=== PATIENT | male | born 1945 | race Caucasian/White ===

== ENCOUNTER → 2020-04-04 14:31 | Outpatient (BNVA) | payer MEDICARE, SELFPAY | PROVIDERS: PCP Internal Medicine; Referring Provider Internal Medicine; Visit Provider Nurse Practitioner Gerontology | DX: E11.42 Type 2 diabetes mellitus with diabetic polyneuropathy (principal); I10 Essential (primary) hypertension; E78.5 Hyperlipidemia, unspecified; Z79.4 Long term (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 insulin | CPT/HCPCS: 82947; 99214 ==

== ENCOUNTER 2020-05-20 08:59 | Outpatient (REF) | payer MEDICARE, SELFPAY ==
[2020-05-20 09:49] LABS: MANUAL DIFF FLAG NO
[2020-05-20 09:51] LABS: Basophils Absolute Auto 0.1 X10*3/uL (0.0-0.2); Basophils Percent Auto 0.8 % (0-2); Eosinophils Absolute Auto 0.4 X10*3/uL (0.0-0.4); Eosinophils Percent Auto 4.6 % (0-4); Hematocrit 49.3 % (42-52); Hemoglobin 17.1 g/dl (14.0-18.0); Imm Gran Abs Auto 0.01 X10*3/uL (0.00-0.03); Imm Gran Pct Auto 0.1 % (0.0-0.4); Lymphocytes Absolute Auto 3.6 X10*3/uL (1.2-4.9); Lymphocytes Percent Auto 39.8 % (20-40); Mean Corpuscular HGB Conc 34.7 g/dl (31.0-36.0); Mean Corpuscular Hemoglobin 32.6 pg (27.0-33.0); Mean Corpuscular Volume 93.9 fL (80-98); Mean Platelet Volume 9.2 fL (9.4-12.4); Monocytes Absolute Auto 0.8 X10*3/uL (0.1-1.2); Monocytes Percent Auto 9.2 % (2-11); Neutrophils Absolute Auto 4.1 X10*3/uL (2.0-8.3); Neutrophils Percent Auto 45.5 % (45-73); Platelet Count 191 X10*3/uL (160-400); Red Blood Count 5.25 X10*6/uL (4.60-5.80); Red Cell Distribution Width 12.3 % (11.0-16.0)
[2020-05-20 10:00] LABS: Glucose Urine UA 500 MG/DL (NEG); Leukocyte Esterase Urine NEG (NEG); Nitrite Urine NEG (NEG); PH 5.5 (5.0-8.0); Specific Gravity - Urine 1.015 (1.005-1.025); Urine Blood NEG (NEG); Urine Ketones NEG (NEG); Urine Protein NEG (NEG-TRACE)
[2020-05-20 10:03] LABS: Color Urine YELLOW
[2020-05-20 10:04] LABS: Appearance Urine CLEAR
[2020-05-20 10:07] LABS: Estimated Average Glucose 174 mg/dL; Hemoglobin A1c % 7.7 %
[2020-05-20 10:10] LABS: RBC Urine 0 /HPF (0); WBC Urine 0 /HPF (0-4)
[2020-05-20 10:14] LABS: Alanine Aminotransferase 17 U/L (0-40); Albumin Level 4.5 g/dL (3.5-5.0); Alkaline Phosphatase 96 U/L (39-117); Anion Gap 18 (12-20); Aspartate Amino Transferase 20 U/L (5-37); Bilirubin Total 1.2 mg/dL (0.0-1.0); Blood Urea Nitrogen 28 mg/dL (9-16); Calcium 9.5 mg/dL (8.4-10.2); Carbon Dioxide 26 mmol/L (22-29); Chloride 101 mmol/L (96-108); Cholesterol 101 mg/dL; Estimated Glomerular Filt Rate > 60; Glucose Fasting 131 mg/dL (60-99); HDL Cholesterol 35 mg/dL; LDL Cholesterol Calculated 48 mg/dl; Potassium 4.7 mmol/l (3.3-5.1); Sodium 140 mmol/L (135-145); Total Protein 7.1 g/dL (6.5-8.0); Triglycerides 90 mg/dL
[2020-05-20 10:25] LABS: Microalbumin Urine < 5.0 mg/L
[2020-05-20 10:30] LABS: TSH reflex Free T4 2.87 mIU/mL (0.32-4.0)
== END 2020-05-20 09:00 | disposition home or self-care (01) ==
LOC: HO.LAB 08:59
PROVIDERS: PCP Internal Medicine; Visit Provider Internal Medicine
DX: I25.10 Atherosclerotic heart disease of native coronary artery without angina pectoris (principal); E11.9 Type 2 diabetes mellitus without complications; I10 Essential (primary) hypertension; E78.5 Hyperlipidemia, unspecified; I48.0 Paroxysmal atrial fibrillation; E66.9 Obesity, unspecified
CPT/HCPCS: 36415; 80053; 80061; 81001; 82043; 83036; 84443; 85025

== ENCOUNTER → 2020-07-10 12:39 | Outpatient (BNVA) | payer MEDICARE, SELFPAY | PROVIDERS: PCP Internal Medicine; Visit Provider Nurse Practitioner Gerontology | DX: E11.42 Type 2 diabetes mellitus with diabetic polyneuropathy (principal); I10 Essential (primary) hypertension; E78.5 Hyperlipidemia, unspecified; Z79.4 Long term (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 insulin | CPT/HCPCS: Q3014 ==

== ENCOUNTER 2020-07-19 | Outpatient (REF) | payer MEDICARE, SELFPAY | END 2020-07-19 00:01 | disposition home or self-care (01) | LOC: HO.VC | PROVIDERS: Visit Provider Internal Medicine | DX: Z23 Encounter for immunization (principal) | CPT/HCPCS: 0011A ==

== ENCOUNTER 2020-07-27 12:45 | Outpatient (REF) | payer MEDICARE, SELFPAY ==
--- NOTE | ~2020-07-27 | XR_ITS ---
EXAMINATION: XR CHEST CLINICAL INFORMATION: Aortic coronary bypass graft placement. COMPARISON: Chest 11/11/2018 TECHNIQUE: 2 views of the chest were obtained. FINDINGS: The lungs are well-expanded and clear of acute process. The heart size and pulmonary vascularity is normal. There are median sternotomy sutures and mediastinal melanie from previous intervention. No gross bony abnormality seen. XR/XR chest 2V IMPRESSION: Unremarkable chest exam.
== END 2020-07-27 12:46 | disposition home or self-care (01) ==
LOC: HO.XRAY 12:45
PROVIDERS: PCP Internal Medicine; Visit Provider Internal Medicine
DX: I25.10 Atherosclerotic heart disease of native coronary artery without angina pectoris (principal); I10 Essential (primary) hypertension; E78.5 Hyperlipidemia, unspecified; Z79.82 Long term (current) use of aspirin; Z79.899 Other long term (current) drug therapy; Z86.79 Personal history of other diseases of the circulatory system; Z95.1 Presence of aortocoronary bypass graft
CPT/HCPCS: 71046; 93005; 99212

== ENCOUNTER 2020-08-16 | Outpatient (REF) | payer MEDICARE, SELFPAY | END 2020-08-16 00:01 | disposition home or self-care (01) | LOC: HO.VC | PROVIDERS: Visit Provider Internal Medicine | DX: Z23 Encounter for immunization (principal) | CPT/HCPCS: 0012A ==

== ENCOUNTER 2020-08-24 09:58 | Outpatient (REF) | payer MEDICARE, SELFPAY ==
[2020-08-24 10:47] LABS: MANUAL DIFF FLAG NO
[2020-08-24 10:49] LABS: Basophils Absolute Auto 0.1 X10*3/uL (0.0-0.2); Basophils Percent Auto 0.8 % (0-2); Eosinophils Absolute Auto 0.3 X10*3/uL (0.0-0.4); Eosinophils Percent Auto 4.5 % (0-4); Hematocrit 48.8 % (42-52); Hemoglobin 16.5 g/dl (14.0-18.0); Imm Gran Abs Auto 0.02 X10*3/uL (0.00-0.03); Imm Gran Pct Auto 0.3 % (0.0-0.4); Lymphocytes Percent Auto 39.6 % (20-40); Mean Corpuscular HGB Conc 33.8 g/dl (31.0-36.0); Mean Corpuscular Hemoglobin 32.4 pg (27.0-33.0); Mean Corpuscular Volume 95.7 fL (80-98); Mean Platelet Volume 9.3 fL (9.4-12.4); Monocytes Absolute Auto 0.6 X10*3/uL (0.1-1.2); Monocytes Percent Auto 7.3 % (2-11); Neutrophils Absolute Auto 3.6 X10*3/uL (2.0-8.3); Neutrophils Percent Auto 47.5 % (45-73); Platelet Count 175 X10*3/uL (160-400); Red Cell Distribution Width 12.3 % (11.0-16.0); White Blood Count 7.5 X10*3/uL (4.8-10.8)
[2020-08-24 11:06] LABS: Glucose Urine UA >=1000 MG/DL (NEG); Leukocyte Esterase Urine NEG (NEG); Nitrite Urine NEG (NEG); Urine Blood NEG (NEG); Urine Ketones NEG (NEG); Urine Protein NEG (NEG-TRACE)
[2020-08-24 11:11] LABS: Appearance Urine CLEAR; Color Urine YELLOW
[2020-08-24 11:18] LABS: Alanine Aminotransferase 16 U/L (0-40); Albumin Level 4.3 g/dL (3.5-5.0); Alkaline Phosphatase 88 U/L (39-117); Anion Gap 11 (12-20); Aspartate Amino Transferase 19 U/L (5-37); Bilirubin Total 0.7 mg/dL (0.0-1.0); Blood Urea Nitrogen 25 mg/dL (9-16); Calcium 9.2 mg/dL (8.4-10.2); Carbon Dioxide 30 mmol/L (22-29); Chloride 106 mmol/L (96-108); Cholesterol 116 mg/dL; Estimated Glomerular Filt Rate > 60; Glucose Fasting 153 mg/dL (60-99); HDL Cholesterol 33 mg/dL; LDL Cholesterol Calculated 62 mg/dl; Potassium 4.1 mmol/L (3.3-5.1); Sodium 143 mmol/L (135-145); Total Protein 6.5 g/dL (6.5-8.0); Triglycerides 107 mg/dL
[2020-08-24 11:28] LABS: TSH reflex Free T4 1.75 uIU/mL (0.32-4.0)
[2020-08-24 11:29] LABS: Creatinine Urine 32.61 mg/dL; Microalbumin Urine < 5.0 mg/L
[2020-08-24 11:38] LABS: Estimated Average Glucose 166 mg/dL; Hemoglobin A1c % 7.4 %
[2020-08-24 12:43] LABS: RBC Urine 0 /HPF (0); WBC Urine 0 /HPF (0-4)
== END 2020-08-24 09:59 | disposition home or self-care (01) ==
LOC: HO.LAB 09:58
PROVIDERS: PCP Internal Medicine; Visit Provider Internal Medicine
DX: I10 Essential (primary) hypertension (principal); I25.10 Atherosclerotic heart disease of native coronary artery without angina pectoris; I48.0 Paroxysmal atrial fibrillation; E11.42 Type 2 diabetes mellitus with diabetic polyneuropathy; E78.00 Pure hypercholesterolemia, unspecified; E66.9 Obesity, unspecified; Z79.4 Long term (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 insulin
CPT/HCPCS: 36415; 80053; 80061; 81001; 81003; 82043; 83036; 84443; 85025

== ENCOUNTER → 2020-10-09 14:19 | Outpatient (BNVA) | payer MEDICARE, SELFPAY | PROVIDERS: PCP Internal Medicine; Visit Provider Nurse Practitioner Gerontology | DX: E11.42 Type 2 diabetes mellitus with diabetic polyneuropathy (principal); Z79.4 Long term (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 insulin; I10 Essential (primary) hypertension; E78.5 Hyperlipidemia, unspecified | CPT/HCPCS: 82947; 99212 ==

== ENCOUNTER 2020-11-24 06:25 | Outpatient (REF) | payer MEDICARE, SELFPAY ==
[2020-11-24 07:39] LABS: MANUAL DIFF FLAG NO
[2020-11-24 07:44] LABS: Basophils Absolute Auto 0.1 X10*3/uL (0.0-0.2); Basophils Percent Auto 0.8 % (0-2); Eosinophils Absolute Auto 0.6 X10*3/uL (0.0-0.4); Eosinophils Percent Auto 7.4 % (0-4); Hematocrit 47.3 % (42-52); Hemoglobin 15.9 g/dl (14.0-18.0); Imm Gran Abs Auto 0.01 X10*3/uL (0.00-0.03); Imm Gran Pct Auto 0.1 % (0.0-0.4); Lymphocytes Absolute Auto 3.6 X10*3/uL (1.2-4.9); Lymphocytes Percent Auto 44.9 % (20-40); Mean Corpuscular HGB Conc 33.6 g/dl (31.0-36.0); Mean Corpuscular Hemoglobin 31.9 pg (27.0-33.0); Mean Corpuscular Volume 94.8 fL (80-98); Mean Platelet Volume 9.3 fL (9.4-12.4); Monocytes Absolute Auto 0.8 X10*3/uL (0.1-1.2); Monocytes Percent Auto 10.2 % (2-11); Neutrophils Absolute Auto 2.9 X10*3/uL (2.0-8.3); Neutrophils Percent Auto 36.6 % (45-73); Platelet Count 174 X10*3/uL (160-400); Red Blood Count 4.99 X10*6/uL (4.60-5.80); Red Cell Distribution Width 12.6 % (11.0-16.0)
[2020-11-24 08:03] LABS: Alanine Aminotransferase 17 U/L (0-40); Albumin Level 4.3 g/dL (3.5-5.0); Alkaline Phosphatase 82 U/L (39-117); Anion Gap 13 (12-20); Aspartate Amino Transferase 23 U/L (5-37); Bilirubin Total 0.9 mg/dL (0.0-1.0); Blood Urea Nitrogen 29 mg/dL (9-16); Calcium 9.6 mg/dL (8.4-10.2); Carbon Dioxide 31 mmol/L (22-29); Chloride 105 mmol/L (96-108); Cholesterol 110 mg/dL; Estimated Glomerular Filt Rate > 60; Glucose Fasting 103 mg/dL (60-99); HDL Cholesterol 30 mg/dL; LDL Cholesterol Calculated 63 mg/dl; Potassium 4.5 mmol/L (3.3-5.1); Sodium 144 mmol/L (135-145); Total Protein 6.5 g/dL (6.5-8.0); Triglycerides 88 mg/dL
[2020-11-24 08:23] LABS: Estimated Average Glucose 174 mg/dL; Hemoglobin A1c % 7.7 %
[2020-11-24 08:26] LABS: TSH reflex Free T4 1.56 uIU/mL (0.32-4.0)
[2020-11-24 08:50] LABS: Glucose Urine UA >=1000 MG/DL (NEG); Leukocyte Esterase Urine NEG (NEG); Nitrite Urine NEG (NEG); PH 5.5 (5.0-8.0); Urine Blood NEG (NEG); Urine Ketones NEG (NEG); Urine Protein NEG (NEG-TRACE)
[2020-11-24 08:52] LABS: Appearance Urine CLEAR; Color Urine YELLOW
[2020-11-24 09:09] LABS: RBC Urine 0 /HPF (0); Squamous Epithelial Cell Urine TRACE /LPF; WBC Urine 0 /HPF (0-4)
[2020-11-24 09:24] LABS: Creatinine Urine 18.28 mg/dL; Microalbumin Urine < 5.0 mg/L
== END 2020-11-24 06:26 | disposition home or self-care (01) ==
LOC: HO.LAB 06:25
PROVIDERS: PCP Internal Medicine; Visit Provider Internal Medicine
DX: E11.42 Type 2 diabetes mellitus with diabetic polyneuropathy (principal); I10 Essential (primary) hypertension; E78.00 Pure hypercholesterolemia, unspecified; I25.10 Atherosclerotic heart disease of native coronary artery without angina pectoris; E66.9 Obesity, unspecified; I48.0 Paroxysmal atrial fibrillation; Z79.4 Long term (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 insulin
CPT/HCPCS: 36415; 80053; 80061; 81001; 82043; 83036; 84443; 85025

== ENCOUNTER → 2021-01-10 14:56 | Outpatient (BNVA) | payer MEDICARE, SELFPAY | PROVIDERS: PCP Internal Medicine; Visit Provider Nurse Practitioner Gerontology | DX: E11.42 Type 2 diabetes mellitus with diabetic polyneuropathy (principal); I10 Essential (primary) hypertension; E78.5 Hyperlipidemia, unspecified; Z79.4 Long term (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 insulin | CPT/HCPCS: 82947; 99212 ==

== ENCOUNTER 2021-05-23 12:32 | Outpatient (REF) | payer MEDICARE, SELFPAY ==
[2021-05-23 14:08] LABS: Alanine Aminotransferase 26 U/L (0-40); Albumin Level 4.3 g/dL (3.5-5.0); Alkaline Phosphatase 79 U/L (39-117); Anion Gap 14 (12-20); Aspartate Amino Transferase 34 U/L (5-37); Bilirubin Total 0.9 mg/dL (0.0-1.0); Blood Urea Nitrogen 24 mg/dL (9-16); Calcium 9.7 mg/dL (8.4-10.2); Carbon Dioxide 25 mmol/L (22-29); Chloride 104 mmol/L (96-108); Cholesterol 92 mg/dL; Estimated Glomerular Filt Rate > 60; Glucose Fasting 253 mg/dL (60-99); HDL Cholesterol 32 mg/dL; LDL Cholesterol Calculated 42 mg/dl; Potassium 4.3 mmol/L (3.3-5.1); Sodium 139 mmol/L (135-145); Total Protein 6.8 g/dL (6.5-8.0); Triglycerides 93 mg/dL
[2021-05-23 14:27] LABS: Appearance Urine CLEAR; Color Urine STRAW; Glucose Urine UA >=1000 MG/DL (NEG); Leukocyte Esterase Urine NEG (NEG); Nitrite Urine NEG (NEG); PH 5.5 (5.0-8.0); Urine Blood NEG (NEG); Urine Ketones NEG (NEG); Urine Protein NEG (NEG-TRACE)
[2021-05-23 14:32] LABS: TSH reflex Free T4 1.04 uIU/mL (0.32-4.0)
[2021-05-23 14:43] LABS: RBC Urine 0 /HPF (0); WBC Urine 0 /HPF (0-4)
[2021-05-23 14:45] LABS: Creatinine Urine 24.38 mg/dL; Microalbumin Urine < 5.0 mg/L
== END 2021-05-23 12:33 | disposition home or self-care (01) ==
LOC: HO.LAB 12:32
PROVIDERS: Visit Provider Internal Medicine
DX: E11.42 Type 2 diabetes mellitus with diabetic polyneuropathy (principal); I10 Essential (primary) hypertension; E78.00 Pure hypercholesterolemia, unspecified; I25.10 Atherosclerotic heart disease of native coronary artery without angina pectoris; E66.9 Obesity, unspecified; I48.0 Paroxysmal atrial fibrillation; Z79.4 Long term (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 insulin
CPT/HCPCS: 36415; 80053; 80061; 81001; 82043; 84443

== ENCOUNTER → 2021-05-29 13:56 | Outpatient (BNVA) | payer MEDICARE, SELFPAY | PROVIDERS: PCP Internal Medicine; Visit Provider Nurse Practitioner Gerontology | DX: E11.42 Type 2 diabetes mellitus with diabetic polyneuropathy (principal); E78.5 Hyperlipidemia, unspecified; I10 Essential (primary) hypertension; Z79.4 Long term (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 insulin | CPT/HCPCS: 82947; 83036; 99212 ==

== ENCOUNTER → 2021-07-31 13:52 | Outpatient (BNVA) | payer MEDICARE, SELFPAY | PROVIDERS: PCP Internal Medicine; Referring Provider Internal Medicine; Visit Provider Internal Medicine | DX: I25.10 Atherosclerotic heart disease of native coronary artery without angina pectoris (principal); I48.0 Paroxysmal atrial fibrillation; I47.1 Supraventricular tachycardia; I10 Essential (primary) hypertension; E78.5 Hyperlipidemia, unspecified; Z79.82 Long term (current) use of aspirin; Z79.899 Other long term (current) drug therapy; Z95.1 Presence of aortocoronary bypass graft | CPT/HCPCS: 93005; 99212 ==

== ENCOUNTER 2021-11-19 11:40 | Outpatient (REF) | payer MEDICARE, SELFPAY ==
[2021-11-19 12:16] LABS: MANUAL DIFF FLAG NO
[2021-11-19 13:06] LABS: Appearance Urine CLEAR; Color Urine YELLOW; Glucose Urine UA >=1000 MG/DL (NEG); Leukocyte Esterase Urine NEG (NEG); Nitrite Urine NEG (NEG); PH 5.5 (5.0-8.0); Urine Blood NEG (NEG); Urine Ketones NEG (NEG); Urine Protein NEG (NEG-TRACE)
[2021-11-19 13:06] LABS: Basophils Absolute Auto 0.1 X10*3/uL (0.0-0.2); Basophils Percent Auto 0.7 % (0-2); Eosinophils Absolute Auto 0.6 X10*3/uL (0.0-0.4); Eosinophils Percent Auto 7.2 % (0-4); Hemoglobin 16.5 g/dl (14.0-18.0); Imm Gran Abs Auto 0.02 X10*3/uL (0.00-0.03); Imm Gran Pct Auto 0.2 % (0.0-0.4); Lymphocytes Absolute Auto 2.6 X10*3/uL (1.2-4.9); Lymphocytes Percent Auto 30.9 % (20-40); Mean Corpuscular HGB Conc 34.4 g/dl (31.0-36.0); Mean Corpuscular Hemoglobin 32.2 pg (27.0-33.0); Mean Corpuscular Volume 93.8 fL (80.0-98.0); Mean Platelet Volume 9.2 fL (9.4-12.4); Monocytes Absolute Auto 0.7 X10*3/uL (0.1-1.2); Monocytes Percent Auto 7.9 % (2-11); Neutrophils Absolute Auto 4.5 x10*3/uL (2.0-8.3); Neutrophils Percent Auto 53.1 % (45-73); Platelet Count 202 X10*3/uL (160-400); Red Blood Count 5.12 X10*6/uL (4.60-5.80); White Blood Count 8.5 X10*3/uL (4.8-10.8)
[2021-11-19 13:30] LABS: Estimated Average Glucose 163 mg/dL; Hemoglobin A1c % 7.3 %
[2021-11-19 13:33] LABS: Creatinine Urine 15.57 mg/dL; Microalbumin Urine < 5.0 mg/L
[2021-11-19 13:42] LABS: Alanine Aminotransferase 17 U/L (0-40); Albumin Level 4.2 g/dL (3.5-5.0); Alkaline Phosphatase 152 U/L (39-117); Anion Gap 13 (12-20); Aspartate Amino Transferase 19 U/L (5-37); Bilirubin Total 0.8 mg/dL (0.0-1.0); Blood Urea Nitrogen 22 mg/dL (9-16); Calcium 9.5 mg/dL (8.4-10.2); Carbon Dioxide 25 mmol/L (22-29); Chloride 103 mmol/L (96-108); Cholesterol 98 mg/dL; Estimated Glomerular Filt Rate > 60; Glucose Fasting 210 mg/dL (60-99); HDL Cholesterol 35 mg/dL; LDL Cholesterol Calculated 45 mg/dl; Potassium 4.2 mmol/L (3.3-5.1); Sodium 137 mmol/L (135-145); Total Protein 6.7 g/dL (6.5-8.0); Triglycerides 94 mg/dL
[2021-11-19 13:55] LABS: TSH reflex Free T4 0.93 uIU/mL (0.32-4.0); Vitamin D 25-OH Total 34.5 ng/mL (>30)
[2021-11-19 13:56] LABS: RBC Urine 0-2 /HPF (0); WBC Urine 0 /HPF (0-4)
== END 2021-11-19 11:41 | disposition home or self-care (01) ==
LOC: HO.LAB 11:40
PROVIDERS: PCP Internal Medicine; Visit Provider Internal Medicine
DX: I25.10 Atherosclerotic heart disease of native coronary artery without angina pectoris (principal); I48.0 Paroxysmal atrial fibrillation; E78.00 Pure hypercholesterolemia, unspecified; E11.9 Type 2 diabetes mellitus without complications; E55.9 Vitamin D deficiency, unspecified
CPT/HCPCS: 36415; 80053; 80061; 81001; 81003; 82043; 82306; 83036; 84443; 85025

== ENCOUNTER 2022-03-15 09:13 | Outpatient (REF) | payer MEDICARE, SELFPAY ==
[2022-03-15 09:30] LABS: MANUAL DIFF FLAG NO
[2022-03-15 09:52] LABS: Basophils Absolute Auto 0.1 X10*3/uL (0.0-0.2); Basophils Percent Auto 0.9 % (0-2); Eosinophils Absolute Auto 0.8 X10*3/uL (0.0-0.4); Hematocrit 51.7 % (42.0-52.0); Hemoglobin 17.5 g/dl (14.0-18.0); Imm Gran Abs Auto 0.01 X10*3/uL (0.00-0.03); Imm Gran Pct Auto 0.1 % (0.0-0.4); Mean Corpuscular HGB Conc 33.8 g/dl (31.0-36.0); Mean Corpuscular Hemoglobin 31.8 pg (27.0-33.0); Mean Corpuscular Volume 93.8 fL (80.0-98.0); Monocytes Absolute Auto 0.8 X10*3/uL (0.1-1.2); Monocytes Percent Auto 9.7 % (2-11); Neutrophils Absolute Auto 3.4 x10*3/uL (2.0-8.3); Neutrophils Percent Auto 42.3 % (45-73); Platelet Count 185 X10*3/uL (160-400); Red Blood Count 5.51 X10*6/uL (4.60-5.80); Red Cell Distribution Width 12.4 % (11.0-16.0); White Blood Count 8.1 X10*3/uL (4.8-10.8)
[2022-03-15 09:59] LABS: Estimated Average Glucose 160 mg/dL; Hemoglobin A1c % 7.2 %
[2022-03-15 10:11] LABS: Appearance Urine Clear; Color Urine Yellow; Glucose Urine UA >=1000 mg/dL (Negative); Leukocyte Esterase Urine Negative (Negative); Nitrite Urine Negative (Negative); PH 5.5 (5.0-9.0); Specific Gravity - Urine 1.015 (1.005-1.025); UMIC TRIGGER UACC YES; Urine Blood Negative (Negative); Urine Ketones Negative (Negative); Urine Protein Negative (Neg-Trace)
[2022-03-15 10:39] LABS: Creatinine Urine 17.84 mg/dL; Microalbumin Urine < 5.0 mg/L
[2022-03-15 10:50] LABS: Alanine Aminotransferase 27 U/L (0-40); Albumin Level 4.5 g/dL (3.5-5.0); Alkaline Phosphatase 131 U/L (39-117); Anion Gap 17 (12-20); Aspartate Amino Transferase 22 U/L (5-37); Bilirubin Total 0.5 mg/dL (0.0-1.0); Blood Urea Nitrogen 24 mg/dL (9-16); Calcium 9.6 mg/dL (8.4-10.2); Carbon Dioxide 28 mmol/L (22-29); Chloride 103 mmol/L (96-108); Cholesterol 118 mg/dL; Estimated Glomerular Filt Rate > 60; Glucose Fasting 185 mg/dL (60-99); HDL Cholesterol 38 mg/dL; LDL Cholesterol Calculated 66 mg/dl; Potassium 4.8 mmol/L (3.3-5.1); Sodium 143 mmol/L (135-145); Total Protein 7.1 g/dL (6.5-8.0); Triglycerides 71 mg/dL
[2022-03-15 11:11] LABS: TSH reflex Free T4 1.75 uIU/mL (0.32-4.0); Vitamin D 25-OH Total 29.9 ng/mL (>30)
[2022-03-15 11:50] LABS: Bacteria Urine None Seen (None Seen); Hyaline Casts Urine 0-2 /LPF (0-2); RBC Urine 0-2 /HPF (0-2); Squamous Epithelial Cell Urine 0-2 /HPF (0-2); WBC Urine 0-5 /HPF (0-5)
== END 2022-03-15 09:14 | disposition home or self-care (01) ==
LOC: HO.LAB 09:13
PROVIDERS: PCP Internal Medicine; Visit Provider Internal Medicine
DX: E78.00 Pure hypercholesterolemia, unspecified (principal); E11.9 Type 2 diabetes mellitus without complications; E55.9 Vitamin D deficiency, unspecified; I10 Essential (primary) hypertension
CPT/HCPCS: 36415; 80053; 80061; 81001; 81003; 82043; 82306; 83036; 84443; 85025

== ENCOUNTER 2022-07-15 08:33 | Outpatient (REF) | payer MEDICARE, SELFPAY ==
[2022-07-15 08:54] LABS: MANUAL DIFF FLAG NO
[2022-07-15 09:42] LABS: Appearance Urine Clear; Color Urine Yellow; Glucose Urine UA >=1000 mg/dL (Negative); Leukocyte Esterase Urine Negative (Negative); Nitrite Urine Negative (Negative); PH 5.5 (5.0-9.0); Specific Gravity - Urine >= 1.030 (1.005-1.025); UMIC TRIGGER UACC YES; Urine Blood Negative (Negative); Urine Ketones Negative (Negative); Urine Protein Negative (Neg-Trace)
[2022-07-15 09:46] LABS: Bacteria Urine None Seen (None Seen); Hyaline Casts Urine 0-2 /LPF (0-2); RBC Urine 0-2 /HPF (0-2); Squamous Epithelial Cell Urine 0-2 /HPF (0-2); WBC Urine 0-5 /HPF (0-5)
[2022-07-15 09:52] LABS: Basophils Absolute Auto 0.1 X10*3/uL (0.0-0.2); Basophils Percent Auto 0.8 % (0-2); Eosinophils Absolute Auto 0.5 X10*3/uL (0.0-0.4); Eosinophils Percent Auto 6.6 % (0-4); Hematocrit 47.8 % (42.0-52.0); Hemoglobin 16.3 g/dl (14.0-18.0); Imm Gran Abs Auto 0.02 X10*3/uL (0.00-0.03); Imm Gran Pct Auto 0.3 % (0.0-0.4); Lymphocytes Absolute Auto 3.1 X10*3/uL (1.2-4.9); Lymphocytes Percent Auto 38.3 % (20-40); Mean Corpuscular HGB Conc 34.1 g/dl (31.0-36.0); Mean Corpuscular Hemoglobin 31.7 pg (27.0-33.0); Mean Corpuscular Volume 92.8 fL (80.0-98.0); Mean Platelet Volume 9.4 fL (9.4-12.4); Monocytes Absolute Auto 0.7 X10*3/uL (0.1-1.2); Monocytes Percent Auto 8.4 % (2-11); Neutrophils Absolute Auto 3.7 x10*3/uL (2.0-8.3); Neutrophils Percent Auto 45.6 % (45-73); Platelet Count 181 X10*3/uL (160-400); Red Blood Count 5.15 X10*6/uL (4.60-5.80); Red Cell Distribution Width 12.3 % (11.0-16.0)
[2022-07-15 10:12] LABS: Creatinine Urine 73.81 mg/dL; Microalbum/Creatinine Ratio Ur 8.1 ug/mg cr
[2022-07-15 10:28] LABS: Estimated Average Glucose 180 mg/dL; Hemoglobin A1c % 7.9 %
[2022-07-15 10:35] LABS: Alanine Aminotransferase 20 U/L (0-40); Albumin Level 4.1 g/dL (3.5-5.0); Alkaline Phosphatase 105 U/L (39-117); Anion Gap 12 (12-20); Aspartate Amino Transferase 20 U/L (5-37); Bilirubin Total 0.6 mg/dL (0.0-1.0); Blood Urea Nitrogen 21 mg/dL (9-16); Calcium 9.2 mg/dL (8.4-10.2); Carbon Dioxide 27 mmol/L (22-29); Chloride 107 mmol/L (96-108); Cholesterol 117 mg/dL; Estimated Glomerular Filt Rate > 60; Glucose Fasting 191 mg/dL (60-99); HDL Cholesterol 32 mg/dL; LDL Cholesterol Calculated 72 mg/dl; Potassium 4.7 mmol/L (3.3-5.1); Sodium 141 mmol/L (135-145); Total Protein 6.3 g/dL (6.5-8.0); Triglycerides 68 mg/dL
[2022-07-15 10:39] LABS: TSH reflex Free T4 2.49 uIU/mL (0.32-4.0); Vitamin D 25-OH Total 21.9 ng/mL (>30)
== END 2022-07-15 08:34 | disposition home or self-care (01) ==
LOC: HO.LAB 08:33
PROVIDERS: PCP Internal Medicine; Visit Provider Internal Medicine
DX: E11.9 Type 2 diabetes mellitus without complications (principal); I10 Essential (primary) hypertension; E55.9 Vitamin D deficiency, unspecified; E78.00 Pure hypercholesterolemia, unspecified
CPT/HCPCS: 36415; 80053; 80061; 81001; 82043; 82306; 83036; 84443; 85025

== ENCOUNTER → 2022-09-17 14:25 | Outpatient (BNVA) | payer MEDICARE, SELFPAY | PROVIDERS: PCP Internal Medicine; Referring Provider Internal Medicine; Visit Provider Internal Medicine | DX: I25.10 Atherosclerotic heart disease of native coronary artery without angina pectoris (principal); I48.0 Paroxysmal atrial fibrillation; I47.1 Supraventricular tachycardia; I10 Essential (primary) hypertension; E78.5 Hyperlipidemia, unspecified | CPT/HCPCS: 93005; 99212 ==

== ENCOUNTER 2022-10-15 07:50 | Outpatient (REF) | payer MEDICARE, SELFPAY ==
[2022-10-15 08:08] LABS: MANUAL DIFF FLAG NO
[2022-10-15 08:43] LABS: Basophils Absolute Auto 0.1 X10*3/uL (0.0-0.2); Basophils Percent Auto 0.6 % (0-2); Eosinophils Absolute Auto 0.5 X10*3/uL (0.0-0.4); Eosinophils Percent Auto 6.4 % (0-4); Hematocrit 46.4 % (42.0-52.0); Hemoglobin 15.8 g/dl (14.0-18.0); Imm Gran Abs Auto 0.01 X10*3/uL (0.00-0.03); Imm Gran Pct Auto 0.1 % (0.0-0.4); Lymphocytes Percent Auto 37.7 % (20-40); Mean Corpuscular HGB Conc 34.1 g/dl (31.0-36.0); Mean Corpuscular Hemoglobin 32.1 pg (27.0-33.0); Mean Corpuscular Volume 94.3 fL (80.0-98.0); Mean Platelet Volume 9.1 fL (9.4-12.4); Monocytes Absolute Auto 0.7 X10*3/uL (0.1-1.2); Monocytes Percent Auto 9.2 % (2-11); Neutrophils Absolute Auto 3.6 x10*3/uL (2.0-8.3); Platelet Count 188 X10*3/uL (160-400); Red Blood Count 4.92 X10*6/uL (4.60-5.80); Red Cell Distribution Width 12.6 % (11.0-16.0); White Blood Count 7.8 X10*3/uL (4.8-10.8)
[2022-10-15 08:45] LABS: Appearance Urine Clear; Color Urine Yellow; Glucose Urine UA >=1000 mg/dL (Negative); Leukocyte Esterase Urine Negative (Negative); Nitrite Urine Negative (Negative); Specific Gravity - Urine >= 1.030 (1.005-1.025); UMIC TRIGGER UACC YES; Urine Blood Negative (Negative); Urine Ketones Negative (Negative); Urine Protein Negative (Neg-Trace)
[2022-10-15 08:54] LABS: Estimated Average Glucose 183 mg/dL
[2022-10-15 09:07] LABS: Creatinine Urine 78.48 mg/dL; Microalbum/Creatinine Ratio Ur 7.6 ug/mg cr
[2022-10-15 09:12] LABS: Bacteria Urine None Seen (None Seen); Hyaline Casts Urine 0-2 /LPF (0-2); RBC Urine 0-2 /HPF (0-2); Squamous Epithelial Cell Urine 0-2 /HPF (0-2); WBC Urine 0-5 /HPF (0-5)
[2022-10-15 09:16] LABS: Cholesterol 99 mg/dL; HDL Cholesterol 31 mg/dL; LDL Cholesterol Calculated 53 mg/dl; Triglycerides 78 mg/dL
[2022-10-15 09:32] LABS: TSH reflex Free T4 1.98 uIU/mL (0.32-4.0); Vitamin D 25-OH Total 28.9 ng/mL (>30)
== END 2022-10-15 07:51 | disposition home or self-care (01) ==
LOC: HO.LAB 07:50
PROVIDERS: PCP Internal Medicine; Visit Provider Internal Medicine
DX: E78.00 Pure hypercholesterolemia, unspecified (principal); E11.9 Type 2 diabetes mellitus without complications; E55.9 Vitamin D deficiency, unspecified; I10 Essential (primary) hypertension; R30.0 Dysuria
CPT/HCPCS: 36415; 80061; 81001; 82043; 82306; 83036; 84443; 85025

== ENCOUNTER 2022-11-26 07:34 | Outpatient (REF) | payer MEDICARE, SELFPAY | END 2022-11-26 07:35 | disposition home or self-care (01) | LOC: HO.LAB 07:34 | PROVIDERS: PCP Internal Medicine; Visit Provider Internal Medicine | DX: Z13.89 Encounter for screening for other disorder (principal) ==

== ENCOUNTER 2023-01-16 07:51 | Outpatient (REF) | payer MEDICARE, SELFPAY ==
[2023-01-16 08:30] LABS: MANUAL DIFF FLAG NO
[2023-01-16 09:00] LABS: Basophils Absolute Auto 0.1 X10*3/uL (0.0-0.2); Basophils Percent Auto 0.8 % (0-2); Eosinophils Absolute Auto 0.7 X10*3/uL (0.0-0.4); Eosinophils Percent Auto 8.5 % (0-4); Hematocrit 50.3 % (42.0-52.0); Imm Gran Abs Auto 0.02 X10*3/uL (0.00-0.03); Imm Gran Pct Auto 0.2 % (0.0-0.4); Lymphocytes Absolute Auto 3.5 X10*3/uL (1.2-4.9); Lymphocytes Percent Auto 41.4 % (20-40); Mean Corpuscular HGB Conc 33.8 g/dl (31.0-36.0); Mean Corpuscular Hemoglobin 32.3 pg (27.0-33.0); Mean Corpuscular Volume 95.6 fL (80.0-98.0); Mean Platelet Volume 9.4 fL (9.4-12.4); Monocytes Absolute Auto 0.7 X10*3/uL (0.1-1.2); Monocytes Percent Auto 8.5 % (2-11); Neutrophils Absolute Auto 3.4 x10*3/uL (2.0-8.3); Neutrophils Percent Auto 40.6 % (45-73); Platelet Count 197 X10*3/uL (160-400); Red Blood Count 5.26 X10*6/uL (4.60-5.80); Red Cell Distribution Width 12.3 % (11.0-16.0); White Blood Count 8.5 X10*3/uL (4.8-10.8)
[2023-01-16 09:18] LABS: Estimated Average Glucose 140 mg/dL; Hemoglobin A1c % 6.5 %
[2023-01-16 09:38] LABS: Alanine Aminotransferase 24 U/L (0-40); Albumin Level 4.4 g/dL (3.5-5.0); Alkaline Phosphatase 102 U/L (39-117); Anion Gap 18 (12-20); Aspartate Amino Transferase 22 U/L (5-37); Bilirubin Total 0.9 mg/dL (0.0-1.0); Blood Urea Nitrogen 29 mg/dL (9-16); Calcium 10.4 mg/dL (8.4-10.2); Carbon Dioxide 25 mmol/L (22-29); Chloride 106 mmol/L (96-108); Cholesterol 116 mg/dL; Estimated Glomerular Filt Rate > 60; Glucose Fasting 169 mg/dL (60-99); HDL Cholesterol 36 mg/dL; LDL Cholesterol Calculated 62 mg/dl; Potassium 4.4 mmol/L (3.3-5.1); Sodium 145 mmol/L (135-145); Total Protein 7.3 g/dL (6.5-8.0); Triglycerides 91 mg/dL
[2023-01-16 09:47] LABS: Appearance Urine Clear; Color Urine Yellow; Glucose Urine UA >=1000 mg/dL (Negative); Leukocyte Esterase Urine Negative (Negative); Nitrite Urine Negative (Negative); PH 5.5 (5.0-9.0); Specific Gravity - Urine 1.025 (1.005-1.025); UMIC TRIGGER UACC YES; Urine Blood Negative (Negative); Urine Ketones Negative (Negative); Urine Protein Negative (Neg-Trace)
[2023-01-16 09:58] LABS: TSH reflex Free T4 1.79 uIU/mL (0.32-4.0); Vitamin D 25-OH Total 39.4 ng/mL (>30)
[2023-01-16 10:02] LABS: Folate 13.9 ng/mL (> or = 4.0); Vitamin B12 324 pg/mL (200-900)
[2023-01-16 11:09] LABS: Microalbumin Urine < 5.0 mg/L
[2023-01-16 11:17] LABS: Bacteria Urine None Seen (None Seen); Hyaline Casts Urine 0-2 /LPF (0-2); RBC Urine 0-2 /HPF (0-2); Squamous Epithelial Cell Urine 0-2 /HPF (0-2); WBC Urine 0-5 /HPF (0-5)
== END 2023-01-16 07:52 | disposition home or self-care (01) ==
LOC: HO.LAB 07:51
PROVIDERS: PCP Internal Medicine; Visit Provider Internal Medicine
DX: I10 Essential (primary) hypertension (principal); E53.8 Deficiency of other specified B group vitamins; E55.9 Vitamin D deficiency, unspecified; E11.9 Type 2 diabetes mellitus without complications; E78.00 Pure hypercholesterolemia, unspecified
CPT/HCPCS: 36415; 80053; 80061; 81001; 82043; 82306; 82607; 82746; 83036; 84443; 85025

== ENCOUNTER 2023-01-27 14:01 | Outpatient (AMB) | payer MEDICARE, SELFPAY ==
[2023-01-27 14:02] VITALS: BP 120/64; PULSE 58; O2SAT 93; BMI 31.1
--- NOTE | 2023-01-27 14:02 | MHC.PC.OV ---
Vital Signs 01/27/23 14:02 Height 6 ft 1 in Weight 236 lb BMI 31.1 BP 120/64 Blood Pressure Location Lt brachial Position Sitting Pulse 58 Pulse Source Pulse Oximeter Pulse Oximetry (%) 93 Oxygen Delivery Method Room Air Intake Visit Reasons: DM, hyperlipidemia, HTN Computational Physicist Required: No Accompanied by: Self / Same As Patient Allergies No Known Allergies [No Known Allergies*] Allergy (Verified 01/27/23 14:17) Medication List - Last Reconciled 01/27/23 by Andi Duff MD aspirin (Le Low Dose Aspirin) 81 mg PO DAILY atorvastatin 80 mg PO DAILY blood sugar diagnostic (FreeStyle Lite Strips) 1 strip miscellaneous TID 90 days cholecalciferol (vitamin D3) 50 mcg PO DAILY 90 days empagliflozin (Jardiance) 25 mg PO DAILY furosemide 40 mg PO DAILY 90 days insulin glargine (Lantus Solostar U-100 Insulin) 14 units subcut QPM insulin lispro (Humalog KwikPen (U-100) Insulin) 7 u breakfast, 10 u lunch and 12 units with dinner subcut 3 times a day; lancets (FreeStyle Lancets) 1 gauge topical TID losartan 50 mg PO DAILY meclizine 25 mg PO TID PRN metformin 1,000 mg (2 x 500 mg) PO BID metoprolol succinate ER 100 mg PO DAILY 90 days pen needle, diabetic (BD [place] 2nd Gen Pen Needle) 1 ea miscellaneous QID potassium chloride ER 20 mEq (2 x 10 mEq) PO DAILY 90 days Tobacco use date assessed: 01/27/23 Fall risk assessment: No Falls in past year Last assessed Fall Risk: 01/27/23 Dental Screening Dental Screen Date: 01/27/23 Did you have a dental visit in the last 12 months?: Yes Did you have a dental problem in the last 6 months where you did not have access to dental care?: No Was dental information given to patient?: Patient has dentist HPI DM, hyperlipidemia, HTN HPI Details Patient comes in today for his follow up visit States that he feels okay He denies any headaches or dizziness Denies any chest pains, no SOB No nausea/vomiting, no abdominal pain No change in bowel habits noted Had his follow up labs done a couple of weeks ago - to discuss his results [facility] Medical History Atherosclerotic cardiovascular disease Benign essential hypertension Benign prostate hyperplasia Bilateral knee pain CAD (coronary artery disease) Chronic bronchitis Coronary artery disease Essential hypertension Hyperlipidemia LDL goal <70 Insomnia Lumbar disc disease Obesity (BMI 30-39.9) Paroxysmal atrial fibrillation Pure hypercholesterolemia SVT (supraventricular tachycardia) Type 2 diabetes mellitus with diabetic polyneuropathy Vitamin D deficiency Surgical History Hx of CABG Hx of colonoscopy (~02/24/17) Family History Brother Diabetes Father No problems noted. Mother No problems noted. Social History Household Members: Family Housing: House Alcohol intake: former Patient Tobacco Use Status: Former Tobacco user e-Cigarette/Vaping Use: Never Used Second Hand Smoke Exposure: Yes service: Yes ([employer]) Current occupational status: retired Cognitive needs: No Hearing needs: No Vision needs: Yes Questionnaire PHQ-9 Over the last 2 weeks, how often have you been bothered by any of the following problems? 1. Little interest or pleasure in doing things: not at all 2. Feeling down, depressed, or hopeless: not at all 3. Trouble falling or staying asleep, or sleeping too much: not at all 4. Feeling tired or having little energy: not at all 5. Poor appetite or overeating: not at all 6. Feeling bad about yourself - or that you are a failure or have let yourself or your family down: not at all 7. Trouble concentrating on things, such as reading the newspaper or watching television: not at all 8. Moving or speaking so slowly that other people could have noticed. Or the opposite - being so fidgety or restless that you have been moving around a lot more than usual: not at all 9. Thoughts that you would be better off or of hurting yourself in some way: not at all Total score: 0 Depression Screening Interpretation: Negative [id number] - PHQ-9 Billing: Yes Source: Developed by Drs. Maciel Lincoln, Carissa Del Rio, Jerome Barrientos and colleagues, with an educational derrell from [employer]. Thrive Questionnaire Date Thrive assessed: 01/27/23 I am a: Patient What is your living situation today?: I have a steady place to live Within the past 12 months, did the food you bought not last and you didn't have the money to get more?: Never true Within the past 12 months, did you worry whether your food would run out before you got money to buy more?: Never true Do you have trouble paying for medicines?: No Do you have trouble getting transportation to medical appointments?: No Do you have trouble paying your heating and electricity bill?: No Do you have trouble taking care of your child, family member or friend?: No Do you have trouble with day-to-day activities such as bathing, preparing meals, shopping, managing finances, etc.?: No Are you currently unemployed and looking for a job?: No Are you interested in more education?: No Please select the resources that you would like help with: None Currently or been in a relationship where the following occur: no concerns reported AUDIT C Alcohol Use Questionnaire (AUDIT-C) 1. How often do you have a drink containing alcohol?: Never 3. How often do you have six or more drinks on one occasion?: Never Total Score: 0 Score Reviewed/Action Taken: Yes ADRIÁN-7 AMB Questionnaire ADRIÁN-7 Date ADRIÁN - 7 assessed: 01/27/23 Feeling nervous, anxious, or on edge: 0 = Not at all Not being able to stop or control worryin = Not at all Worrying too much about different things: 0 = Not at all Trouble relaxin = Not at all Being so restless that it is hard to sit still: 0 = Not at all Becoming easily annoyed or irritable: 0 = Not at all Feeling afraid as if something awful might happen: 0 = Not at all Total ADRIÁN-7 score (0-4 normal; 5-9 mild; 10-14 moderate; 15-21 severe): 0 Source: Developed by Drs. Maciel Lincoln, Carissa Del Rio, Jerome Barrientos and colleagues, with an educational derrell from [employer]. Review of Systems Const Denies chills, Denies fatigue, Denies fever(s) and Denies headache(s) ENT Denies dysphagia, Denies dizziness, Denies otalgia, Denies headache(s), Denies neck pain, Denies odynophagia and Denies sore throat Card Denies chest pain, Denies rapid heart rate, Denies irregular heart rhythm, Denies palpitations and Denies dyspnea Resp Denies chest congestion, Denies cough, Denies dyspnea and Denies wheezing GI Denies abdominal pain, Denies constipation, Denies dysphagia, Denies heartburn, Denies diarrhea, Denies nausea, Denies odynophagia and Denies vomiting Denies difficulty urinating, Denies dysuria and Denies urinary frequency Musc Denies back pain, Denies arthralgias and Denies neck pain Skin/Breast Denies rash Neuro Denies dizziness, Denies headache(s) and Denies paresthesias Endo Denies fatigue and Denies palpitations Aller/Immun Denies wheezing Physical exam (Primary Care) Vital Signs: Last Vital Signs Pulse 58 01/27/23 14:02 BP 120/64 01/27/23 14:02 Pulse Ox 93 01/27/23 14:02 Oxygen Delivery Method Room Air 01/27/23 14:02 BMI result Body Mass Index 31.1 Tobacco/Smoking Status: Tobacco use Status Tobacco use date assessed 01/27/23 01/27/23 14:10 Patient Tobacco Use Status Former Tobacco user 01/27/23 14:10 e-Cigarette/Vaping Use Never Used 01/27/23 14:10 PHQ-9: PHQ-9 Score PHQ-9: Total score 0 01/27/23 14:10 Depression Screening Interpretation: Negative Thrive Assessment: Date of Thrive Assessment Date Thrive assessed 01/27/23 01/27/23 14:10 Currently or been in a relationship where the following occur: no concerns reported Const General: no acute distress and alert HENMT Ears: TM's normal bilaterally and EAC's normal Throat: Yes posterior oropharynx normal and Yes tonsils normal (no TP congestion) Neck Neck: Yes no lymphadenopathy and Yes supple Thyroid: Thyroid normal Resp Auscultation: clear to auscultation bilaterally, no rales and no wheezes Cardio Rate: regular rate Rhythm: regular rhythm Heart sounds: no murmurs GI Palpation (GI): Soft to palpation and nontender Auscultation: normal bowel sounds General: Yes no CVA tenderness Back/Spine/Pelvis Back: no CVA tenderness Skin Rashes: no rashes Extrem General: Yes no clubbing, cyanosis or edema Results Reviewed Results Reviewed: Laboratory Tests 01/16/23 01/16/23 01/16/23 08:03 08:18 08:18 WBC 8.5 Hgb 17.0 Hct 50.3 Plt Count 197 Sodium Potassium Creatinine Estimated GFR Fasting Glucose Hemoglobin A1c % 6.5 Calcium AST ALT Triglycerides Cholesterol LDL Cholesterol, Calc HDL Cholesterol Vitamin B12 25-OH Vitamin D Total TSH Ur Specific [place] 1.025 Urine Protein Negative Urine Glucose (UA) >=1000 H Urine Blood Negative 01/16/23 01/16/23 08:18 08:25 WBC Hgb Hct Plt Count Sodium 145 Potassium 4.4 Creatinine 1.04 Estimated GFR > 60 Fasting Glucose 169 H Hemoglobin A1c % Calcium 10.4 H D AST 22 ALT 24 Triglycerides 91 Cholesterol 116 LDL Cholesterol, Calc 62 HDL Cholesterol 36 Vitamin B12 324 25-OH Vitamin D Total 39.4 TSH 1.79 Ur Specific [place] Urine Protein Urine Glucose (UA) Urine Blood Assessment and Plan Assessment & Plan (1) Coronary artery disease: Comment: S/P CABG x 4 at [facility] in 03/2018 Code(s): I25.10 - Atherosclerotic heart disease of [place] coronary artery without angina pectoris Qualifiers: Coronary Disease-Associated Artery/Lesion type: [place] artery [place] vs. transplanted heart: [place] heart Associated angina: without angina Qualified Code(s): I25.10 - Atherosclerotic heart disease of [place] coronary artery without angina pectoris Plan: Patient currently remains asymptomatic from a cardiac standpoint Continue Aspirin 81 mg QD Follow up with cardiology as scheduled. (2) Paroxysmal atrial fibrillation: Code(s): I48.0 - Paroxysmal atrial fibrillation Plan: Patient currently remains in sinus rhythm with no recurrence of arrhythmia recently Was on Amiodarone and Coumadin but these were discontinued by cardiology last year; is currently just on low dose Aspirin daily Follow up with cardiology as scheduled (3) Pure hypercholesterolemia: Code(s): E78.00 - Pure hypercholesterolemia, unspecified Plan: Results of his labs done a couple of weeks ago reviewed and discussed with patient Reinforced low cholesterol diet Continue Atorvastatin 80 mg QD Will recheck his labs in 4 months for follow up (4) Type 2 diabetes mellitus with diabetic polyneuropathy: Code(s): E11.42 - Type 2 diabetes mellitus with diabetic polyneuropathy Qualifiers: 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 Qualified Code(s): E11.42 - Type 2 diabetes mellitus with diabetic polyneuropathy; Z79.4 - 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 accountant (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 insulin Plan: HgbA1c was at 6.5% on his labs done a couple of weeks ago (was previously at 8.0% a few months ago) - goal is <7.0% Reinforced diabetic diet Continue Jardiance 25 mg QD and Humalog 7 units before breakfast and 10 units before lunch and 12 units before dinner Continue Lantus 14 units Q HS Follow up with endocrinology as scheduled (5) Benign essential hypertension: Code(s): I10 - Essential (primary) hypertension Plan: Reinforced low sodium diet - goal is systolic BP of at least 130 to 140 mm or less Continue Metoprolol ER 100 mg QD, Furosemide 40 mg QD and Losartan 50 mg QD (6) Vitamin D deficiency: Code(s): E55.9 - Vitamin D deficiency, unspecified Plan: Continue Vitamin D3 2000 units QD (7) Heartburn: Code(s): R12 - Heartburn Plan: Reinforced dietary restrictions to minimize aggravating his symptoms If symptoms persist, can take OTC Pepcid PRN and instructed to call for further instructions then (8) Benign prostate hyperplasia: Comment: 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 due to problems with urinary retention in the past Code(s): N40.0 - Benign prostatic hyperplasia without lower urinary tract symptoms Qualifiers: Lower urinary tract symptom presence: symptoms absent Qualified Code(s): N40.0 - Benign prostatic hyperplasia without lower urinary tract symptoms Plan: Follow up with urology as scheduled Continue Terazosin 2 mg Q HS - states that he only has to get up to go to the bathroom once a night now with the Rx (was going at least 6 to 7 times in the past) (9) Obesity (BMI 30-39.9): Code(s): E66.9 - Obesity, unspecified Plan: Reinforced diet/exercise as tolerated/lose weight Plan Follow up in 4 months Orders: Orders Comprehensive Ethel. Panel Fast 4 Months E78.00 - Pure hypercholesterolemia, unspecified Hemoglobin A1c 4 Months E11.9 - Type 2 diabetes mellitus without complications Lipid Panel 4 Months E78.00 - Pure hypercholesterolemia, unspecified TSH reflex Free T4 4 Months E78.00 - Pure hypercholesterolemia, unspecified Vitamin D 25-OH Total 4 Months E55.9 - Vitamin D deficiency, unspecified Microalbumin, Random (w Creat) 4 Months E11.9 - Type 2 diabetes mellitus without complications Complete Blood Count Auto Diff 4 Months I10 - Essential (primary) hypertension UA CC w/rflx Micro + Cult 4 Months R30.0 - Dysuria Coding Level of Care Code Est Pt Level 4 (44451) Diagnoses Coronary artery disease I25.10 Coronary Disease-Associated Artery/Lesion type: [place] artery [place] vs. 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
== END 2023-01-27 14:52 | disposition home or self-care (01) ==
PROVIDERS: PCP Internal Medicine; Visit Provider Internal Medicine
DX: E11.42 Type 2 diabetes mellitus with diabetic polyneuropathy (principal); Z79.4 Long term (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 insulin; I10 Essential (primary) hypertension; E55.9 Vitamin D deficiency, unspecified; I48.0 Paroxysmal atrial fibrillation; I25.10 Atherosclerotic heart disease of native coronary artery without angina pectoris; E78.00 Pure hypercholesterolemia, unspecified; R12 Heartburn; N40.0 Benign prostatic hyperplasia without lower urinary tract symptoms; E66.9 Obesity, unspecified
CPT/HCPCS: 99214

== ENCOUNTER 2023-05-22 07:42 | Outpatient (REF) | payer MEDICARE, SELFPAY ==
[2023-05-22 08:04] LABS: MANUAL DIFF FLAG NO
[2023-05-22 09:00] LABS: Appearance Urine Clear; Color Urine Yellow; Glucose Urine UA >=1000 mg/dL (Negative); Leukocyte Esterase Urine Negative (Negative); Nitrite Urine Negative (Negative); PH 5.5 (5.0-9.0); Specific Gravity - Urine >= 1.030 (1.005-1.025); UMIC TRIGGER UACC YES; Urine Blood Negative (Negative); Urine Ketones Trace mg/dL (Negative); Urine Protein Negative (Neg-Trace)
[2023-05-22 09:01] LABS: Basophils Absolute Auto 0.1 X10*3/uL (0.0-0.2); Basophils Percent Auto 0.7 % (0-2); Eosinophils Absolute Auto 0.6 X10*3/uL (0.0-0.4); Eosinophils Percent Auto 7.1 % (0-4); Hematocrit 46.6 % (42.0-52.0); Hemoglobin 15.7 g/dl (14.0-18.0); Imm Gran Abs Auto 0.02 X10*3/uL (0.00-0.03); Imm Gran Pct Auto 0.2 % (0.0-0.4); Lymphocytes Absolute Auto 3.2 X10*3/uL (1.2-4.9); Lymphocytes Percent Auto 38.9 % (20-40); Mean Corpuscular HGB Conc 33.7 g/dl (31.0-36.0); Mean Corpuscular Hemoglobin 32.6 pg (27.0-33.0); Mean Corpuscular Volume 96.7 fL (80.0-98.0); Mean Platelet Volume 9.5 fL (9.4-12.4); Monocytes Absolute Auto 0.7 X10*3/uL (0.1-1.2); Monocytes Percent Auto 8.6 % (2-11); Neutrophils Absolute Auto 3.6 x10*3/uL (2.0-8.3); Neutrophils Percent Auto 44.5 % (45-73); Platelet Count 178 X10*3/uL (160-400); Red Blood Count 4.82 X10*6/uL (4.60-5.80); Red Cell Distribution Width 12.5 % (11.0-16.0); White Blood Count 8.2 X10*3/uL (4.8-10.8)
[2023-05-22 09:06] LABS: Estimated Average Glucose 148 mg/dL; Hemoglobin A1c % 6.8 % (<6.0)
[2023-05-22 09:21] LABS: Creatinine Urine 97.96 mg/dL; Microalbum/Creatinine Ratio Ur 6.1 ug/mg cr (<30)
[2023-05-22 09:25] LABS: Alanine Aminotransferase 23 U/L (0-40); Albumin Level 4.1 g/dL (3.5-5.0); Alkaline Phosphatase 104 U/L (39-117); Anion Gap 14 (12-20); Aspartate Amino Transferase 26 U/L (5-37); Bilirubin Total 0.7 mg/dL (0.0-1.0); Blood Urea Nitrogen 25 mg/dL (9-16); Calcium 9.2 mg/dL (8.4-10.2); Carbon Dioxide 24 mmol/L (22-29); Chloride 106 mmol/L (96-108); Cholesterol 90 mg/dL (<200); Estimated Glomerular Filt Rate > 60; Glucose Fasting 157 mg/dL (60-99); HDL Cholesterol 29 mg/dL (>40); LDL Cholesterol Calculated 46 mg/dL (<100); Sodium 140 mmol/L (135-145); Total Protein 6.8 g/dL (6.5-8.0); Triglycerides 79 mg/dL (<150)
[2023-05-22 09:40] LABS: TSH reflex Free T4 1.53 uIU/mL (0.32-4.0); Vitamin D 25-OH Total 35.7 ng/mL (>30)
[2023-05-22 09:45] LABS: Bacteria Urine None Seen (None Seen); Hyaline Casts Urine 0-2 /LPF (0-2); RBC Urine 0-2 /HPF (0-2); Squamous Epithelial Cell Urine 0-2 /HPF (0-2); WBC Urine 0-5 /HPF (0-5)
== END 2023-05-22 07:43 | disposition home or self-care (01) ==
LOC: HO.LAB 07:42
PROVIDERS: PCP Internal Medicine; Visit Provider Internal Medicine
DX: E11.9 Type 2 diabetes mellitus without complications (principal); E78.00 Pure hypercholesterolemia, unspecified; E55.9 Vitamin D deficiency, unspecified; I10 Essential (primary) hypertension
CPT/HCPCS: 36415; 80053; 80061; 81001; 81003; 82043; 82306; 82570; 83036; 84443; 85025

== ENCOUNTER 2023-05-29 11:28 | Outpatient (AMB) | payer MEDICARE, SELFPAY ==
[2023-05-29 11:32] VITALS: BP 140/90; PULSE 55; O2SAT 94; BMI 31.0
--- NOTE | 2023-05-29 11:32 | A.OFFPC_ITS ---
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 Required: No Accompanied by: Self / Same As Patient Allergies No Known Allergies [No Known Allergies*] Allergy (Verified 05/29/23 12:30) Medication List - Last Reconciled 05/29/23 by Andi Duff MD aspirin (Le Low Dose Aspirin) 81 mg PO DAILY atorvastatin 80 mg PO DAILY blood sugar diagnostic (FreeStyle Lite Strips) 1 strip miscellaneous TID 90 days cholecalciferol (vitamin D3) 50 mcg PO DAILY 90 days empagliflozin (Jardiance) 25 mg PO DAILY furosemide 40 mg PO DAILY 90 days insulin glargine (Lantus Solostar U-100 Insulin) 14 units (0.14 mL) subcut QPM insulin lispro (Humalog KwikPen (U-100) Insulin) 7 u breakfast, 10 u lunch and 12 units with dinner subcut 3 times a day; lancets (FreeStyle Lancets) 1 gauge topical TID losartan 50 mg PO DAILY meclizine 25 mg PO TID PRN metformin 1,000 mg (2 x 500 mg) PO BID metoprolol succinate ER 100 mg PO DAILY 90 days pen needle, diabetic (BD [employer] 2nd Gen Pen Needle) 1 ea miscellaneous QID potassium chloride ER 20 mEq (2 x 10 mEq) PO DAILY 90 days Tobacco use date assessed: 05/29/23 Fall risk assessment: No Falls in past year Last assessed Fall Risk: 05/29/23 Dental Screening Dental Screen Date: 05/29/23 Did you have a dental visit in the last 12 months?: Yes Did you have a dental problem in the last 6 months where you did not have access to dental care?: No Was dental information given to patient?: Patient has dentist HPI DM, hyperlipidemia, HTN, CAD HPI Details Patient comes in today for his follow up visit States that he feels okay He denies any headaches or dizziness Denies any chest pains, no SOB No nausea/vomiting, no abdominal pain No change in bowel habits noted Had his follow up labs done last week - to discuss his results PFSH Medical History Vitamin D deficiency Bilateral knee pain SVT (supraventricular tachycardia) Atherosclerotic cardiovascular disease Insomnia Obesity (BMI 30-39.9) Benign prostate hyperplasia Paroxysmal atrial fibrillation Coronary artery disease Pure hypercholesterolemia Benign essential hypertension Chronic bronchitis Lumbar disc disease CAD (coronary artery disease) Type 2 diabetes mellitus with diabetic polyneuropathy Essential hypertension Hyperlipidemia LDL goal <70 Surgical History Hx of colonoscopy (~02/24/17) Hx of CABG Family History Brother Diabetes Father No problems noted. Mother No problems noted. Social History Household Members: Family Housing: House Alcohol intake: former Patient Tobacco Use Status: Former Tobacco user e-Cigarette/Vaping Use: Never Used Second Hand Smoke Exposure: Yes service: Yes ([employer]) Current occupational status: retired Cognitive needs: No Hearing needs: No Vision needs: Yes Questionnaire PHQ-9 Over the last 2 weeks, how often have you been bothered by any of the following problems? 1. Little interest or pleasure in doing things: not at all 2. Feeling down, depressed, or hopeless: not at all 3. Trouble falling or staying asleep, or sleeping too much: not at all 4. Feeling tired or having little energy: not at all 5. Poor appetite or overeating: not at all 6. Feeling bad about yourself - or that you are a failure or have let yourself or your family down: not at all 7. Trouble concentrating on things, such as reading the newspaper or watching television: not at all 8. Moving or speaking so slowly that other people could have noticed. Or the opposite - being so fidgety or restless that you have been moving around a lot more than usual: not at all 9. Thoughts that you would be better off or of hurting yourself in some way : not at all Total score: 0 Depression Screening Interpretation: Negative Depression Screening Done: Yes 60063 - PHQ-9 Billing: Yes Source: Developed by Drs. Maciel L. Carissa Lincoln Kurt Kroenke and colleagues, with an educational derrell from [employer]. Thrive Questionnaire Date Thrive assessed: 05/29/23 I am a: Patient What is your living situation today?: I have a steady place to live Within the past 12 months, did the food you bought not last and you didn't have the money to get more?: Never true Within the past 12 months, did you worry whether your food would run out before you got money to buy more?: Never true Do you have trouble paying for medicines?: No Do you have trouble getting transportation to medical appointments?: No Do you have trouble paying your heating and electricity bill?: No Do you have trouble taking care of your child, family member or friend?: No Do you have trouble with day-to-day activities such as bathing, preparing meals, shopping, managing finances, etc.?: No Are you currently unemployed and looking for a job?: No Are you interested in more education?: No Please select the resources that you would like help with: None Currently or been in a relationship where the following occur: no concerns reported AUDIT C Alcohol Use Questionnaire (AUDIT-C) 1. How often do you have a drink containing alcohol?: Never 3. How often do you have six or more drinks on one occasion?: Never Total Score: 0 Score Reviewed/Action Taken: Yes ADRIÁN-7 AMB Questionnaire ADRIÁN-7 Date ADRIÁN - 7 assessed: 05/29/23 Feeling nervous, anxious, or on edge: 0 = Not at all Not being able to stop or control worryin = Not at all Worrying too much about different things: 0 = Not at all Trouble relaxin = Not at all Being so restless that it is hard to sit still: 0 = Not at all Becoming easily annoyed or irritable: 0 = Not at all Feeling afraid as if something awful might happen: 0 = Not at all Total ADRIÁN-7 score (0-4 normal; 5-9 mild; 10-14 moderate; 15-21 severe): 0 Source: Developed by Drs. Maciel Lincoln, Jerome Vera and colleagues, with an educational derrell from [employer]. Review of Systems Const Denies chills, Denies fatigue, Denies fever(s) and Denies headache(s) ENT Denies dysphagia, Denies dizziness, Denies otalgia, Denies headache(s), Denies neck pain, Denies odynophagia and Denies sore throat Card Denies chest pain, Denies rapid heart rate, Denies irregular heart rhythm, Denies palpitations and Denies dyspnea Resp Denies chest congestion, Denies cough, Denies dyspnea and Denies wheezing GI Denies abdominal pain, Denies constipation, Denies dysphagia, Denies heartburn, Denies diarrhea, Denies nausea, Denies odynophagia and Denies vomiting Denies difficulty urinating, Denies dysuria and Denies urinary frequency Musc Details: (+) pain over the left heel/Achilles tendon Denies back pain, Denies arthralgias and Denies neck pain Skin/Breast Denies rash Neuro Denies dizziness, Denies headache(s) and Denies paresthesias Endo Denies fatigue and Denies palpitations Aller/Immun Denies wheezing Physical exam (Primary Care) Vital Signs: Last Vital Signs Pulse 55 05/29/23 11:32 BP 140/90 H 05/29/23 11:32 Pulse Ox 94 05/29/23 11:32 Oxygen Delivery Method Room Air 05/29/23 11:32 BMI result Body Mass Index 31.0 Tobacco/Smoking Status: Tobacco use Status Tobacco use date assessed 05/29/23 05/29/23 11:33 Patient Tobacco Use Status Former Tobacco user 05/29/23 11:33 e-Cigarette/Vaping Use Never Used 05/29/23 11:33 PHQ-9: PHQ-9 Score PHQ-9: Total score 0 05/29/23 11:45 Depression Screening Interpretation: Negative Thrive Assessment: Date of Thrive Assessment Date Thrive assessed 05/29/23 05/29/23 11:33 Currently or been in a relationship where the following occur: no concerns reported Const General: no acute distress and alert HENMT Ears: TM's normal bilaterally and EAC's normal Throat: Yes posterior oropharynx normal and Yes tonsils normal (no TP congestion) Neck Neck: Yes no lymphadenopathy and Yes supple Thyroid: Thyroid normal Resp Auscultation: clear to auscultation bilaterally, no rales and no wheezes Cardio Rate: regular rate Rhythm: regular rhythm Heart sounds: no murmurs GI Palpation (GI): Soft to palpation and nontender Auscultation: normal bowel sounds General: Yes no CVA tenderness Back/Spine/Pelvis Back: no CVA tenderness Skin Rashes: no rashes Extrem General: Yes no clubbing, cyanosis or edema Results Reviewed Results Reviewed: Laboratory Tests 05/22/23 05/22/23 05/22/23 07:55 07:55 08:02 WBC 8.2 Hgb 15.7 Hct 46.6 Plt Count 178 Sodium 140 Potassium 4.0 Creatinine 0.97 Estimated GFR > 60 Fasting Glucose 157 H Hemoglobin A1c % 6.8 H Calcium 9.2 D AST 26 ALT 23 Triglycerides 79 Cholesterol 90 LDL Cholesterol, Calc HDL Cholesterol 25-OH Vitamin D Total 35.7 TSH 1.53 Ur Specific [place] >= 1.030 H Urine Protein Negative Urine Glucose (UA) >=1000 H Urine Blood Negative Microalb/Creat Ratio 6.1 05/22/23 08:02 WBC Hgb Hct Plt Count Sodium Potassium Creatinine Estimated GFR Fasting Glucose Hemoglobin A1c % Calcium AST ALT Triglycerides Cholesterol LDL Cholesterol, Calc 46 HDL Cholesterol 29 L 25-OH Vitamin D Total TSH Ur Specific [place] Urine Protein Urine Glucose (UA) Urine Blood Microalb/Creat Ratio Assessment and Plan Assessment & Plan (1) Coronary artery disease: Comment: S/P CABG x 4 at [facility] in 03/2018 Code(s): I25.10 - Atherosclerotic heart disease of [place] coronary artery without angina pectoris Qualifiers: Coronary Disease-Associated Artery/Lesion type: [place] artery [place] vs. transplanted heart: [place] heart Associated angina: without angina Qualified Code(s): I25.10 - Atherosclerotic heart disease of [place] coronary artery without angina pectoris Plan: Patient currently remains asymptomatic from a cardiac standpoint Continue Aspirin 81 mg QD Follow up with cardiology as scheduled. (2) Paroxysmal atrial fibrillation: Code(s): I48.0 - Paroxysmal atrial fibrillation Plan: Patient currently remains in sinus rhythm with no recurrence of arrhythmia recently Was on Amiodarone and Coumadin but these were discontinued by cardiology last year; is currently just on low dose Aspirin daily Follow up with cardiology as scheduled (3) Pure hypercholesterolemia: Code(s): E78.00 - Pure hypercholesterolemia, unspecified Plan: Results of his labs done last week reviewed and discussed with patient Reinforced low cholesterol diet Continue Atorvastatin 80 mg QD Will recheck his labs and fasting lipids in 4 months for follow up (4) Type 2 diabetes mellitus with diabetic polyneuropathy: Code(s): E11.42 - Type 2 diabetes mellitus with diabetic polyneuropathy Qualifiers: Diabetes mellitus usp insulin 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: with 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 Qualified Code(s): E11.42 - Type 2 diabetes mellitus with diabetic polyneuropathy; Z79.4 - residential (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 insulin Plan: HgbA1c was at 6.8% on his labs done last week (was previously at 6.5% a few months ago) - goal is <7.0% Reinforced diabetic diet Continue Jardiance 25 mg QD and Humalog 7 units before breakfast and 10 units before lunch and 12 units before dinner Continue Lantus 14 units Q HS Follow up with endocrinology as scheduled (5) Benign essential hypertension: Code(s): I10 - Essential (primary) hypertension Plan: Reinforced low sodium diet - goal is systolic BP of at least 130 to 140 mm or less Continue Metoprolol ER 100 mg QD, Furosemide 40 mg QD and Losartan 50 mg QD (6) Vitamin D deficiency: Code(s): E55.9 - Vitamin D deficiency, unspecified Plan: Continue Vitamin D3 2000 units QD (7) Heartburn: Code(s): R12 - Heartburn Plan: Reinforced dietary restrictions to minimize aggravating his symptoms If symptoms persist, can take OTC Pepcid PRN and instructed to call for further instructions then (8) Benign prostate hyperplasia: Comment: 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 due to problems with urinary retention in the past Code(s): N40.0 - Benign prostatic hyperplasia without lower urinary tract symptoms Qualifiers: Lower urinary tract symptom presence: symptoms absent Qualified Code(s): N40.0 - Benign prostatic hyperplasia without lower urinary tract symptoms Plan: Follow up with urology as scheduled Used to take Terazosin 2 mg Q HS but stopped taking this a while back - states that he no longer has nocturia and symptoms have not changed since he stopped taking the Rx (9) Obesity (BMI 30-39.9): Code(s): E66.9 - Obesity, unspecified Plan: Reinforced diet/exercise as tolerated/lose weight Plan Follow up in 4 months Orders: Orders Complete Blood Count Auto Diff 4 Months I10 - Essential (primary) hypertension Lipid Panel 4 Months E78.00 - Pure hypercholesterolemia, unspecified TSH reflex Free T4 4 Months E78.00 - Pure hypercholesterolemia, unspecified UA CC w/rflx Micro + Cult 4 Months R30.0 - Dysuria Microalbumin, Random (w Creat) 4 Months E11.9 - Type 2 diabetes mellitus without complications Hemoglobin A1c 4 Months E11.9 - Type 2 diabetes mellitus without complications Comprehensive [place]. Panel Fast 4 Months E78.00 - Pure hypercholesterolemia, unspecified Vitamin D 25-OH Total 4 Months E55.9 - Vitamin D deficiency, unspecified Coding Level of Care Code Est Pt Level 4 (99090) Diagnoses Coronary artery disease involving [place] coronary artery of [place] heart without angina pectoris I25.10 Coronary Disease-Associated Artery/Lesion type: [place] artery [place] vs. 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
== END 2023-05-29 12:47 | disposition home or self-care (01) ==
PROVIDERS: PCP Internal Medicine; Visit Provider Internal Medicine
DX: I25.10 Atherosclerotic heart disease of native coronary artery without angina pectoris (principal); I48.0 Paroxysmal atrial fibrillation; E78.00 Pure hypercholesterolemia, unspecified; E11.42 Type 2 diabetes mellitus with diabetic polyneuropathy; Z79.4 Long term (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 insulin; I10 Essential (primary) hypertension; E55.9 Vitamin D deficiency, unspecified; R12 Heartburn; N40.0 Benign prostatic hyperplasia without lower urinary tract symptoms
CPT/HCPCS: 99214

== ENCOUNTER 2023-09-08 08:28 | Outpatient (REF) | payer MEDICARE, SELFPAY ==
[2023-09-08 08:49] LABS: MANUAL DIFF FLAG NO
[2023-09-08 09:20] LABS: Basophils Absolute Auto 0.1 X10*3/uL (0.0-0.2); Basophils Percent Auto 0.9 % (0-2); Eosinophils Absolute Auto 0.6 X10*3/uL (0.0-0.4); Eosinophils Percent Auto 8.3 % (0-4); Hemoglobin 16.1 g/dl (14.0-18.0); Imm Gran Abs Auto 0.01 X10*3/uL (0.00-0.03); Imm Gran Pct Auto 0.1 % (0.0-0.4); Lymphocytes Absolute Auto 2.9 X10*3/uL (1.2-4.9); Lymphocytes Percent Auto 37.5 % (20-40); Mean Corpuscular HGB Conc 33.5 g/dl (31.0-36.0); Mean Corpuscular Hemoglobin 32.3 pg (27.0-33.0); Mean Corpuscular Volume 96.2 fL (80.0-98.0); Mean Platelet Volume 9.3 fL (9.4-12.4); Monocytes Absolute Auto 0.7 X10*3/uL (0.1-1.2); Monocytes Percent Auto 8.9 % (2-11); Neutrophils Absolute Auto 3.4 x10*3/uL (2.0-8.3); Neutrophils Percent Auto 44.3 % (45-73); Platelet Count 180 X10*3/uL (160-400); Red Blood Count 4.99 X10*6/uL (4.60-5.80); Red Cell Distribution Width 12.6 % (11.0-16.0); White Blood Count 7.7 X10*3/uL (4.8-10.8)
[2023-09-08 09:52] LABS: Estimated Average Glucose 137 mg/dL; Hemoglobin A1c % 6.4 % (<6.0)
[2023-09-08 10:12] LABS: Alanine Aminotransferase 18 U/L (0-40); Albumin Level 4.1 g/dL (3.5-5.0); Alkaline Phosphatase 83 U/L (39-117); Anion Gap 11 (12-20); Aspartate Amino Transferase 20 U/L (5-37); Bilirubin Total 0.7 mg/dL (0.0-1.0); Blood Urea Nitrogen 26 mg/dL (9-16); Calcium 9.3 mg/dL (8.4-10.2); Carbon Dioxide 29 mmol/L (22-29); Chloride 109 mmol/L (96-108); Cholesterol 104 mg/dL (<200); Estimated Glomerular Filt Rate > 60; Glucose Fasting 140 mg/dL (60-99); HDL Cholesterol 35 mg/dL (>40); LDL Cholesterol Calculated 55 mg/dL (<100); Sodium 144 mmol/L (135-145); Total Protein 6.7 g/dL (6.5-8.0); Triglycerides 74 mg/dL (<150)
[2023-09-08 10:14] LABS: Appearance Urine Clear; Color Urine Yellow; Glucose Urine UA >=1000 mg/dL (Negative); Leukocyte Esterase Urine Negative (Negative); Nitrite Urine Negative (Negative); PH 6.5 (5.0-9.0); Specific Gravity - Urine >= 1.030 (1.005-1.025); UMIC TRIGGER UACC YES; Urine Blood Negative (Negative); Urine Ketones Negative (Negative); Urine Protein Negative (Neg-Trace)
[2023-09-08 10:17] LABS: TSH reflex Free T4 1.83 uIU/mL (0.32-4.0); Vitamin D 25-OH Total 38.1 ng/mL (>30)
[2023-09-08 10:51] LABS: Creatinine Urine 94.55 mg/dL; Microalbum/Creatinine Ratio Ur 9.5 ug/mg cr (<30)
[2023-09-08 11:57] LABS: Bacteria Urine None Seen (None Seen); Hyaline Casts Urine 0-2 /LPF (0-2); RBC Urine 0-2 /HPF (0-2); Squamous Epithelial Cell Urine 0-2 /HPF (0-2); WBC Urine 0-5 /HPF (0-5)
== END 2023-09-08 08:29 | disposition home or self-care (01) ==
LOC: HO.LAB 08:28
PROVIDERS: PCP Internal Medicine; Visit Provider Internal Medicine
DX: I10 Essential (primary) hypertension (principal); E78.00 Pure hypercholesterolemia, unspecified; E11.9 Type 2 diabetes mellitus without complications; E55.9 Vitamin D deficiency, unspecified
CPT/HCPCS: 36415; 80053; 80061; 81001; 82043; 82306; 82570; 83036; 84443; 85025

== ENCOUNTER 2023-09-17 16:20 | Outpatient (AMB) | payer MEDICARE, SELFPAY ==
--- NOTE | 2023-09-17 16:23 | A.OFFPC_ITS ---
Vital Signs 09/17/23 16:25 Height 6 ft 1 in Weight 236 lb 6 oz BMI 31.2 BP 118/68 Blood Pressure Location Lt brachial Position Sitting Pulse 74 Pulse Source Pulse Oximeter Pulse Oximetry (%) 97 Oxygen Delivery Method Room Air Intake Visit Reasons: 10/14/23 cataracts surgery Intake Note: Patient is here for a Pre-op for Cataracts scheduled with Dr Kelley ([facility] in [facility]) on 10/14/23. Sword Swallower Required: No Donor Relations Coordinator: Not Required per policy Accompanied by: Self / Same As Patient Allergies No Known Allergies [No Known Allergies*] Allergy (Verified 09/17/23 16:42) Medication List - Last Reconciled 09/17/23 by Andi Duff MD aspirin (Le Low Dose Aspirin) 81 mg PO DAILY atorvastatin 80 mg PO DAILY blood sugar diagnostic (FreeStyle Lite Strips) 1 strip miscellaneous TID 90 days cholecalciferol (vitamin D3) 50 mcg PO DAILY 90 days empagliflozin (Jardiance) 25 mg PO DAILY furosemide 40 mg PO DAILY 90 days insulin glargine (Lantus Solostar U-100 Insulin) 14 units (0.14 mL) subcut QPM insulin lispro (Humalog KwikPen (U-100) Insulin) 7 u breakfast, 10 u lunch and 12 units with dinner subcut 3 times a day; lancets (FreeStyle Lancets) 1 gauge topical TID losartan 50 mg PO DAILY meclizine 25 mg PO TID PRN metformin 1,000 mg (2 x 500 mg) PO BID metoprolol succinate ER 100 mg PO DAILY 90 days pen needle, diabetic (BD Maria Del Carmen 2nd Gen Pen Needle) 1 ea miscellaneous QID potassium chloride ER 20 mEq (2 x 10 mEq) PO DAILY 90 days Tobacco use date assessed: 09/17/23 Fall risk assessment: No Falls in past year Last assessed Fall Risk: 09/17/23 Dental Screening Dental Screen Date: 09/17/23 Did you have a dental visit in the last 12 months?: Yes Did you have a dental problem in the last 6 months where you did not have access to dental care?: No Was dental information given to patient?: Patient has dentist HPI 10/14/23 cataracts surgery HPI Details Patient comes in today at the request of Dr. Thelma Kole for a preoperative medical examination for clearance for surgery He is scheduled for cataract extraction/phacoemulsification with IOL under MAC of the left eye on 10/14/2023, followed by the same procedure on the other eye a couple of weeks later on 10/28/2023 States that he is also scheduled to come back in a few days for his regular follow up appointment and is wondering if he can just have his visits combined today Patient states that he currently feels well He denies any headaches or dizziness Denies any chest pains, no SOB No nausea/vomiting, no abdominal pain No change in bowel habits noted He had his follow up labs done last week - to discuss his results [facility] Medical History Vitamin D deficiency Bilateral knee pain SVT (supraventricular tachycardia) Atherosclerotic cardiovascular disease Insomnia Obesity (BMI 30-39.9) Benign prostate hyperplasia Paroxysmal atrial fibrillation Coronary artery disease Pure hypercholesterolemia Benign essential hypertension Chronic bronchitis Lumbar disc disease CAD (coronary artery disease) Type 2 diabetes mellitus with diabetic polyneuropathy Essential hypertension Hyperlipidemia LDL goal <70 Surgical History Hx of colonoscopy (~02/24/17) Hx of CABG Family History Brother Diabetes Father No problems noted. Mother No problems noted. Social History Household Members: Family Housing: House Alcohol intake: former Patient Tobacco Use Status: Former Tobacco user e-Cigarette/Vaping Use: Never Used Second Hand Smoke Exposure: Yes service: Yes ([employer]) Current occupational status: retired Cognitive needs: No Hearing needs: No Vision needs: Yes (Glasses) Questionnaire PHQ-9 Over the last 2 weeks, how often have you been bothered by any of the following problems? 1. Little interest or pleasure in doing things: not at all 2. Feeling down, depressed, or hopeless: not at all 3. Trouble falling or staying asleep, or sleeping too much: not at all 4. Feeling tired or having little energy: not at all 5. Poor appetite or overeating: not at all 6. Feeling bad about yourself - or that you are a failure or have let yourself or your family down: not at all 7. Trouble concentrating on things, such as reading the newspaper or watching television: not at all 8. Moving or speaking so slowly that other people could have noticed. Or the opposite - being so fidgety or restless that you have been moving around a lot more than usual: not at all 9. Thoughts that you would be better off or of hurting yourself in some way: not at all Total score: 0 Depression Screening Interpretation: Negative Depression Screening Done: Yes 77880 - PHQ-9 Billing: Yes Source: Developed by Drs. Maciel Lincoln, Carissa Del Rio, Jerome Barrientos and colleagues, with an educational derrell from [employer]. Thrive Questionnaire Date Thrive assessed: 09/17/23 I am a: Patient What is your living situation today?: I have a steady place to live Within the past 12 months, did the food you bought not last and you didn't have the money to get more?: Never true Within the past 12 months, did you worry whether your food would run out before you got money to buy more?: Never true Do you have trouble paying for medicines?: No Do you have trouble getting transportation to medical appointments?: No Do you have trouble paying your heating and electricity bill?: No Do you have trouble taking care of your child, family member or friend?: No Do you have trouble with day-to-day activities such as bathing, preparing meals, shopping, managing finances, etc.?: No Are you currently unemployed and looking for a job?: No Are you interested in more education?: No Currently or been in a relationship where the following occur: no concerns reported THRIVE Score: 0 AUDIT C Alcohol Use Questionnaire (AUDIT-C) 1. How often do you have a drink containing alcohol?: Never 3. How often do you have six or more drinks on one occasion?: Never Total Score: 0 Score Reviewed/Action Taken: Yes ADRIÁN-7 AMB Questionnaire ADRIÁN-7 Date ADRIÁN - 7 assessed: 09/17/23 Feeling nervous, anxious, or on edge: 0 = Not at all Not being able to stop or control worryin = Not at all Worrying too much about different things: 0 = Not at all Trouble relaxin = Not at all Being so restless that it is hard to sit still: 0 = Not at all Becoming easily annoyed or irritable: 0 = Not at all Feeling afraid as if something awful might happen: 0 = Not at all Total ADRIÁN-7 score (0-4 normal; 5-9 mild; 10-14 moderate; 15-21 severe): 0 Source: Developed by Drs. Maciel Lincoln, Carissa Del Rio, Jerome Barrientos and colleagues, with an educational derrell from [employer]. Review of Systems Const Denies chills, Denies fatigue, Denies fever(s) and Denies headache(s) ENT Denies dysphagia, Denies dizziness, Denies otalgia, Denies headache(s), Denies neck pain, Denies odynophagia and Denies sore throat Card Denies chest pain, Denies rapid heart rate, Denies irregular heart rhythm, Denies palpitations and Denies dyspnea Resp Denies chest congestion, Denies cough, Denies dyspnea and Denies wheezing GI Denies abdominal pain, Denies constipation, Denies dysphagia, Denies heartburn, Denies diarrhea, Denies nausea, Denies odynophagia and Denies vomiting Denies difficulty urinating, Denies dysuria and Denies urinary frequency Musc Denies back pain, Denies arthralgias and Denies neck pain Skin/Breast Denies rash Neuro Denies dizziness, Denies headache(s) and Denies paresthesias Endo Denies fatigue and Denies palpitations Aller/Immun Denies wheezing Physical exam (Primary Care) Vital Signs: Last Vital Signs Pulse 74 09/17/23 16:25 BP 118/68 09/17/23 16:25 Pulse Ox 97 09/17/23 16:25 Oxygen Delivery Method Room Air 09/17/23 16:25 BMI result Body Mass Index 31.2 Tobacco/Smoking Status: Tobacco use Status Tobacco use date assessed 09/17/23 09/17/23 16:31 Patient Tobacco Use Status Former Tobacco user 09/17/23 16:31 e-Cigarette/Vaping Use Never Used 09/17/23 16:31 PHQ-9: PHQ-9 Score PHQ-9: Total score 0 09/18/23 01:39 Depression Screening Interpretation: Negative Thrive Assessment: Date of Thrive Assessment Date Thrive assessed 09/17/23 09/17/23 16:31 Currently or been in a relationship where the following occur: no concerns reported Const General: no acute distress and alert HENMT Ears: TM's normal bilaterally and EAC's normal Throat: Yes posterior oropharynx normal and Yes tonsils normal (no TP congestion) Neck Neck: Yes no lymphadenopathy and Yes supple Thyroid: Thyroid normal Resp Auscultation: clear to auscultation bilaterally, no rales and no wheezes Cardio Rate: regular rate Rhythm: regular rhythm Heart sounds: no murmurs GI Palpation (GI): Soft to palpation and nontender Auscultation: normal bowel sounds General: Yes no CVA tenderness Back/Spine/Pelvis Back: no CVA tenderness Skin Rashes: no rashes Extrem General: Yes no clubbing, cyanosis or edema Results Reviewed Results Reviewed: Laboratory Tests 09/08/23 09/08/23 08:46 08:48 WBC 7.7 Hgb 16.1 Hct 48.0 Plt Count 180 Sodium 144 Potassium 5.0 Creatinine 0.88 Estimated GFR > 60 Fasting Glucose 140 H Hemoglobin A1c % 6.4 H Calcium 9.3 AST 20 ALT 18 Triglycerides 74 Cholesterol 104 LDL Cholesterol, Calc 55 HDL Cholesterol 35 L 25-OH Vitamin D Total 38.1 TSH 1.83 Ur Specific [place] >= 1.030 H Urine Protein Negative Urine Glucose (UA) >=1000 H Urine Blood Negative Urine Nitrite Negative Ur Leukocyte Esterase Negative Microalb/Creat Ratio 9.5 Assessment and Plan Assessment & Plan (1) Preoperative examination: Code(s): Z01.818 - Encounter for other preprocedural examination Plan: Patient presents with acceptable risks for planned low cardiac risk procedure He currently appears to be medically optimized for surgery Results of his labs done last week are reviewed and discussed with patient (2) Cataracts, bilateral: Code(s): H26.9 - Unspecified cataract Qualifiers: Cataract type: unspecified Qualified Code(s): H26.9 - Unspecified cataract Plan: He is scheduled for cataract extraction/phacoemulsification with IOL under MAC of the left eye on 10/14/2023, followed by the same procedure on the other eye a couple of weeks later on 10/28/[address] Thelma Sharif (3) Coronary artery disease: Comment: S/P CABG x 4 at [facility] in 03/2018 Code(s): I25.10 - Atherosclerotic heart disease of sol[place] coronary artery without angina pectoris Qualifiers: Associated angina: without angina Coronary Disease-Associated Artery/Lesion type: [place] artery [place] vs. transplanted heart: solomon heart Qualified Code(s): I25.10 - Atherosclerotic heart disease of [place] coronary artery without angina pectoris Plan: Patient currently remains asymptomatic from cardiac standpoint Continue Aspirin 81 mg QD Follow up with cardiology as scheduled. (4) Paroxysmal atrial fibrillation: Code(s): I48.0 - Paroxysmal atrial fibrillation Plan: Patient currently remains in sinus rhythm with no recurrence of arrhythmia recently Was on Amiodarone and Coumadin but these were discontinued by cardiology last year; is currently just on low dose Aspirin daily Follow up with cardiology as scheduled (5) Pure hypercholesterolemia: Code(s): E78.00 - Pure hypercholesterolemia, unspecified Plan: Results of his labs done last week reviewed and discussed with patient Reinforced low cholesterol diet Continue Atorvastatin 80 mg QD Will recheck his labs and fasting lipids in 4 months for follow up (6) Type 2 diabetes mellitus with diabetic polyneuropathy: Code(s): E11.42 - Type 2 diabetes mellitus with diabetic polyneuropathy Qualifiers: Diabetes mellitus 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 insulin use: with 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 use Qualified Code(s): E11.42 - Type 2 diabetes mellitus with diabetic polyneuropathy; Z79.4 - correction (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 insulin Plan: HgbA1c was at 6.4% on his labs done last week (was previously at 6.8% a few months ago) - goal is <7.0% Reinforced diabetic diet Continue Jardiance 25 mg QD, Lantus 14 units Q HS and Humalog 7 units SQ before breakfast, 10 units before lunch and 12 units before dinner Follow up with endocrinology as scheduled (7) Benign essential hypertension: Code(s): I10 - Essential (primary) hypertension Plan: Reinforced low sodium diet - goal is systolic BP of at least 130 to 140 mm or less Continue Metoprolol ER 100 mg QD, Furosemide 40 mg QD and Losartan 50 mg QD (8) Vitamin D deficiency: Code(s): E55.9 - Vitamin D deficiency, unspecified Plan: Continue Vitamin D3 2000 units QD (9) Benign prostate hyperplasia: Comment: 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 due to problems with urinary retention in the past Code(s): N40.0 - Benign prostatic hyperplasia without lower urinary tract symptoms Qualifiers: Lower urinary tract symptom presence: symptoms absent Qualified Code(s): N40.0 - Benign prostatic hyperplasia without lower urinary tract symptoms Plan: Follow up with urology as scheduled Used to take Terazosin 2 mg Q HS but stopped taking this a while back - states that he no longer has nocturia and symptoms have not changed since he stopped taking his Rx (10) Obesity (BMI 30-39.9): Code(s): E66.9 - Obesity, unspecified Plan: Reinforced diet/exercise as tolerated/lose weight Plan Patient is currently medically optimized and has no contraindications to undergo bilateral cataract surgeries as planned - is medically cleared for his upcoming eye surgeries Follow up in 4 months Orders: Orders Complete Blood Count Auto Diff 4 Months D64.9 - Anemia, unspecified Comprehensive Axis. Panel Fast 4 Months E78.00 - Pure hypercholesterolemia, unspecified Lipid Panel 4 Months E78.00 - Pure hypercholesterolemia, unspecified Hemoglobin A1c 4 Months E11.9 - Type 2 diabetes mellitus without complications Vitamin D 25-OH Total 4 Months E55.9 - Vitamin D deficiency, unspecified UA CC w/rflx Micro + Cult 4 Months R30.0 - Dysuria Microalbumin, Random (w Creat) 4 Months E11.9 - Type 2 diabetes mellitus without complications TSH reflex Free T4 4 Months E78.00 - Pure hypercholesterolemia, unspecified Coding Level of Care Code Est Pt Level 4 (35343) Diagnoses Preoperative examination Z01.818 Cataract of both eyes, unspecified cataract type H26.9 Cataract type: unspecified Coronary artery disease involving solomon coronary artery of solomon heart without angina pectoris I25.10 Associated angina: without angina Coronary Disease-Associated Artery/Lesion type: [place] artery [place] vs. transplanted heart: solomon heart Paroxysmal atrial fibrillation I48.0 Pure hypercholesterolemia E78.00 Type 2 diabetes mellitus with diabetic polyneuropathy, with long-term current use of insulin E11.42; Z79.4 Diabetes mellitus care home insulin use: with 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 use Benign essential hypertension I10 Vitamin D deficiency E55.9 Benign prostatic hyperplasia without lower urinary tract symptoms N40.0 Lower urinary tract symptom presence: symptoms absent Obesity (BMI 30-39.9) E66.9
[2023-09-17 16:25] VITALS: BP 118/68; PULSE 74; O2SAT 97; BMI 31.2
== END 2023-09-17 16:51 | disposition home or self-care (01) ==
PROVIDERS: PCP Internal Medicine; Visit Provider Internal Medicine
DX: I48.0 Paroxysmal atrial fibrillation (principal); E11.42 Type 2 diabetes mellitus with diabetic polyneuropathy; Z79.4 Long term (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 insulin; H26.9 Unspecified cataract; Z01.818 Encounter for other preprocedural examination; I25.10 Atherosclerotic heart disease of native coronary artery without angina pectoris; E78.00 Pure hypercholesterolemia, unspecified; I10 Essential (primary) hypertension; E55.9 Vitamin D deficiency, unspecified; N40.0 Benign prostatic hyperplasia without lower urinary tract symptoms; E66.9 Obesity, unspecified
CPT/HCPCS: 99214

== ENCOUNTER 2023-11-25 14:54 | Outpatient (AMB) | payer MEDICARE, SELFPAY ==
[2023-11-25 15:00] VITALS: BP 112/67; PULSE 59; BMI 31.2
--- NOTE | 2023-11-25 15:00 | A.OFFVIS_ITS ---
Vital Signs 11/25/23 15:00 Height 6 ft 1 in Weight 236 lb 12.423 oz BMI 31.2 BP 112/67 Blood Pressure Location Lt brachial Position Sitting Pulse 59 Intake Visit Reasons: 1 yr f/up Chief Medical Technologist Required: No Accompanied by: Self / Same As Patient Allergies No Known Allergies [No Known Allergies*] Allergy (Verified 09/17/23 16:42) Medication List - Last Reconciled 11/25/23 by Leroy Dumont MD aspirin (Le Low Dose Aspirin) 81 mg PO DAILY atorvastatin 80 mg PO DAILY blood sugar diagnostic (FreeStyle Lite Strips) 1 strip miscellaneous TID 90 days cholecalciferol (vitamin D3) 50 mcg PO DAILY 90 days empagliflozin (Jardiance) 25 mg PO DAILY furosemide 40 mg PO DAILY 90 days insulin glargine (Lantus Solostar U-100 Insulin) 14 units (0.14 mL) subcut QPM insulin lispro (Humalog KwikPen (U-100) Insulin) 7 u breakfast, 10 u lunch and 12 units with dinner subcut 3 times a day; lancets (FreeStyle Lancets) 1 gauge topical TID losartan 50 mg PO DAILY meclizine 25 mg PO TID PRN metformin 1,000 mg (2 x 500 mg) PO BID metoprolol succinate ER 100 mg PO DAILY 90 days pen needle, diabetic (BD Maria Del Carmen 2nd Gen Pen Needle) 1 ea miscellaneous QID potassium chloride ER 20 mEq (2 x 10 mEq) PO DAILY 90 days HPI Comments Details: Donald returns for follow-up regarding coronary disease and history of coronary artery bypass surgery. Overall, he is doing good. No specific cardiac concerns. [facility] Medical History (Updated 09/17/23 @ 16:45 by Andi Duff MD) Vitamin D deficiency Bilateral knee pain SVT (supraventricular tachycardia) Atherosclerotic cardiovascular disease Insomnia Obesity (BMI 30-39.9) Benign prostate hyperplasia Paroxysmal atrial fibrillation Coronary artery disease Pure hypercholesterolemia Benign essential hypertension Chronic bronchitis Lumbar disc disease CAD (coronary artery disease) Type 2 diabetes mellitus with diabetic polyneuropathy Essential hypertension Hyperlipidemia LDL goal <70 Surgical History (Updated 11/25/23 @ 15:04 by Destiney Guzman CMA) History of eye surgery Hx of colonoscopy (~02/24/17) Hx of CABG Family History Brother Diabetes Father No problems noted. Mother No problems noted. Social History Household Members: Family Housing: House Alcohol intake: former Patient Tobacco Use Status: Former Tobacco user e-Cigarette/Vaping Use: Never Used Second Hand Smoke Exposure: Yes service: Yes ([employer]) Current occupational status: retired Cognitive needs: No Hearing needs: No Vision needs: Yes (Glasses) Review of Systems Const Denies chills, Denies fatigue, Denies fever(s), Denies frequent falls, Denies weakness, Denies weight gain and Denies weight loss ENT Denies dizziness Card Denies chest pain, Denies leg edema, Denies lightheadedness, Denies palpitations, Denies dyspnea and Denies dyspnea on exertion Resp Denies cough, Denies dyspnea and Denies dyspnea on exertion GI Denies hematochezia Musc Denies abnormal gait, Denies muscle weakness, Denies numbness, Denies radiating pain into limb and Denies tingling Neuro Denies abnormal gait, Denies dizziness, Denies frequent falls, Denies numbness, Denies tingling and Denies weakness Endo Denies fatigue and Denies palpitations Physical Exam Vital Signs: Last Vital Signs Pulse 59 11/25/23 15:00 BP 112/67 11/25/23 15:00 BMI result Body Mass Index 31.2 Const General: comfortable and no acute distress Orientation/consciousness: patient oriented x3 HEENT Other: Unremarkable Head: Yes normal to inspection Neck Neck: Yes normal visual inspection Chest Chest palpation & inspection: normal inspection of the chest Resp Auscultation: clear to auscultation bilaterally Cardio Palpation: normal PMI Heart sounds: S1 normal heart sound present, S2 normal heart sound present, no gallops, no murmurs and no rubs GI Palpation (GI): Soft to palpation Back/Spine/Pelvis Other: unremarkable Skin General skin exam: no rashes or lesions noted Neuro General: patient oriented x3 Extrem General: Yes normal to inspection Psych Mental Status: mental status grossly normal Office Procedures EKG Details: EKG with sinus rhythm at 59/Min premature supraventricular ventricular complexes. Right bundle-branch block can not exclude old inferior infarct or anteroseptal infarct. Similar to prior. [id number], Complete Assessment & Plan Assessment & Plan (1) Atherosclerotic cardiovascular disease: Code(s): I25.10 - Atherosclerotic heart disease of [place] coronary artery without angina pectoris Category: Medical Plan: Status post CABG. No angina. Continue aspirin, beta-blockers. (2) Paroxysmal atrial fibrillation: Code(s): I48.0 - Paroxysmal atrial fibrillation Category: Medical Plan: Postoperative episode. Off anticoagulation. (3) SVT (supraventricular tachycardia): Code(s): I47.1 - Supraventricular tachycardia Category: Medical Plan: Short RP type AVNRT, noted post up CABG. No recurrences. (4) Benign essential hypertension: Code(s): I10 - Essential (primary) hypertension Category: Medical Plan: Stable. (5) Other and unspecified hyperlipidemia: Code(s): E78.5 - Hyperlipidemia, unspecified Category: Medical Plan: On statins. LDL 55 mg/dL. Orders: Orders US carotid duplex BI Today I65.23 - Occlusion and stenosis of bilateral carotid arteries Coding Level of Care Code Est Pt Level 4 (01153) Diagnoses Atherosclerotic cardiovascular disease I25.10 Paroxysmal atrial fibrillation I48.0 SVT (supraventricular tachycardia) I47.1 Benign essential hypertension I10 Other and unspecified hyperlipidemia E78.5 CPT Codes EKG - CPT: [id number], Complete ([id number])
== END 2023-11-25 15:22 | disposition home or self-care (01) ==
PROVIDERS: Visit Provider Internal Medicine
DX: I25.10 Atherosclerotic heart disease of native coronary artery without angina pectoris (principal); I48.0 Paroxysmal atrial fibrillation; I47.10 Supraventricular tachycardia, unspecified; I10 Essential (primary) hypertension; E78.5 Hyperlipidemia, unspecified
CPT/HCPCS: 93010; 99214

== ENCOUNTER → 2023-11-25 14:54 | Outpatient (BNVA) | payer MEDICARE, SELFPAY | PROVIDERS: Visit Provider Internal Medicine | DX: I25.10 Atherosclerotic heart disease of native coronary artery without angina pectoris (principal); I48.0 Paroxysmal atrial fibrillation; I47.10 Supraventricular tachycardia, unspecified; I10 Essential (primary) hypertension; E78.5 Hyperlipidemia, unspecified | CPT/HCPCS: 93005; 99212 ==

== ENCOUNTER 2023-12-01 14:14 | Outpatient (REF) | payer MEDICARE, SELFPAY ==
--- NOTE | ~2023-12-01 | US_ITS ---
EXAMINATION: US EXTRACRANIAL CAROTID DUPLEX, BILATERAL CLINICAL INFORMATION: Stenosis COMPARISON: None available. TECHNIQUE: Real-time ultrasound and Doppler techniques (integrating B-mode 2-D vascular images, Doppler spectral analysis and color-flow Doppler imaging) were utilized to interrogate the extracranial carotid arteries, the vertebral arteries and proximal subclavian arteries bilaterally. The degree of stenosis is determined by criteria similar to NASCET. FINDINGS: Right Side: 1. There is mild atherosclerotic plaque seen in the bifurcation/proximal ICA region. 2. The common carotid artery PSV proximally is 92 cm/s and distally 92 cm/s. 3. The proximal internal carotid artery velocities are 58 cm/s systolic and 14 cm/s diastolic. 4. The proximal external carotid artery PSV is 89 cm/s. 5. The vertebral artery shows antegrade flow. 6. The subclavian artery waveforms are normal. Left Side: 1. There is mild atherosclerotic plaque seen in the bifurcation/proximal ICA region. 2. The common carotid artery PSV proximally is 156 cm/s and distally 142 cm/s. 3. The proximal internal carotid artery velocities are 53 cm/s systolic and 11 cm/s diastolic. 4. The proximal external carotid artery PSV is 74 cm/s. 5. The vertebral artery shows antegrade flow. 6. The subclavian artery waveforms are normal. US/US carotid duplex BI IMPRESSION: 1. RIGHT: Minimal, non-hemodynamically significant stenosis of the proximal right internal carotid artery corresponding to a 0-49% stenosis by velocity criteria. 2. LEFT: Minimal, non-hemodynamically significant stenosis of the proximal left internal carotid artery corresponding to a 0-49% stenosis by velocity criteria.
== END 2023-12-01 14:15 | disposition home or self-care (01) ==
LOC: HO.US 14:14
PROVIDERS: Visit Provider Internal Medicine
DX: I65.23 Occlusion and stenosis of bilateral carotid arteries (principal)
CPT/HCPCS: 93880

== ENCOUNTER 2024-01-15 07:46 | Outpatient (REF) | payer MEDICARE, SELFPAY ==
[2024-01-15 08:00] LABS: MANUAL DIFF FLAG NO
[2024-01-15 08:22] LABS: Estimated Average Glucose 148 mg/dL; Hemoglobin A1c % 6.8 % (<6.0)
[2024-01-15 08:24] LABS: Basophils Absolute Auto 0.1 X10*3/uL (0.0-0.2); Basophils Percent Auto 0.7 % (0-2); Eosinophils Absolute Auto 0.4 X10*3/uL (0.0-0.4); Eosinophils Percent Auto 5.1 % (0-4); Hematocrit 45.7 % (42.0-52.0); Hemoglobin 15.6 g/dl (14.0-18.0); Imm Gran Abs Auto 0.03 X10*3/uL (0.00-0.03); Imm Gran Pct Auto 0.4 % (0.0-0.4); Lymphocytes Absolute Auto 3.2 X10*3/uL (1.2-4.9); Lymphocytes Percent Auto 38.1 % (20-40); Mean Corpuscular HGB Conc 34.1 g/dl (31.0-36.0); Mean Corpuscular Hemoglobin 32.5 pg (27.0-33.0); Mean Corpuscular Volume 95.2 fL (80.0-98.0); Mean Platelet Volume 9.3 fL (9.4-12.4); Monocytes Absolute Auto 0.6 X10*3/uL (0.1-1.2); Monocytes Percent Auto 7.5 % (2-11); Neutrophils Percent Auto 48.2 % (45-73); Platelet Count 169 X10*3/uL (160-400); Red Cell Distribution Width 12.6 % (11.0-16.0); White Blood Count 8.4 X10*3/uL (4.8-10.8)
[2024-01-15 08:50] LABS: Alanine Aminotransferase 13 U/L (0-40); Alkaline Phosphatase 76 U/L (39-117); Anion Gap 11 (12-20); Aspartate Amino Transferase 16 U/L (5-37); Bilirubin Total 0.7 mg/dL (0.0-1.0); Blood Urea Nitrogen 26 mg/dL (9-16); Calcium 9.4 mg/dL (8.4-10.2); Carbon Dioxide 27 mmol/L (22-29); Chloride 109 mmol/L (96-108); Cholesterol 108 mg/dL (<200); Estimated Glomerular Filt Rate > 60; Glucose Fasting 114 mg/dL (60-99); HDL Cholesterol 32 mg/dL (>40); LDL Cholesterol Calculated 59 mg/dL (<100); Potassium 4.6 mmol/L (3.3-5.1); Sodium 142 mmol/L (135-145); Total Protein 6.6 g/dL (6.5-8.0); Triglycerides 86 mg/dL (<150)
[2024-01-15 08:55] LABS: Appearance Urine Clear; Color Urine Yellow; Glucose Urine UA >=1000 mg/dL (Negative); Leukocyte Esterase Urine Negative (Negative); Nitrite Urine Negative (Negative); Specific Gravity - Urine >= 1.030 (1.005-1.025); UMIC TRIGGER UACC YES; Urine Blood Negative (Negative); Urine Ketones Trace mg/dL (Negative); Urine Protein Negative (Neg-Trace)
[2024-01-15 09:00] LABS: Bacteria Urine None Seen (None Seen); Hyaline Casts Urine 0-2 /LPF (0-2); RBC Urine 0-2 /HPF (0-2); Squamous Epithelial Cell Urine 0-2 /HPF (0-2); WBC Urine 0-5 /HPF (0-5)
[2024-01-15 09:08] LABS: TSH reflex Free T4 2.62 uIU/mL (0.32-4.0); Vitamin D 25-OH Total 39.5 ng/mL (>30)
[2024-01-15 09:31] LABS: Creatinine Urine 125.79 mg/dL; Microalbum/Creatinine Ratio Ur 6.3 ug/mg cr (<30)
== END 2024-01-15 07:47 | disposition home or self-care (01) ==
LOC: HO.LAB 07:46
PROVIDERS: PCP Internal Medicine; Visit Provider Internal Medicine
DX: D64.9 Anemia, unspecified (principal); E78.00 Pure hypercholesterolemia, unspecified; E11.9 Type 2 diabetes mellitus without complications; E55.9 Vitamin D deficiency, unspecified
CPT/HCPCS: 36415; 80053; 80061; 81001; 82043; 82306; 82570; 83036; 84443; 85025

== ENCOUNTER 2024-01-23 13:57 | Outpatient (AMB) | payer MEDICARE, SELFPAY ==
[2024-01-23 14:06] VITALS: BP 120/64; PULSE 64; O2SAT 96; BMI 31.2
--- NOTE | 2024-01-23 14:06 | A.OFFPC_ITS ---
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 Required: No Accompanied by: Self / Same As Patient Allergies No Known Allergies [No Known Allergies*] Allergy (Verified 01/23/24 14:48) Medication List - Last Reconciled 01/23/24 by Andi Duff MD aspirin (Le Low Dose Aspirin) 81 mg PO DAILY atorvastatin 80 mg PO DAILY blood sugar diagnostic (FreeStyle Lite Strips) 1 strip miscellaneous TID 90 days cholecalciferol (vitamin D3) 50 mcg PO DAILY 90 days empagliflozin (Jardiance) 25 mg PO DAILY furosemide 40 mg PO DAILY 90 days insulin glargine (Lantus Solostar U-100 Insulin) 14 units (0.14 mL) subcut QPM insulin lispro (Humalog KwikPen (U-100) Insulin) 7 u breakfast, 10 u lunch and 12 units with dinner subcut 3 times a day; lancets (FreeStyle Lancets) 1 gauge topical TID losartan 50 mg PO DAILY meclizine 25 mg PO TID PRN metformin 1,000 mg (2 x 500 mg) PO BID metoprolol succinate ER 100 mg PO DAILY 90 days pen needle, diabetic (BD Maria Del Carmen 2nd Gen Pen Needle) 1 ea miscellaneous QID potassium chloride ER 20 mEq (2 x 10 mEq) PO DAILY 90 days Tobacco use date assessed: 09/17/23 Fall risk assessment: No Falls in past year Last assessed Fall Risk: 01/23/24 Dental Screening Dental Screen Date: 09/17/23 HPI 4month HPI Details Patient comes in today for his follow up visit States that he feels okay except for some right knee pain which he states has been bothering him for about a month now Notes that his right knee was slightly swollen a couple of weeks ago but the swelling has since subsided since he started wearing a knee brace on his knee to help support it He does not recall any recent injury or trauma to his right knee and is surprised that his knee pain just started out of the blue He denies any headaches or dizziness Denies any chest pains, no SOB No nausea/vomiting, no abdominal pain No change in bowel habits noted He needs several of his Rx refilled today Had his follow up labs done last week - to discuss his results FOR[facility]LY [facility] Medical History Vitamin D deficiency Bilateral knee pain SVT (supraventricular tachycardia) Atherosclerotic cardiovascular disease Insomnia Obesity (BMI 30-39.9) Benign prostate hyperplasia Paroxysmal atrial fibrillation Coronary artery disease Pure hypercholesterolemia Benign essential hypertension Chronic bronchitis Lumbar disc disease CAD (coronary artery disease) Type 2 diabetes mellitus with diabetic polyneuropathy Essential hypertension Hyperlipidemia LDL goal <70 Surgical History History of eye surgery Hx of colonoscopy (~02/24/17) Hx of CABG Family History Brother Diabetes Father No problems noted. Mother No problems noted. Social History Household Members: Family Housing: House Alcohol intake: former Patient Tobacco Use Status: Former Tobacco user e-Cigarette/Vaping Use: Never Used Second Hand Smoke Exposure: Yes service: Yes ([employer]) Current occupational status: retired Cognitive needs: No Hearing needs: No Vision needs: Yes (Glasses) Questionnaire Thrive Questionnaire Date Thrive assessed: 09/17/23 ADRINÁ-7 AMB Questionnaire ADRIÁN-7 Date ADRIÁN - 7 assessed: 09/17/23 Source: Developed by Drs. Maciel Lincoln, Carissa Del Rio, Jerome Barrientos and colleagues, with an educational derrell from [email or web address]. Review of Systems Const Denies chills, Denies fatigue, Denies fever(s) and Denies headache(s) ENT Denies dysphagia, Denies dizziness, Denies otalgia, Denies headache(s), Denies neck pain, Denies odynophagia and Denies sore throat Card Denies chest pain, Denies rapid heart rate, Denies irregular heart rhythm, Denies palpitations and Denies dyspnea Resp Denies chest congestion, Denies cough, Denies dyspnea and Denies wheezing GI Denies abdominal pain, Denies constipation, Denies dysphagia, Denies heartburn, Denies diarrhea, Denies nausea, Denies odynophagia and Denies vomiting Denies difficulty urinating, Denies dysuria and Denies urinary frequency Musc Denies back pain, Reports arthralgias (right knee - ongoing for a month now), Denies joint swelling and Denies neck pain Skin/Breast Denies rash Neuro Denies dizziness, Denies headache(s) and Denies paresthesias Endo Denies fatigue and Denies palpitations Aller/Immun Denies wheezing Physical exam (Primary Care) Vital Signs: Last Vital Signs Pulse 64 01/23/24 14:06 BP 120/64 01/23/24 14:06 Pulse Ox 96 01/23/24 14:06 Oxygen Delivery Method Room Air 01/23/24 14:06 BMI result Body Mass Index 31.2 Tobacco/Smoking Status: Tobacco use Status Tobacco use date assessed 09/17/23 01/23/24 14:12 Patient Tobacco Use Status Former Tobacco user 01/23/24 14:12 e-Cigarette/Vaping Use Never Used 01/23/24 14:12 Thrive Assessment: Date of Thrive Assessment Date Thrive assessed 09/17/23 01/23/24 14:12 Const General: no acute distress and alert HENMT Ears: TM's normal bilaterally and EAC's normal Throat: Yes posterior oropharynx normal and Yes tonsils normal (no TP congestion) Neck Neck: Yes no lymphadenopathy and Yes supple Thyroid: Thyroid normal Resp Auscultation: clear to auscultation bilaterally, no rales and no wheezes Cardio Rate: regular rate Rhythm: regular rhythm Heart sounds: no murmurs GI Palpation (GI): Soft to palpation and nontender Auscultation: normal bowel sounds General: Yes no CVA tenderness Back/Spine/Pelvis Back: no CVA tenderness Skin Rashes: no rashes Extrem General: Yes no clubbing, cyanosis or edema Right lower extremity: knee Details: tenderness Location: of the lateral joint line; no swelling Results Reviewed Results Reviewed: Laboratory Tests 01/15/24 01/15/24 07:50 07:58 WBC 8.4 Hgb 15.6 Hct 45.7 Plt Count 169 Sodium 142 Potassium 4.6 Creatinine 0.84 Estimated GFR > 60 Fasting Glucose 114 H Hemoglobin A1c % 6.8 H Calcium 9.4 AST 16 ALT 13 Triglycerides 86 Cholesterol 108 LDL Cholesterol, Calc 59 HDL Cholesterol 32 L 25-OH Vitamin D Total 39.5 TSH 2.62 Ur Specific Gooding >= 1.030 H Urine Protein Negative Urine Glucose (UA) >=1000 H Urine Blood Negative Urine Nitrite Negative Ur Leukocyte Esterase Negative Microalb/Creat Ratio 6.3 Assessment and Plan Assessment & Plan (1) Coronary artery disease: Comment: S/P CABG x 4 at [facility] in 03/2018 Code(s): I25.10 - Atherosclerotic heart disease of [place] coronary artery without angina pectoris Qualifiers: Coronary Disease-Associated Artery/Lesion type: [place] artery [place] vs. transplanted heart: [place] heart Associated angina: without angina Qualified Code(s): I25.10 - Atherosclerotic heart disease of [place] coronary artery without angina pectoris Plan: Patient currently remains asymptomatic from a cardiac standpoint Continue Aspirin 81 mg QD Follow up with cardiology as scheduled. (2) Paroxysmal atrial fibrillation: Code(s): I48.0 - Paroxysmal atrial fibrillation Plan: Patient currently remains in sinus rhythm with no recurrence of arrhythmia recently He was on Amiodarone and Coumadin but these were discontinued by cardiology last year; is currently just on low dose Aspirin 81 mg QD Follow up with cardiology as scheduled (3) Pure hypercholesterolemia: Code(s): E78.00 - Pure hypercholesterolemia, unspecified Plan: Results of his labs done last week reviewed and discussed with patient Reinforced low cholesterol diet Continue Atorvastatin 80 mg QD Will recheck his labs and fasting lipids in 4 months for follow up (4) Type 2 diabetes mellitus with diabetic polyneuropathy: Code(s): E11.42 - Type 2 diabetes mellitus with diabetic polyneuropathy Qualifiers: Diabetes mellitus long term acute care registered nurse insulin use: with care home use Qualified Code(s): E11.42 - Type 2 diabetes mellitus with diabetic polyneuropathy; Z79.4 - salvage determiner (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 insulin Plan: His HgbA1c was at 6.8% on his labs done last week (was previously at 6.4% a few months ago) - goal is <7.0% Reinforced diabetic diet Continue Jardiance 25 mg QD, Lantus 14 units Q HS and Humalog 7 units SQ before breakfast, 10 units before lunch and 12 units before dinner Follow up with endocrinology as scheduled (5) Benign essential hypertension: Code(s): I10 - Essential (primary) hypertension Plan: Reinforced low sodium diet - goal is systolic BP of at least 130 to 140 mm or less Continue Metoprolol ER 100 mg QD, Furosemide 40 mg QD and Losartan 50 mg QD (6) Vitamin D deficiency: Code(s): E55.9 - Vitamin D deficiency, unspecified Plan: Continue Vitamin D3 2000 units QD (7) Right knee pain: Code(s): M25.561 - Pain in right knee Qualifiers: Chronicity: acute Qualified Code(s): M25.561 - Pain in right knee Plan: Will send patient for right knee x-rays SHAHRAM for further evaluation (8) Benign prostate hyperplasia: Comment: 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 due to problems with urinary retention in the past Code(s): N40.0 - Benign prostatic hyperplasia without lower urinary tract symptoms Qualifiers: Lower urinary tract symptom presence: symptoms absent Qualified Code(s): N40.0 - Benign prostatic hyperplasia without lower urinary tract symptoms Plan: Follow up with urology as scheduled Used to take Terazosin 2 mg Q HS but stopped taking this a while back - states that he no longer has nocturia and symptoms have not changed since he stopped taking his Rx (9) Obesity (BMI 30-39.9): Code(s): E66.9 - Obesity, unspecified Plan: Reinforced diet/exercise as tolerated/lose weight Plan Follow up in 4 months Orders: Orders UA CC w/rflx Micro + Cult 4 Months R30.0 - Dysuria Microalbumin, Random (w Creat) 4 Months E11.9 - Type 2 diabetes mellitus without complications Hemoglobin A1c 4 Months E11.9 - Type 2 diabetes mellitus without complications Vitamin D 25-OH Total 4 Months E55.9 - Vitamin D deficiency, unspecified XR knee RT 4V Today M25.561 - Pain in right knee Complete Blood Count Auto Diff 4 Months D64.9 - Anemia, unspecified Comprehensive Reynolds. Panel Fast 4 Months E78.00 - Pure hypercholesterolemia, unspecified Lipid Panel 4 Months E78.00 - Pure hypercholesterolemia, unspecified Medications: Refilled empagliflozin (Jardiance) 25 mg PO DAILY 90 tabs 2RF E11.42 - Type 2 diabetes mellitus with diabetic polyneuropathy, Z79.4 - skilled nursing (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 insulin furosemide 40 mg PO DAILY 90 days 90 tabs 0RF I10 - Essential (primary) hypertension insulin glargine (Lantus Solostar U-100 Insulin) 14 units (0.14 mL) subcut QPM 15 mL 0RF E11.42 - Type 2 diabetes mellitus with diabetic polyneuropathy, Z79.4 - salvage determiner (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 insulin atorvastatin 80 mg PO DAILY 90 tabs 0RF cholecalciferol (vitamin D3) 50 mcg PO DAILY 90 days 90 caps 3RF E55.9 - Vitamin D deficiency, unspecified insulin lispro (Humalog KwikPen (U-100) Insulin) 7 u breakfast, 10 u lunch and 12 units with dinner subcut 3 times a day; 15 mL 0RF E11.42 - Type 2 diabetes mellitus with diabetic polyneuropathy, Z79.4 - skilled nursing (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 insulin losartan 50 mg PO DAILY 90 tabs 1RF pen needle, diabetic (BD Maria Del Carmen 2nd Gen Pen Needle) 1 ea miscellaneous QID 150 ea 8RF E11.42 - Type 2 diabetes mellitus with diabetic polyneuropathy, Z79.4 - skilled nursing (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 insulin Coding Level of Care Code Est Pt Level 4 (91211) Complex EM visit Add On G2211 Diagnoses Coronary artery disease involving [place] coronary artery of [place] heart without angina pectoris I25.10 Coronary Disease-Associated Artery/Lesion type: [place] artery [place] vs. transplanted heart: [place] heart Associated angina: without angina Paroxysmal atrial fibrillation I48.0 Pure hypercholesterolemia E78.00 Type 2 diabetes mellitus with diabetic polyneuropathy, with long-term current use of insulin E11.42; Z79.4 Diabetes mellitus care home insulin use: with care home use Benign essential hypertension I10 Vitamin D deficiency E55.9 Acute pain of right knee M25.561 Chronicity: acute Benign prostatic hyperplasia without lower urinary tract symptoms N40.0 Lower urinary tract symptom presence: symptoms absent Obesity (BMI 30-39.9) E66.9
== END 2024-01-23 14:54 | disposition home or self-care (01) ==
PROVIDERS: PCP Internal Medicine; Visit Provider Internal Medicine
DX: I25.10 Atherosclerotic heart disease of native coronary artery without angina pectoris (principal); I48.0 Paroxysmal atrial fibrillation; E11.42 Type 2 diabetes mellitus with diabetic polyneuropathy; Z79.4 Long term (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 insulin; I10 Essential (primary) hypertension; E55.9 Vitamin D deficiency, unspecified; M25.561 Pain in right knee; N40.0 Benign prostatic hyperplasia without lower urinary tract symptoms; E66.9 Obesity, unspecified
CPT/HCPCS: 99214; G2211

== ENCOUNTER 2024-01-29 08:47 | Outpatient (REF) | payer MEDICARE, SELFPAY ==
--- NOTE | ~2024-01-29 | XR_ITS ---
EXAMINATION: XR KNEE, RIGHT CLINICAL INFORMATION: Pain. COMPARISON: Radiographs dated 06/12/2005. TECHNIQUE: AP, lateral, tunnel, and sunrise views of the right knee. FINDINGS: Bony alignment and mineralization are normal. The lateral, medial and patellofemoral joint space compartment are well-maintained. There is mild peripheral osteophyte formation of the medial and patellofemoral compartments. No fracture, dislocation or significant joint effusion is seen. There is chondrocalcinosis. There are diffuse atherosclerotic calcifications. XR/XR knee RT 4V IMPRESSION: 1. No fracture, dislocation or right knee joint effusion is seen. 2. 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 3. There is chondrocalcinosis, which can be associated with gout, CPPD or hypercalcemia. Electronically signed by: Aleksandar Pool MD 02/25/2024 01:21 PM EDT
== END 2024-01-29 08:48 | disposition home or self-care (01) ==
LOC: HO.XRAY 08:47
PROVIDERS: PCP Internal Medicine; Visit Provider Internal Medicine
DX: M25.561 Pain in right knee (principal)
CPT/HCPCS: 73564

== ENCOUNTER 2024-02-05 07:14 | Inpatient (IN) | payer MEDICARE, SELFPAY ==
[2024-02-05] VITALS (8 sets, daily range): BP systolic 105–180; BP diastolic 57–100; PULSE 67–109; RESP 13–21; TEMP 36.4–37.2; O2SAT 93–98; BMI 30.8; BMI 31.1
--- NOTE | 2024-02-05 | ECG_ITS ---
Test Reason : CHANGE IN RYTH Blood Pressure : / mmHG Vent. Rate : 103 BPM Atrial Rate : 101 BPM P-R Int : 000 ms QRS Dur : 122 ms QT Int : 374 ms P-R-T Axes : 064 123 086 degrees QTc Int : 489 ms Sinus rhythm with Premature ventricular complexes Right bundle branch block Abnormal ECG When compared with ECG of 05-FEB-2024 12:19, Criteria for Anteroseptal infarct are no longer Present Referred By: Ray Herrera Electronically Signed By:EDUAR FERRARA
--- NOTE | ~2024-02-05 | XR_ITS ---
EXAMINATION: XR CHEST CLINICAL INFORMATION: Smoking exposure. COMPARISON: Chest radiograph 07/27/2020. TECHNIQUE: 2 views of the chest were obtained. FINDINGS: Stable appearance of the cardiomediastinal silhouette. Median sternotomy wires and mediastinal surgical clips are seen. Increased interstitial markings in the central and lower lungs compared to prior. No focal consolidation. No pleural effusion or pneumothorax. Surgical anchor overlying the right humeral head. Thoracic spondylosis. No acute osseous findings. XR/XR chest 2V IMPRESSION: Increased interstitial markings could be seen with small airways disease and atypical/viral infections. No dense consolidation or pleural effusion. Electronically signed by: Carmina Lopez MD 02/05/2024 11:21 AM EDT
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
[2024-02-05 07:46] LABS: Glucose, Whole Blood 187 mg/dL (60-115)
--- NOTE | 2024-02-05 07:53 | ECG_ITS ---
Test Reason : SOB Blood Pressure : / mmHG Vent. Rate : 083 BPM Atrial Rate : 083 BPM P-R Int : 162 ms QRS Dur : 140 ms QT Int : 442 ms P-R-T Axes : 048 126 049 degrees QTc Int : 519 ms Poor data quality, interpretation may be adversely affected Sinus rhythm with frequent Premature ventricular complexes Right bundle branch block Left posterior fascicular block Bifascicular block Possible Inferior infarct (cited on or before 11-SEP-2018) Anteroseptal infarct (cited on or before 11-SEP-2018) Abnormal ECG When compared with ECG of 11-SEP-2018 21:23, Premature ventricular complexes are now Present Left posterior fascicular block is now Present Questionable change in initial forces of Anteroseptal leads T wave inversion no longer evident in Anterior leads Referred By: Ray Herrera Electronically Signed By:EDUAR FERRARA
[2024-02-05 08:51] LABS: MANUAL DIFF FLAG NO
[2024-02-05 08:57] LABS: Basophils Absolute Auto 0.1 X10*3/uL (0.0-0.2); Basophils Percent Auto 0.7 % (0-2); Eosinophils Absolute Auto 0.2 X10*3/uL (0.0-0.4); Eosinophils Percent Auto 2.2 % (0-4); Hematocrit 46.3 % (42.0-52.0); Imm Gran Abs Auto 0.04 X10*3/uL (0.00-0.03); Imm Gran Pct Auto 0.4 % (0.0-0.4); Lymphocytes Absolute Auto 1.9 X10*3/uL (1.2-4.9); Lymphocytes Percent Auto 18.1 % (20-40); Mean Corpuscular HGB Conc 34.6 g/dl (31.0-36.0); Mean Corpuscular Hemoglobin 32.8 pg (27.0-33.0); Mean Corpuscular Volume 94.9 fL (80.0-98.0); Mean Platelet Volume 9.1 fL (9.4-12.4); Monocytes Absolute Auto 0.7 X10*3/uL (0.1-1.2); Monocytes Percent Auto 6.6 % (2-11); Neutrophils Absolute Auto 7.7 x10*3/uL (2.0-8.3); Platelet Count 200 X10*3/uL (160-400); Red Blood Count 4.88 X10*6/uL (4.60-5.80); Red Cell Distribution Width 12.6 % (11.0-16.0); White Blood Count 10.7 X10*3/uL (4.8-10.8)
[2024-02-05 09:00] LABS: VBG Base Excess 1.4 mmol/L; VBG HCO3 27 mmol/L (22-26); VBG pCO2 49 mmHg; VBG pH 7.35 (7.32-7.43); VBG pO2 63 mmHg
[2024-02-05 09:01] LABS: Carbon Monoxide POC 3.3 %
[2024-02-05 09:01] LABS: Venous Blood Gas Refer to POC result
[2024-02-05 09:02] LABS: Carbon Monoxide Refer to POC result
[2024-02-05 09:10] LABS: Alanine Aminotransferase 18 U/L (0-40); Albumin Level 4.1 g/dL (3.5-5.0); Alkaline Phosphatase 81 U/L (39-117); Anion Gap 15 (12-20); Aspartate Amino Transferase 25 U/L (5-37); Bilirubin Direct 0.2 mg/dL (0.0-0.5); Bilirubin Total 0.6 mg/dL (0.0-1.0); Blood Urea Nitrogen 30 mg/dL (9-16); Calcium 9.1 mg/dL (8.4-10.2); Carbon Dioxide 26 mmol/L (22-29); Chloride 106 mmol/L (96-108); Creatinine Clr Calc Pharmacy 76.2; Estimated Glomerular Filt Rate > 60; Ethanol < 10 mg/dL; Glucose Random 213 mg/dL (60-115); Magnesium 2.2 mg/dL (1.6-2.6); Potassium 4.8 mmol/L (3.3-5.1); Sodium 142 mmol/L (135-145); Total Protein 6.7 g/dL (6.5-8.0)
[2024-02-05 09:18] LABS: Troponin-I High Sensitivity 117.7 ng/L (<3.5-35.0)
[2024-02-05 12:07] LABS: Troponin-I High Sensitivity 589.1 ng/L (<3.5-35.0)
--- NOTE | 2024-02-05 12:15 | ECG_ITS ---
Test Reason : REPEAT Blood Pressure : / mmHG Vent. Rate : 100 BPM Atrial Rate : 100 BPM P-R Int : 174 ms QRS Dur : 142 ms QT Int : 414 ms P-R-T Axes : 073 163 076 degrees QTc Int : 534 ms Sinus rhythm with frequent Premature ventricular complexes Right bundle branch block Left posterior fascicular block Bifascicular block Possible Inferior infarct (cited on or before 11-SEP-2018) Anteroseptal infarct (cited on or before 11-SEP-2018) Abnormal ECG When compared with ECG of 05-FEB-2024 08:28, Questionable change in initial forces of Septal leads Referred By: Ray Herrera Electronically Signed By:EDUAR FERRARA
--- NOTE | 2024-02-05 12:37 | PC.NURSE ---
Pt.'s niece at bedside at this time. No complaints. Call pickens within reach if pt. needs anything.
[2024-02-05] MEDS: Aspirin 81 MG TAB.CHEW 162 MG PO (16:07)
--- NOTE | 2024-02-05 16:07 | PC.NURSE ---
VSS, pt. medicted per MAR.
--- NOTE | 2024-02-05 16:57 | PC.NURSE ---
Awaiting PTT-HD results to initiate Heparin gtt.
--- NOTE | 2024-02-05 17:04 | PHA.MEDREC ---
Addendum entered by Delma Sotomayor RPh 02/05/24 17:26: reviewed by [facility]. Original Note: Pharmacy Consult ? Medication Reconciliation Pharmacy has completed the medication reconciliation.Confirmed medications with patient. Patient confirmed his Lantus Solostar Injection 14units at bedtime and his Humalog Injection 7 units with breakfast, 10 units with lunch and 14 units with dinner. Patient also states he takes his Meclizine 25mg tab and Metformin 500mg tab once in the morning with breakfast and at noon with lunch. The patient is currently doing Lumigan eye drops one drop into the left eye every night before bed for an eye procedure he just recently had.
[2024-02-05 17:07] LABS: Prothrombin Time 11.7 SEC (11.1-13.3)
[2024-02-05 17:08] LABS: Hematocrit 47.4 % (42.0-52.0); Hemoglobin 16.1 g/dl (14.0-18.0); Mean Corpuscular Hemoglobin 32.5 pg (27.0-33.0); Mean Corpuscular Volume 95.8 fL (80.0-98.0); Mean Platelet Volume 9.4 fL (9.4-12.4); Platelet Count 198 X10*3/uL (160-400); Red Blood Count 4.95 X10*6/uL (4.60-5.80); Red Cell Distribution Width 12.9 % (11.0-16.0); White Blood Count 12.2 X10*3/uL (4.8-10.8)
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
[2024-02-05] MEDS: Heparin Sodium,Porcine 5,000 UNIT/ML VIAL 4000 UNIT IVPUSH (17:30)
[2024-02-05] MEDS: Heparin Sodium,Porcine/1/2NS 25,000 UNIT/250 ML IV.SOLN 10 UNIT IVCONT (17:34)
--- NOTE | 2024-02-05 17:49 | PC.NURSE ---
Pt. noted to be having frequent bigeminy on monitor. Marsha Herrera MD notified and repeat EKG ordered.
[2024-02-05] MEDS: Atorvastatin Calcium 80 MG TABLET PO (18:37)
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
[2024-02-05 22:15] LABS: Troponin-I High Sensitivity 1640.2 ng/L (<3.5-35.0)
[2024-02-05 22:16] LABS: Glucose, Whole Blood 277 mg/dL (60-115)
[2024-02-05] MEDS: Insulin Lispro 100 UNIT/ML 3 ML VIAL SUBCUT (22:18)
[2024-02-05] MEDS: Losartan Potassium 50 MG TABLET PO (22:18)
[2024-02-05] MEDS: Insulin Glargine,Hum.rec.anlog 100 UNIT/ML 10 ML VIAL 10 UNIT SUBCUT (22:19)
--- NOTE | 2024-02-05 22:23 | PC.NURSE ---
trop 1640, pt denies any chest pain
[2024-02-05 23:58] LABS: PTT Heparin Drip 44.8 SEC (53-77.9)
[2024-02-06] VITALS (10 sets, daily range): BP systolic 104–150; BP diastolic 50–77; PULSE 69–97; RESP 14–20; TEMP 36.1–37.2; O2SAT 92–96
--- NOTE | 2024-02-06 | ECG_ITS ---
Test Reason : tachycardia Blood Pressure : / mmHG Vent. Rate : 179 BPM Atrial Rate : 000 BPM P-R Int : 000 ms QRS Dur : 132 ms QT Int : 302 ms P-R-T Axes : 000 159 -31 degrees QTc Int : 521 ms Wide QRS tachycardia Right bundle branch block Left posterior fascicular block Bifascicular block Septal infarct , age undetermined Inferior infarct , age undetermined Abnormal ECG When compared with ECG of 06-FEB-2024 17:55, Wide QRS tachycardia has replaced Sinus rhythm Vent. rate has increased BY 95 BPM Referred By: Augustin Crystal Electronically Signed By:EDUAR FERRARA
[2024-02-06] MEDS: Heparin Sodium,Porcine 5,000 UNIT/ML VIAL 4300 UNIT IVPUSH (01:17)
--- NOTE | 2024-02-06 01:32 | PC.NURSE ---
heparin rate adjusted base on low ptt result. bolus given. next draw time [id number]
[2024-02-06 05:39] LABS: Hematocrit 44.3 % (42.0-52.0); Hemoglobin 15.2 g/dl (14.0-18.0); Mean Corpuscular HGB Conc 34.3 g/dl (31.0-36.0); Mean Corpuscular Hemoglobin 32.7 pg (27.0-33.0); Mean Corpuscular Volume 95.3 fL (80.0-98.0); Mean Platelet Volume 9.3 fL (9.4-12.4); Platelet Count 155 X10*3/uL (160-400); Red Blood Count 4.65 X10*6/uL (4.60-5.80); Red Cell Distribution Width 12.9 % (11.0-16.0); White Blood Count 11.3 X10*3/uL (4.8-10.8)
[2024-02-06 05:51] LABS: Prothrombin Time 12.3 SEC (11.1-13.3)
[2024-02-06 05:55] LABS: Anion Gap 12 (12-20); Blood Urea Nitrogen 31 mg/dL (9-16); Calcium 8.8 mg/dL (8.4-10.2); Carbon Dioxide 21 mmol/L (22-29); Chloride 112 mmol/L (96-108); Creatinine Clr Calc Pharmacy 82.1; Estimated Glomerular Filt Rate > 60; Glucose Random 219 mg/dL (60-115); Potassium 4.1 mmol/L (3.3-5.1); Sodium 141 mmol/L (135-145)
--- NOTE | 2024-02-06 07:00 | CA_ITS ---
Transthoracic Echocardiogram Patient (Last, First, Middle): Dnoald Matta J Gender: Male Date of : 1945 Age: 78 Procedure Date: 02/06/2024 Procedure Type: Transthoracic Echocardiogram Location: ER Height: 185. cm Weight: 106.6 kg BSA: 2.30 m2 Heart Rate: bpm BP: 126 / 64 mmHg Home Health Specialist: SONA Referring MD: Steph NUÑEZ Symptoms: NSTEMI Study Quality: Technically Difficult w contrast ECG Rhythm: Sinus arrhythmia Conclusions: - Normal left ventricular cavity size. There is mildly increased left ventricular wall thickness. The left ventricular systolic function is moderately decreased. The visually estimated ejection fraction is between 30-35%. - Normal right ventricular cavity size. There is mild to moderately decreased right ventricular systolic function. Findings Procedure Information Contrast agent, definity, is being given per protocol without apparent complications. Left Ventricle Normal left ventricular cavity size. There is mildly increased left ventricular wall thickness. The left ventricular systolic function is moderately decreased. The visually estimated ejection fraction is between 30 35%. There is moderate global hypokinesis. Diastolic function is indeterminate on the basis of available data. Right Ventricle Normal right ventricular cavity size. There is mild to moderately decreased right ventricular systolic function. Atria The left atrium is likely dilated. Aortic Valve Normal aortic valve structure and function. There is no aortic valve stenosis. There is trace (trivial) aortic valve regurgitation. Mitral Valve The mitral valve appears normal. There is no mitral valve regurgitation. There is no mitral valve stenosis. Pulmonic Valve The pulmonic valve is likely normal. Tricuspid Valve Normal tricuspid valve structure. There is no tricuspid valve regurgitation. Moderately elevated right atrial pressure. There is no evidence of pulmonary hypertension. Venous The inferior vena cava is dilated and collapses less than 50% with inspiration. Pericardium/Pleural There is no evidence of pericardial effusion. Prior Study Comparison Changes noted compared to prior study dated: 06/25/2019. Mod LV dysfunction and mild to moderate RV dysfunction. Measurements 2D Linear Measurements IVSd: 1.07 0.6-0.9/0.6-1.0 cm LVIDd: 5.47 3.9-5.3/4.2-5.9 cm LVIDd Index: 2.38 2.4-3.2/2.2-3.1 cm/m2 LVIDs: 4.78 2.0-3.6 cm LVPWd: 1.09 0.7-1.1 cm LA Diam: 4.20 2.7-3.8/3.0-4.0 cm LAIDs Index: 1.83 1.5-2.3 cm/m2 LV Mass: 291.75 67-162/88-224 g LV Mass Index: 126.85 43-95/49-115 g/m2 LVOT Diam: 2.20 3.0+(-)1.3 cm 2D Systolic Function EF 4C: 45.40 >55% EF 2C: 29.50 >55% EF BiP: 37.70 >55% Mitral Valve MV Pk E: 0.72 MV PK A: 0.59 MV Decel Time: 227.00 E/A: 1.20 E'Lateral: 8.14 E'Medial: 3.73 E/E' Med: 19.20 E/E' Lat: 8.80 PHT: 67.00 MVA PHT: 3.28 Decel [place]: 3.53 Aortic Valve AoV Pk Clement: 1.13 AoV Mn Clement: 0.83 AoV VTI: 0.21 AoV Pk Grad: 5.00 Aov Mn Grad: 3.00 RIA Cont.VTI: 3.39 LVOT LVOT Pk Clement: 1.07 LVOT Mn Clement: 0.74 LVOT VTI: 0.19 LVOT Pk Grad: 5.00 LVOT Mn Grad: 3.00 LVOT Diam: 2.20 LVOT Area: 3.80 Diastolic Function MV Pk E: 0.72 MV Pk A: 0.59 E/A: 1.20 E'Medial: 3.73 E/E' Med: 19.20 E' Laterial: 8.14 E/E' Lat: 8.80 Right Ventricle TAPSE (mm): 15.20 TVS' Clement: 8.90 Tricuspid Valve TR Pk Clement: 1.63 TR Pk Grad: 11.00 RA Press: 15.00 RVSP: 26.00 Great Vessels Aorta Sinus of Valsalva: 3.60 2.0-3.5 cm Ao Asc: 3.90 2.1-3.4 cm Pulmonary Valve PV Pk Clement: 1.17 Peak PV Grad: 5.00 Updated in Other Vendor System with Status of Final Juan Diego Soto MD electronically signed on 02/06/2024 9:49:01 PM with status of Final
[2024-02-06 07:33] LABS: Glucose, Whole Blood 218 mg/dL (60-115)
[2024-02-06] MEDS: Insulin Lispro 100 UNIT/ML 3 ML VIAL SUBCUT ×4 (07:38→21:15)
[2024-02-06 07:42] LABS: PTT Heparin Drip 98.5 SEC (53-77.9)
[2024-02-06] MEDS: Furosemide 40 MG TABLET PO (09:14)
[2024-02-06] MEDS: Atorvastatin Calcium 80 MG TABLET PO (09:16)
[2024-02-06] MEDS: Cholecalciferol (Vitamin D3) 25 MCG TABLET 50 MCG PO (09:16)
[2024-02-06] MEDS: Potassium Chloride ER 20 MEQ TAB.ER.PRT PO (09:17)
[2024-02-06] MEDS: Aspirin Enteric Coated 81 MG TABLET.DR PO (09:17)
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
[2024-02-06] MEDS: Clopidogrel Bisulfate 300 MG TABLET PO (09:29)
[2024-02-06] MEDS: Meclizine HCl 25 MG TABLET PO (09:29)
[2024-02-06 12:06] LABS: Glucose, Whole Blood 301 mg/dL (60-115)
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
[2024-02-06] MEDS: Heparin Sodium,Porcine 5,000 UNIT/ML VIAL 8500 UNIT IVPUSH (16:00)
[2024-02-06 18:20] LABS: Glucose, Whole Blood 282 mg/dL (60-115)
[2024-02-06] MEDS: Heparin Sodium,Porcine/1/2NS 25,000 UNIT/250 ML IV.SOLN 13.2 UNIT IVCONT (19:06)
[2024-02-06 20:50] LABS: Glucose, Whole Blood 366 mg/dL (60-115)
[2024-02-06] MEDS: Insulin Glargine,Hum.rec.anlog 100 UNIT/ML 10 ML VIAL 14 UNIT SUBCUT (21:14)
[2024-02-06] MEDS: Losartan Potassium 50 MG TABLET PO (21:15)
[2024-02-06] MEDS: Amiodarone HCL 200 MG TABLET 400 MG PO (21:16)
--- NOTE | 2024-02-06 21:59 | PM.EVENT ---
Event Note Date of Service: 02/06/24 Event Note: RN reported HR in the 180s. Patient without symptoms. BP 117/74. EKG with SVT. Discussed with cardiology. Rate controlled spontaneously with HR in the 90s before intervention. Time Spent With Patient Time: Total time managing care of this patient today ____ minutes.
[2024-02-06] MEDS: Latanoprost 0.005 % Ophth Sol 2.5 ML DROPS 1 DROP EYE-LEFT (23:20)
[2024-02-06 23:23] LABS: PTT Heparin Drip 109.5 SEC (53-77.9)
[2024-02-07] VITALS (7 sets, daily range): BP systolic 109–133; BP diastolic 56–70; PULSE 53–82; RESP 18–20; TEMP 36.1–36.8; O2SAT 95–96
--- NOTE | 2024-02-07 | ECG_ITS ---
Test Reason : check qtc Blood Pressure : / mmHG Vent. Rate : 089 BPM Atrial Rate : 089 BPM P-R Int : 180 ms QRS Dur : 136 ms QT Int : 456 ms P-R-T Axes : 071 137 142 degrees QTc Int : 554 ms Sinus rhythm with frequent Premature ventricular complexes Right bundle branch block Left posterior fascicular block Bifascicular block Septal infarct , age undetermined Abnormal ECG When compared with ECG of 06-FEB-2024 21:42, Wide QRS tachycardia is no longer Present Heart rate has decreased QT has lengthened Referred By: Steph Larson Electronically Signed By:EDUAR FERRARA
[2024-02-07 01:36] LABS: PTT Heparin Drip 38.6 SEC (53-77.9)
[2024-02-07 07:33] LABS: Glucose, Whole Blood 189 mg/dL (60-115)
--- NOTE | 2024-02-07 07:49 | PC.NURSE ---
Patient's HR noted to be in the 180's at rest. This RN went into room to assess patient. Patient was asymptomatic. Hospitalist notified and came to bedside. EKG ordered reading SVT. Vital signs stable, BP 117/74. Patient's HR returned to the 90's without any interventions. Patient has been resting throughout night. 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
[2024-02-07 08:32] LABS: PTT Heparin Drip 37.4 SEC (53-77.9)
[2024-02-07] MEDS: Clopidogrel Bisulfate 75 MG TABLET PO (08:56)
[2024-02-07] MEDS: Amiodarone HCL 200 MG TABLET 400 MG PO ×2 (08:56→20:43)
[2024-02-07] MEDS: Furosemide 40 MG TABLET PO (08:56)
[2024-02-07] MEDS: Potassium Chloride ER 20 MEQ TAB.ER.PRT PO (08:56)
[2024-02-07] MEDS: Insulin Lispro 100 UNIT/ML 3 ML VIAL SUBCUT ×4 (08:57→20:43)
[2024-02-07] MEDS: Cholecalciferol (Vitamin D3) 25 MCG TABLET 50 MCG PO (08:57)
[2024-02-07] MEDS: Metoprolol Succinate ER 50 MG TAB.ER.24H PO (08:57)
[2024-02-07] MEDS: Aspirin Enteric Coated 81 MG TABLET.DR PO (08:57)
[2024-02-07] MEDS: Atorvastatin Calcium 80 MG TABLET PO (08:57)
[2024-02-07] MEDS: Heparin Sodium,Porcine 5,000 UNIT/ML VIAL 4300 UNIT IVPUSH (08:58)
[2024-02-07] MEDS: Meclizine HCl 25 MG TABLET PO (09:08)
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
[2024-02-07 12:51] LABS: Glucose, Whole Blood 310 mg/dL (60-115)
[2024-02-07 15:33] LABS: Hematocrit 43.5 % (42.0-52.0); Hemoglobin 14.9 g/dl (14.0-18.0); Mean Corpuscular HGB Conc 34.3 g/dl (31.0-36.0); Mean Corpuscular Volume 96.5 fL (80.0-98.0); Mean Platelet Volume 9.9 fL (9.4-12.4); Platelet Count 154 X10*3/uL (160-400); Red Blood Count 4.51 X10*6/uL (4.60-5.80); Red Cell Distribution Width 12.8 % (11.0-16.0); White Blood Count 8.5 X10*3/uL (4.8-10.8)
[2024-02-07 15:44] LABS: PTT Heparin Drip 53.8 SEC (53-77.9)
[2024-02-07 15:59] LABS: Anion Gap 14 (12-20); Blood Urea Nitrogen 27 mg/dL (9-16); Calcium 8.9 mg/dL (8.4-10.2); Carbon Dioxide 24 mmol/L (22-29); Chloride 108 mmol/L (96-108); Creatinine Clr Calc Pharmacy 63.9; Estimated Glomerular Filt Rate 57; Glucose Random 285 mg/dL (60-115); Sodium 142 mmol/L (135-145)
[2024-02-07 16:06] LABS: Glucose, Whole Blood 236 mg/dL (60-115)
[2024-02-07] MEDS: 0.9 % Sodium Chloride Flush 3 ML SYRINGE IVFLUSH ×2 (16:53→20:44)
[2024-02-07] MEDS: Latanoprost 0.005 % Ophth Sol 2.5 ML DROPS 1 DROP EYE-LEFT (20:43)
[2024-02-07] MEDS: Losartan Potassium 50 MG TABLET PO (20:43)
[2024-02-07 20:44] LABS: Glucose, Whole Blood 252 mg/dL (60-115)
[2024-02-07] MEDS: Insulin Glargine,Hum.rec.anlog 100 UNIT/ML 10 ML VIAL 14 UNIT SUBCUT (20:44)
[2024-02-08] VITALS: BP 112/49; PULSE 96; RESP 18; TEMP 36.6; O2SAT 95
[2024-02-08 04:00] VITALS: BP 114/69; PULSE 66; RESP 18; TEMP 36.6
[2024-02-08 07:27] LABS: Glucose, Whole Blood 258 mg/dL (60-115)
[2024-02-08 08:00] VITALS: BP 124/64; PULSE 76; RESP 20; TEMP 37.3; O2SAT 95
[2024-02-08] MEDS: Amiodarone HCL 200 MG TABLET 400 MG PO (09:18)
[2024-02-08] MEDS: Furosemide 40 MG TABLET PO (09:18)
[2024-02-08] MEDS: Potassium Chloride ER 20 MEQ TAB.ER.PRT PO (09:18)
[2024-02-08] MEDS: Aspirin Enteric Coated 81 MG TABLET.DR PO (09:18)
[2024-02-08] MEDS: Metoprolol Succinate ER 50 MG TAB.ER.24H PO (09:18)
[2024-02-08] MEDS: Clopidogrel Bisulfate 75 MG TABLET PO (09:19)
[2024-02-08] MEDS: 0.9 % Sodium Chloride Flush 3 ML SYRINGE IVFLUSH (09:19)
[2024-02-08] MEDS: Atorvastatin Calcium 80 MG TABLET PO (09:19)
[2024-02-08] MEDS: Cholecalciferol (Vitamin D3) 25 MCG TABLET 50 MCG PO (09:19)
[2024-02-08] MEDS: Insulin Lispro 100 UNIT/ML 3 ML VIAL SUBCUT ×2 (09:19→11:44)
[2024-02-08 11:01] LABS: Glucose, Whole Blood 338 mg/dL (60-115)
[2024-02-08 11:47] VITALS: BP 117/60; PULSE 71; RESP 20; TEMP 36.4; O2SAT 96
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
== END 2024-02-08 15:49 | disposition home or self-care (01) | DRG 281 ==
LOC: HO.ED 16:24 → HO.EDOVER 17:16 → HO.IMC 02-06 19:10
PROVIDERS: Internal Medicine Cardiovascular Disease; Student in an Organized Health Care Education/Training Program; Admitting Provider Physician Assistant Medical; Emergency Provider Emergency Medicine; PCP Internal Medicine; Visit Provider Physician Assistant Medical
DX: I21.4 Non-ST elevation (NSTEMI) myocardial infarction (principal); I42.9 Cardiomyopathy, unspecified; I47.10 Supraventricular tachycardia, unspecified; I48.0 Paroxysmal atrial fibrillation; I10 Essential (primary) hypertension; I49.3 Ventricular premature depolarization; E11.9 Type 2 diabetes mellitus without complications; I25.10 Atherosclerotic heart disease of native coronary artery without angina pectoris; Z95.1 Presence of aortocoronary bypass graft; Z87.891 Personal history of nicotine dependence; Z79.4 Long term (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 insulin; Z79.82 Long term (current) use of aspirin; Z79.84 Long term (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 oral hypoglycemic drugs; Z79.899 Other long term (current) drug therapy
CPT/HCPCS: 36415; 71046; 80048; 80076; 80307; 82375; 82803; 82947; 83735; 84484; 85025; 85027; 85610; 85730; 92950; 93005; 93306; 99285; J1644; Q9957

== ENCOUNTER 2024-02-05 16:55 | Outpatient (BNV) | payer MEDICARE, SELFPAY | END 2024-02-06 07:00 | PROVIDERS: Admitting Provider Physician Assistant Medical; Emergency Provider Emergency Medicine; PCP Internal Medicine; Visit Provider Internal Medicine Cardiovascular Disease | DX: I51.89 Other ill-defined heart diseases (principal) | CPT/HCPCS: 93306 ==

== ENCOUNTER → 2024-02-05 16:55 | Outpatient (BNV) | payer MEDICARE, SELFPAY | PROVIDERS: Admitting Provider Physician Assistant Medical; Emergency Provider Emergency Medicine; PCP Internal Medicine; Visit Provider Physician Assistant Medical | DX: I47.10 Supraventricular tachycardia, unspecified (principal); I21.4 Non-ST elevation (NSTEMI) myocardial infarction; I42.9 Cardiomyopathy, unspecified; I49.3 Ventricular premature depolarization | CPT/HCPCS: 99223; 99232; 99233; 99239 ==

== ENCOUNTER → 2024-02-05 16:55 | Outpatient (BNV) | payer MEDICARE, SELFPAY | PROVIDERS: Admitting Provider Physician Assistant Medical; Emergency Provider Emergency Medicine; PCP Internal Medicine; Visit Provider Internal Medicine Cardiovascular Disease | DX: I21.4 Non-ST elevation (NSTEMI) myocardial infarction (principal); I49.3 Ventricular premature depolarization; I42.9 Cardiomyopathy, unspecified | CPT/HCPCS: 99223; 99233 ==

== ENCOUNTER 2024-02-27 08:58 | Outpatient (AMB) | payer MEDICARE, SELFPAY ==
[2024-02-27 09:00] VITALS: BP 110/64; PULSE 64; BMI 31.5
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
== END 2024-02-27 09:34 | disposition home or self-care (01) ==
PROVIDERS: PCP Internal Medicine; Visit Provider Nurse Practitioner Family
DX: I25.10 Atherosclerotic heart disease of native coronary artery without angina pectoris (principal); Z95.1 Presence of aortocoronary bypass graft; I42.9 Cardiomyopathy, unspecified; I49.3 Ventricular premature depolarization; I21.4 Non-ST elevation (NSTEMI) myocardial infarction; I50.20 Unspecified systolic (congestive) heart failure
CPT/HCPCS: 93010; 99214

== ENCOUNTER → 2024-02-27 08:58 | Outpatient (BNVA) | payer MEDICARE, SELFPAY | PROVIDERS: PCP Internal Medicine; Visit Provider Nurse Practitioner Family | DX: I25.10 Atherosclerotic heart disease of native coronary artery without angina pectoris (principal); I48.0 Paroxysmal atrial fibrillation; I42.9 Cardiomyopathy, unspecified; I49.3 Ventricular premature depolarization; I21.4 Non-ST elevation (NSTEMI) myocardial infarction; I11.0 Hypertensive heart disease with heart failure; I50.20 Unspecified systolic (congestive) heart failure; Z95.1 Presence of aortocoronary bypass graft | CPT/HCPCS: 93005; 99212 ==

== ENCOUNTER → 2024-03-19 13:42 | Outpatient (REF) | payer MEDICARE, SELFPAY ==
--- NOTE | 2024-03-19 13:46 | CA_ITS ---
Transthoracic Echocardiogram Patient (Last, First, Middle): Donald Matta J Gender: Male Date of : 1945 Age: 79 Procedure Date: 03/19/2024 Procedure Type: Transthoracic Echocardiogram Location: OP Height: 185. cm Weight: 104.33 kg BSA: 2.28 m2 Heart Rate: 49 bpm BP: 160 / 80 mmHg Change Over: SONA Referring MD: Piper Maguire CLIENT ACCOUNT REPRESENTATIVEAlexandraC Symptoms: I42.9 - Cardiomyopathy, unspecified Study Quality: Adequate w/Contrast ECG Rhythm: Bradycardia Conclusions: - Normal left ventricular cavity size. There is normal left ventricular wall thickness. The left ventricular systolic function is borderline reduced. The visually estimated ejection fraction is between 45-50%. - The anterolateral wall and apical lateral segment are hypokinetic. - Normal right ventricular cavity size. There is mildly decreased right ventricular systolic function. Findings Procedure Information Contrast agent, definity, is being given per protocol without apparent complications. Left Ventricle Normal left ventricular cavity size. There is normal left ventricular wall thickness. The left ventricular systolic function is borderline reduced. The visually estimated ejection fraction is between 45-50%. Diastolic function is indeterminate on the basis of available data. Wall Motion Rest Echo Findings The anterolateral wall and apical lateral segment are hypokinetic. Right Ventricle Normal right ventricular cavity size. There is mildly decreased right ventricular systolic function. Venous The inferior vena cava is normal in size. Pericardium/Pleural Prominent epicardial adipose tissue noted. There is no evidence of pericardial effusion. Prior Study Comparison Changes noted compared to prior study dated: 02/06/2024. EF 45 to 50%. Anterolateral wall motion abnormality. Measurements 2D Linear Measurements IVSd: 1.14 0.6-0.9/0.6-1.0 cm LVIDd: 4.66 3.9-5.3/4.2-5.9 cm LVIDd Index: 2.04 2.4-3.2/2.2-3.1 cm/m2 LVIDs: 3.09 2.0-3.6 cm LVPWd: 0.99 0.7-1.1 cm LA Diam: 4.40 2.7-3.8/3.0-4.0 cm LAIDs Index: 1.93 1.5-2.3 cm/m2 LV Mass: 220.33 67-162/88-224 g LV Mass Index: 96.63 43-95/49-115 g/m2 LVOT Diam: 2.20 3.0+(-)1.3 cm 2D Systolic Function EF 4C: 50.10 >55% EF 2C: 58.20 >55% EF BiP: 54.80 >55% LVOT LVOT Pk Clement: 0.92 LVOT Mn Clement: 0.63 LVOT VTI: 0.20 LVOT Pk Grad: 3.00 LVOT Mn Grad: 2.00 LVOT Diam: 2.20 LVOT Area: 3.80 Updated in Other Vendor System with Status of Final Juan Diego Soto MD electronically signed on 03/22/2024 8:39:03 AM with status of Final
== END ==
LOC: HO.CARD 13:42
PROVIDERS: PCP Internal Medicine; Visit Provider Nurse Practitioner Family
DX: I42.9 Cardiomyopathy, unspecified (principal)
CPT/HCPCS: 93308; Q9957

== ENCOUNTER → 2024-03-19 13:46 | Outpatient (BNV) | payer MEDICARE, SELFPAY | PROVIDERS: PCP Internal Medicine; Visit Provider Internal Medicine Cardiovascular Disease | DX: I42.8 Other cardiomyopathies (principal) | CPT/HCPCS: 93308 ==

== ENCOUNTER 2024-04-06 16:14 | Emergency (ER) | payer MEDICARE, SELFPAY ==
--- NOTE | ~2024-04-06 | XR_ITS ---
EXAMINATION: XR CHEST CLINICAL INFORMATION: Left-sided chest pain. COMPARISON: Chest radiograph from 02/05/2024. TECHNIQUE: 2 views of the chest were obtained (PA and lateral). FINDINGS: Median sternotomy wires remain midline and intact. Surgical clips overlie the cardiac silhouette. The lungs are well expanded. No evidence of focal consolidation, pleural effusion, pulmonary edema, or pneumothorax. The cardiomediastinal silhouette is within normal limits. Aortic calcifications. No acute osseous abnormalities. XR/XR chest 2V IMPRESSION: No radiographically evident acute pulmonary abnormalities. Electronically signed by: Yaw Flanagan DO 04/06/2024 05:58 PM EDT
--- NOTE | 2024-04-06 16:15 | ECG_ITS ---
Test Reason : CHEST PAIN Blood Pressure : / mmHG Vent. Rate : 062 BPM Atrial Rate : 062 BPM P-R Int : 178 ms QRS Dur : 150 ms QT Int : 488 ms P-R-T Axes : 064 016 045 degrees QTc Int : 495 ms Normal sinus rhythm with sinus arrhythmia Indeterminate axis Right bundle branch block Inferior infarct , age undetermined Anterolateral infarct (cited on or before 05-FEB-2024) Abnormal ECG When compared with ECG of 07-FEB-2024 10:24, Significant changes have occurred Referred By: Generic ED Physician Electronically Signed By:Juan Diego Soto
[2024-04-06 16:46] VITALS: BP 149/67; PULSE 69; RESP 18; TEMP 36.1; O2SAT 95; BMI 31.3
[2024-04-06 17:48] LABS: MANUAL DIFF FLAG NO
[2024-04-06 17:56] LABS: Basophils Absolute Auto 0.1 X10*3/uL (0.0-0.2); Basophils Percent Auto 0.9 % (0-2); Eosinophils Absolute Auto 0.3 X10*3/uL (0.0-0.4); Hematocrit 44.6 % (42.0-52.0); Hemoglobin 15.5 g/dl (14.0-18.0); Imm Gran Abs Auto 0.02 X10*3/uL (0.00-0.03); Imm Gran Pct Auto 0.3 % (0.0-0.4); Lymphocytes Absolute Auto 2.4 X10*3/uL (1.2-4.9); Lymphocytes Percent Auto 34.2 % (20-40); Mean Corpuscular HGB Conc 34.8 g/dl (31.0-36.0); Mean Corpuscular Volume 95.1 fL (80.0-98.0); Mean Platelet Volume 8.6 fL (9.4-12.4); Monocytes Absolute Auto 0.7 X10*3/uL (0.1-1.2); Neutrophils Absolute Auto 3.6 x10*3/uL (2.0-8.3); Neutrophils Percent Auto 50.6 % (45-73); Platelet Count 180 X10*3/uL (160-400); Red Blood Count 4.69 X10*6/uL (4.60-5.80); Red Cell Distribution Width 13.1 % (11.0-16.0)
[2024-04-06 18:06] LABS: INTERNATIONAL NORM RATIO 0.9 (0.9-1.1); Prothrombin Time 10.8 SEC (10.9-12.4)
[2024-04-06 18:11] LABS: Alanine Aminotransferase 28 U/L (0-40); Albumin Level 4.1 g/dL (3.5-5.0); Alkaline Phosphatase 92 U/L (39-117); Anion Gap 14 (12-20); Aspartate Amino Transferase 30 U/L (5-37); Bilirubin Total 0.4 mg/dL (0.0-1.0); Blood Urea Nitrogen 21 mg/dL (9-16); Carbon Dioxide 29 mmol/L (22-29); Chloride 103 mmol/L (96-108); Creatinine Clr Calc Pharmacy 66.4; Estimated Glomerular Filt Rate > 60; Glucose Random 284 mg/dL (60-115); Lipase 74 U/L (8-78); Magnesium 2.2 mg/dL (1.6-2.6); Potassium 4.3 mmol/L (3.3-5.1); Sodium 142 mmol/L (135-145); Total Protein 6.9 g/dL (6.5-8.0)
[2024-04-06 18:15] LABS: Troponin-I High Sensitivity 6.3 ng/L (<3.5-35.0)
[2024-04-06 18:16] LABS: B Type Natriuretic Peptide 77 pg/mL (<100)
--- NOTE | 2024-04-06 18:37 | PC.NURSE ---
Repositioned pt. because he was attempting to get out of bed. Warm blanket given and urinal used. remains at bedside.
--- NOTE | 2024-04-06 18:58 | PC.NURSE ---
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
[2024-04-06 18:59] VITALS: PULSE 55
[2024-04-06 19:01] VITALS: BP 132/65; PULSE 55; RESP 16; TEMP 36.8; O2SAT 95
--- NOTE | 2024-04-06 19:07 | PC.NURSE ---
20G peripheral IV inserted to pt.'s RAC. Tolerated well. Good blood return.
--- NOTE | 2024-04-06 19:17 | PC.NURSE ---
this rn assumed care of pt. pt a&ox4, vss, respirations even and unlabored. pt placed on tele, sinus carlitos 50-52 at this time.
[2024-04-06 20:41] LABS: Troponin-I High Sensitivity 6.4 ng/L (<3.5-35.0)
--- NOTE | 2024-04-06 21:12 | ED.CHESTPAIN ---
HPI - Chest Pain General Chief Complaint: Chest Pain Stated Complaint: Chest pain Time Seen by Provider: 04/06/24 21:09 Source: patient Mode of arrival: ambulatory Limitations: no limitations History of Present Illness ED Provider: michael BREWER narrative: Patient with history of coronary artery disease status post quadruple CABG in 2017,frequent PVCs /SVT on amiodarone, CHF comes here for left-sided chest pain for last 3 4 days which is sharp in character lasting only for 1-2 minutes happened during daytime never happened while sleeping no diaphoresis no shortness a breath patient does complain of slight cough started earlier today patient does cardio bicycling every day today he did for half an hour as usual did not have any chest pain after that patient was watching TV when noticed sharp chest no diaphoresis no shortness a breath no radiation of pain to the jaw or arm Related Data Home Medications ?Medication ?Instructions ?Recorded ?Confirmed bimatoprost 0.01 % eye drops 1 drp ophthalmic-Left BEDTIME 02/05/24 02/27/24 (Lumigan) insulin glargine 100 unit/mL (3 14 unit subcut BEDTIME 02/05/24 02/27/24 mL) subcutaneous pen (Lantus Solostar U-100 Insulin) losartan 50 mg tablet 50 mg PO BEDTIME 02/05/24 02/27/24 meclizine 25 mg tablet 25 mg PO BID@0630,1200 PRN for 02/05/24 02/27/24 dizziness Previous Rx's ?Medication ?Instructions ?Recorded aspirin 81 mg tablet,delayed 81 mg PO DAILY #90 tabs 02/22/21 release (Le Low Dose Aspirin) cholecalciferol (vitamin D3) 50 50 mcg PO DAILY 90 days #90 caps 01/23/24 mcg (2,000 unit) capsule empagliflozin 25 mg tablet 25 mg PO DAILY #90 tabs 01/23/24 (Jardiance) amiodarone 200 mg tablet 200 mg PO DAILY 90 days #100 tabs 02/08/24 clopidogrel 75 mg tablet 75 mg PO DAILY 90 days #90 tabs 02/08/24 metoprolol succinate 50 mg 50 mg PO DAILY 90 days #90 tabs 02/08/24 tablet,extended release 24 hr potassium chloride 10 mEq 20 meq (2 x 10 mEq) PO DAILY 90 02/09/24 capsule,extended release days #180 caps furosemide 40 mg tablet 40 mg PO DAILY 90 days #90 tabs 02/10/24 Freestyle lancets #100 ea 02/11/24 atorvastatin 80 mg tablet 80 mg PO DAILY #90 tabs 03/08/24 blood sugar diagnostic (FreeStyle 1 strip miscellaneous TID for 03/16/24 Lite Strips) diabetes mellitus 90 days #500 ea metformin 500 mg tablet 1,000 mg (2 x 500 mg) PO 03/25/24 BID@0630,1200 #180 tabs insulin lispro 100 unit/mL See Rx Instructions subcut TID #15 03/26/24 subcutaneous pen (Humalog KwikPen mL (U-100) Insulin) albuterol sulfate 90 mcg/actuation 2 puff inhalation Q6H PRN 04/06/24 aerosol inhaler shortness of breath or wheezing #8.5 grams Allergies Allergy/AdvReac Type Severity Reaction Status Date / Time No Known Allergies Allergy Verified 04/06/24 16:46 [No Known Allergies*] Review of Systems Review of Systems: Yes all other systems are reviewed and are negative [facility] Past Medical History Medical History Vitamin D deficiency Bilateral knee pain SVT (supraventricular tachycardia) Atherosclerotic cardiovascular disease Insomnia Obesity (BMI 30-39.9) Benign prostate hyperplasia Paroxysmal atrial fibrillation Coronary artery disease Pure hypercholesterolemia Benign essential hypertension Chronic bronchitis Lumbar disc disease CAD (coronary artery disease) Type 2 diabetes mellitus with diabetic polyneuropathy Essential hypertension Hyperlipidemia LDL goal <70 Surgical History History of eye surgery Hx of colonoscopy (~02/24/17) Hx of CABG Family History Family History Brother Diabetes Father No problems noted. Mother No problems noted. Social History Social History Household Members: None Housing: Homeless Do you presently have visiting nurse or other home services: No Alcohol intake: former Patient Tobacco Use Status: Former Tobacco user Smoked in Last 30 Days: No e-Cigarette/Vaping Use: Never Used Second Hand Smoke Exposure: No Use of substances other than those prescribed or required for medical reasons: No Advance Directives: No Advance Directives Information Provided: Yes Do you have a plan to hurt others: No Plan service: No Current occupational status: retired Cognitive needs: No Hearing needs: No Vision needs: Yes (Glasses) Physical Exam Vital Signs: Vital Signs: Last Vital Signs Temp 98.2 F 04/06/24 19:01 Pulse 62 04/06/24 22:02 Resp 20 04/06/24 22:02 BP 126/58 L 04/06/24 22:02 Pulse Ox 100 04/06/24 22:02 O2 Del Method Room Air 04/06/24 22:02 BMI result Body Mass Index 31.3 Appearance: Alert. Oriented X3. No acute distress. Eyes: No pallor or icterus ENT: Pharynx normal. Oral Mucosa moist Neck: Normal inspection. Neck supple. CVS: Normal heart rate and rhythm. Pulses normal. Respiratory: No respiratory distress. Equal air entry bilateral, bilateral wheezing no rales Abdomen: Soft and nontender. Bowel sounds are present, no mass palpable, no CVA tenderness Skin: Skin warm and dry. Normal skin color. Normal skin turgor. Extremities: No lower extremity edema. No calf tenderness Neuro: Oriented X 3. Medications Administered Discontinued Medications Generic Name Dose Route Start Last Admin Trade Name Freq PRN Reason Stop Dose Admin Albuterol Sulfate 2.5 mg/ 0 mg 04/06/24 21:29 04/06/24 21:39 Albuterol/Ipratropium 3 ml INHALE 04/06/24 21:30 1 dose ONCE ONE Administration Medical Decision Making Medical Decision Making [facility] Narrative: Patient has atypical chest pain for last 4 days 2 sets of cardiac enzymes negative for delta change EKG without any ischemic changes patient does have bronchitis with wheezing does have history of cigarette smoking and asthma in the past felt much better after DuoNeb treatment will discharge patient home on albuterol inhaler advised to follow with PCP Differential Diagnosis Differential Diagnoses: The differential diagnosis associated with the presentation includes CHF/ACS/bronchitis/COVID Admission/Observation Consideration of admission/observation: Escalation of care including admission/observation considered Lab Data [facility] Lab Attestation statement: I reviewed the patient's lab results. 04/06/24 17:41 04/06/24 17:41 Labs: Lab Results 04/06/24 04/06/24 04/06/24 Range/Units 17:41 20:17 22:07 WBC 7.0 (4.8-10.8) X10*3/uL RBC 4.69 (4.60-5.80) X10*6/uL Hgb 15.5 (14.0-18.0) g/dl Hct 44.6 (42.0-52.0) % MCV 95.1 (80.0-98.0) fL MCH 33.0 (27.0-33.0) pg MCHC 34.8 (31.0-36.0) g/dl RDW 13.1 (11.0-16.0) % Plt Count 180 (160-400) X10*3/uL MPV 8.6 L (9.4-12.4) fL Immature Gran % (Auto) 0.3 (0.0-0.4) % Neut % (Auto) 50.6 (45-73) % Lymph % (Auto) 34.2 (20-40) % Barton % (Auto) 10.0 (2-11) % Eos % (Auto) 4.0 (0-4) % Baso % (Auto) 0.9 (0-2) % Lymph # (Auto) 2.4 (1.2-4.9) X10*3/uL Barton # (Auto) 0.7 (0.1-1.2) X10*3/uL Eos # (Auto) 0.3 (0.0-0.4) X10*3/uL Baso # (Auto) 0.1 (0.0-0.2) X10*3/uL Abs Immat Gran (auto) 0.02 (0.00-0.03) X10*3/uL Absolute Neuts (auto) 3.6 (2.0-8.3) x10*3/uL Absolute Nucleated RBC 0.000 (0.0-0.012) X10*3/uL Nucleated RBC % (auto) 0.0 (0.0-0.2) /100WBC PT 10.8 L (10.9-12.4) SEC INR 0.9 (0.9-1.1) Sodium 142 (135-145) mmol/L Potassium 4.3 (3.3-5.1) mmol/L Chloride 103 (96-108) mmol/L Carbon Dioxide 29 (22-29) mmol/L Anion Gap 14 (12-20) BUN 21 H (9-16) mg/dL Creatinine 1.16 (0.5-1.4) mg/dL Estim Creat Clear Calc 66.4 Estimated GFR > 60 Random Glucose 284 H (60-115) mg/dL Calcium 10.0 D (8.4-10.2) mg/dL Magnesium 2.2 (1.6-2.6) mg/dL Total Bilirubin 0.4 (0.0-1.0) mg/dL AST 30 (5-37) U/L ALT 28 (0-40) U/L Alkaline Phosphatase 92 (39-117) U/L Troponin I High Sens 6.3 D 6.4 (<3.5-35.0) ng/L B-Natriuretic Peptide 77 (<100) pg/mL Total Protein 6.9 (6.5-8.0) g/dL Albumin 4.1 (3.5-5.0) g/dL Lipase 74 (8-78) U/L Influenza Type A (PCR) NEGATIVE (Negative) Influenza Type B (PCR) NEGATIVE (Negative) RSV RNA Qual (PCR) NEGATIVE (Negative) SARS-CoV-2 RNA (RT-PCR) NEGATIVE (Negative) Discharge Plan Discharge Clinical Impression: Atypical chest pain, Bronchitis Patient Disposition: Home, Self-Care Instructions: Chest Pain (DC), Acute Bronchitis (ED) Additional Instructions: Your chest pain is unlikely from the heart no blood test is negative for any cardiac damage You do have bronchitis use inhaler as prescribed COVID flu RSV negative Prescriptions: New albuterol sulfate 90 mcg/actuation HFA aerosol inhaler 2 puff inhalation Q6H PRN (Reason: shortness of breath or wheezing) Qty: 8.5 0RF No Action aspirin [Le Low Dose Aspirin] 81 mg tablet,delayed release (DR/EC) 81 mg PO DAILY Qty: 90 0RF potassium chloride 10 mEq capsule, extended release 20 meq PO DAILY 90 Days Qty: 180 0RF furosemide 40 mg tablet 40 mg PO DAILY 90 Days Qty: 90 0RF (DME) Freestyle lancets See Rx Instructions .Route .MEDSUPPLY Qty: 100 0RF Rx Instructions: As directed atorvastatin 80 mg tablet 80 mg PO DAILY Qty: 90 0RF FreeStyle Lite Strips Strip 1 strip miscellaneous TID 90 Days Qty: 500 0RF metformin 500 mg tablet 1,000 mg PO BID@0630,1200 Qty: 180 0RF insulin lispro [Humalog KwikPen Insulin] 100 unit/mL insulin pen See Rx Instructions subcut TID Qty: 15 0RF Rx Instructions: 7 u breakfast, 10 u lunch and 14 units with dinner subcut 3 times a day; losartan 50 mg tablet 50 mg PO BEDTIME meclizine 25 mg tablet 25 mg PO BID@0630,1200 PRN (Reason: for dizziness) insulin glargine [Lantus Solostar U-100 Insulin] 100 unit/mL (3 mL) insulin pen 14 unit subcut BEDTIME Lumigan 0.01 % drops 1 drp ophthalmic-Left BEDTIME clopidogrel 75 mg Tablet 75 mg PO DAILY 90 Days Qty: 90 0RF metoprolol succinate 50 mg Tablet Extended Release 24 Hr 50 mg PO DAILY 90 Days Qty: 90 0RF Protocol: Hold for SBP/HR < HOLD for SBP < : 90 HOLD for HR < : 60 amiodarone 200 mg tablet 200 mg PO DAILY 90 Days Qty: 100 0RF Rx Instructions: take 400 mg (two tabs) twice daily until 02/15 and then take 200 mg once daily cholecalciferol (vitamin D3) 50 mcg (2,000 unit) capsule 50 mcg PO DAILY 90 Days Qty: 90 3RF Jardiance 25 mg tablet 25 mg PO DAILY Qty: 90 2RF Print Language: [place]an
--- NOTE | 2024-04-06 21:37 | PC.NURSE ---
report received from Martha SAHNI, assume care of pt at this time
[2024-04-06] MEDS: Albuterol Sulfate 2.5 MG, Albuterol/Iprat 2.5/0.5MG 3 ML 3 ML INHALE (21:39)
[2024-04-06 21:40] VITALS: PULSE 58; RESP 18; O2SAT 94
[2024-04-06 22:02] VITALS: BP 126/58; PULSE 62; RESP 20; O2SAT 100
[2024-04-06 22:46] LABS: Influenza A PCR NEGATIVE (Negative); Influenza B PCR NEGATIVE (Negative); Resp Syncy Virus RNA Qual PCR NEGATIVE (Negative); SARS COV2 PCR INHOUSE NEGATIVE (Negative)
--- NOTE | 2024-04-06 23:05 | PC.NURSE ---
pt states he is feeling better, will cont plan of care
[2024-04-06 23:29] VITALS: BP 122/53; PULSE 76; RESP 18; TEMP 36.7; O2SAT 95
== END 2024-04-06 23:31 | disposition home or self-care (01) ==
PROVIDERS: Physician Assistant Medical; Emergency Provider Internal Medicine; PCP Internal Medicine
DX: R07.89 Other chest pain (principal); I25.10 Atherosclerotic heart disease of native coronary artery without angina pectoris; I49.8 Other specified cardiac arrhythmias; R05.9 Cough, unspecified; I45.10 Unspecified right bundle-branch block; R06.02 Shortness of breath; Z79.899 Other long term (current) drug therapy; Z03.818 Encounter for observation for suspected exposure to other biological agents ruled out
CPT/HCPCS: 0241U; 36415; 71046; 80053; 83690; 83735; 83880; 84484; 85025; 85610; 93005; 94640; 99284; 99285

== ENCOUNTER → 2024-04-06 16:15 | Outpatient (BNV) | payer MEDICARE, SELFPAY | PROVIDERS: Emergency Provider Internal Medicine; PCP Internal Medicine; Visit Provider Internal Medicine Cardiovascular Disease | DX: R07.9 Chest pain, unspecified (principal) | CPT/HCPCS: 93010 ==

== ENCOUNTER 2024-05-24 13:03 | Outpatient (AMB) | payer MEDICARE, SELFPAY ==
[2024-05-24 13:14] VITALS: BP 124/82; PULSE 51; O2SAT 95; BMI 31.6
--- NOTE | 2024-05-24 13:14 | A.OFFPC_ITS ---
Vital Signs 05/24/24 13:14 Height 6 ft 1 in Weight 239 lb 8 oz BMI 31.6 BP 124/82 Blood Pressure Location Lt brachial Position Sitting Pulse 51 Pulse Source Pulse Oximeter Pulse Oximetry (%) 95 Oxygen Delivery Method Room Air Intake Visit Reasons: DM, HLD, HTN Weigh And Charge Worker Required: No Accompanied by: Self / Same As Patient Allergies No Known Allergies [No Known Allergies*] Allergy (Verified 05/24/24 13:36) Medication List - Last Reconciled 05/24/24 by Andi Duff MD albuterol sulfate 90 mcg/actuation 2 puffs inhalation Q6H PRN amiodarone 200 mg PO DAILY aspirin (Le Low Dose Aspirin) 81 mg PO DAILY atorvastatin 80 mg PO DAILY bimatoprost 0.01% (Lumigan) 1 drp ophthalmic-Left BEDTIME blood sugar diagnostic (FreeStyle Lite Strips) 1 strip miscellaneous TID 90 days cholecalciferol (vitamin D3) 50 mcg PO DAILY 90 days clobetasol 0.05% 1 appl topical BID 2 weeks clopidogrel 75 mg PO DAILY 90 days empagliflozin (Jardiance) 25 mg PO DAILY [Freestyle lancets As directed] furosemide 40 mg PO DAILY 90 days insulin glargine-yfgn 14 units (0.14 mL) subcut QPM insulin lispro (Humalog KwikPen (U-100) Insulin) 7 u breakfast, 10 u lunch and 14 units with dinner subcut 3 times a day; losartan 50 mg PO BEDTIME meclizine 25 mg PO BID@0630,1200 PRN metformin 1,000 mg (2 x 500 mg) PO BID@0630,1200 metoprolol succinate ER 50 mg See Protocol PO DAILY 90 days potassium chloride ER 20 mEq (2 x 10 mEq) PO DAILY 90 days Tobacco use date assessed: 05/24/24 Fall risk assessment: No Falls in past year Last assessed Fall Risk: 05/24/24 Dental Screening Dental Screen Date: 05/24/24 Did you have a dental visit in the last 12 months?: No Did you have a dental problem in the last 6 months where you did not have access to dental care?: No Was dental information given to patient?: Patient has dentist HPI DM, HLD, HTN HPI Details Patient comes in today for his follow up visit States that he feels okay He denies any headaches or dizziness Denies any chest pains, no SOB No nausea/vomiting, no abdominal pain No change in bowel habits noted Relates that he went to the ER about 5 to 6 weeks ago for chest pains - work ups done at the ER were all negative He is scheduled to have a nuclear stress test done at the end of the month for further evaluation Adds that he hurt his lower back about 2 weeks ago when he was cleaning out his yard and he bent over to picker / packer a box - states that he immediately felt a sharp pain in his lower back States that he currently still has increased pain over his lower back and he has been wearing a brace for added support but feels that his low back pain is starting to subside gradually now He was not able to get his follow up labs done prior to his appointment today [facility] Medical History Vitamin D deficiency Bilateral knee pain SVT (supraventricular tachycardia) Atherosclerotic cardiovascular disease Insomnia Obesity (BMI 30-39.9) Benign prostate hyperplasia Paroxysmal atrial fibrillation Coronary artery disease Pure hypercholesterolemia Benign essential hypertension Chronic bronchitis Lumbar disc disease CAD (coronary artery disease) Type 2 diabetes mellitus with diabetic polyneuropathy Essential hypertension Hyperlipidemia LDL goal <70 Surgical History History of eye surgery Hx of colonoscopy (~02/24/17) Hx of CABG Family History Brother Diabetes Father No problems noted. Mother No problems noted. Social History Household Members: None Housing: Homeless Do you presently have visiting nurse or other home services: No Alcohol intake: former Patient Tobacco Use Status: Former Tobacco user e-Cigarette/Vaping Use: Never Used Second Hand Smoke Exposure: No service: No Current occupational status: retired Cognitive needs: No Hearing needs: No Vision needs: Yes (Glasses) Questionnaire PHQ-9 Over the last 2 weeks, how often have you been bothered by any of the following problems? 1. Little interest or pleasure in doing things: not at all 2. Feeling down, depressed, or hopeless: not at all 3. Trouble falling or staying asleep, or sleeping too much: not at all 4. Feeling tired or having little energy: not at all 5. Poor appetite or overeating: not at all 6. Feeling bad about yourself - or that you are a failure or have let yourself or your family down: not at all 7. Trouble concentrating on things, such as reading the newspaper or watching television: not at all 8. Moving or speaking so slowly that other people could have noticed. Or the opposite - being so fidgety or restless that you have been moving around a lot more than usual: not at all 9. Thoughts that you would be better off or of hurting yourself in some way: not at all Total score: 0 Depression Screening Interpretation: Negative Depression Screening Done: Yes 98893 - PHQ-9 Billing: Yes Source: Developed by Drs. Maciel Lincoln, Carissa Del Rio, Jerome Barrientos and colleagues, with an educational derrell from [employer]. Thrive Questionnaire Date Thrive assessed: 05/24/24 I am a: Patient What is your living situation today?: I have a steady place to live Within the past 12 months, did the food you bought not last and you didn't have the money to get more?: Never true Within the past 12 months, did you worry whether your food would run out before you got money to buy more?: Never true Do you have trouble paying for medicines?: No Do you have trouble getting transportation to medical appointments?: No Do you have trouble paying your heating and electricity bill?: No Do you have trouble taking care of your child, family member or friend?: No Do you have trouble with day-to-day activities such as bathing, preparing meals, shopping, managing finances, etc.?: No Are you currently unemployed and looking for a job?: No Are you interested in more education?: No Please select the resources that you would like help with: None Currently or been in a relationship where the following occur: No concerns reported THRIVE Score: 0 AUDIT C Alcohol Use Questionnaire (AUDIT-C) 1. How often do you have a drink containing alcohol?: Never 3. How often do you have six or more drinks on one occasion?: Never Total Score: 0 Score Reviewed/Action Taken: Yes ADRIÁN-7 AMB Questionnaire ADRIÁN-7 Date ADRIÁN - 7 assessed: 05/24/24 Feeling nervous, anxious, or on edge: 0 = Not at all Not being able to stop or control worryin = Not at all Worrying too much about different things: 0 = Not at all Trouble relaxin = Not at all Being so restless that it is hard to sit still: 0 = Not at all Becoming easily annoyed or irritable: 0 = Not at all Feeling afraid as if something awful might happen: 0 = Not at all Total ADRIÁN-7 score (0-4 normal; 5-9 mild; 10-14 moderate; 15-21 severe): 0 Source: Developed by Drs. Maciel Lincoln, Carissa Del Rio, Jerome Barrientos and colleagues, with an educational derrell from [employer]. Review of Systems Const Denies chills, Denies fatigue, Denies fever(s) and Denies headache(s) ENT Denies dysphagia, Denies dizziness, Denies otalgia, Denies headache(s), Denies neck pain, Denies odynophagia and Denies sore throat Card Denies chest pain, Denies rapid heart rate, Denies irregular heart rhythm, Denies palpitations and Denies dyspnea Resp Denies chest congestion, Denies cough and Denies dyspnea GI Denies abdominal pain, Denies constipation, Denies dysphagia, Denies heartburn, Denies diarrhea, Denies nausea, Denies odynophagia and Denies vomiting Denies difficulty urinating, Denies dysuria and Denies urinary frequency Musc Reports back pain (over the lower back for the past couple of weeks), Reports arthralgias (right knee - on and off), Denies joint swelling and Denies neck pain Skin/Breast Denies rash Neuro Denies dizziness, Denies headache(s) and Denies paresthesias Endo Denies fatigue and Denies palpitations Physical exam (Primary Care) Vital Signs: Last Vital Signs Pulse 51 05/24/24 13:14 BP 124/82 05/24/24 13:14 Pulse Ox 95 05/24/24 13:14 Oxygen Delivery Method Room Air 05/24/24 13:14 BMI result Body Mass Index 31.6 Tobacco/Smoking Status: Tobacco use Status Tobacco use date assessed 05/24/24 05/24/24 13:20 Patient Tobacco Use Status Former Tobacco user 05/24/24 13:20 e-Cigarette/Vaping Use Never Used 05/24/24 13:20 PHQ-9: PHQ-9 Score PHQ-9: Total score 0 05/24/24 13:20 Depression Screening Interpretation: Negative Thrive Assessment: Date of Thrive Assessment Date Thrive assessed 05/24/24 05/24/24 13:20 Currently or been in a relationship where the following occur: No concerns reported Const General: no acute distress and alert HENMT Ears: TM's normal bilaterally and EAC's normal Throat: Yes posterior oropharynx normal and Yes tonsils normal (no TP congestion) Neck Neck: Yes supple and No lymphadenopathy Thyroid: Thyroid normal Resp Auscultation: clear to auscultation bilaterally, no rales and no wheezes Cardio Rate: regular rate Rhythm: regular rhythm Heart sounds: no murmurs GI Palpation (GI): Soft to palpation and nontender Auscultation: normal bowel sounds General: Yes no CVA tenderness Back/Spine/Pelvis Back: no CVA tenderness Thoracic/Lumbar Spine: lumbar spinal tenderness Skin Rashes: no rashes Extrem General: Yes no clubbing, cyanosis or edema Right lower extremity: knee Details: tenderness Location: of the lateral joint line; no swelling Results AMB Hemoglobin A1c AMB Hemoglobin A1c 8.1 % Last Edit by JLUIS Collazo on 05/24/24 13 :37 Coding Diagnoses Coronary artery disease involving ven[place]ie coronary artery of [place] heart without angina pectoris I25.10 Coronary Disease-Associated Artery/Lesion type: [place] artery [place] vs. 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: with fpc use Benign essential hypertension I10 Vitamin D deficiency E55.9 Osteoarthritis of right knee M17.11 Benign prostatic hyperplasia without lower urinary tract symptoms N40.0 Lower urinary tract symptom presence: symptoms absent Obesity (BMI 30-39.9) E66.9 Additional Codes PHQ-9 - 69459 - PHQ-9 Billing: Yes ([id number]) Assessment & Plan Assessment & Plan (1) Coronary artery disease: Comment: S/P CABG x 4 at [facility] in 03/2018 Code(s): I25.10 - Atherosclerotic heart disease of [place] coronary artery without angina pectoris Category: Medical Qualifiers: Coronary Disease-Associated Artery/Lesion type: [place] artery [place] vs. 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 use: with fpc use Qualified Code(s): E11.42 - Type 2 diabetes mellitus with diabetic polyneuropathy; Z79.4 - 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 insulin Plan: His in-office HgbA1c done today is at 8.1% (HgbA1c was at 6.8% a few months ago in early January 2024) - goal is at least <7.0% Reinforced diabetic diet (5) Benign essential hypertension: Code(s): I10 - Essential (primary) hypertension Category: Medical (6) Vitamin D deficiency: Code(s): E55.9 - Vitamin D deficiency, unspecified Category: Medical (7) Osteoarthritis of right knee: Code(s): M17.11 - Unilateral primary osteoarthritis, right knee Category: Medical (8) Benign prostate hyperplasia: Comment: 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
== END 2024-05-24 13:53 | disposition home or self-care (01) ==
PROVIDERS: PCP Internal Medicine; Visit Provider Internal Medicine
DX: Z13.9 Encounter for screening, unspecified (principal)

== ENCOUNTER → 2024-05-24 13:03 | Outpatient (BNVA) | payer MEDICARE, SELFPAY | PROVIDERS: PCP Internal Medicine; Visit Provider Internal Medicine | DX: I25.10 Atherosclerotic heart disease of native coronary artery without angina pectoris (principal); I48.0 Paroxysmal atrial fibrillation; E78.00 Pure hypercholesterolemia, unspecified; E11.42 Type 2 diabetes mellitus with diabetic polyneuropathy; Z79.4 Long term (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 insulin; I10 Essential (primary) hypertension; E55.9 Vitamin D deficiency, unspecified; M17.11 Unilateral primary osteoarthritis, right knee; N40.0 Benign prostatic hyperplasia without lower urinary tract symptoms; E66.9 Obesity, unspecified; Z68.31 Body mass index [BMI] 31.0-31.9, adult; Z71.3 Dietary counseling and surveillance | CPT/HCPCS: 83036; 96127; 99212 ==

== ENCOUNTER → 2024-06-15 09:13 | Outpatient (REF) | payer MEDICARE, SELFPAY ==
--- NOTE | ~2024-06-15 | NM_ITS ---
Lexiscan Myocardial perfusion study Indication: Cardiomyopathy evaluate for myocardial ischemia Technique: The patient was brought in for a Lexiscan perfusion study on June 15, 2024 and was injected 0.4 mg of Lexiscan intravenously. Within a minute of this injection 30 mCi of sestamibi was given intravenously. Images were obtained using the SPECT gamma camera interlaced with the gating device. Images were obtained in supine position. Resting perfusion study was performed on June 18, 2024. Patient was administered 30 mCi of sestamibi intravenously at rest. Images were then obtained in supine position. Images obtained without without CT attenuation. Total DLP 96 mGy-cm. Images were processed with the software and compared side to side in short axis, horizontal long axis and vertical long axis views. Findings: The stress perfusion study showed nonattenuated images show large area of absent uptake, distal anterior, and basal inferolateral and basal lateral wall as well as severely reduced uptake in the basal and mid inferior wall of the LV myocardium.. Attenuated corrected images show absent uptake in the apex, distal anterior, moderately reduced uptake in the basal and mid lateral wall of the LV myocardium. The gated study shows normal LV systolic function with calculated LVEF of 47%. LV cavity is mildly dilated in size. The gated study shows reduced apical wall thickening and contraction of segments. Resting study shows no change in perfusion pattern compared to stress perfusion study. Gating at rest reveals apical wall motion abnormality with ejection fraction at 47%. The findings are consistent with no reversible ischemia. 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 NM/NM cardiolite stress test Impression: 1. Myocardial perfusion imaging study shows no evidence of ischemia. Apical and distal anterior transmural infarct as well as nontransmural infarct of the basal lateral and inferolateral wall 2. Gated LVEF is 47% 3. Transient ischemic dilatation not present but LV cavity is dilated Nondiagnostic changes on EKG. Electronically signed by: Jordin Kellogg MD 06/18/2024 04:02 PM [facility]
--- NOTE | 2024-06-15 09:17 | CA_ITS ---
Acquisition Time: 2024-06-15 09:35:13 Total Exercise Time: 00:05:36 Test Indications: SVT, AFIB, PVCS Medications: SEE H Protocol: TOMAS Max HR: 108 BPM 76% of Pred: 141 BPM Max BP: 140/088 mmHG Max Work Load: 4.7 METS Exercise Stress Test with exercise 2 mins 50 secs of Tomas Protocol, acheiving 59% MPHR, unable to go on due to knee pain, no reports of anginal symptoms, with isolated PVCs, with normotensive response to exercise. Inconclusive test. Test switched to Pharmacologic Nuclear Stress Test. Pharmacologic Stress Test with Lexiscan while pt continued to walk on treadmill at 1mph, with reports of moderate SOB, without chest discomfort, with isolated PVC, with normotensive response to injection. Nondiagnostic EKG for ischemia. In recovery, pt treated with IVP Aminophylline 75mg to reverse Lexiscan, aftre which pt's breathing returned to baseline. Nuclear images pending. Test reviewed with Dr. Kellogg. Referred By: Piper Maguire Overread By: Iglesia Plascencia
== END ==
LOC: HO.CARD 09:13
PROVIDERS: PCP Internal Medicine; Visit Provider Nurse Practitioner Family
DX: I42.9 Cardiomyopathy, unspecified (principal); I21.4 Non-ST elevation (NSTEMI) myocardial infarction
CPT/HCPCS: 78452; 93017; A9500; J0280; J2785

== ENCOUNTER → 2024-06-15 09:17 | Outpatient (BNV) | payer MEDICARE, SELFPAY | PROVIDERS: PCP Internal Medicine | DX: I49.3 Ventricular premature depolarization (principal) | CPT/HCPCS: 78452; 93016; 93018 ==

== ENCOUNTER 2024-07-01 09:14 | Outpatient (REF) | payer MEDICARE, SELFPAY ==
--- NOTE | ~2024-07-01 | US_ITS ---
EXAMINATION: US ABDOMEN COMPLETE CLINICAL INFORMATION: Unspecified abdominal pain.. COMPARISON: None. Correlation made with CT abdomen and pelvis 06/21/2006. TECHNIQUE: Real-time imaging of the abdominal viscera. FINDINGS: PANCREAS: Largely obscured by gas. ABDOMINAL AORTA: The proximal, mid, and distal segments are normal in caliber. INFERIOR VENA CAVA: Visualized portions are normal. LIVER: The liver is normal in size. The liver contour is normal. There are numerous circumscribed predominantly round and oval hypoechoic liver masses throughout the liver parenchyma, largest seen in the right hepatic lobe measuring 2.0 x 2.3 x 2.9 cm, and 1.5 x 1.6 x 1.7 cm. Findings are suspicious. No liver lesions were present in [address] exam. There is no intrahepatic biliary duct dilatation seen. GALLBLADDER: The gallbladder is physiologically distended without evidence of stones, sludge, polyps, wall thickening or pericholecystic fluid. COMMON BILE DUCT: Normal in caliber measuring 0.6 cm in diameter. RIGHT KIDNEY: No hydronephrosis. No renal calculi or focal parenchymal lesions. The kidney measures 9.2 cm in maximum dimension. LEFT KIDNEY: No hydronephrosis. No renal calculi or focal parenchymal lesions. The kidney measures 8.9 cm in maximum dimension. SPLEEN: The spleen measures 10.3 cm in maximum dimension. FREE FLUID: None. US/US abdomen complete IMPRESSION: 1. Numerous subtle round and oval hypoechoic liver masses present as described, largest measuring 2.0 x 2.3 x 2.9 cm in the right hepatic lobe. Findings are suspicious for metastatic disease. CT examination of 2006 showed no liver abnormalities. Recommend contrast enhanced cross-sectional imaging (CT versus MR) for further characterization. 2. Normal gallbladder and bile ducts. 3. Normal kidneys and spleen. Request made for stat fax of this examination report 10:37 AM, 07/01/2024 Electronically signed by: Jerome Nelson MD 07/01/2024 10:41 AM [facility]
== END 2024-07-01 09:15 | disposition home or self-care (01) ==
LOC: HO.US 09:14
PROVIDERS: PCP Internal Medicine; Visit Provider Internal Medicine
DX: R10.9 Unspecified abdominal pain (principal)
CPT/HCPCS: 76700

== ENCOUNTER → 2024-07-01 09:16 | Outpatient (BNV) | payer MEDICARE, SELFPAY | PROVIDERS: PCP Internal Medicine; Visit Provider Radiology Diagnostic Radiology | DX: R10.9 Unspecified abdominal pain (principal) | CPT/HCPCS: 76700 ==

== ENCOUNTER → 2024-07-06 12:34 | Outpatient (REF) | payer MEDICARE, SELFPAY ==
--- OUTSIDE RECORDS SUMMARY | 2024-07-06 14:09 | XMS_ITS ---
Author Organization [facility] Address [address] [place] [address] Care Team Providers Care Log Data Technician Name Role Phone Andi Duff MD Primary Care Provider Unava ilRodolfo Whitmore Unavailable [phone] Encounters Encounter Location Date Provider Diagnosis [address] [address] 04/06/2024 Rodolfo Han Plan Of Treatment Next Appt Details Provider Name:Rodolfo Han , 08/10/2024 03:00:00 PM, [address] [place] [address], [id number], Progress Notes * Donald MATTADOB:[birth year] (79 yo M)Acc No.[id number]:04/06/2024 Progress Note Patient:?DESMONDDonald DU Provider:?Rodolfo Han DPM :1945???Age:79 Y???Sex:Male Rudy e:04/06/2024 Address:[address] [place] [address] [id number] Pcp:Andi Duff MD Subjective: * Chief Complaints: * ??? * Medical History:? Objective: * Vitals:? Assessment: Plan: * Treatment: * Images: * The named appointment provid er may or may not be the originator of this progress note, and it is not deemed complete until electronically signed by the appointment provider. Sign off status: Pending * Provider:?Rodolfo Han DPM Date:?2023 Generated for Shona cody/Sergey/Rg on:?07/06/2024 02:09 PM EST
--- OUTSIDE RECORDS SUMMARY | 2024-07-06 14:09 | XMS_ITS ---
Author Organization [facility] Address [address] [place] [address] Care Team Providers Care Drapery Hanger Name Role Phone Omega LAZAR Parsons Primary Care Provider Unava ilRodolfo Whitmore Unavailable [phone] REASON FOR VISIT No Show Encounters Encounter Location Date Provider Diagnosis [address] [address] 04/06/2024 Rodolfo Han Plan Of Treatment Next Appt Details Provider Name:Rodolfo Han , 08/10/2024 03:00:00 PM, [address] [place], [address], Progress Notes * Donald MATTADOB:[birth year] (79 yo M)Acc No.[id number]:04/06/2024 Patient:?Donald MATTA :1945???Age:79 Y???Sex:Male Address:[address] [place] [address] [place], [address] * true * Date:? Generated for Printi ng/Falennoxg/eTransmitting on:?07/06/2024 02:09 PM EST
--- OUTSIDE RECORDS SUMMARY | 2024-07-06 14:09 | XMS_ITS ---
Author Organization [facility] Address [address] [place] [address] Care Team Providers Care Recruiting Manager Name Role Phone Omega LAZAR, [place] Primary Care Provider Rodolfo Clay Unavailable [phone] Allergies No Known Allergies REASON FOR VISIT At Risk Footcare, Toe Irritation Medications Medication SIG (Take, Route, Frequency, Duration) Notes Start Date End Date Status Metoprolol Succinate 100 MG 1 capsule Orally Once a day for 30 day(s) Active Terazosin HCl 2 MG 1 capsule at bedtime Orally Once a day for 30 day(s) Not-Taking Clopidogrel Bisulfate 75 MG Oral for 90 Days Active Voltaren 1 % as directed Externally 07/19/2022 Active ZzzQuil Active metFORMIN HCl 500 MG 1 tablet with a polina l Orally Once a day for 30 day(s) Active Meclizine HCl 25 MG 1 tablet as needed Orally Once a day for 30 day(s) Active HumaLOG 100 UNIT/ML as directed Subcutaneous Active Potassium Chloride 20 MEQ 1 packet with food Orally Once a day for 30 day(s) Active Lantus SoloStar 100 UNIT/ML as directed Subcutaneous Act robert Voltaren 1 % as directed Externally Active Jardiance 25 MG 1 tablet Orally Once a day for 30 day(s) Active Furosemide 40 MG 1 tablet Orally Once a day for 30 day(s) Active Aspirin 81 MG 1 tablet Orally Once a day for 30 day(s) Active Atorvastatin Calcium 80 MG 1 tablet Orally Once a day for 30 day(s) Active Clopidogrel & Aspirin Active Social History Tobacco Use: Social History Observation Description Date Details (start date - stop date) Never Smoker NA - NA Tobacco use other than smoking: Question Answer Notes Are you an other tobacco user? No Tobacco Control (Standard) Question Answer Notes Tobacco use: Nonsmoker Problems Problem Type SNOMED Code ICD Code Onset Dates Problem Status W/U Status Risk Notes Problem Polyneuropathy due to type 2 diabetes mellitus (845404433) Type 2 diabetes mellitus with diabetic polyneuropathy (E11.42) Active confirmed Problem Acquired hammer toe of right foot (3438534526064050 ) Other hammer toe(s) (acquired), right foot (M20.41) Active confirmed Response to treatment, Improvemen t Problem Acquired hammer toe of left foot (7077808579449055 ) Other hammer toe(s) (acquired), left foot (M20.42) Active confirmed Response to treatment, Improvemen t Vital Signs Height 6 ft 1 in in 05/11/2024 Weight 225 lbs 05/11/2024 BMI 29.68 kg/m2 05/11/2024 Procedures Procedure Date Ordered Date Performed Result Body Sit e 39691-CQFNMXR NAIL, 1-5 05/11/2024 N/A 91229-KLNT SKIN LESIONS, 2 TO 4 05/11/2024 N/A [id number] DYSTROPHIC NAILS ANY # 05/11/2024 N/A Encounters Encounter Location Date Provider Diagnosis [facility] [address] [address] 05/11/2024 Rodolfo Han Type 2 diabetes mellitus with diabetic polyneuropathy E11.42 ; Tinea unguium B35.1 ; Other hammer toe(s) (acquired), right foot M20.41 and Other hammer toe(s) (acquired), left foot M20.42 Assessments Encounter Date Diagnosis (ICD Code) Assessment Notes Treatment Notes Treatment Clinical Notes Section Notes 05/11/2024 Type 2 diabetes mellitus with diabetic polyneuropathy (ICD-10 - E11.42) 05/11/2024 Tinea unguium (ICD-10 - B35.1) 05/11/2024 Other hammer toe(s) (acquired), right foot (ICD-10 - M20.41) Response to treatment,Impro vement 05/11/2024 Other hammer toe(s) (acquired), left foot (ICD-10 - M20.42) Response to treatment,Impro vement Plan Of Treatment Pending Test Test Name Order Date [id number] NAIL, 1-5 05/11/2024 19969-DTEX SKIN LESIONS, 2 TO 4 05/11/20 24 [id number] DYSTROPHIC NAILS ANY # Next Appt Details Follow Up: prn, Reason: Provider Name:Rodolfo Han , 08/10/2024 03:00:00 PM, [address] [place] [address], [phone], Procedure Notes * Category Sub-Category Detail Notes Keratoma Treatment Parring or Cutting o f Benign Hyperkeratotic Lesion(s) (-56) 2-4 Lesions - Due to the at risk nature of the patients medical condition as documented in the exam findings, performance of this keratoderma treatment is medically necessary as its management by an unskilled/untrained nonprofessional would put this patients foot and overall health at risk. Therefore, the benign hyperkeratotic lesions, ( 2) in total, locations as stated and described in the exam ( SUB MTH (s), 1, B/L), were pared, and/or cut utilizing a sterile 15 blade, tissue nippers, and/or power dremel instrumentation by the physician of record - 69554 Debride Nails 1-5 Procedure: Due to the cli nical pathology outlined in the exam findings, performance of this nail treatment is medically necessary as its management by an unskilled/untrained nonprofessional would put this patients foot and overall health at risk. Therefore, debridement to affected nail(s), as described in exam ( TA, T5), was performed exclusively by the physician of record to reduce/remove overall nail length, girth, thickness, subungual debris, and necrotic tissue, by manual and/or electrical means through the use of a nail nipper and/or dremel stylegrinder, to a more viable healthy nail plate or bed tissue 5 nails or fewer in number. Silver nitrate was used for any petechial bleeding as necessary. Definitive antifungal treatment options, both pharmaceutical and surgical, have been reviewed and discussed with the patient. The patient solely prefers the use of intermittent/as needed professional debridement services for their nail condition and understands that additional periodic treatments may be required as necessary to maintain effective symptomatic relief - 67287 Nail Reduction Nail Reduction (-27) Trimming o f all dystrophic nails - Due to the at risk nature of the patients medical condition as documented in the exam findings, performance of this nail treatment is medically necessary as its management by an unskilled/untrained nonprofessional would put this patients foot and overall health at risk. Therefore, the dystrophic nails, in locations as stated and described in the exam ( T1, T2, T3, T4, T6, T7, T8, T9), were debrided by the phisician of record to reduce/remove overall nail length and girth, by manual and electrical means with use of a nail nipper and/or dremel, to more viable healthy nail plate or bed tissue - G0127 Progress Notes * Donald MATTADOB:[birth year] (79 yo M)Acc No.[id number]:05/11/2024 Progress Note Patient:?DESMONDANA LAURATomDonald Carmencita Provider:?Rodolfo Han DPM :1945???Age:79 Y???Sex:Male Rudy e:05/11/2024 Address:[address] [place] [address] [place], [id number] Pcp:Andi Duff MD Subjective: * Chief Complaints: * ???At Risk FootcareToe Irrit ation * HPI: ???At Risk footcare:?Pt States Last PCP Visit:?Date?03/18/2024 ???Toe pain:?Treatments:?Rx shoes .? * ROS:?General/Constitutional:?Nausea?denies.?Vomiting?denies.?Hunger Thirst?denies.?Loss appetite?denies.?Chills?denies.?Fatigue?denies.?Fever?denies.?Night Sweats?denies.?Unexplained weight loss?denies.?Unexplained weight gain?denies.?HEENTM:?Dentures?denies.?Dizziness?denies.?Glasses/contacts?admits.?Retinopathy?den ies.?Blurred/double vision?denies.?TMJ?denies.?Discharge/drainage?denies.?Implants?denies.?Sore throat?denies.?Dental implants?denies.?Hard of hearing ?denies.?Difficulty chewing/swallowing/speaking?denies.?Nose bleeds?denies.?Sore mouth?denies.?Respiratory:?On O xygen?denies.?Pneumonia/pleurisy?denies.?Bronchitis?denies.?Emphysema?denies.?Co ughing?denies.?Cough blood?denies.?Shortness of breath?denies.?Wheezing?denies.?Cardiovascular:?Pacemaker?denies.?MVP?denies.?WPW?denies.?CHF?denies.?Heart attack?admits.?Septal defect?denies.?Rapid beat?denies.?Chest pain ?denies.?Atrial Fib.?denies.?Murmur/Palpitations?denies.?Gastrointestinal:?Hemorrhoids?admits.?Stomach/Abdominal pain?denies.?Dark blood stool?denies.?Irritable bowel ?denies.?Constipation?denies.?Diarrhea?denies.?Hematology:?Swelling?denies.?Clots?denies.?Varicose Veins?denies.?Bruising?denies.?Bleeding problem?denies.?Genitourinary:?Blood urine?denies.?Frequent/Painfu/urination/bladder control?denies.?Kidney stones?denies.?Infection (UTI)?denies.?Nephropathy?admits.?sex trans dis (STD)?denies.?Prostate?denies.?Musculoskeletal:?Hammertoes?admits.?Bunions?denies.?Back Pain?denies.?Muscle Cramps/ Resting?denies.?Muscle cramps / walking?denies.?Generalized aches and pains?denies.?Weakness?denies.?Integ.:?Amador?denies.?Scars?admits.?Corns/calluses?admits.?Ingrown nails?admits.?Painful nails?denies.?Open Sores?denies.?Rashes?admits.?Neurologic:?Difficulty sleeping?denies.?Brain disorder?denies.?Numbness?admits.?Balance t rouble?denies.?Confusion?denies.?Fainting/blackouts?denies.?Tingling?denies.?Frederick mors?denies.? * Medical History:? 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 * Social History:?Tobacco Use:?Tobacco use other than smoking?Are you an other tobacco user??No ?Tobacco Control (Standard)?Tobacco use:?Nonsmoker ???Miscellaneous:?Caffeine: no, none. ?Children: no, none. ?Exercise: yes, treadmill, 1 hour total gym. ?Marital status: . 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 * Medications:?TakingClopidogr el & Aspirin Voltaren 1 % Gel as directed Externally Atorvastatin Calcium 80 MG Tablet 1 tablet Orally Once a day Aspirin 81 MG Tablet Delayed Release 1 tablet Orally Once a day Furosemide 40 MG Tablet 1 tablet Orally Once a day Jardiance 25 MG Tablet 1 tablet Orally Once a day Lantus SoloStar 100 UNIT/ML Solution Pen-injector as directed Subcutaneous Potassium Chloride 20 MEQ Packet 1 packet with food Orally Once a day HumaLOG 100 UNIT/ML Solution Cartridge as directed Subcutaneous Meclizine HCl 25 MG Tablet Chewable 1 tablet as needed Orally Once a day metFORMIN HCl 500 MG Tablet 1 tablet with a meal Orally Once a day Metoprolol Succinate 100 MG Capsule ER 24 Hour Sprinkle 1 capsule Orally Once a day ZzzQuil Voltaren 1 % Gel as directed Externally Clopidogrel Bisulfate 75 MG Tablet Oral Taking Clopidogrel & Aspirin Taking Voltaren 1 % Gel as directed Externally Taking Atorvastatin Calcium 80 MG Tablet 1 tablet Orally Once a day Taking Aspirin 81 MG Tablet Delayed Release 1 tablet Orally Once a day Taking Furosemide 40 MG Tablet 1 tablet Orally Once a day Taking Jardiance 25 MG Tablet 1 tablet Orally Once a day Taking Lantus SoloStar 100 UNIT/ML Solution Pen-injector as directed Subcutaneous Taking Potassium Chloride 20 MEQ Packet 1 packet with food Orally Once a day Taking HumaLOG 100 UNIT/ML Solution Cartridge as directed Subcutaneous Taking Meclizine HCl 25 MG Tablet Chewable 1 tablet as needed Orally Once a day Taking metFORMIN HCl 500 MG Tablet 1 tablet with a meal Orally Once a day Taking Metoprolol Succinate 100 MG Capsule ER 24 Hour Sprinkle 1 capsule Orally Once a day Taking ZzzQuil Taking Voltaren 1 % Gel as directed Externally Taking Clopidogrel Bisulfate 75 MG Tablet Oral Not-Taking/PRNTerazosin HCl 2 MG Capsule 1 capsule at bedtime Orally Once a day Medication List reviewed and reconciled with the patientNot-Taking/PRN Terazosin HCl 2 MG Capsule 1 capsule at bedtime Orally Once a day Medication List reviewed and reconciled with the patient * Allergies:?N.K.D.A.yes[Aller gies Verified] Objective: * Vitals:?Ht: 6 ft 1 in, Wt:22 5, BMI: 29.68, Shoe size:12W, BS:122, Wt-k.06 kg. * ???Past Orders: ???Lab:HEMOGLOBIN A1C (GLYCO HEMOGLOBIN) (Order Date - 09/22/2023) (Collection Date & Time - 09/15/2023) ? Value Reference Range ?HEMOGLOBIN A1C (HH) 6.4 * Examination: ???Ophthalmology Referral: ?DIABETES EYE EXAM?Neurological: ?SENSORY:?Neurological exam demonstrates, reduced light touch sensation, reduced sharp/dull discrimination , reduced vibration sensation, in a stocking fashion, B/L, 5.07 monofilament test performed at plantar aspects of 5 varied sites per foot shows sensation, reduced, B/L.?Nails: ?NAILS are:?Elongated, overgrown, dystrophic, lytic, greater than 3mm thick, discolored and friable with crumbly malodorous subungual debris TA, T5, all other nails not described with characteristics as possessing mycosis are elongated, overgrown, and dystrophic ( T1, T2, T3, T4, T6, T7, T8, T9?).?Dermatologic: ?SKIN FINDINGS:?Skin exam reveals Keratotic lesion(s) located at, SUB MTH (s), 1, B/L.?Orthopedic: ?MUSCLE STRENGTH:?5/5 all groups in a symmetrical fashion, B/L.?DIGITAL DEFORMITIES:?Digital contracture, PIPJ, 2-5 B/L, incompl-reducible with WB, or to push-up test, no over, nor underlapping.?FOOTWEAR:?good condition, exhibit proper fit and accommodation for pedal deformities. OT were inspected and noted to be worn, but in good condition giving proper support at the present time.?Vascular: ?DP PULSES (B):?1/4, B/L.?PT PULSES (B):?1/4, B/L.?CAPILLARY FILL TIME:?3 secs. per digit, B/L.?TROPHIC CONDITION-TEXTURE/ELASTICITY/TURGOR/HAIR GROWTH (B):?normal, B/L.?TEMPERTURE GRADIENT (C):?warm to cool, proximal to distal, B/L.?PIGMENTATION:?normal, B/L.?EDEMA (C):?absent, B/L.?TELANGECTASIA:?absent.?VARICOSITIES:?absent.?General Examination: ?GENERAL APPEARANCE:?Reveals a pleasant, alert, well nourished, well- developed, well hydrated individual, who demonstrates proper attention to hygiene/body habitus, and is in no acute distress, Pt serves as own historian for office visit today.?ORIENTED:?person, place, and time.?FOOT EXAM:?Footwear Evaluation? Assessment: * Assessment: 1.?Tinea unguium - B35.1???2 .?Type 2 diabetes mellitus with diabetic polyneuropathy - E11.42 (Primary)???3.?Other hammer toe(s) (acquired), right foot - M20.41???Specify :Chronic problem, Stable (1=3,2=4)???Notes :Response to treatment,Improvement???4.?Other hammer toe(s) (acquired), left foot - M20.42???Specify :Chronic problem, Stable (1=3,2=4)???Notes :Response to treatment,Improvement??? Plan: * Treatment: * Procedures:?Debride Nails 1-5:?Procedure:?Due to the clinical pathology outlined in the exam findings, performance of this nail treatment is medically necessary as its management by an unskilled/untrained nonprofessional would put this patients foot and overall health at risk. Therefore, debridement to affected nail(s), as described in exam (?TA,?T5), was performed exclusively by the physician of record to reduce/remove overall nail length, girth, thickness, subungual debris, and necrotic tissue, by manual and/or electrical means through the use of a nail nipper and/or dremel stylegrinder, to a more viable healthy nail plate or bed tissue 5 nails or fewer in number. Silver nitrate was used for any petechial bleeding as necessary. Definitive antifungal treatment options, both pharmaceutical and surgical, have been reviewed and discussed with the patient. The patient solely prefers the use of intermittent/as needed professional debridement services for their nail condition and understands that additional periodic treatments may be required as necessary to maintain effective symptomatic relief - 18576.?Keratoma Treatment:?Parring or Cutting of Benign Hyperkeratotic Lesion(s)?(-56) 2-4 Lesions - Due to the at risk nature of the patients medical condition as documented in the exam findings, performance of this keratoderma treatment is medically necessary as its management by an unskilled/untrained nonprofessional would put this patients foot and overall health at risk. Therefore, the benign hyperkeratotic lesions, ( 2) in total, locations as stated and described in the exam (??SUB MTH (s),?1,?B/L), were pared, and/or cut utilizing a sterile 15 blade, tissue nippers, and/or power dremel instrumentation by the physician of record - 62108.?Nail Reduction:?Nail Reduction?(-27) Trimming of all dystrophic nails - Due to the at risk nature of the patients medical condition as documented in the exam findings, performance of this nail treatment is medically necessary as its management by an unskilled/untrained nonprofessional would put this patients foot and overall health at risk. Therefore, the dystrophic nails, in locations as stated and described in the exam (?T1, T2, T3, T4, T6, T7, T8, T9), were debrided by the phisician of record to reduce/remove overall nail length and girth, by manual and electrical means with use of a nail nipper and/or dremel, to more viable healthy nail plate or bed tissue - G0127.? * Procedure Codes:?G0127 TAIWO ING DYSTROPHIC NAILS ANY #, Modifiers: XS 66289 DEBRIDE NAIL, 1-5, Modifiers: XS 33667 TRIM SKIN LESIONS, 2 TO 4, Modifiers: XS * Preventive Medicine:? ??Counseling:?Discussion:?-13: Office or other outpatient visit for the evaluation and management of an established patient, which required a medically appropriate history and/or examination and LOW level of DECISION MAKING for: 1 STABLE ACUTE UNCOMPLICATED PROBLEM, 2 OR MORE MINOR PROBLEMS, OR 1 STABLE CHRONIC PROBLEM, THAT POSE(S) A LOW RISK FOR MORBIDITY/MORTALITY. The visit on the day of the encounter encompassed interpreting the data and educating the patient as to the nature of their condition, treatment options available according to their individual PMH, meds, allergies, and overall health/living conditions, as well as any potential risks or complications that may occur from a failure to adhere to, and participate in, the recommended course of therapy. The discussion included a complete verbal, and/or written explanation of the examination results, any x-rays taken, the proposed diagnosis, and outline of the treatment plan. A schedule for future care needs was also explained. The patient verbalized an understanding of the instructions at this time and agreed to be an active participant in their treatment. If the patient should think of any questions or concerns after the visit, I have encouraged the patient to call the office.?Shoe Gear Counseling:?A thorough inspection of the patients Rxed shoegear and inserts was performed and findings communicated. We reviewed the many important medical advantages for adhering to regularly wearing these shoe and insert accomidative devices daily as well as reviewed the fact that a failure in accepting these recommedations may be deleterious, unable to prevent, and disadvantagely result in, many pedal complications such as skin irritation, skin ulceration, infection, and even loss of toe/foot/leg/or even their life. Time was also spent reviewing the proper footcare techniques including daily skin moisturization, daily foot inspection for any interruption in skin integrity, open lesions, or sign of infection such as redness/malodor/drainage/swelling as well as daily shoe inspection for the presence of internal foreign bodies and shoe as well as insert wear. Patient questions re: shoes, inserts, and self foot inspections were answered to their satisfaction as the patient verbally confirmed a full understanding of the above information.? ??Screening/Special Tests:?Fall Risk?Assessment:?Performed ?Screening:?No falls in the past year Despite neuropathy ?FALLS: Screening for Future Fall Risk?Have you had any falls with injury in the past year??No Despite neuropathy * Follow Up:?prn * Images: * Sign off status: Completed true * Provider:?Rodolfo Han DPM Date:?2023 Generated for Shona cody/Sergey/Rg on:?07/06/2024 02:09 PM EST History and Physical Notes * HPI (History of Present Illness) Category Sub-Category Detail Notes Category Not es Toe pain Treatments: Rx shoes At Risk footcare Pt States Last PCP Visit: Date: Examination Category Sub-Category Detail Notes Category Not es Neurological SENSORY: Neurological exa m demonstrates, reduced light touch sensation, reduced sharp/dull discrimination , reduced vibration sensation, in a stocking fashion, B/L, 5.07 monofilament test performed at plantar aspects of 5 varied sites per foot shows sensation, reduced, B/L Dermatologic SKIN FINDINGS: Skin exam reveal s Keratotic lesion(s) located at, SUB MTH (s), 1, B/L Orthopedic FOOTWEAR: good condition, exhibit proper fit and accommodation for pedal deformities. OT were inspected and noted to be worn, but in good condition giving proper support at the present time DIGITAL DEFORMITIES: Digital contracture , PIPJ, 2-5 B/L, incompl-reducible with WB, or to push-up test, no over, nor underlapping MUSCLE STRENGTH: 5/5 all groups in a symmetrical fashion, B/L General Examination GENERAL APPEARANCE: Reveals a pleasant, alert, well nourished, well-developed, well hydrated individual, who demonstrates proper attention to hygiene/body habitus, and is in no acute distress, Pt serves as own historian for office visit today FOOT EXAM: Lower Extremity Neurological Exa m performed:: Yes Visual exam of foot performed:: Yes Date: 05/11/2024 ORIENTED: person, place, and t samaria Footwear Evaluation Footwear Evaluation performe d:: Yes Ophthalmology Referral DIABETES EYE EXAM Procedure Perform ed:: Yes ?Date of Exam Performed: 03/31/2024 Diabetic Retinopathy Screening:: Yes Retinal Screening Performed:: Yes Findings of Diabetic Eye Exam:: no retin opathy Vascular DP PULSES (B): 1/4, B/L PT PULSES (B): 1/4, B/L CAPILLARY FILL TIME: 3 secs. per digit, B/L TEMPERTURE GRADIENT (C): warm to cool, p roximal to distal, B/L TROPHIC CONDITION-TEXTURE/ELASTICITY/TURGOR/HAIR GROWTH (B): normal, B/L EDEMA (C): absent, B/L TELANGECTASIA: absent VARICOSITIES: absent PIGMENTATION: normal, B/L Nails NAILS are: Elongated, overg rown, dystrophic, lytic, greater than 3mm thick, discolored and friable with crumbly malodorous subungual debris TA, T5, all other nails not described with characteristics as possessing mycosis are elongated, overgrown, and dystrophic ( T1, T2, T3, T4, T6, T7, T8, T9 )
--- OUTSIDE RECORDS SUMMARY | 2024-07-06 14:10 | XMS_ITS | Patient Health Record ---
Author Organization [facility] Address [address] [place] [address] Care Team Providers Care Book Publisher Name Role Phone Omega LAZAR, Andi Primary Care Provider Rodolfo Clay Unavailable [phone] Ramon Orozco Unavailable [phone] Allergies No Known Allergies Results Component Value Reference Range Notes HEMOGLOBIN A1C (GLYCOHEMOGLO BIN) Reviewed date:09/22/2023 08:27:05 AM Interpretation: Performing Lab: Notes/Report: HEMOGLOBIN A1C (HH) 6.4 Reason For Referral No Information Medications Medication SIG (Take, Route, Frequency, Duration) Notes Start Date End Date Status Potassium Chloride 20 MEQ 1 packet with food Orally Once a day for 30 day(s) Active Lantus SoloStar 100 UNIT/ML as directed Subcutaneous Act robert Jardiance 25 MG 1 tablet Orally Once a day for 30 day(s) Active Furosemide 40 MG 1 tablet Orally Once a day for 30 day(s) Active Terazosin HCl 2 MG 1 capsule at bedtime Orally Once a day for 30 day(s) Not-Taking Aspirin 81 MG 1 tablet Orally Once a day for 30 day(s) Active Clopidogrel Bisulfate 75 MG Oral for 90 Days Active Atorvastatin Calcium 80 MG 1 tablet Orally Once a day for 30 day(s) Active Voltaren 1 % as directed Externally 07/19/2022 Active ZzzQuil Active Voltaren 1 % as directed Externally Active Clopidogrel & Aspirin Active Metoprolol Succinate 100 MG 1 capsule Orally Once a day for 30 day(s) Active metFORMIN HCl 500 MG 1 tablet with a polina l Orally Once a day for 30 day(s) Active Meclizine HCl 25 MG 1 tablet as needed Orally Once a day for 30 day(s) Active HumaLOG 100 UNIT/ML as directed Subcutaneous Active Immunizations Vaccine Route Administration Date Status Comme nts COVID-19 Moderna Vaccine Unknown 06/18/2021 Administered 1st 07/19/20 2nd 08/15/20 3rd 02/15/21 Social History Tobacco Use: Social History Observation Description Date Details (start date - stop date) Never Smoker NA - NA Tobacco use other than smoking: Question Answer Notes Are you an other tobacco user? No Tobacco Control (Standard) Question Answer Notes Tobacco use: Nonsmoker Problems Problem Type SNOMED Code ICD Code Onset Dates Problem Status W/U Status Risk Notes Problem Acquired hammer toe of right foot (1558880205186729 ) Other hammer toe(s) (acquired), right foot (M20.41) Active confirmed Response to treatment, Improvemen t Problem Acquired hammer toe of left foot (0184557070711528 ) Other hammer toe(s) (acquired), left foot (M20.42) Active confirmed [facility] Problem Polyneuropathy due to type 2 diabetes mellitus (072232134) Type 2 diabetes mellitus with diabetic polyneuropathy (E11.42) Active confirmed Vital Signs Height 6 ft 1 in in 05/11/2024 Weight 225 lbs 05/11/2024 BMI 29.68 kg/m2 05/11/2024 Procedures Procedure Date Ordered Date Performed Result Body Sit e 42175- Debride <25 sq cm 08/01/2023 N/A 07872-RSFGJYV NAIL, 1-5 05/11/2024 N/A 19538-VLCX SKIN LESIONS, 2 TO 4 05/11/2024 N/A C2531-TJBANACN DYSTROPHIC NAILS ANY # 05/11/2024 N/A Encounters Encounter Location Date Provider Diagnosis [facility] [address] [address] 08/01/2023 Rodolfo Emely Neuropathic ulcer of right foot, 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 [facility] [address] [address] 09/11/2023 Ramon Orozco Type 1 diabetes mellitus with diabetic polyneuropathy E10.42 ; Ganglion, left ankle and foot M67.472 ; Tinea unguium B35.1 ; Ingrowing nail L60.0 ; Xerosis cutis L85.3 and Neuralgia and neuritis, unspecified M79.[address] [address] 09/22/2023 Ramon Orozco Type 1 diabetes mellitus with diabetic polyneuropathy E10.42 ; Ganglion, left ankle and foot M67.472 ; Tinea unguium B35.1 ; Ingrowing nail L60.0 ; Xerosis cutis L85.3 and Neuralgia and neuritis, unspecified M79.[address] [address] 12/31/2023 [facility] Type 1 diabetes mellitus with diabetic polyneuropathy E10.42 ; Ganglion, left ankle and foot M67.472 ; Tinea unguium B35.1 ; Ingrowing nail L60.0 ; Xerosis cutis L85.3 and Neuralgia and neuritis, unspecified M79.[address] [address] 05/11/2024 Rodolfo Han Type 2 diabetes mellitus with diabetic polyneuropathy E11.42 ; Tinea unguium B35.1 ; Other hammer toe(s) (acquired), right foot M20.41 and Other hammer toe(s) (acquired), left foot M20.[address] [address] 08/01/[address] [address] 09/15/[address] [address] 04/06/2024 Rodolfo Emely Assessments Encounter Date Diagnosis (ICD Code) Assessment Notes Treatment Notes Treatment Clinical Notes Section Notes 08/01/2023 Neuropathic ulcer of right foot, limited to breakdown of skin (ICD-10 - L97.511) Response to treatment,Nonap plicable Patient Educated with: WOUND CARE INSTRUCTIONS. pdf (WOUND CARE INSTRUCTIONS. pdf) 09/11/2023 Ganglion, left ankle and foot (ICD-10 - M67.472) 09/11/2023 Type 1 diabetes mellitus with diabetic polyneuropathy (ICD-10 - E10.42) 09/22/2023 Type 1 diabetes mellitus with diabetic polyneuropathy (ICD-10 - E10.42) 09/22/2023 Ganglion, left ankle and foot (ICD-10 - M67.472) 12/31/2023 Ganglion, left ankle and foot (ICD-10 - M67.472) 12/31/2023 Type 1 diabetes mellitus with diabetic polyneuropathy (ICD-10 - E10.42) 05/11/2024 Tinea unguium (ICD-10 - B35.1) 05/11/2024 Type 2 diabetes mellitus with diabetic polyneuropathy (ICD-10 - E11.42) 05/11/2024 Other hammer toe(s) (acquired), right foot (ICD-10 - M20.41) Response to treatment,Impro vement 12/31/2023 Tinea unguium (ICD-10 - B35.1) 09/22/2023 Tinea unguium (ICD-10 - B35.1) 09/11/2023 Tinea unguium (ICD-10 - B35.1) 09/11/2023 Ingrowing nail (ICD-10 - L60.0) 09/22/2023 Ingrowing nail (ICD-10 - L60.0) 12/31/2023 Ingrowing nail (ICD-10 - L60.0) 05/11/2024 Other hammer toe(s) (acquired), left foot (ICD-10 - M20.42) Response to treatment,Impro vement 12/31/2023 Xerosis cutis (ICD-10 - L85.3) 09/22/2023 Xerosis cutis (ICD-10 - L85.3) 09/11/2023 Xerosis cutis (ICD-10 - L85.3) 09/11/2023 Neuralgia and neuritis, unspecified (ICD-10 - M79.2) 12/31/2023 Neuralgia and neuritis, unspecified (ICD-10 - M79.2) 09/22/2023 Neuralgia and neuritis, unspecified (ICD-10 - M79.2) Plan Of Treatment Pending Test Test Name Order Date 69002-MOESTCR NAIL, 1-5 05/11/2024 09481- Debride <25 sq cm 08/01/2023 62808-MGYB SKIN LESIONS, 2 TO 4 10/04/19 23 65280-PUWW SKIN LESIONS, 2 TO 4 04/10/20 22 31685-LIGO SKIN LESIONS, 2 TO 4 05/11/20 24 H3554-FPMSTDYR DYSTROPHIC NAILS ANY # X ray : Ankle, right 3V 07/19/2022 Next Appt Details Provider Name:Rodolfo Han , 08/10/2024 03:00:00 PM, [address] [place], [address], Insurance Providers Payer Name Payer Address Payer Phone Subscriber Number Group Number Insured Name Patient Relationship to Insured Coverage Start Date Coverage End Date [employer] [address] [facility] DEMETRIUS acosta [address] [phone] [id number] Donald Elizabeth i Self - patient is the insured Medical (General) History Medical History History ICD Code Angina Back,Hip,and Knee pain Diabetic type ll Heart disease High blood pressure Numbness Vertigo Surgical History Surgery Date(Month/Year) prostate Open Heart 2020 angina hemorrhoidectomy cataract surgery Hospitalization History Reason Date(Month/Year)
== END ==
LOC: HO.CARD 12:34
PROVIDERS: PCP Internal Medicine; Visit Provider Internal Medicine
DX: I49.3 Ventricular premature depolarization (principal)
CPT/HCPCS: 93242

== ENCOUNTER 2024-07-23 14:30 | Outpatient (AMB) | payer MEDICARE, SELFPAY ==
[2024-07-23 14:43] VITALS: BP 132/80; PULSE 78; O2SAT 95; BMI 29.1
--- NOTE | 2024-07-23 14:43 | MHC.PC.OV ---
Vital Signs 07/23/24 14:43 Height 6 ft 1 in Weight 220 lb 7.396 oz BMI 29.1 BP 132/80 Blood Pressure Location Lt brachial Position Sitting Pulse 78 Pulse Source Pulse Oximeter Pulse Oximetry (%) 95 Oxygen Delivery Method Room Air Intake Visit Reasons: weakness and body aches Building Surveyor Required: No Accompanied by: Self / Same As Patient Allergies No Known Allergies [No Known Allergies*] Allergy (Verified 07/23/24 14:54) Medication List - Last Reconciled 07/23/24 by REYES Hannah albuterol sulfate 90 mcg/actuation 2 puffs inhalation Q6H PRN amiodarone 200 mg PO DAILY aspirin (Le Low Dose Aspirin) 81 mg PO DAILY atorvastatin 80 mg PO DAILY bimatoprost 0.01% (Lumigan) 1 drp ophthalmic-Left BEDTIME blood sugar diagnostic (FreeStyle Lite Strips) 1 strip miscellaneous TID 90 days cholecalciferol (vitamin D3) 50 mcg PO DAILY 90 days clobetasol 0.05% 1 appl topical BID 2 weeks clopidogrel 75 mg PO DAILY 90 days empagliflozin (Jardiance) 25 mg PO DAILY famotidine 20 mg PO BID [Freestyle lancets As directed] furosemide 40 mg PO DAILY 90 days insulin glargine-yfgn 14 units (0.14 mL) subcut QPM insulin lispro (Humalog KwikPen (U-100) Insulin) 7 u breakfast, 10 u lunch and 14 units with dinner subcut 3 times a day; losartan 50 mg PO BEDTIME meclizine 25 mg PO BID@0630,1200 PRN metformin 1,000 mg (2 x 500 mg) PO BID@0630,1200 metoprolol succinate ER 50 mg See Protocol PO DAILY 90 days potassium chloride ER 20 mEq (2 x 10 mEq) PO DAILY 90 days trazodone 50 mg PO BEDTIME PRN 30 days Tobacco use date assessed: 07/23/24 Fall risk assessment: No Falls in past year Last assessed Fall Risk: 07/23/24 Dental Screening Dental Screen Date: 07/23/24 Did you have a dental visit in the last 12 months?: No Did you have a dental problem in the last 6 months where you did not have access to dental care?: No Was dental information given to patient?: Patient has dentist HPI weakness and body aches HPI Details The patient is a 79-year-old male who was presenting today with complaints of generalized weakness and body aches The patient reports having the flu 3-4 weeks ago, reports that it went away, but he still feels weak. He is reporting generalized weakness and body aches all over without any cold symptoms Reports that his weakness increased to the point that he has to start using a cane Patient reports that he would not say that he has shortness of breath because he does have a history of intermittent shortness of breath that resolves with this inhaler He reports that he does have a hx of bronchitis and knows the difference The patient denies chest pain, denies dizziness, denies heart palpitation Reports that he check his blood sugar everyday and today the last time he checked it it was 150 Reports that he does not eat a lot at time but when he does not, he supplements the meal with protein shakes Reports that he took an Fleet enema today but only had water return, probably due to not much in his stomach . He reports chronic back pain and wears a brace to decrease the pain will get blood work for general fatigue, ESR CRP Lyme studies CBC CMP vitamin-D thyroid function test Left lower lobe abnormal breath sounds was sent for urgent chest x-ray to rule out pneumonia [facility] Medical History Vitamin D deficiency Bilateral knee pain SVT (supraventricular tachycardia) Atherosclerotic cardiovascular disease Insomnia Obesity (BMI 30-39.9) Benign prostate hyperplasia Paroxysmal atrial fibrillation Coronary artery disease Pure hypercholesterolemia Benign essential hypertension Chronic bronchitis Lumbar disc disease CAD (coronary artery disease) Type 2 diabetes mellitus with diabetic polyneuropathy Essential hypertension Hyperlipidemia LDL goal <70 Surgical History History of eye surgery Hx of colonoscopy (~02/24/17) Hx of CABG Family History Brother Diabetes Father No problems noted. Mother No problems noted. Social History Household Members: None Housing: Homeless Do you presently have visiting nurse or other home services: No Alcohol intake: former Patient Tobacco Use Status: Former Tobacco user e-Cigarette/Vaping Use: Never Used Second Hand Smoke Exposure: No service: No Current occupational status: retired Cognitive needs: No Hearing needs: No Vision needs: Yes (Glasses) Questionnaire PHQ-9 Over the last 2 weeks, how often have you been bothered by any of the following problems? 1. Little interest or pleasure in doing things: not at all 2. Feeling down, depressed, or hopeless: not at all 3. Trouble falling or staying asleep, or sleeping too much: not at all 4. Feeling tired or having little energy: not at all 5. Poor appetite or overeating: not at all 6. Feeling bad about yourself - or that you are a failure or have let yourself or your family down: not at all 7. Trouble concentrating on things, such as reading the newspaper or watching television: not at all 8. Moving or speaking so slowly that other people could have noticed. Or the opposite - being so fidgety or restless that you have been moving around a lot more than usual: not at all 9. Thoughts that you would be better off or of hurting yourself in some way: not at all Total score: 0 Depression Screening Interpretation: Negative Depression Screening Done: Yes 38488 - PHQ-9 Billing: Yes Source: Developed by Drs. Maciel Lincoln, Carissa Del Rio, Jerome Barrientos and colleagues, with an educational derrell from [employer]. Thrive Questionnaire Date Thrive assessed: 07/23/24 I am a: Patient What is your living situation today?: I have a steady place to live Within the past 12 months, did the food you bought not last and you didn't have the money to get more?: Never true Within the past 12 months, did you worry whether your food would run out before you got money to buy more?: Never true Do you have trouble paying for medicines?: No Do you have trouble getting transportation to medical appointments?: No Do you have trouble paying your heating and electricity bill?: No Do you have trouble taking care of your child, family member or friend?: No Do you have trouble with day-to-day activities such as bathing, preparing meals, shopping, managing finances, etc.?: No Are you currently unemployed and looking for a job?: No Are you interested in more education?: No Please select the resources that you would like help with: None Currently or been in a relationship where the following occur: No concerns reported THRIVE Score: 0 AUDIT C Alcohol Use Questionnaire (AUDIT-C) 1. How often do you have a drink containing alcohol?: Never 3. How often do you have six or more drinks on one occasion?: Never Total Score: 0 Score Reviewed/Action Taken: Yes ADRIÁN-7 AMB Questionnaire ADRIÁN-7 Date ADRIÁN - 7 assessed: 07/23/24 Feeling nervous, anxious, or on edge: 0 = Not at all Not being able to stop or control worryin = Not at all Worrying too much about different things: 0 = Not at all Trouble relaxin = Not at all Being so restless that it is hard to sit still: 0 = Not at all Becoming easily annoyed or irritable: 0 = Not at all Feeling afraid as if something awful might happen: 0 = Not at all Total ADRIÁN-7 score (0-4 normal; 5-9 mild; 10-14 moderate; 15-21 severe): 0 Source: Developed by Drs. Maciel Lincoln, Carissa Del Rio, Jerome Barrientos and colleagues, with an educational derrell from [employer]. ADRIÁN-7 Assessment Billing ADRIÁN-7 Assessment Tool: ADRIÁN-7 Assessment 07661 Review of Systems Const Details: Denies chills, reports generalized weakness, Denies fever(s), Denies headache(s) and Denies weakness HEENT Denies change in vision, Denies dizziness, Denies headache(s), Denies hearing loss, Denies nasal congestion, Denies sinus pain, Denies sinus pressure and Denies sore throat Card Denies chest pain, Denies lightheadedness, Denies dyspnea and Denies other (palpitations) Resp Denies cough, Denies dyspnea and Denies wheezing GI Denies abdominal pain, Denies melena, Denies hematochezia, Denies change in bowel habits, Denies dyspepsia and Denies nausea Denies hematuria and Denies dysuria Musc Denies abnormal gait, reports generalized myalgias, reports arthralgias (chronic back pain, brace in place), Denies numbness and Denies tingling Skin/Breast Denies rash, Denies unusual bruising and Denies wounds Neuro Denies abnormal gait, Denies dizziness, Denies headache(s), Denies memory loss, Denies numbness, Denies Sensory deficit (Neuro), Denies tingling and Denies weakness Psych Denies anxiety, Denies depression and Denies memory loss Endo Denies cold intolerance, Denies fatigue, Denies heat intolerance, Denies polydipsia and Denies polyuria Baldo/Lymph Denies easy bleeding and Denies easy bruising Aller/Immun Denies wheezing Physical exam (Primary Care) Vital Signs: Last Vital Signs Pulse 78 07/23/24 14:43 BP 132/80 07/23/24 14:43 Pulse Ox 95 07/23/24 14:43 Oxygen Delivery Method Room Air 07/23/24 14:43 BMI result Body Mass Index 29.1 Tobacco/Smoking Status: Tobacco use Status Tobacco use date assessed 07/23/24 07/23/24 14:55 Patient Tobacco Use Status Former Tobacco user 07/23/24 14:55 e-Cigarette/Vaping Use Never Used 07/23/24 14:55 PHQ-9: PHQ-9 Score PHQ-9: Total score 0 07/25/24 16:53 Depression Screening Interpretation: Negative Thrive Assessment: Date of Thrive Assessment Date Thrive assessed 07/23/24 07/23/24 14:55 Currently or been in a relationship where the following occur: No concerns reported Const Other: General: no acute distress, well developed, alert and awake Nutritional Appearance: well nourished Orientation/consciousness: patient oriented x3 HENMT Head: Yes normocephalic and Yes atraumatic Ears: hearing grossly normal bilaterally and TM's normal bilaterally General nose exam: Normal external nose present and Normal nares present Mouth: Normal oral and palatal mucosa present and moist mucous membranes Eyes Pupils: Equal, round and reactive pupils present and Pupil accommodation reflex normal EOM: EOMs intact bilaterally Neck Neck: Yes normal visual inspection, Yes no lymphadenopathy and Yes trachea midline Thyroid: Thyroid normal Lymphatic: no lymphadenopathy noted Resp Effort & Inspection: normal respiratory effort Auscultation: Left lower lobe rhonchi, clear in all other lobes Cardio Rate: regular rate Rhythm: regular rhythm Heart sounds: S1 normal heart sound present, S2 normal heart sound present, no gallops, no murmurs and no rubs GI Palpation (GI): Abdomen is soft and nontender to palpation Auscultation: normal bowel sounds General: Yes no CVA tenderness Back/Spine/Pelvis Back: no CVA tenderness Cervical Spine: cervical ROM normal and No Cervical spine tenderness Thoracic/Lumbar Spine: lumbar spinal tenderness Skin General: warm and dry. Normal skin color. Normal skin turgor Lesions: no lesions Rashes: no rashes Trauma: no lacerations or abrasions Wounds: no wounds Nails: normal Neuro General: patient oriented x3, gait normal Cranial nerves: Yes Equal, round and reactive pupils present Cognition (Neuro): normal cognition Gait exam (Neuro): Normal gait present Extrem General: Yes normal to inspection, No edema and No calf tenderness Psych Appearance: grossly normal Affect: normal affect Attitude: cooperative Thought process: Normal thought process present Coding Level of Care Code Est Pt Level 4 (11173) Diagnoses Generalized body aches R52 Generalized muscle weakness M62.81 Chronic low back pain without sciatica, unspecified back pain laterality M54.50; G89.29 Back pain laterality: unspecified Chronicity: chronic Sciatica presence: without sciatica Abnormal breath sounds R06.89 Additional Codes ADRIÁN-7 Assessment Billing - ADRIÁN-7 Assessment Tool: ADRIÁN-7 Assessment 23868 ([id number]) PHQ-9 - 31579 - PHQ-9 Billing: Yes ([id number]) Time Spent (min) 34 Assessment & Plan Assessment & Plan (1) Generalized body aches: Code(s): R52 - Pain, unspecified Category: Medical Plan: Lyme tests, ESR, CRP and vitamin-D ordered (2) Generalized muscle weakness: Code(s): M62.81 - Muscle weakness (generalized) Category: Medical Plan: Lyme test, ESR, CRP, CBC, CMP, TSH and A1c ordered (3) Lower back pain: Code(s): M54.50 - Low back pain, unspecified Category: Medical Qualifiers: Back pain laterality: unspecified Chronicity: chronic Sciatica presence: without sciatica Qualified Code(s): M54.50 - Low back pain, unspecified; G89.29 - Other chronic pain Plan: Chronic back pain. Lumbar brace in place (4) Abnormal breath sounds: Code(s): R06.89 - Other abnormalities of breathing Category: Medical Plan: Left lower lobe rhonchi heard on exam Chest x-ray was ordered to rule out the bony Plan To return as scheduled in September 2024 for his annual physical examination with his PCP Orders: Orders Complete Blood Count Auto Diff 07/23/24 - Muscle weakness (generalized), R52 - Pain, unspecified Vitamin D 25-OH Total 07/23/24 - Muscle weakness (generalized), R52 - Pain, unspecified UA CC w/rflx Micro + Cult 07/23/24 - Muscle weakness (generalized), R52 - Pain, unspecified Hemoglobin A1c 07/23/24 - Muscle weakness (generalized), R52 - Pain, unspecified TSH reflex Free T4 07/23/24 - Muscle weakness (generalized), R52 - Pain, unspecified Erythrocyte Sedimentation Rate 07/23/24 - Muscle weakness (generalized), R52 - Pain, unspecified Comprehensive Met. Panel 07/23/24 - Muscle weakness (generalized), R52 - Pain, unspecified CRP High Sensitivity 07/23/24 - Muscle weakness (generalized), R52 - Pain, unspecified Lyme IgG/IgM w/reflex to WB 07/23/24 - Muscle weakness (generalized), R52 - Pain, unspecified XR chest 2V 07/23/24 J18.9 - Pneumonia, unspecified organism, R06.89 - Other abnormalities of breathing
--- OUTSIDE RECORDS SUMMARY | 2024-07-23 14:46 | XMS_ITS | Patient Health Record ---
Author Organization [facility] Address [address] [place] [address] Care Team Providers Care Case Management Coordinator Name Role Phone Jorge Duff MDh Primary Care Provider Maciel Beckman Unavailable [phone] REASON FOR REFERRAL No Information MEDICATIONS Medication SIG (Take, Route, Frequency, Duration) Notes Start Date End Date Status Meclizine HCl 25 MG 1 tablet as needed Orally twice a day Active Toprol XL 100 MG 1 tablet Orally Once a day Active hydroCHLOROthiazide 12.5 MG 1 tablet in the morning Orally Once a day Active Aspir-Low 81 MG 1 tablet Orally Once a day Active Atorvastatin Calcium 20 MG 1 tablet Oral ly Once a day Active glipiZIDE 10 MG 1 tablet Orally twic e a day Active Quinapril HCl 20 MG 1 tablet Orally Once a day Active diazePAM 5 MG 1 tablet as needed Orally Once a day Active Clobetasol & Clobetasol Emul .05% Active Tamsulosin HCl 0.4 MG 1/2 capsule Orally BID Active Pioglitazone HCl 30 MG 1/2 tablet Orally twice a day Active Amlodipine & Diet Manage Pro d 5mg Active PriLOSEC OTC 20 MG 1 tablet Orally Once a day Active metFORMIN HCl 500mg 2 tablet with meals Orally Twice a day Active SOCIAL HISTORY Sex Assigned At : Social History Observation Description Sex Assigned At Unknown PROBLEMS Problem Type ICD Code Onset Dates Problem Status W/U Status Risk SNOMED Code Notes Problem Encounter for screening for malignant neoplasm of colon (Z12.11) Active confirmed 413714951 Problem History of adenomatous polyp of colon (Z86.010) Active confirmed 056978034 Problem Encounter for screening for malignant neoplasm of rectum (Z12.12) Active confirmed Screening for malignant neoplasm of rectum (196883883) Problem Gastroesophageal reflux disease without esophagitis (K21.9) Active confirmed 283945743 PLAN OF TREATMENT Future Test Test Name Order Date UPPER GI ENDOSCOPY 03/19/2011 COLONOSCOPY 03/19/2011 COLONOSCOPY 10/10/2016 Next Appt Details Provider Name:Maciel Aldana , 10/22/2024 02:20:00 PM, [address], [address], [place], [address], Insurance Providers Payer Name Payer Address Payer Phone Subscriber Number Group Number Insured Name Patient Relationship to Insured Coverage Start Date Coverage End Date [facility] [address] [place] [phone] [id number] MARIXA HERNANDEZ Self - patient is the insured MEDICAL (GENERAL) HISTORY Medical History History ICD Code Coronary artery disease with previous angioplasty in the . He denies any history of AL NIDDM Hypertension Hyperlipidemia Enlarged prostate Colonoscopy in 2001 with rem oval of tubular adenomas; neg colonoscopy in 2005; 04/2011 small tiubular adenoma, diverticulosis and internal hemorrhoids GERD-EGD in 04/2011--small H H, no esophagitis, no Degroot's, gastritis with biopsies negative for H.pylori Denies AL,CVA,Lung disease,renal disease Surgical History Surgery Date(Month/Year) Rotator cuff surgery Back surgery Hemorrhoid surgery Adenoidectomy Laser prostate surgery for BPH [address] Beebe
--- OUTSIDE RECORDS SUMMARY | 2024-07-23 14:46 | XMS_ITS ---
Author Organization [facility] Address [address] [place] [address] Care Team Providers Care Hplc Chemist Name Role Phone Andi Duff MD Primary Care Provider Unava ilRodolfo Whitmore Unavailable [phone] Encounters Encounter Location Date Provider Diagnosis [address] [address] 04/06/2024 Rodolfo Han Plan Of Treatment Next Appt Details Provider Name:Rodolfo Han , 08/10/2024 03:00:00 PM, [address] [place] [address], [phone], Progress Notes * Donald MATTADOB:[birth year] (79 yo M)Acc No.[id number]:04/06/2024 Progress Note Patient:?DESMONDDonald DU Provider:?Rodolfo aHn DPM :1945???Age:79 Y???Sex:Male Rudy e:04/06/2024 Address:[address] [place] [address] [id number] Pcp:Andi Duff MD Subjective: * Chief Complaints: [...] Han DPM Date:?2023 Generated for Shona cody/Sergey/Rg on:?07/23/2024 02:45 PM EST
--- OUTSIDE RECORDS SUMMARY | 2024-07-23 14:46 | XMS_ITS ---
Author Organization [facility] Address [address] [place] [address] Care Team Providers Care Spa Consultant Name Role Phone Omega LAZAR, [place] Primary Care Provider Rodolfo Clay Unavailable [phone] Allergies No Known Allergies REASON FOR VISIT [...] Polyneuropathy due to type 2 diabetes mellitus (941310343) Type 2 diabetes mellitus with diabetic polyneuropathy (E11.42) Active confirmed Problem Acquired hammer toe of right foot (1085190398317090 ) Other hammer toe(s) (acquired), right foot (M20.41) Active confirmed Response to treatment, Improvemen t Problem Acquired hammer toe of left foot (8712641565022412 ) Other hammer toe(s) (acquired), left foot (M20.42) Active confirmed Response to treatment, Improvemen t Vital Signs Height 6 ft 1 in in 05/11/2024 Weight 225 lbs 05/11/2024 BMI 29.68 kg/m2 05/11/2024 Procedures Procedure Date Ordered Date Performed Result Body Sit e 30906-UKKCBKI NAIL, 1-5 05/11/2024 N/A 73590-LWSO SKIN LESIONS, 2 TO 4 05/11/2024 N/A E8047-GXTLSPQZ DYSTROPHIC NAILS ANY # 05/11/2024 N/A Encounters Encounter Location Date Provider Diagnosis [facility] [address] [address] 05/11/2024 Rodolfo aHn Type 2 diabetes mellitus with diabetic polyneuropathy [...] Treatment Pending Test Test Name Order Date 58505-GWYBOLA NAIL, 1-5 05/11/2024 86546-UBRO SKIN LESIONS, 2 TO 4 05/11/20 24 M8154-BHQSIJOZ DYSTROPHIC NAILS ANY # Next Appt Details Follow Up: prn, Reason: Provider Name:Rodolfo Han , 08/10/2024 03:00:00 PM, [address] [place] [address], [phone], Procedure Notes * Category Sub-Category Detail Notes [...] instrumentation by the physician of record - 95457 Debride Nails 1-5 Procedure: Due to the [...] necessary to maintain effective symptomatic relief - 21523 Nail Reduction Nail Reduction (-27) Trimming o [...] Notes * Donald MATTADOB:[birth year] (79 yo M)Acc No.[id number]:05/11/2024 Progress Note Patient:?DESMONDANA LAURATomDonald Carmencita Provider:?Rodolfo Han DPM :1945???Age:79 Y???Sex:Male Rudy e:05/11/2024 Address:[address] [place] [address] [place], [facility] Pcp:Andi Duff MD Subjective: * Chief Complaints: [...] total gym. ?Marital status: . 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 * Medications:?TakingClopidogr el & Aspirin Voltaren 1 [...] necessary to maintain effective symptomatic relief - 22726.?Keratoma Treatment:?Parring or Cutting of Benign Hyperkeratotic Lesion(s)?(-56) [...] instrumentation by the physician of record - 10978.?Nail Reduction:?Nail Reduction?(-27) Trimming of all dystrophic nails [...] ING DYSTROPHIC NAILS ANY #, Modifiers: XS 86601 DEBRIDE NAIL, 1-5, Modifiers: XS 47748 TRIM SKIN LESIONS, 2 TO 4, Modifiers: [...] for Shona cody/Sergey/Rg on:?07/23/2024 02:45 PM EST History and Physical Notes * [...]
--- OUTSIDE RECORDS SUMMARY | 2024-07-23 14:46 | XMS_ITS ---
Author Organization [facility] Address [address] [place] [address] Care Team Providers Care Edger Liner Name Role Phone Omega LAZAR [place] Primary Care Provider Unava ilRodolfo Whitmore Unavailable [phone] REASON FOR VISIT No Show Encounters Encounter Location Date Provider Diagnosis [facility] [address] [place] [address] 04/06/2024 Rodolfo Han Plan Of Treatment Next Appt Details Provider Name:Rodolfo Han , 08/10/2024 03:00:00 PM, [address] [place], [address], Progress Notes * Donald MATTADOB:[birth year] (79 yo M)Acc No.[id number]:04/06/2024 Patient:?Donald MATTA :1945???Age:79 Y???Sex:Male Address:[address] [place] [address] [place], [address] * true * Date:? Generated for Printi ng/Falennoxg/eTransmitting on:?07/23/2024 02:46 PM EST
--- OUTSIDE RECORDS SUMMARY | 2024-07-23 14:46 | XMS_ITS | Patient Health Record ---
Author Organization [facility] Address [address] [facility] [place] [address] Care Team Providers Care Glaze Supervisor Name Role Phone Omega LAZAR, Andi Primary Care Provider Rodolfo Clay Unavailable [phone] Ramon Orozco Unavailable [phone] Allergies No Known Allergies Results Component Value [...] Problem Acquired hammer toe of right foot (6113251517743378 ) Other hammer toe(s) (acquired), right foot (M20.41) Active confirmed Response to treatment, Improvemen t Problem Acquired hammer toe of left foot (3788528199683833 ) Other hammer toe(s) (acquired), left foot (M20.42) Active confirmed Response to treatment, [facility] Problem Polyneuropathy due to type 2 diabetes mellitus (664703273) Type 2 diabetes mellitus with diabetic polyneuropathy (E11.42) Active confirmed Vital Signs Height 6 ft 1 in in 05/11/2024 Weight 225 lbs 05/11/2024 BMI 29.68 kg/m2 05/11/2024 Procedures Procedure Date Ordered Date Performed Result Body Sit e 10876- Debride <25 sq cm 08/01/2023 N/A 52578-AAPYTEU NAIL, 1-5 05/11/2024 N/A 16574-YYHZ SKIN LESIONS, 2 TO 4 05/11/2024 N/A H7937-FJMESYKI DYSTROPHIC NAILS ANY # 05/11/2024 N/A Encounters Encounter Location Date Provider Diagnosis [facility] [address] [address] 08/01/2023 Rodolfo Emely Neuropathic ulcer of right foot, 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 [facility] [address] [address] 09/11/2023 Ramon Orozco Type 1 diabetes mellitus with diabetic polyneuropathy E10.42 ; Ganglion, left ankle and foot M67.472 ; Tinea unguium B35.1 ; Ingrowing nail L60.0 ; Xerosis cutis L85.3 and Neuralgia and neuritis, unspecified M79.[address] [address] 09/22/2023 Ramon Orozco Type 1 diabetes mellitus with diabetic polyneuropathy E10.42 ; Ganglion, left ankle and foot M67.472 ; Tinea unguium B35.1 ; Ingrowing nail L60.0 ; Xerosis cutis L85.3 and Neuralgia and neuritis, unspecified M79.[address] [address] 12/31/2023 [facility] Type 1 diabetes mellitus with diabetic polyneuropathy E10.42 ; Ganglion, left ankle and foot M67.472 ; Tinea unguium B35.1 ; Ingrowing nail L60.0 ; Xerosis cutis L85.3 and Neuralgia and neuritis, unspecified M79.[address] [address] 05/11/2024 Rodolfo Han Type 2 diabetes mellitus with diabetic polyneuropathy E11.42 ; Tinea unguium B35.1 ; Other hammer toe(s) (acquired), right foot M20.41 and Other hammer toe(s) (acquired), left foot M20.[address] [address] 08/01/[address] [address] 09/15/[address] [address] 04/06/2024 Rodolfo Emely Assessments Encounter Date Diagnosis [...] Treatment Pending Test Test Name Order Date 37853-NSNPFWB NAIL, 1-5 05/11/2024 19372- Debride <25 sq cm 08/01/2023 31303-FEDV SKIN LESIONS, 2 TO 4 10/04/19 23 32552-AMJA SKIN LESIONS, 2 TO 4 04/10/20 22 51223-XDXP SKIN LESIONS, 2 TO 4 05/11/20 24 C9638-IDCKFRXO DYSTROPHIC NAILS ANY # X ray : Ankle, right 3V 07/19/2022 Next Appt Details Provider Name:Rodolfo Han , 08/10/2024 03:00:00 PM, [address] [place], [address], Insurance Providers Payer Name Payer Address Payer Phone Subscriber Number Group Number Insured Name Patient Relationship to Insured Coverage Start Date Coverage End Date [employer] [place] [employer] Advantage [address] [facility] DEMETRIUS acosta [address] [id number] Donald Elizabeth i Self - patient is the insured Medical (General) History Medical History History ICD Code Angina Back,Hip,and Knee pain Diabetic type ll Heart disease High blood pressure Numbness Vertigo Surgical History Surgery Date(Month/Year) prostate Open Heart 2020 angina hemorrhoidectomy cataract surgery Hospitalization History Reason Date(Month/Year)
== END 2024-07-23 15:18 | disposition home or self-care (01) ==
PROVIDERS: PCP Internal Medicine
DX: M62.81 Muscle weakness (generalized) (principal); M54.50 Low back pain, unspecified; G89.29 Other chronic pain; R06.89 Other abnormalities of breathing

== ENCOUNTER 2024-07-23 14:30 | Outpatient (REF) | payer MEDICARE, SELFPAY ==
--- NOTE | ~2024-07-23 | XR_ITS ---
EXAMINATION: XR CHEST CLINICAL INFORMATION: J18.9 - Pneumonia, unspecified organism COMPARISON: 04/06/2024. TECHNIQUE: 2 views of the chest were obtained. FINDINGS: The cardiac, hilar, and mediastinal contours are normal. Mild aortic calcification. Low lung volumes with mild bronchovascular crowding. The lungs are clear bilaterally. There is no pneumothorax or pleural effusion. There is no focal osseous or soft tissue abnormality. Prior median sternotomy. Sternal wires non-migrated and intact. XR/XR chest 2V IMPRESSION: 1. No active pulmonary disease. 2. Prior median sternotomy. Electronically signed by: Jerome Nelson MD 07/23/2024 04:21 PM [facility] [place]
[2024-07-23 16:29] LABS: Appearance Urine Clear; Color Urine Yellow; Glucose Urine UA >=1000 mg/dL (Negative); Leukocyte Esterase Urine Negative (Negative); Nitrite Urine Negative (Negative); Specific Gravity - Urine 1.025 (1.005-1.025); UMIC TRIGGER UACC YES; Urine Blood Negative (Negative); Urine Ketones Trace mg/dL (Negative); Urine Protein Negative (Neg-Trace)
[2024-07-23 16:34] LABS: Bacteria Urine None Seen (None Seen); Hyaline Casts Urine 0-2 /LPF (0-2); RBC Urine 0-2 /HPF (0-2); Squamous Epithelial Cell Urine 0-2 /HPF (0-2); WBC Urine 0-5 /HPF (0-5)
[2024-07-23 16:53] LABS: Basophils Absolute Auto 0.1 X10*3/uL (0.0-0.2); Basophils Percent Auto 0.5 % (0-2); Eosinophils Absolute Auto 0.1 X10*3/uL (0.0-0.4); Eosinophils Percent Auto 0.3 % (0-4); Hematocrit 40.9 % (42.0-52.0); Hemoglobin 13.4 g/dl (14.0-18.0); Imm Gran Abs Auto 0.13 X10*3/uL (0.00-0.03); Imm Gran Pct Auto 0.8 % (0.0-0.4); Lymphocytes Absolute Auto 2.9 X10*3/uL (1.2-4.9); MANUAL DIFF FLAG SCAN; Mean Corpuscular HGB Conc 32.8 g/dl (31.0-36.0); Mean Corpuscular Hemoglobin 32.5 pg (27.0-33.0); Mean Corpuscular Volume 99.3 fL (80.0-98.0); Mean Platelet Volume 9.7 fL (9.4-12.4); Monocytes Absolute Auto 1.6 X10*3/uL (0.1-1.2); Monocytes Percent Auto 10.6 % (2-11); Neutrophils Absolute Auto 10.6 x10*3/uL (2.0-8.3); Neutrophils Percent Auto 68.8 % (45-73); Platelet Count 224 X10*3/uL (160-400); Red Blood Count 4.12 X10*6/uL (4.60-5.80); Red Cell Distribution Width 13.9 % (11.0-16.0); SCAN SMEAR FLAG 1; White Blood Count 15.4 X10*3/uL (4.8-10.8)
[2024-07-23 17:00] LABS: Estimated Average Glucose 160 mg/dL; Hemoglobin A1C 191.7793 umol/L; Hemoglobin A1c % 7.2 % (<6.0); Total Hemoglobin (HGBA1C) 3454.8435 umol/L
[2024-07-23 17:11] LABS: Alanine Aminotransferase 89 U/L (0-40); Albumin Level 3.6 g/dL (3.5-5.0); Alkaline Phosphatase 455 U/L (39-117); Anion Gap 21 (12-20); Aspartate Amino Transferase 138 U/L (5-37); Blood Urea Nitrogen 36 mg/dL (9-16); Carbon Dioxide 22 mmol/L (22-29); Chloride 95 mmol/L (96-108); Estimated Glomerular Filt Rate 55; Glucose Random 272 mg/dL (60-115); Potassium 4.3 mmol/L (3.3-5.1); Sodium 134 mmol/L (135-145); TSH reflex Free T4 2.97 uIU/mL (0.32-4.0); Vitamin D 25-OH Total 42.8 ng/mL (>30)
[2024-07-23 17:24] LABS: SLIDE REVIEW VERIFIED
[2024-07-23 18:07] LABS: Erythrocyte Sedimentation Rate 13 MM/HR (0-15)
[2024-07-26 06:48] LABS: CRP High Sensitivity >20.0 mg/L
[2024-07-26 13:53] LABS: Lyme Abs Screen <0.90 index
== END 2024-07-23 14:31 | disposition home or self-care (01) ==
LOC: HO.XRAY 14:30
PROVIDERS: PCP Internal Medicine
DX: M62.81 Muscle weakness (generalized) (principal); M54.50 Low back pain, unspecified; G89.29 Other chronic pain; R09.89 Other specified symptoms and signs involving the circulatory and respiratory systems; I10 Essential (primary) hypertension; E11.9 Type 2 diabetes mellitus without complications; E78.5 Hyperlipidemia, unspecified; E55.9 Vitamin D deficiency, unspecified
CPT/HCPCS: 36415; 71046; 80053; 81001; 82306; 83036; 84443; 85025; 85652; 86141; 86617; 86618; 96127; 99212

== ENCOUNTER → 2024-07-23 16:05 | Outpatient (BNV) | payer MEDICARE, SELFPAY | PROVIDERS: PCP Internal Medicine; Visit Provider Radiology Diagnostic Radiology | DX: J18.9 Pneumonia, unspecified organism (principal) | CPT/HCPCS: 71046 ==

== ENCOUNTER 2024-08-01 16:22 | Emergency (ER) | payer MEDICARE, SELFPAY ==
--- NOTE | ~2024-08-01 | XR_ITS ---
CLINICAL HISTORY: sob 1 view chest x-ray Comparison: CR/OR/SR - XR CHEST 2V - 07/23/24 16:16 EST Findings: Chronic blunting of the left costophrenic angle is likely scarring. No effusion or pneumothorax. Lungs are clear. Heart size is normal. Sternotomy wires are intact. No acute fracture. IMPRESSION: 1. No acute findings. This document has been electronically signed by: Terrance Kumar MD on 08/01/2024 18:23:54
--- NOTE | ~2024-08-01 | US_ITS ---
CLINICAL HISTORY: LE edema Venous duplex ultrasound bilateral lower extremity Comparison: None Findings: There is extensive occlusive deep vein thrombosis in the right leg extending from the proximal right femoral vein through the popliteal vein and involving the calf veins. Right common femoral vein is patent. There is extensive occlusive thrombus within the left lower extremity extending from the proximal femoral vein through the popliteal vein and within the calf veins. Left common femoral vein is patent. IMPRESSION: 1. Bilateral lower extremity large occlusive deep venous thrombosis. This document has been electronically signed by: Terrance Kumar MD on 08/01/2024 18:56:58
--- NOTE | 2024-08-01 16:33 | ED_ITS ---
HPI - General Adult General Chief complaint: Extremity Injury, Lower Stated complaint: Edema, diabetes Time Seen by Provider: 08/01/24 21:05 Source: patient and family (Nephew, much) Mode of arrival: ambulatory Limitations: no limitations History of Present Illness ED Provider: Dr. Jed Calvert HPI narrative: 79-year-old male with a history of SVT, coronary artery disease, paroxysmal atrial fibrillation,hypertension, diabetes, hyperlipidemia, cardiomegaly who presents emergency department for evaluation of 2-3 days of swelling to both lower extremities, right greater than left, with fluid weeping from his right lower extremity. Patient states that he has been compliant with his medications and he does take furosemide 40 mg once a day. He denied fever, chills, chest pain, shortness of breath, dyspnea on exertion, nausea, vomiting or diarrhea. Patient states that he lives alone but he was able to care for himself. Related Data Home Medications ?Medication ?Instructions ?Recorded ?Confirmed bimatoprost 0.01 % eye drops 1 drp ophthalmic-Left BEDTIME 02/05/24 07/23/24 (Lumigan) losartan 50 mg tablet 50 mg PO BEDTIME 02/05/24 07/23/24 meclizine 25 mg tablet 25 mg PO BID@0630,1200 PRN for 02/05/24 07/23/24 dizziness Previous Rx's ?Medication ?Instructions ?Recorded aspirin 81 mg tablet,delayed 81 mg PO DAILY #90 tabs 02/22/21 release (Le Low Dose Aspirin) cholecalciferol (vitamin D3) 50 50 mcg PO DAILY 90 days #90 caps 01/23/24 mcg (2,000 unit) capsule empagliflozin 25 mg tablet 25 mg PO DAILY #90 tabs 01/23/24 (Jardiance) metoprolol succinate 50 mg 50 mg PO DAILY 90 days #90 tabs 02/08/24 tablet,extended release 24 hr Freestyle lancets #100 ea 02/11/24 atorvastatin 80 mg tablet 80 mg PO DAILY #90 tabs 03/08/24 blood sugar diagnostic (FreeStyle 1 strip miscellaneous TID for 03/16/24 Lite Strips) diabetes mellitus 90 days #500 ea albuterol sulfate 90 mcg/actuation 2 puff inhalation Q6H PRN 04/06/24 aerosol inhaler shortness of breath or wheezing #8.5 grams amiodarone 200 mg tablet 200 mg PO DAILY #90 tabs 04/16/24 insulin glargine-yfgn 100 unit/mL 14 unit (0.14 mL) subcut QPM #15 mL 05/03/24 (3 mL) subcutaneous pen clopidogrel 75 mg tablet 75 mg PO DAILY 90 days #90 tabs 05/07/24 furosemide 40 mg tablet 40 mg PO DAILY 90 days #90 tabs 06/28/24 insulin lispro 100 unit/mL See Rx Instructions subcut TID #15 07/01/24 subcutaneous pen (Humalog KwikPen mL (U-100) Insulin) clobetasol 0.05 % topical cream 1 appl topical BID 2 weeks #60 07/09/24 grams metformin 500 mg tablet 1,000 mg (2 x 500 mg) PO 07/09/24 BID@0630,1200 #180 tabs trazodone 50 mg tablet 50 mg PO BEDTIME PRN insomnia 30 07/09/24 days #30 tabs potassium chloride 10 mEq 20 meq (2 x 10 mEq) PO DAILY 90 07/23/24 capsule,extended release days #180 caps famotidine 20 mg tablet 20 mg PO BID #60 tabs 07/31/24 apixaban 5 mg (74 tabs) tablets in 5 mg PO BID #74 ea 08/01/24 a dose pack (Eliquis DVT-PE Treat 30D Start) Allergies Allergy/AdvReac Type Severity Reaction Status Date / Time No Known Allergies Allergy Verified 08/01/24 16:41 [No Known Allergies*] Review of Systems 2 Review of Systems: Yes all other systems are reviewed and are negative [facility] Past Medical History [facility] Narrative: Social history: Patient lives alone. He denies tobacco and alcohol use. Medical History Vitamin D deficiency Bilateral knee pain SVT (supraventricular tachycardia) Atherosclerotic cardiovascular disease Insomnia Obesity (BMI 30-39.9) Benign prostate hyperplasia Paroxysmal atrial fibrillation Coronary artery disease Pure hypercholesterolemia Benign essential hypertension Chronic bronchitis Lumbar disc disease CAD (coronary artery disease) Type 2 diabetes mellitus with diabetic polyneuropathy Essential hypertension Hyperlipidemia LDL goal <70 Surgical History History of eye surgery Hx of colonoscopy (~02/24/17) Hx of CABG Family History Family History Brother Diabetes Father No problems noted. Mother No problems noted. Social History Social History Household Members: None Housing: Homeless Do you presently have visiting nurse or other home services: No Alcohol intake: former Patient Tobacco Use Status: Former Tobacco user Smoked in Last 30 Days: No e-Cigarette/Vaping Use: Never Used Second Hand Smoke Exposure: No Use of substances other than those prescribed or required for medical reasons: No Advance Directives: No Advance Directives Information Provided: Yes service: No Current occupational status: retired Cognitive needs: No Hearing needs: No Vision needs: Yes (Glasses) Physical Exam ED Vital Signs: Vital Signs - 24 hr 08/01/24 16:38 08/01/24 19:47 Temperature 97.5 F 97.9 F Pulse Rate 60 56 Respiratory Rate 18 16 Blood Pressure 117/41 L 121/39 L Pulse Oximetry 98 98 Oxygen Delivery Method Room Air Room Air BMI result Body Mass Index 27.7 Vital signs were normal Exam: General: Awake, alert in no distress Extremities: The patient's right lower extremity is 2-1/2 times the size of the left lower extremity, he was weeping clear fluid from his right leg, he has 2+ pitting edema in the right leg with trace to 1+ pitting edema in the left leg Neuro: Awake, alert, oriented, normal speech, moves all extremities symmetrically Psych: Pleasant, cooperative Course Course Course Narrative: This is a Rapid Medical Exam performed in triage by Viviana Witt PA-C. Full HPI, ROS and PE to be performed by primary ED provider. 79yo M with a past medical history of diabetes, CAD, HLD, HTN, proximal AFib on ASA and Plavix s/p CABG, SVT, cardiomyopathy, presenting to the ED c/o increasing lethargy x few months, & LE swelling/edema, w/SOB. Denies CP PE: +b/l LE pitting edema & clear drainage. talking in complete sentences Plan: Labs, US, CXR Medical Decision Making Medical Decision Making MDM Narrative: 79-year-old male with a history of SVT, coronary artery disease, paroxysmal atrial fibrillation,hypertension, diabetes, hyperlipidemia, cardiomegaly who presents emergency department for evaluation of 2-3 days of swelling to both lower extremities, right greater than left, with fluid weeping from his right lower extremity. Patient states that he has been compliant with his medications and he does take furosemide 40 mg once a day. He denied fever, chills, chest pain, shortness of breath, dyspnea on exertion, nausea, vomiting or diarrhea. Physical examination did reveal asymmetric swelling of the lower extremities with 2+ pitting edema in the right with trace to 1+ pitting edema in the left. Differential diagnosis: ?Includes but is not limited to venous insufficiency, peripheral edema, bilateral DVTs, electrolyte abnormalities, anemia, Course: 21:52 My independent interpretation patient's laboratory evaluation is as follows: Elevated WBC 72632, anemia with an H&H of 13.4 and 39.7. Low platelet count a 935423. Sodium low 132. BUN elevated 56. Glucose elevated 278. AST and ALT elevated 339361. Alk-phos elevated 638. Bilirubin elevated 1.3. First troponin was detectable but not elevated at 21.2. Repeat troponin was 19.6 suggesting the patient was not had myocardial injury. BNP was normal at 92. Chest x-ray revealed no acute disease. Bilateral duplex ultrasounds of lower extremities revealed bilateral DVTs right greater than left. I did discuss these findings with the patient and the patient's nephew, ta. Patient was started on Eliquis 10 mg b.i.d. x7 days then 5 mg b.i.d. until he was advised to stop by his PCP. Patient was given a 30 day supply. I did tell the patient to continue taking his furosemide and to try to reduce the amount of fluid that he drinks to try to get into negative fluid balance. While she was advised to keep his right leg elevated to help with the peripheral edema and swelling from the DVT. Patient was advised to stop taking Plavix while he was on Eliquis. He was given printed and verbal instructions and discharged home. Admission/Observation Consideration of admission/observation: Escalation of care including admission/observation considered (Yes) Lab Data MDM Lab Attestation statement: I reviewed the patient's lab results. 08/01/24 17:03 08/01/24 17:03 Labs: Lab Results 02/16/25 02/16/25 Range/Units 17:03 19:40 WBC 13.9 H (4.8-10.8) X10*3/uL RBC 4.02 L (4.60-5.80) X10*6/uL Hgb 13.4 L (14.0-18.0) g/dl Hct 39.7 L (42.0-52.0) % MCV 98.8 H (80.0-98.0) fL MCH 33.3 H (27.0-33.0) pg MCHC 33.8 (31.0-36.0) g/dl RDW 14.6 (11.0-16.0) % Plt Count 151 L D (160-400) X10*3/uL MPV 10.0 (9.4-12.4) fL Immature Gran % (Auto) 0.9 H (0.0-0.4) % Neut % (Auto) 72.4 (45-73) % Lymph % (Auto) 14.9 L (20-40) % [place] % (Auto) 11.3 H (2-11) % Eos % (Auto) 0.1 (0-4) % Baso % (Auto) 0.4 (0-2) % Lymph # (Auto) 2.1 (1.2-4.9) X10*3/uL [place] # (Auto) 1.6 H (0.1-1.2) X10*3/uL Eos # (Auto) 0.0 (0.0-0.4) X10*3/uL Baso # (Auto) 0.1 (0.0-0.2) X10*3/uL Abs Immat Gran (auto) 0.12 H (0.00-0.03) X10*3/uL Absolute Neuts (auto) 10.0 H (2.0-8.3) x10*3/uL Absolute Nucleated RBC 0.000 (0.0-0.012) X10*3/uL Nucleated RBC % (auto) 0.0 (0.0-0.2) /100WBC Smear Tech's Comments VERIFIED PT 13.8 H D (10.9-12.4) SEC INR 1.2 H (0.9-1.1) Sodium 132 L (135-145) mmol/L Potassium 4.4 (3.3-5.1) mmol/L Chloride 98 (96-108) mmol/L Carbon Dioxide 17 L (22-29) mmol/L Anion Gap 21 H (12-20) BUN 56 H (9-16) mg/dL Creatinine 1.18 (0.5-1.4) mg/dL Estim Creat Clear Calc 57.3 Estimated GFR 60 Random Glucose 278 H (60-115) mg/dL Calcium 8.7 (8.4-10.2) mg/dL Magnesium 2.2 (1.6-2.6) mg/dL Total Bilirubin 1.3 H (0.0-1.0) mg/dL Direct Bilirubin 0.8 H (0.0-0.5) mg/dL AST 207 H (5-37) U/L ALT 146 H (0-40) U/L Alkaline Phosphatase 638 H (39-117) U/L Troponin I High Sens 21.2 D 19.6 (<3.5-35.0) ng/L B-Natriuretic Peptide 92 (<100) pg/mL Total Protein 6.5 (6.5-8.0) g/dL Albumin 3.3 L (3.5-5.0) g/dL Independent Interpretation I performed an independent interpretation of an: EKG Interpretation: My interpretation patient's 12 EKG done 08/01/2024 at 16:52 hours is as follows: Atrial fibrillation with a ventricular rate of 59, prolonged QRS and QTC intervals, frequent PVCs, no ST segment elevation, no ST segment depression. Radiology Impression Discussion of test interpretation with radiology: I have reviewed the radiologist's reading. Radiologist Impression: Venous duplex ultrasound bilateral lower extremity Comparison: None Findings: There is extensive occlusive deep vein thrombosis in the right leg extending from the proximal right femoral vein through the popliteal vein and involving the calf veins. Right common femoral vein is patent. There is extensive occlusive thrombus within the left lower extremity extending from the proximal femoral vein through the popliteal vein and within the calf veins. Left common femoral vein is patent. IMPRESSION: 1. Bilateral lower extremity large occlusive deep venous thrombosis. This document has been electronically signed by: Terrance Kumar MD on 08/01/2024 18:56:58 Independent Historian Clinical information obtained from an independent historian. History obtained from or confirmed by: Other (Nephew, Jorge Luis) External Record Review External record reviewed: Inpatient record Prescription Management I considered prescription management with: Other (Blood thinner: Eliquis) Chronic Conditions Patient?s care impacted by: Hypertension Discharge Plan Discharge Clinical Impression: DVT, bilateral lower limbs, Bilateral edema of lower extremity Patient Disposition: Home, Self-Care Instructions: Deep Vein Thrombosis (ED) Additional Instructions: The ultrasound of your lower extremities did reveal blood clots in both of your legs and this explains the swelling and pain. Take Eliquis (apixaban) 5 mg pills, 2 pills (10 mg) every 12 hours for 7 days then 1 pill (5 mg) every 12 hours for 3-6 months. The fluid weeping out of your right leg is s related to the blood clot in that leg but also may be related to being fluid overloaded. Continue taking your furosemide 40 mg once a day. Cut the amount of fluid that your drinking in half to try to get into a negative fluid balance and this will hopefully reduce the weeping from your leg. Also try to keep your right leg elevated to help reduce the swelling as well. Follow-up with your doctor in 2 days. Your doctor will need to determine how long you stay on Eliquis. Please return to the emergency department if your symptoms get worse or if you develop any symptoms that are concerning to you. While you on Eliquis, I want you to stop taking your Plavix (clopidogrel). Your ultrasound radiologist interpretation is below in you can show this to your doctor. Venous duplex ultrasound bilateral lower extremity Comparison: None Findings: There is extensive occlusive deep vein thrombosis in the right leg extending from the proximal right femoral vein through the popliteal vein and involving the calf veins. Right common femoral vein is patent. There is extensive occlusive thrombus within the left lower extremity extending from the proximal femoral vein through the popliteal vein and within the calf veins. Left common femoral vein is patent. IMPRESSION: 1. Bilateral lower extremity large occlusive deep venous thrombosis. This document has been electronically signed by: Terrance Kumar MD on 08/01/2024 18:56:58 Prescriptions: New Eliquis DVT-PE Treat 30D Start 5 mg (74 tabs) tablets,dose pack 5 mg PO BID Qty: 74 0RF No Action aspirin [Le Low Dose Aspirin] 81 mg tablet,delayed release (DR/EC) 81 mg PO DAILY Qty: 90 0RF (DME) Freestyle lancets See Rx Instructions .Route .MEDSUPPLY Qty: 100 0RF Rx Instructions: As directed atorvastatin 80 mg tablet 80 mg PO DAILY Qty: 90 0RF FreeStyle Lite Strips Strip 1 strip miscellaneous TID 90 Days Qty: 500 0RF amiodarone 200 mg tablet 200 mg PO DAILY Qty: 90 3RF insulin glargine-yfgn 100 unit/mL (3 mL) insulin pen 14 unit subcut QPM Qty: 15 0RF clopidogrel 75 mg tablet 75 mg PO DAILY 90 Days Qty: 90 1RF furosemide 40 mg tablet 40 mg PO DAILY 90 Days Qty: 90 0RF insulin lispro [Humalog KwikPen Insulin] 100 unit/mL insulin pen See Rx Instructions subcut TID Qty: 15 0RF Rx Instructions: 7 u breakfast, 10 u lunch and 14 units with dinner subcut 3 times a day; metformin 500 mg tablet 1,000 mg PO BID@0630,1200 Qty: 180 0RF clobetasol 0.05 % cream 1 appl topical BID 14 Days Qty: 60 0RF trazodone 50 mg tablet 50 mg PO BEDTIME PRN (Reason: insomnia) 30 Days Qty: 30 2RF potassium chloride 10 mEq capsule, extended release 20 meq PO DAILY 90 Days Qty: 180 0RF famotidine 20 mg tablet 20 mg PO BID Qty: 60 0RF albuterol sulfate 90 mcg/actuation HFA aerosol inhaler 2 puff inhalation Q6H PRN (Reason: shortness of breath or wheezing) Qty: 8.5 0RF losartan 50 mg tablet 50 mg PO BEDTIME meclizine 25 mg tablet 25 mg PO BID@0630,1200 PRN (Reason: for dizziness) Lumigan 0.01 % drops 1 drp ophthalmic-Left BEDTIME metoprolol succinate 50 mg Tablet Extended Release 24 Hr 50 mg PO DAILY 90 Days Qty: 90 0RF Protocol: Hold for SBP/HR < HOLD for SBP < : 90 HOLD for HR < : 60 cholecalciferol (vitamin D3) 50 mcg (2,000 unit) capsule 50 mcg PO DAILY 90 Days Qty: 90 3RF Jardiance 25 mg tablet 25 mg PO DAILY Qty: 90 2RF Print Language: Lao
[2024-08-01 16:38] VITALS: BP 117/41; PULSE 60; RESP 18; TEMP 36.4; O2SAT 98; BMI 27.7
--- NOTE | 2024-08-01 16:40 | ECG_ITS ---
Test Reason : sob Blood Pressure : */* mmHG Vent. Rate : 59 BPM Atrial Rate : * BPM P-R Int : * ms QRS Dur : 126 ms QT Int : 672 ms P-R-T Axes : * 88 101 degrees QTcB Int : 665 ms Normal sinus rhythm Premature atrial complexes Right bundle branch block Abnormal ECG When compared with ECG of 06-Apr-2024 16:27, PACs noted Referred By: Viviana Witt Electronically Signed By: SHEREE COTTRELL
--- OUTSIDE RECORDS SUMMARY | 2024-08-01 17:04 | XMS_ITS ---
Author Organization [facility] Address [address] [place] [address] Care Team Providers Care Boring Machine Operator Production Name Role Phone Andi Duff MD Primary Care Provider Unava ilRodolfo Whitmore Unavailable [phone] Encounters Encounter Location Date Provider Diagnosis [address] [address] 04/06/2024 Rodolfo Han Plan Of Treatment Next Appt Details Provider Name:Rodolfo Han , 08/10/2024 03:00:00 PM, [address] [place] [address], [address], Progress Notes * Donald MATTADOB:[birth year] (79 yo M)Acc No.[id number]:04/06/2024 Progress Note Patient:?DESMONDDonald DU Provider:?Rodolfo Han DPM :1945???Age:79 Y???Sex:Male Rudy e:04/06/2024 Address:[address] [place] [address] [id number] Pcp:Andi Duff MD Subjective: * Chief Complaints: [...] Han DPM Date:?2023 Generated for Shona cody/Sergey/Rg on:?08/01/2024 05:03 PM EST
--- OUTSIDE RECORDS SUMMARY | 2024-08-01 17:04 | XMS_ITS | Patient Health Record ---
Author Organization [facility] Address [address] [place] [address] Care Team Providers Care Crystallizer Operator Name Role Phone Omega LAZAR, Andi Primary Care Provider Rodolfo Clay Unavailable [phone] Ramon Orozco Unavailable [phone] Allergies No Known Allergies Results Component Value [...] Problem Acquired hammer toe of right foot (4080247955621465 ) Other hammer toe(s) (acquired), right foot (M20.41) Active confirmed Response to treatment, Improvemen t Problem Acquired hammer toe of left foot (1255473023999812 ) Other hammer toe(s) (acquired), left foot (M20.42) Active confirmed [facility], [facility] Polyneuropathy due to type 2 diabetes mellitus (515134244) Type 2 diabetes mellitus with diabetic polyneuropathy (E11.42) Active confirmed Vital Signs Height 6 ft 1 in in 05/11/2024 Weight 225 lbs 05/11/2024 BMI 29.68 kg/m2 05/11/2024 Procedures Procedure Date Ordered Date Performed Result Body Sit e 79927- Debride <25 sq cm 08/01/2023 N/A B7323-EGSVKLVW DYSTROPHIC NAILS ANY # 05/11/2024 N/A 89090-PRLQ SKIN LESIONS, 2 TO 4 05/11/2024 N/A 28428-HUYAONK NAIL, 1-5 05/11/2024 N/A Encounters Encounter Location Date Provider Diagnosis [facility] [address] [address] 08/01/2023 Rodolfo Emely Neuropathic ulcer of right foot, 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 [facility] [address] [address] 09/11/2023 Ramon Orozco Type 1 diabetes mellitus with diabetic polyneuropathy E10.42 ; Ganglion, left ankle and foot M67.472 ; Tinea unguium B35.1 ; Ingrowing nail L60.0 ; Xerosis cutis L85.3 and Neuralgia and neuritis, unspecified M79.[address] [address] 09/22/2023 Ramon Orozco Type 1 diabetes mellitus with diabetic polyneuropathy E10.42 ; Ganglion, left ankle and foot M67.472 ; Tinea unguium B35.1 ; Ingrowing nail L60.0 ; Xerosis cutis L85.3 and Neuralgia and neuritis, unspecified M79.[address] [address] 12/31/2023 [facility] Type 1 diabetes mellitus with diabetic polyneuropathy E10.42 ; Ganglion, left ankle and foot M67.472 ; Tinea unguium B35.1 ; Ingrowing nail L60.0 ; Xerosis cutis L85.3 and Neuralgia and neuritis, unspecified M79.[address] [address] 05/11/2024 Rodolfo Han Type 2 diabetes mellitus with diabetic polyneuropathy E11.42 ; Tinea unguium B35.1 ; Other hammer toe(s) (acquired), right foot M20.41 and Other hammer toe(s) (acquired), left foot M20.[address] [address] 08/01/[address] [address] 09/15/[address] [address] 04/06/2024 Rodolfo Emely Assessments Encounter Date Diagnosis [...] Treatment Pending Test Test Name Order Date 74213-OUIDOCU NAIL, 1-5 05/11/2024 87609- Debride <25 sq cm 08/01/2023 80174-NBWH SKIN LESIONS, 2 TO 4 10/04/19 23 26040-LEPJ SKIN LESIONS, 2 TO 4 04/10/20 22 17987-PHHI SKIN LESIONS, 2 TO 4 05/11/20 24 A0765-NAQRKDLX DYSTROPHIC NAILS ANY # X ray : Ankle, right 3V 07/19/2022 Next Appt Details Provider Name:Rodolfo Han , 08/10/2024 03:00:00 PM, [address] [place], [address], Insurance Providers Payer Name Payer Address Payer Phone Subscriber Number Group Number Insured Name Patient Relationship to Insured Coverage Start Date Coverage End Date [employer] [place] [employer]vantage [address] [facility] DEMETRIUS acosta [address] [id number] Donald Elizabeth i Self - patient is the insured Medical (General) History Medical History History ICD Code Angina Back,Hip,and Knee pain Diabetic type ll Heart disease High blood pressure Numbness Vertigo Surgical History Surgery Date(Month/Year) prostate Open Heart 2020 angina hemorrhoidectomy cataract surgery Hospitalization History Reason Date(Month/Year)
--- OUTSIDE RECORDS SUMMARY | 2024-08-01 17:04 | XMS_ITS | Patient Health Record ---
Author Organization [facility] Address [address] [place] [address] Care Team Providers Care New Business Clerk Name Role Phone Jorge Duff MDh Primary Care Provider Maciel Beckman Unavailable [phone] REASON FOR REFERRAL No Information MEDICATIONS Medication [...] malignant neoplasm of colon (Z12.11) Active confirmed 280879315 Problem History of adenomatous polyp of colon (Z86.010) Active confirmed 256471166 Problem Encounter for screening for malignant neoplasm of rectum (Z12.12) Active confirmed Screening for malignant neoplasm of rectum (893931916) Problem Gastroesophageal reflux disease without esophagitis (K21.9) Active confirmed 464210765 PLAN OF TREATMENT Future Test Test Name Order Date UPPER GI ENDOSCOPY 03/19/2011 COLONOSCOPY 03/19/2011 COLONOSCOPY 10/10/2016 Next Appt Details Provider Name:Maciel Aldana , 10/22/2024 02:20:00 PM, [address], [address], [place], [address], Insurance Providers Payer Name Payer Address Payer Phone Subscriber Number Group Number Insured Name Patient Relationship to Insured Coverage Start Date Coverage End Date [facility] [address] [place] [phone] [id number] MARIXA HERNANDEZ Self - patient is the insured MEDICAL (GENERAL) HISTORY Medical History History ICD Code Coronary artery disease with previous angioplasty in the . He denies any history of [place] NIDDM Hypertension Hyperlipidemia Enlarged prostate Colonoscopy in 2001 with rem oval of tubular adenomas; neg colonoscopy in 2005; 04/2011 small tiubular adenoma, diverticulosis and internal hemorrhoids GERD-EGD in 04/2011--small H H, no esophagitis, no Degroot's, gastritis with biopsies negative for H.pylori Denies [place],CVA,Lung disease,renal disease Surgical History Surgery Date(Month/Year) Rotator cuff surgery Back surgery Hemorrhoid surgery Adenoidectomy Laser prostate surgery for BPH [address] Beebe
--- OUTSIDE RECORDS SUMMARY | 2024-08-01 17:04 | XMS_ITS ---
Author Organization [facility] Address [address] [place] [address] Care Team Providers Care Pig Casting Machine Operator Name Role Phone Omega LAZAR Payette Primary Care Provider Unava ilRodolfo Whitmore Unavailable [phone] REASON FOR VISIT No Show Encounters Encounter Location Date Provider Diagnosis [facility] [address] [place] [address] 04/06/2024 Rodolfo Han Plan Of Treatment Next Appt Details Provider Name:Rodolfo Han , 08/10/2024 03:00:00 PM, [address] [place], [address], Progress Notes * Donald MATTADOB:[birth year] (79 yo M)Acc No.[id number]:04/06/2024 Patient:?Donald MATTA :1945???Age:79 Y???Sex:Male Address:[address] [place] [address] [place], [address] * true * Date:? Generated for Printi ng/Falennoxg/eTransmitting on:?08/01/2024 05:04 PM EST
[2024-08-01 17:12] LABS: Basophils Absolute Auto 0.1 X10*3/uL (0.0-0.2); Basophils Percent Auto 0.4 % (0-2); Eosinophils Percent Auto 0.1 % (0-4); Hematocrit 39.7 % (42.0-52.0); Hemoglobin 13.4 g/dl (14.0-18.0); Imm Gran Abs Auto 0.12 X10*3/uL (0.00-0.03); Imm Gran Pct Auto 0.9 % (0.0-0.4); Lymphocytes Absolute Auto 2.1 X10*3/uL (1.2-4.9); Lymphocytes Percent Auto 14.9 % (20-40); MANUAL DIFF FLAG SCAN; Mean Corpuscular HGB Conc 33.8 g/dl (31.0-36.0); Mean Corpuscular Hemoglobin 33.3 pg (27.0-33.0); Mean Corpuscular Volume 98.8 fL (80.0-98.0); Monocytes Absolute Auto 1.6 X10*3/uL (0.1-1.2); Monocytes Percent Auto 11.3 % (2-11); Neutrophils Percent Auto 72.4 % (45-73); Platelet Count 151 X10*3/uL (160-400); Red Blood Count 4.02 X10*6/uL (4.60-5.80); Red Cell Distribution Width 14.6 % (11.0-16.0); SCAN SMEAR FLAG 1; White Blood Count 13.9 X10*3/uL (4.8-10.8)
[2024-08-01 17:16] LABS: INTERNATIONAL NORM RATIO 1.2 (0.9-1.1); Prothrombin Time 13.8 SEC (10.9-12.4)
[2024-08-01 17:23] LABS: Alanine Aminotransferase 146 U/L (0-40); Albumin Level 3.3 g/dL (3.5-5.0); Alkaline Phosphatase 638 U/L (39-117); Anion Gap 21 (12-20); Aspartate Amino Transferase 207 U/L (5-37); Bilirubin Direct 0.8 mg/dL (0.0-0.5); Bilirubin Total 1.3 mg/dL (0.0-1.0); Blood Urea Nitrogen 56 mg/dL (9-16); Calcium 8.7 mg/dL (8.4-10.2); Carbon Dioxide 17 mmol/L (22-29); Chloride 98 mmol/L (96-108); Creatinine Clr Calc Pharmacy 57.3; Estimated Glomerular Filt Rate 60; Glucose Random 278 mg/dL (60-115); Magnesium 2.2 mg/dL (1.6-2.6); Potassium 4.4 mmol/L (3.3-5.1); Sodium 132 mmol/L (135-145); Total Protein 6.5 g/dL (6.5-8.0)
[2024-08-01 17:27] LABS: B Type Natriuretic Peptide 92 pg/mL (<100)
[2024-08-01 17:29] LABS: Troponin-I High Sensitivity 21.2 ng/L (<3.5-35.0)
[2024-08-01 17:31] LABS: SLIDE REVIEW VERIFIED
[2024-08-01 19:47] VITALS: BP 121/39; PULSE 56; RESP 16; TEMP 36.6; O2SAT 98
[2024-08-01 19:49] VITALS: PULSE 56
[2024-08-01 20:04] LABS: Troponin-I High Sensitivity 19.6 ng/L (<3.5-35.0)
[2024-08-01] MEDS: Apixaban 5 MG TABLET 10 MG PO (21:54)
[2024-08-01 22:00] VITALS: BP 107/48; PULSE 66; RESP 16; TEMP 36.6; O2SAT 98
== END 2024-08-01 22:00 | disposition home or self-care (01) ==
PROVIDERS: Physician Assistant; Emergency Provider Emergency Medicine Emergency Medical Services; PCP Internal Medicine
DX: I82.403 Acute embolism and thrombosis of unspecified deep veins of lower extremity, bilateral (principal); R60.0 Localized edema; I25.10 Atherosclerotic heart disease of native coronary artery without angina pectoris; R06.02 Shortness of breath; E11.9 Type 2 diabetes mellitus without complications; I45.10 Unspecified right bundle-branch block; R94.31 Abnormal electrocardiogram [ECG] [EKG]; Z79.4 Long term (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 insulin; Z79.899 Other long term (current) drug therapy
CPT/HCPCS: 36415; 71045; 80048; 80076; 83735; 83880; 84484; 85025; 85610; 93005; 93970; 99285

== ENCOUNTER → 2024-08-01 16:40 | Outpatient (BNV) | payer MEDICARE, SELFPAY | PROVIDERS: PCP Internal Medicine; Visit Provider Radiology Diagnostic Radiology | DX: R06.02 Shortness of breath (principal); R60.0 Localized edema | CPT/HCPCS: 71045; 93970 ==

== ENCOUNTER → 2024-08-01 16:40 | Outpatient (BNV) | payer MEDICARE, SELFPAY | PROVIDERS: Emergency Provider Emergency Medicine Emergency Medical Services; PCP Internal Medicine; Visit Provider Internal Medicine | DX: I45.10 Unspecified right bundle-branch block (principal); I49.1 Atrial premature depolarization | CPT/HCPCS: 93010 ==

== ENCOUNTER 2024-08-05 14:47 | Outpatient (AMB) | payer MEDICARE, SELFPAY ==
[2024-08-05 14:54] VITALS: BP 102/60; PULSE 58; RESP 18; O2SAT 95
--- NOTE | 2024-08-05 14:54 | MHC.PC.OV ---
Vital Signs 08/05/24 14:54 Height 6 ft 1 in BMI Reason not done Patient refused/unable BP 102/60 Blood Pressure Location Lt brachial Position Sitting Respiration 18 Pulse 58 Pulse Oximetry (%) 95 Oxygen Delivery Method Room Air Intake Visit Reasons: [facility] 08/01 Edema, diabetes Showroom Consultant Required: No Accompanied by: Self / Same As Patient Allergies No Known Allergies [No Known Allergies*] Allergy (Verified 08/05/24 17:13) Medication List - Last Reconciled 08/05/24 by REYES Hannah albuterol sulfate 90 mcg/actuation 2 puffs inhalation Q6H PRN amiodarone 200 mg PO DAILY apixaban (Eliquis DVT-PE Treat 30D Start) 5 mg PO BID aspirin (Le Low Dose Aspirin) 81 mg PO DAILY atorvastatin 80 mg PO DAILY bimatoprost 0.01% (Lumigan) 1 drp ophthalmic-Left BEDTIME blood sugar diagnostic (FreeStyle Lite Strips) 1 strip miscellaneous TID 90 days cholecalciferol (vitamin D3) 50 mcg PO DAILY 90 days clobetasol 0.05% 1 appl topical BID 2 weeks clopidogrel 75 mg PO DAILY 90 days empagliflozin (Jardiance) 25 mg PO DAILY famotidine 20 mg PO BID [Freestyle lancets As directed] furosemide 40 mg PO DAILY 90 days insulin glargine-yfgn 14 units (0.14 mL) subcut QPM insulin lispro (Humalog KwikPen (U-100) Insulin) 7 u breakfast, 10 u lunch and 14 units with dinner subcut 3 times a day; losartan 50 mg PO BEDTIME meclizine 25 mg PO BID@0630,1200 PRN metformin 1,000 mg (2 x 500 mg) PO BID@0630,1200 metoprolol succinate ER 50 mg See Protocol PO DAILY 90 days potassium chloride ER 20 mEq (2 x 10 mEq) PO DAILY 90 days trazodone 50 mg PO BEDTIME PRN 30 days Tobacco use date assessed: 08/05/24 Fall risk assessment: No Falls in past year Last assessed Fall Risk: 08/05/24 Dental Screening Dental Screen Date: 08/05/24 Did you have a dental visit in the last 12 months?: No Did you have a dental problem in the last 6 months where you did not have access to dental care?: No Was dental information given to patient?: Patient has dentist HPI [facility] 08/01 Edema, diabetes HPI Details The patient is a 79-year-old male with significant past medical history of SVT, coronary artery disease, proximal atrial fibrillation, hypertension, diabetes, hyperlipidemia, cardiomegaly. Patient of Dr. Duff. I last saw the patient in office on 07/23/2024. The patient is presenting today for a post hospital follow up. The patient was discharged from [facility] on 08/01/2024. Today in office the patient is accompanied by his nephew. The patient was transferred in a wheelchair. He appears lethargic and hunched over. His nephew verbalized that this is how the patient has been since he came home from the hospital. Reports that the patient has not been eating and is only drinking premier shakes The patient's nephew is concerned about the patient being at home alone He reports that different family members has been checking on the patient Reports that the patient has been found with stool all over the bathroom Reports that it does not seem that the patient is able to care for himself Reports that the patient has been extremely tired and is not himself mentally Reports that the patient was noted to had heated up something in the microwave and forgot to put the water in the container The patient's nephew reported that he prepared the patient's medications and put them in a pill box Reports that when he went to go check on the patient today the only pills that were left over are the ones for Friday and Friday evening He reports that he is not sure of the patient took all those medications or if he threw them away The patient's nephew reports that he called [facility] services to try to get the patient into a prison Reports that no one has called him back as yet, but he fear leaving the patient home by himself Reports that different family members had been pitching in but none can stay 24 hours and the patient is just not safe to be by himself The patient appears not to be himself today. The patient did not say much during this conversation On the prior visit, the patient was joking around throughout the whole visit The patient lungs are clear, it denies chest pain denies heart palpitation and denies dizziness Reports that he is just tired. The emergency room was called with updates on the patient condition Discussion about evaluating the patient and to try on placing him in a short term rehab --Sent to ER for failure to thrive. [facility] Medical History Vitamin D deficiency Bilateral knee pain SVT (supraventricular tachycardia) Atherosclerotic cardiovascular disease Insomnia Obesity (BMI 30-39.9) Benign prostate hyperplasia Paroxysmal atrial fibrillation Coronary artery disease Pure hypercholesterolemia Benign essential hypertension Chronic bronchitis Lumbar disc disease CAD (coronary artery disease) Type 2 diabetes mellitus with diabetic polyneuropathy Essential hypertension Hyperlipidemia LDL goal <70 Surgical History History of eye surgery Hx of colonoscopy (~02/24/17) Hx of CABG Family History Brother Diabetes Father No problems noted. Mother No problems noted. Social History Household Members: None Housing: Homeless Do you presently have visiting nurse or other home services: No Alcohol intake: former Patient Tobacco Use Status: Former Tobacco user e-Cigarette/Vaping Use: Never Used Second Hand Smoke Exposure: No service: No Current occupational status: retired Cognitive needs: No Hearing needs: No Vision needs: Yes (Glasses) Questionnaire PHQ-9 Over the last 2 weeks, how often have you been bothered by any of the following problems? 1. Little interest or pleasure in doing things: not at all 2. Feeling down, depressed, or hopeless: not at all 3. Trouble falling or staying asleep, or sleeping too much: not at all 4. Feeling tired or having little energy: not at all 5. Poor appetite or overeating: not at all 6. Feeling bad about yourself - or that you are a failure or have let yourself or your family down: not at all 7. Trouble concentrating on things, such as reading the newspaper or watching television: not at all 8. Moving or speaking so slowly that other people could have noticed. Or the opposite - being so fidgety or restless that you have been moving around a lot more than usual: not at all 9. Thoughts that you would be better off or of hurting yourself in some way: not at all Total score: 0 Depression Screening Interpretation: Negative Depression Screening Done: Yes 95182 - PHQ-9 Billing: Yes Source: Developed by Drs. Maciel Lincoln, Carissa Del Rio, Jerome Barrientos and colleagues, with an educational derrell from [employer]. Thrive Questionnaire Date Thrive assessed: 08/05/24 I am a: Patient What is your living situation today?: I have a steady place to live Within the past 12 months, did the food you bought not last and you didn't have the money to get more?: Never true Within the past 12 months, did you worry whether your food would run out before you got money to buy more?: Never true Do you have trouble paying for medicines?: No Do you have trouble getting transportation to medical appointments?: No Do you have trouble paying your heating and electricity bill?: No Do you have trouble taking care of your child, family member or friend?: No Do you have trouble with day-to-day activities such as bathing, preparing meals, shopping, managing finances, etc.?: No Are you currently unemployed and looking for a job?: No Are you interested in more education?: No Please select the resources that you would like help with: None Currently or been in a relationship where the following occur: No concerns reported THRIVE Score: 0 AUDIT C Alcohol Use Questionnaire (AUDIT-C) 1. How often do you have a drink containing alcohol?: Never 3. How often do you have six or more drinks on one occasion?: Never Total Score: 0 Score Reviewed/Action Taken: Yes ADRIÁN-7 AMB Questionnaire ADRIÁN-7 Date ADRIÁN - 7 assessed: 08/05/24 Feeling nervous, anxious, or on edge: 0 = Not at all Not being able to stop or control worryin = Not at all Worrying too much about different things: 0 = Not at all Trouble relaxin = Not at all Being so restless that it is hard to sit still: 0 = Not at all Becoming easily annoyed or irritable: 0 = Not at all Feeling afraid as if something awful might happen: 0 = Not at all Total ADRIÁN-7 score (0-4 normal; 5-9 mild; 10-14 moderate; 15-21 severe): 0 Source: Developed by Drs. Maciel Lincoln, Carissa Del Rio, Jerome Barrientos and colleagues, with an educational derrell from [employer]. ADRIÁN-7 Assessment Billing ADRIÁN-7 Assessment Tool: ADRIÁN-7 Assessment 50997 Review of Systems Const Details: Denies chills, +fatigue, Denies fever(s), Denies headache(s) and +weakness HEENT Denies change in vision, Denies dizziness, Denies headache(s), Denies hearing loss, Denies nasal congestion, Denies sinus pain, Denies sinus pressure and Denies sore throat Card Denies chest pain, Denies lightheadedness, +dyspnea (mild per patient) and Denies other (palpitations) Resp Denies cough, +dyspnea( mild per patient) and Denies wheezing GI Denies abdominal pain, Denies melena, Denies hematochezia, Denies change in bowel habits, Denies dyspepsia and Denies nausea Other: Incontinence Denies hematuria and Denies dysuria Musc Denies abnormal gait, Denies myalgias, Denies arthralgias, Denies numbness and Denies tingling Skin/Breast Denies rash, Denies unusual bruising and Denies wounds Physical exam (Primary Care) Vital Signs: Last Vital Signs Pulse 58 08/05/24 14:54 Resp 18 08/05/24 14:54 BP 102/60 08/05/24 14:54 Pulse Ox 95 08/05/24 14:54 Oxygen Delivery Method Room Air 08/05/24 14:54 Tobacco/Smoking Status: Tobacco use Status Tobacco use date assessed 08/05/24 08/05/24 15:00 Patient Tobacco Use Status Former Tobacco user 08/05/24 15:00 e-Cigarette/Vaping Use Never Used 08/05/24 15:00 PHQ-9: PHQ-9 Score PHQ-9: Total score 0 08/05/24 15:40 Depression Screening Interpretation: Negative Thrive Assessment: Date of Thrive Assessment Date Thrive assessed 08/05/24 08/05/24 15:00 Currently or been in a relationship where the following occur: No concerns reported Const Other: General: no acute distress, well developed, alert and awake Nutritional Appearance: well nourished Orientation/consciousness: patient oriented x3 HENMT Head: Yes normocephalic and Yes atraumatic Ears: hearing grossly normal bilaterally and TM's normal bilaterally General nose exam: Normal external nose present and Normal nares present Mouth: Normal oral and palatal mucosa present and moist mucous membranes Eyes Pupils: Equal, round and reactive pupils present and Pupil accommodation reflex normal EOM: EOMs intact bilaterally Neck Neck: Yes normal visual inspection, Yes no lymphadenopathy and Yes trachea midline Thyroid: Thyroid normal Resp Effort & Inspection: normal respiratory effort Auscultation: clear to auscultation bilaterally Cardio Rate: regular rate Rhythm: regular rhythm Heart sounds: S1 normal heart sound present, S2 normal heart sound present, no gallops, no murmurs and no rubs GI Palpation (GI): Abdomen round, soft and nontender to palpation Auscultation: normal bowel sounds General: Yes no CVA tenderness Skin General: warm and dry. pale. tenting skin turgor Lesions: no lesions Rashes: no rashes Trauma: no lacerations or abrasions Wounds: no wounds Nails: normal Neuro General: patient oriented x3, gait normal Cranial nerves: Yes Equal, round and reactive pupils present Cognition (Neuro): normal cognition Gait exam (Neuro): Normal gait present Motor exam (neuro): 4/5 motor strength present throughout Sensory Exam: No Sensory deficit (Neuro) Extrem General: Yes normal to inspection, 1+ pitting edema Psych Appearance: Lethargic Affect: flat Attitude: cooperative Coding Level of Care Code Est Pt Level 4 (27328) Diagnoses Failure to thrive in adult R62.7 Acute deep vein thrombosis (DVT) of other specified vein of both lower extremities I82.493 Affected thrombotic vein of extremity: other lower extremity vein Chronicity: acute Additional Codes ADRIÁN-7 Assessment Billing - ADRIÁN-7 Assessment Tool: ADRIÁN-7 Assessment 08957 ([id number]) PHQ-9 - 80842 - PHQ-9 Billing: Yes ([id number]) Time Spent (min) 38 Assessment & Plan Assessment & Plan (1) Failure to thrive in adult: Code(s): R62.7 - Adult failure to thrive Category: Medical Plan: On the previous visit to the office, the patient complained of generalized weakness and body aches Blood work was ordered and the patient liver enzyme was noted to be elevated. The patient also was admitted to the hospital shortly after for bilateral lower extremity DVT. A CT of the abdomen and pelvis was ordered by Dr. Duff for concern for CA. The patient was discharged from the hospital and apparently has been steadily declining. The patient is unable to take his medications safely at this time. In addition, the patient is unable to safely perform his own ADLs and to prepare minor meals. There was a concern of improper use of the microwave by his nephew. Given the patient health decline and the risk of injury without frequent supervision, the patient was transfer to [facility] ER for evaluation and potential placement to short-term rehab (2) DVT, bilateral lower limbs: Code(s): I82.403 - Acute embolism and thrombosis of unspecified deep veins of lower extremity, bilateral Category: Medical Qualifiers: Affected thrombotic vein of extremity: other lower extremity vein Chronicity: acute Qualified Code(s): I82.493 - Acute embolism and thrombosis of other specified deep vein of lower extremity, bilateral Plan: 1+ pitting edema in bilateral lower extremities. The patient denies pain in lower legs. He is currently on apixaban. Per hospital discharge note, the patient was told not to take Plavix while on Eliquis. Plavix was placed on hold Medications: On Hold clopidogrel Hold Comment: Doctor's Order 75 mg PO DAILY 90 days 90 tabs 1RF
--- OUTSIDE RECORDS SUMMARY | 2024-08-05 15:57 | XMS_ITS | Patient Health Record ---
Author Organization [facility] Address [address] [place] [address] Care Team Providers Care Assistant Men'S Lacrosse Coach Name Role Phone Omega LAZAR, Andi Primary Care Provider Rodolfo Clay Unavailable [phone] Ramon Orozco Unavailable [phone] Allergies No Known Allergies Results Component Value [...] Problem Acquired hammer toe of right foot (9823929437724758 ) Other hammer toe(s) (acquired), right foot (M20.41) Active confirmed Response to treatment, Improvemen t Problem Acquired hammer toe of left foot (6634994032169891 ) Other hammer toe(s) (acquired), left foot (M20.42) Active confirmed Response to treatment, Improvemen t Problem Polyneuropathy due to type 2 diabetes mellitus (922638623) Type 2 diabetes mellitus with diabetic polyneuropathy (E11.42) Active confirmed Vital Signs Height 6 ft 1 in in 05/11/2024 Weight 225 lbs 05/11/2024 BMI 29.68 kg/m2 05/11/2024 Procedures Procedure Date Ordered Date Performed Result Body Sit e 23405-KNVXDRE NAIL, 1-5 05/11/2024 N/A 54519-MGHG SKIN LESIONS, 2 TO 4 05/11/2024 N/A C0665-GIBXOSGF DYSTROPHIC NAILS ANY # 05/11/2024 N/A Encounters Encounter Location Date Provider Diagnosis [facility] [address] [address] 09/11/2023 Ramon Orozco Type 1 diabetes mellitus with diabetic polyneuropathy E10.42 ; Ganglion, left ankle and foot M67.472 ; Tinea unguium B35.1 ; Ingrowing nail L60.0 ; Xerosis cutis L85.3 and Neuralgia and neuritis, unspecified M79.[address] [facility] [address] 09/22/2023 Ramon Orozco Type 1 diabetes mellitus with diabetic polyneuropathy E10.42 ; Ganglion, left ankle and foot M67.472 ; Tinea unguium B35.1 ; Ingrowing nail L60.0 ; Xerosis cutis L85.3 and Neuralgia and neuritis, unspecified M79.[address] [address] 12/31/2023 Ramon Orozco Type 1 diabetes mellitus with diabetic polyneuropathy E10.42 ; Ganglion, left ankle and foot M67.472 ; Tinea unguium B35.1 ; Ingrowing nail L60.0 ; Xerosis cutis L85.3 and Neuralgia and neuritis, unspecified M79.[address] [address] 05/11/2024 Rodolfo Han Type 2 diabetes mellitus with diabetic polyneuropathy E11.42 ; Tinea unguium B35.1 ; Other hammer toe(s) (acquired), right foot M20.41 and Other hammer toe(s) (acquired), left foot M20.[address] [address] 09/15/2023 Ramon Orozco [address] [address] 04/06/2024 Rodolfo Han Assessments Encounter Date Diagnosis (ICD Code) Assessment Notes Treatment Notes Treatment Clinical Notes Section Notes 09/11/2023 Ganglion, left ankle and foot (ICD-10 [...] Treatment Pending Test Test Name Order Date 11219-YLBKEYW NAIL, 1-5 05/11/2024 12888- Debride <25 sq cm 08/01/2023 26993-ULPL SKIN LESIONS, 2 TO 4 10/04/19 23 55121-CMBH SKIN LESIONS, 2 TO 4 04/10/20 22 61477-JSTM SKIN LESIONS, 2 TO 4 05/11/20 24 M0363-ZMTCVKDN DYSTROPHIC NAILS ANY # X ray : Ankle, right 3V 07/19/2022 Next Appt Details Provider Name:Rodolfo Han , 08/10/2024 03:00:00 PM, [address] [place], [address], Insurance Providers Payer Name Payer Address Payer Phone Subscriber Number Group Number Insured Name Patient Relationship to Insured Coverage Start Date Coverage End Date [employer]vantage [address] [place] [address] [phone] [id number] Donald Elizabeth i Self - patient is the insured Medical (General) History Medical History History ICD Code Angina Back,Hip,and Knee pain Diabetic type ll Heart disease High blood pressure Numbness Vertigo Surgical History Surgery Date(Month/Year) prostate Open Heart 2020 angina hemorrhoidectomy cataract surgery Hospitalization History Reason Date(Month/Year)
--- OUTSIDE RECORDS SUMMARY | 2024-08-05 15:57 | XMS_ITS ---
Author Organization [facility] Address [address] [place] [address] Care Team Providers Care Turn Supervisor Name Role Phone Omega LAZAR, [place] Primary Care Provider Rodolfo Clay Unavailable [phone] Allergies No Known Allergies REASON FOR VISIT [...] Polyneuropathy due to type 2 diabetes mellitus (159286033) Type 2 diabetes mellitus with diabetic polyneuropathy (E11.42) Active confirmed Problem Acquired hammer toe of right foot (1136730968437420 ) Other hammer toe(s) (acquired), right foot (M20.41) Active confirmed Response to treatment, Improvemen t Problem Acquired hammer toe of left foot (3442228240325103 ) Other hammer toe(s) (acquired), left foot (M20.42) Active confirmed Response to treatment, Improvemen t Vital Signs Height 6 ft 1 in in 05/11/2024 Weight 225 lbs 05/11/2024 BMI 29.68 kg/m2 05/11/2024 Procedures Procedure Date Ordered Date Performed Result Body Sit e 88498-FHSZPKG NAIL, 1-5 05/11/2024 N/A 24181-GWFK SKIN LESIONS, 2 TO 4 05/11/2024 N/A L4549-IUKEORJF DYSTROPHIC NAILS ANY # 05/11/2024 N/A Encounters Encounter Location Date Provider Diagnosis [facility] [address] [address] 05/11/2024 Rodolfo Han Type 2 diabetes mellitus [...] Treatment Pending Test Test Name Order Date 75971-BIZRRFE NAIL, 1-5 05/11/2024 93059-TSSG SKIN LESIONS, 2 TO 4 05/11/20 24 C3001-YILBIHLD DYSTROPHIC NAILS ANY # Next Appt Details Follow Up: prn, Reason: Provider Name:Rodolfo Han , 08/10/2024 03:00:00 PM, [address] [place] [address], [address], Procedure Notes * Category Sub-Category Detail Notes [...] instrumentation by the physician of record - 74824 Debride Nails 1-5 Procedure: Due to the [...] necessary to maintain effective symptomatic relief - 61513 Nail Reduction Nail Reduction (-27) Trimming o [...] Notes * Donald MATTADOB:[birth year] (79 yo M)Acc No.[id number]:05/11/2024 Progress Note Patient:?DESMONDANA LAURATomDonald Carmencita Provider:?Rodolfo Han DPM :1945???Age:79 Y???Sex:Male Rudy e:05/11/2024 Address:[address] [place] [address] [place], [facility] Pcp:Andi Duff MD Subjective: * Chief Complaints: [...] total gym. ?Marital status: . ?Occupation: Retired- Al[employer]er [employer]. * Medications:?TakingClopidogr el & Aspirin Voltaren 1 [...] necessary to maintain effective symptomatic relief - 93512.?Keratoma Treatment:?Parring or Cutting of Benign Hyperkeratotic Lesion(s)?(-56) [...] instrumentation by the physician of record - 55028.?Nail Reduction:?Nail Reduction?(-27) Trimming of all dystrophic nails [...] ING DYSTROPHIC NAILS ANY #, Modifiers: XS 14465 DEBRIDE NAIL, 1-5, Modifiers: XS 90007 TRIM SKIN LESIONS, 2 TO 4, Modifiers: [...] Han DPM Date:?2023 Generated for Shona cody/Sergey/Rg on:?08/05/2024 03:57 PM EST History and Physical Notes * [...]
--- OUTSIDE RECORDS SUMMARY | 2024-08-05 15:57 | XMS_ITS ---
Author Organization [facility] Address [address] [place] [address] Care Team Providers Care Paperhanger Contractor Name Role Phone Andi Duff MD Primary Care Provider Unava ilRodolfo Whitmore Unavailable [phone] Encounters Encounter Location Date Provider Diagnosis [address] [address] 04/06/2024 Rodolfo Han Plan Of Treatment Next Appt Details Provider Name:Rodolfo Han , 08/10/2024 03:00:00 PM, [address] [place] [address], [address], Progress Notes * Donald MATTADOB:[birth year] (79 yo M)Acc No.[id number]:04/06/2024 Progress Note Patient:?DESMONDDonald DU Provider:?Rodolfo Han DPM :1945???Age:79 Y???Sex:Male Rudy e:04/06/2024 Address:[address] [place] [address] [id number] Pcp:Andi Duff MD Subjective: * Chief Complaints: [...]
--- OUTSIDE RECORDS SUMMARY | 2024-08-05 15:58 | XMS_ITS ---
Author Organization [facility] Address [address] [place] [address] Care Team Providers Care Solid Waste Technician Name Role Phone Omega LAZAR Social Circle Primary Care Provider Unava ilRodolfo Whitmore Unavailable [phone] REASON FOR VISIT No Show Encounters Encounter Location Date Provider Diagnosis [facility] [address] [place] [address] 04/06/2024 Rodolfo Han Plan Of Treatment Next Appt Details Provider Name:Rodolfo Han , 08/10/2024 03:00:00 PM, [address] [place], [address], Progress Notes * Donald MATTADOB:[birth year] (79 yo M)Acc No.[id number]:04/06/2024 Patient:?Donald MATTA :1945???Age:79 Y???Sex:Male Address:[address] [place] [address] [place], [address] * true * Date:? Generated for Printi ng/Falennoxg/eTransmitting on:?08/05/2024 03:57 PM EST
--- OUTSIDE RECORDS SUMMARY | 2024-08-05 15:58 | XMS_ITS | Patient Health Record ---
Author Organization [facility] Address [address] [place] [address] Care Team Providers Care International Manager Name Role Phone Jorge Duff MDh Primary Care Provider Maciel Beckman Unavailable [phone] REASON FOR REFERRAL No Information MEDICATIONS Medication [...] malignant neoplasm of colon (Z12.11) Active confirmed 405178482 Problem History of adenomatous polyp of colon (Z86.010) Active confirmed [id number] Problem Encounter for screening for malignant neoplasm of rectum (Z12.12) Active confirmed Screening for malignant neoplasm of rectum (537474132) Problem Gastroesophageal reflux disease without esophagitis (K21.9) Active confirmed [id number] PLAN OF TREATMENT Future Test Test Name Order Date UPPER GI ENDOSCOPY 03/19/2011 COLONOSCOPY 03/19/2011 COLONOSCOPY 10/10/2016 Next Appt Details Provider Name:Maciel Aldana , 10/22/2024 02:20:00 PM, [address], [address], [place], [address], Insurance Providers Payer Name Payer Address Payer Phone Subscriber Number Group Number Insured Name Patient Relationship to Insured Coverage Start Date Coverage End Date [facility] [address] [place] [phone] [id number] MARIXA HERNANDEZ Self - patient is the insured MEDICAL (GENERAL) HISTORY Medical History History ICD Code Coronary artery disease with previous angioplasty in the . He denies any history of ND NIDDM Hypertension Hyperlipidemia Enlarged prostate Colonoscopy in 2001 with rem oval of tubular adenomas; neg colonoscopy in 2005; 04/2011 small tiubular adenoma, diverticulosis and internal hemorrhoids GERD-EGD in 04/2011--small H H, no esophagitis, no Degroot's, gastritis with biopsies negative for H.pylori Denies ND,CVA,Lung disease,renal disease Surgical History Surgery Date(Month/Year) Rotator cuff surgery Back surgery Hemorrhoid surgery Adenoidectomy Laser prostate surgery for BPH [address] Beebe
== END 2024-08-05 15:40 | disposition home or self-care (01) ==
PROVIDERS: PCP Internal Medicine
DX: R62.7 Adult failure to thrive (principal); I82.493 Acute embolism and thrombosis of other specified deep vein of lower extremity, bilateral

== ENCOUNTER 2024-08-05 15:49 | Inpatient (IN) | payer MEDICARE, SELFPAY ==
--- NOTE | ~2024-08-05 | CT_ITS ---
CLINICAL HISTORY: fall with head strike, on thinners CT head without contrast Comparison: None Findings: Involutional change and nonspecific white matter hypodensity. Small focus of chronic infarction within the left parietal lobe. No intracranial mass, midline shift, hydrocephalus, or acute hemorrhage. Orbits, paranasal sinuses, and mastoid air cells are unremarkable. No skull fracture Impression: 1. No acute findings This document has been electronically signed by: Kenna Manzo MD on 08/05/2024 18:46:09
--- NOTE | ~2024-08-05 | CT_ITS ---
CLINICAL HISTORY: elevated liver enzymes, prem CT abdomen and pelvis without contrast Comparison: CT - ABDOMEN WIV CONTRAST [id number] - 06/21/06 00:00 EST Findings: There are 2 right lower lobe nodules larger measuring 7 mm in size. No consolidation or pleural effusion. Prior sternotomy. There are 2 pancreatic masses, a 6 x 4 x 4 cm mass arising from the mid pancreatic body extending into the mesentery and a 3 cm mass within the distal pancreatic body. The liver is enlarged and there are innumerable low-density masses within the liver measuring up to approximately 3 cm in size. The spleen, adrenal glands and kidneys are unremarkable. There are no calcified gallstones. Mild colonic diverticulosis. No bowel edema or obstruction. There is a small amount of pelvic free fluid. There is a likely TURP defect within the prostate. The urinary bladder is unremarkable. The appendix is not definitively seen. There are no secondary findings to suggest appendicitis. The bones are intact. IMPRESSION: 1. 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 2. 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 3. Small amount of pelvic free fluid. 4. There are 2 nodules within the visualized right lower lobe. Recommend dedicated chest CT for further evaluation when clinically appropriate. This document has been electronically signed by: Kenna Manzo MD on 08/05/2024 20:46:36
--- NOTE | ~2024-08-05 | XR_ITS ---
CLINICAL HISTORY: weakness 2 view chest x-ray Comparison: CR - XR CHEST 1V - 08/01/24 17:17 EST Findings: No consolidation or effusion. Normal heart size. Elongation of the aorta. Prior sternotomy. No acute fracture. IMPRESSION: 1. No acute findings. This document has been electronically signed by: Kenna Manzo MD on 08/05/2024 18:40:04
[2024-08-05 17:08] VITALS: BP 118/41; PULSE 60; RESP 18; TEMP 36; O2SAT 97; BMI 21.8
--- NOTE | 2024-08-05 17:08 | ED_ITS ---
HPI - General Adult General Chief complaint: Failure to Thrive Stated complaint: failure to thrive sent from Dr's office Time Seen by Provider: 08/05/24 19:26 Source: patient, RN notes reviewed and old records reviewed Mode of arrival: ambulatory Limitations: no limitations History of Present Illness ED Provider: Camilla BREWRE narrative: 79-year-old male past medical history significant for SVT, coronary artery disease, atrial fibrillation on Eliquis, hypertension, diabetes, hyperlipidemia presents for evaluation of ?failure to thrive. ? Patient was seen here last weekend and diagnosed with bilateral DVTs He was already anticoagulated, so was instructed to elevate the legs and decreased oral intake due to the leg swelling. Per the patient's nephew, Jorge Luis, the patient is in the same clothes that he was and when he was discharged on Friday. His house is a mess The patient apparently tried to microwave oatmeal did not add water and the bowl exploded, so it is unclear how long it was in the microwave. The patient has a pill sorter. He was supposed to have morning and night meds for Friday and Friday remaining, however he only had 1 set of meds left. The patient denies trying any of his meds out, so it was unclear if he took extra meds. He has had decreased oral intake The patient has seemed confused to his family The patient went to his primary doctor's office today for follow-up of his recent ER visit to come to emergency department for concern of liver malignancy due to elevated LFTs and the hypercoagulability with bilateral DVTs Related Data Home Medications ?Medication ?Instructions ?Recorded ?Confirmed bimatoprost 0.01 % eye drops 1 drp ophthalmic-Left BEDTIME 02/05/24 08/05/24 (Christiano) meclizine 25 mg tablet 25 mg PO BID@0630,1200 PRN for 02/05/24 08/05/24 dizziness Previous Rx's ?Medication ?Instructions ?Recorded aspirin 81 mg tablet,delayed 81 mg PO DAILY #90 tabs 02/22/21 release (Le Low Dose Aspirin) cholecalciferol (vitamin D3) 50 50 mcg PO DAILY 90 days #90 caps 01/23/24 mcg (2,000 unit) capsule empagliflozin 25 mg tablet 25 mg PO DAILY #90 tabs 01/23/24 (Jardiance) metoprolol succinate 50 mg 50 mg PO DAILY 90 days #90 tabs 02/08/24 tablet,extended release 24 hr Freestyle lancets #100 ea 02/11/24 atorvastatin 80 mg tablet 80 mg PO DAILY #90 tabs 03/08/24 blood sugar diagnostic (FreeStyle 1 strip miscellaneous TID for 03/16/24 Lite Strips) diabetes mellitus 90 days #500 ea albuterol sulfate 90 mcg/actuation 2 puff inhalation Q6H PRN 04/06/24 aerosol inhaler shortness of breath or wheezing #8.5 grams amiodarone 200 mg tablet 200 mg PO DAILY #90 tabs 04/16/24 insulin glargine-yfgn 100 unit/mL 14 unit (0.14 mL) subcut QPM #15 mL 05/03/24 (3 mL) subcutaneous pen clopidogrel 75 mg tablet 75 mg PO DAILY 90 days #90 tabs 05/07/24 furosemide 40 mg tablet 40 mg PO DAILY 90 days #90 tabs 06/28/24 insulin lispro 100 unit/mL See Rx Instructions subcut TID #15 07/01/24 subcutaneous pen (Humalog KwikPen mL (U-100) Insulin) clobetasol 0.05 % topical cream 1 appl topical BID 2 weeks #60 07/09/24 grams metformin 500 mg tablet 1,000 mg (2 x 500 mg) PO 07/09/24 BID@0630,1200 #180 tabs trazodone 50 mg tablet 50 mg PO BEDTIME PRN insomnia 30 07/09/24 days #30 tabs potassium chloride 10 mEq 20 meq (2 x 10 mEq) PO DAILY 90 07/23/24 capsule,extended release days #180 caps famotidine 20 mg tablet 20 mg PO BID #60 tabs 07/31/24 apixaban 5 mg (74 tabs) tablets in 5 mg PO BID #74 ea 08/01/24 a dose pack (Eliquis DVT-PE Treat 30D Start) losartan 50 mg tablet 50 mg PO BEDTIME #90 tabs 08/04/24 Allergies Allergy/AdvReac Type Severity Reaction Status Date / Time No Known Allergies Allergy Verified 08/05/24 17:13 [No Known Allergies*] Review of Systems 2 Constitutional: Constitutional: Denies body ache(s), Denies chills, Denies fever(s), Denies headache(s), Reports malaise, Reports poor appetite and Reports weakness Eyes: Eyes: Denies blurry vision ENT: Denies headache(s) Cardiovascular: Cardiovascular: Denies chest pain and Denies dyspnea Respiratory: Respiratory: Denies cough and Denies dyspnea Gastrointestinal: Gastrointestinal: Denies abdominal pain, Denies nausea and Denies vomiting Musculoskeletal: Musculoskeletal: Denies back pain Integumentary/Breasts: Skin/Breast: Denies rash Neurologic: Denies headache(s) and Reports weakness Psychiatric: Psychiatric: Denies anxiety [facility] Past Medical History Medical History Vitamin D deficiency Bilateral knee pain SVT (supraventricular tachycardia) Atherosclerotic cardiovascular disease Insomnia Obesity (BMI 30-39.9) Benign prostate hyperplasia Paroxysmal atrial fibrillation Coronary artery disease Pure hypercholesterolemia Benign essential hypertension Chronic bronchitis Lumbar disc disease CAD (coronary artery disease) Type 2 diabetes mellitus with diabetic polyneuropathy Essential hypertension Hyperlipidemia LDL goal <70 Surgical History History of eye surgery Hx of colonoscopy (~02/24/17) Hx of CABG Family History Family History Brother Diabetes Father No problems noted. Mother No problems noted. Social History Social History Household Members: None Housing: Homeless Do you presently have visiting nurse or other home services: No Alcohol intake: former Patient Tobacco Use Status: Former Tobacco user e-Cigarette/Vaping Use: Never Used Second Hand Smoke Exposure: No Advance Directives: No Advance Directives Information Provided: No Do you have a plan to hurt others: No Plan service: No Current occupational status: retired Cognitive needs: No Hearing needs: No Vision needs: Yes (Glasses) Physical Exam ED Vital Signs: Vital Signs - 24 hr 08/05/24 17:08 08/05/24 20:44 Temperature 96.8 F 97.5 F Pulse Rate 60 60 Respiratory Rate 18 16 Blood Pressure 118/41 L 120/43 L Pulse Oximetry 97 Oxygen Delivery Method Room Air Room Air BMI result Body Mass Index 21.8 Const General: healthy appearing, comfortable, no acute distress, alert and awake Nutritional Appearance: well nourished Orientation/consciousness: patient oriented x3 HENMT Head: Yes normocephalic and Yes atraumatic Eyes Eyelids: Yes eyelids normal Conjunctivae: conjunctivae normal Sclerae: sclerae normal Corneas: corneas normal Pupils: Equal, round and reactive pupils present EOM: EOMs intact bilaterally Neck Neck: Yes full ROM Resp Effort & Inspection: normal respiratory effort, able to speak in complete sentences and not labored GI Inspection: No distended Palpation (GI): Soft to palpation, not firm, nontender, no guarding and not rigid Skin General skin exam: elasticity normal Neuro General: patient oriented x3 Cranial nerves: Yes Equal, round and reactive pupils present and Yes Bilaterally intact EOM present Extrem Other: Moving all extremities well without any obvious deformities Course Course Course Narrative: This is a rapid medical exam performed by Canelo Subramanian NP: Additional HPI, ROS, PE not included below will be deferred to primary provider. Patient is a 79-year-old male presenting from PCP follow up appointment today with weakness, poor appetite, difficulty taking medications as prescribed. Nephew states that more pills were missing from pill organizer than what patient should have taken already. Patient seen here on 08/01 for lower extremity DVT, started on Eliquis. Admits to 1-2 falls. Was noted to be covered in feces at appointment today. Nephew notes significant decline since . Dr. Duff concerned about LFTs from visit on 08/01, ordered a scan. Plan: CT head, labs, UA, viral panel Medications Administered Discontinued Medications Generic Name Dose Route Start Last Admin Trade Name Freq PRN Reason Stop Dose Admin Sodium Chloride 1,000 mls @ 999 mls/hr 08/05/24 20:15 08/05/24 21:07 Ns IV 08/05/24 21:15 999 mls/hr .Q1H1M FINESSE Administration Insulin Human Regular 5 unit 08/05/24 21:02 08/05/24 21:41 Insulin Regular, Human 100 Unit/Ml 10 Ml Vial IVPUSH 08/05/24 21:03 5 unit ONCE ONE Administration Medical Decision Making Medical Decision Making MDM Narrative: 79-year-old male presents for evaluation of failure to thrive. He denies any pain. He does have 2 to 3+ lower extremity pitting edema and known DVTs. His primary was concerned for liver malignancy due to elevated LFTs that is new over the last month and hypercoagulability with bilateral DVTs in the lower extremities. The patient's seems more awake and alert compared to earlier in the week per his family. The patient offers no complaints except for leg swelling. The patient's labs are significant for a leukocytosis of 13.8 small left shift, there was no evidence of infection.. Chemistries are significant for a sodium of 127. He was hyperglycemic to 372. The patient does have a mild anion gap of 22. We will get a VBG to assess for DKA. He may have a mild DKA. He was found to have an SHAILA with a creatinine of 2.10 and a BUN of 110. This is increased from his baseline of 1.1 a and 56 from 4 days ago. The increases likely due to decreased oral intake and the patient is on furosemide. He does have elevated LFTs with a total bilirubin of 1.6, AST of 230 and ALT of 182 with alk phos of 645. These are all slightly elevated when compared to his labs from [address] scan of the brain is unremarkable, CT scan of the abdomen pelvis shows 2 pancreatic masses with diffuse liver involvement concerning for neoplasm. I will discuss these results with the patient and his family who is bedside. He will require admission due to SHAILA and metabolic encephalopathy Differential Diagnosis Differential Diagnoses: The differential diagnosis associated with the presentation includes Metabolic encephalopathy SHAILA Hyperglycemia DKA Pseudo hyponatremia Pancreatic lesion Admission/Observation Consideration of admission/observation: Escalation of care including admission/observation considered Lab Data MDM Lab Attestation statement: I reviewed the patient's lab results. As above 08/05/24 17:34 08/05/24 17:34 Labs: Lab Results 08/05/24 08/05/24 08/05/24 Range/Units 17:34 21:00 21:09 WBC 13.8 H (4.8-10.8) X10*3/uL RBC 3.81 L (4.60-5.80) X10*6/uL Hgb 12.6 L (14.0-18.0) g/dl Hct 37.0 L (42.0-52.0) % MCV 97.1 (80.0-98.0) fL MCH 33.1 H (27.0-33.0) pg MCHC 34.1 (31.0-36.0) g/dl RDW 14.8 (11.0-16.0) % Plt Count 226 D (160-400) X10*3/uL MPV 9.6 (9.4-12.4) fL Immature Gran % (Auto) 0.8 H (0.0-0.4) % Neut % (Auto) 78.2 H (45-73) % Lymph % (Auto) 11.2 L (20-40) % [place] % (Auto) 9.7 (2-11) % Eos % (Auto) 0.0 (0-4) % Baso % (Auto) 0.1 (0-2) % Lymph # (Auto) 1.5 (1.2-4.9) X10*3/uL [place] # (Auto) 1.3 H (0.1-1.2) X10*3/uL Eos # (Auto) 0.0 (0.0-0.4) X10*3/uL Baso # (Auto) 0.0 (0.0-0.2) X10*3/uL Abs Immat Gran (auto) 0.11 H (0.00-0.03) X10*3/uL Absolute Neuts (auto) 10.8 H (2.0-8.3) x10*3/uL Absolute Nucleated RBC 0.000 (0.0-0.012) X10*3/uL Nucleated RBC % (auto) 0.0 (0.0-0.2) /100WBC PT 28.3 H D (10.9-12.4) SEC INR 2.4 H (0.9-1.1) VBG pH (7.32-7.43) VBG pCO2 mmHg VBG pO2 mmHg VBG HCO3 (22-26) mmol/L VBG O2 Saturation % VBG Base Excess mmol/L Sodium 127 L (135-145) mmol/L Potassium 4.2 (3.3-5.1) mmol/L Chloride 93 L (96-108) mmol/L Carbon Dioxide 16 L (22-29) mmol/L Anion Gap 22 H (12-20) BUN 110 H (9-16) mg/dL Creatinine 2.10 H (0.5-1.4) mg/dL Estim Creat Clear Calc 30.1 Estimated GFR 31 POC Glucose 331 H (60-115) mg/dL Random Glucose 372 H* (60-115) mg/dL Calcium 8.5 (8.4-10.2) mg/dL Magnesium 2.8 H (1.6-2.6) mg/dL Total Bilirubin 1.6 H (0.0-1.0) mg/dL AST 230 H (5-37) U/L ALT 182 H (0-40) U/L Alkaline Phosphatase 645 H (39-117) U/L Troponin I High Sens 19.7 (<3.5-35.0) ng/L Total Protein 6.3 L (6.5-8.0) g/dL Albumin 3.1 L (3.5-5.0) g/dL Urine Color Yellow Urine Appearance Clear Urine pH 5.0 (5.0-9.0) Ur Specific Pickett 1.025 (1.005-1.025) Urine Protein Negative (Neg-Trace) mg/dL Urine Glucose (UA) >=1000 H (Negative) mg/dL Urine Ketones Negative (Negative) mg/dL Urine Blood Negative (Negative) Urine Nitrite Negative (Negative) Ur Leukocyte Esterase Negative (Negative) Urine RBC 0-2 (0-2) /HPF Urine WBC 0-5 (0-5) /HPF Ur Squamous Epith Cells 0-2 (0-2) /HPF Urine Bacteria None Seen (None Seen) Hyaline Casts 3-5 (0-2) /LPF Influenza Type A (PCR) NEGATIVE (Negative) Influenza Type B (PCR) NEGATIVE (Negative) RSV RNA Qual (PCR) NEGATIVE (Negative) SARS-CoV-2 RNA (RT-PCR) NEGATIVE (Negative) 08/05/24 Range/Units 21:44 WBC (4.8-10.8) X10*3/uL RBC (4.60-5.80) X10*6/uL Hgb (14.0-18.0) g/dl Hct (42.0-52.0) % MCV (80.0-98.0) fL MCH (27.0-33.0) pg MCHC (31.0-36.0) g/dl RDW (11.0-16.0) % Plt Count (160-400) X10*3/uL MPV (9.4-12.4) fL Immature Gran % (Auto) (0.0-0.4) % Neut % (Auto) (45-73) % Lymph % (Auto) (20-40) % [place] % (Auto) (2-11) % Eos % (Auto) (0-4) % Baso % (Auto) (0-2) % Lymph # (Auto) (1.2-4.9) X10*3/uL [place] # (Auto) (0.1-1.2) X10*3/uL Eos # (Auto) (0.0-0.4) X10*3/uL Baso # (Auto) (0.0-0.2) X10*3/uL Abs Immat Gran (auto) (0.00-0.03) X10*3/uL Absolute Neuts (auto) (2.0-8.3) x10*3/uL Absolute Nucleated RBC (0.0-0.012) X10*3/uL Nucleated RBC % (auto) (0.0-0.2) /100WBC PT (10.9-12.4) SEC INR (0.9-1.1) VBG pH 7.32 (7.32-7.43) VBG pCO2 37 mmHg VBG pO2 39 mmHg VBG HCO3 19 L (22-26) mmol/L VBG O2 Saturation 54.0 % VBG Base Excess -5.7 mmol/L Sodium (135-145) mmol/L Potassium (3.3-5.1) mmol/L Chloride (96-108) mmol/L Carbon Dioxide (22-29) mmol/L Anion Gap (12-20) BUN (9-16) mg/dL Creatinine (0.5-1.4) mg/dL Estim Creat Clear Calc Estimated GFR POC Glucose (60-115) mg/dL Random Glucose (60-115) mg/dL Calcium (8.4-10.2) mg/dL Magnesium (1.6-2.6) mg/dL Total Bilirubin (0.0-1.0) mg/dL AST (5-37) U/L ALT (0-40) U/L Alkaline Phosphatase (39-117) U/L Troponin I High Sens (<3.5-35.0) ng/L Total Protein (6.5-8.0) g/dL Albumin (3.5-5.0) g/dL Urine Color Urine Appearance Urine pH (5.0-9.0) Ur Specific [place]ett (1.005-1.025) Urine Protein (Neg-Trace) mg/dL Urine Glucose (UA) (Negative) mg/dL Urine Ketones (Negative) mg/dL Urine Blood (Negative) Urine Nitrite (Negative) Ur Leukocyte Esterase (Negative) Urine RBC (0-2) /HPF Urine WBC (0-5) /HPF Ur Squamous Epith Cells (0-2) /HPF Urine Bacteria (None Seen) Hyaline Casts (0-2) /LPF Influenza Type A (PCR) (Negative) Influenza Type B (PCR) (Negative) RSV RNA Qual (PCR) (Negative) SARS-CoV-2 RNA (RT-PCR) (Negative) Radiology Impression Discussion of test interpretation with radiology: I have reviewed the radiologist's reading. Radiologist Impression: Findings: There are 2 right lower lobe nodules larger measuring 7 mm in size. No consolidation or pleural effusion. Prior sternotomy. There are 2 pancreatic masses, a 6 x 4 x 4 cm mass arising from the mid pancreatic body extending into the mesentery and a 3 cm mass within the distal pancreatic body. The liver is enlarged and there are innumerable low-density masses within the liver measuring up to approximately 3 cm in size. The spleen, adrenal glands and kidneys are unremarkable. There are no calcified gallstones. Mild colonic diverticulosis. No bowel edema or obstruction. There is a small amount of pelvic free fluid. There is a likely TURP defect within the prostate. The urinary bladder is unremarkable. The appendix is not definitively seen. There are no secondary findings to suggest appendicitis. The bones are intact. IMPRESSION: 1. 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 2. 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 3. Small amount of pelvic free fluid. 4. There are 2 nodules within the visualized right lower lobe. Recommend dedicated chest CT for further evaluation when clinically appropriate. This document has been electronically signed by: Kenna Manzo MD on 08/05/2024 20:46:36 Discharge Plan Discharge Clinical Impression: SHAILA (acute kidney injury), Acute metabolic encephalopathy, Lesion of pancreas Patient Disposition: Still a Patient Prescriptions: No Action aspirin [Le Low Dose Aspirin] 81 mg tablet,delayed release (DR/EC) 81 mg PO DAILY Qty: 90 0RF (DME) Freestyle lancets See Rx Instructions .Route .MEDSUPPLY Qty: 100 0RF Rx Instructions: As directed atorvastatin 80 mg tablet 80 mg PO DAILY Qty: 90 0RF FreeStyle Lite Strips Strip 1 strip miscellaneous TID 90 Days Qty: 500 0RF amiodarone 200 mg tablet 200 mg PO DAILY Qty: 90 3RF insulin glargine-yfgn 100 unit/mL (3 mL) insulin pen 14 unit subcut QPM Qty: 15 0RF clopidogrel 75 mg tablet 75 mg PO DAILY 90 Days Qty: 90 1RF furosemide 40 mg tablet 40 mg PO DAILY 90 Days Qty: 90 0RF insulin lispro [Humalog KwikPen Insulin] 100 unit/mL insulin pen See Rx Instructions subcut TID Qty: 15 0RF Rx Instructions: 7 u breakfast, 10 u lunch and 14 units with dinner subcut 3 times a day; metformin 500 mg tablet 1,000 mg PO BID@0630,1200 Qty: 180 0RF clobetasol 0.05 % cream 1 appl topical BID 14 Days Qty: 60 0RF trazodone 50 mg tablet 50 mg PO BEDTIME PRN (Reason: insomnia) 30 Days Qty: 30 2RF potassium chloride 10 mEq capsule, extended release 20 meq PO DAILY 90 Days Qty: 180 0RF famotidine 20 mg tablet 20 mg PO BID Qty: 60 0RF losartan 50 mg tablet 50 mg PO BEDTIME Qty: 90 0RF albuterol sulfate 90 mcg/actuation HFA aerosol inhaler 2 puff inhalation Q6H PRN (Reason: shortness of breath or wheezing) Qty: 8.5 0RF meclizine 25 mg tablet 25 mg PO BID@0630,1200 PRN (Reason: for dizziness) Lumigan 0.01 % drops 1 drp ophthalmic-Left BEDTIME metoprolol succinate 50 mg Tablet Extended Release 24 Hr 50 mg PO DAILY 90 Days Qty: 90 0RF Protocol: Hold for SBP/HR < HOLD for SBP < : 90 HOLD for HR < : 60 Eliquis DVT-PE Treat 30D Start 5 mg (74 tabs) tablets,dose pack 5 mg PO BID Qty: 74 0RF cholecalciferol (vitamin D3) 50 mcg (2,000 unit) capsule 50 mcg PO DAILY 90 Days Qty: 90 3RF Jardiance 25 mg tablet 25 mg PO DAILY Qty: 90 2RF Print Language: Welsh
--- NOTE | 2024-08-05 17:13 | ECG_ITS ---
Test Reason : WEAKNESS Blood Pressure : */* mmHG Vent. Rate : 52 BPM Atrial Rate : 52 BPM P-R Int : 202 ms QRS Dur : 136 ms QT Int : 500 ms P-R-T Axes : 45 94 83 degrees QTcB Int : 465 ms Sinus bradycardia with Premature atrial complexes Right bundle branch block Abnormal ECG When compared with ECG of 01-Aug-2024 16:52, No significant changes seen Referred By: Naomi Subramanian Electronically Signed By: SHEREE COTTRELL
[2024-08-05 17:40] LABS: MANUAL DIFF FLAG NO
[2024-08-05 17:43] LABS: Basophils Percent Auto 0.1 % (0-2); Hemoglobin 12.6 g/dl (14.0-18.0); Imm Gran Abs Auto 0.11 X10*3/uL (0.00-0.03); Imm Gran Pct Auto 0.8 % (0.0-0.4); Lymphocytes Absolute Auto 1.5 X10*3/uL (1.2-4.9); Lymphocytes Percent Auto 11.2 % (20-40); Mean Corpuscular HGB Conc 34.1 g/dl (31.0-36.0); Mean Corpuscular Hemoglobin 33.1 pg (27.0-33.0); Mean Corpuscular Volume 97.1 fL (80.0-98.0); Mean Platelet Volume 9.6 fL (9.4-12.4); Monocytes Absolute Auto 1.3 X10*3/uL (0.1-1.2); Monocytes Percent Auto 9.7 % (2-11); Neutrophils Absolute Auto 10.8 x10*3/uL (2.0-8.3); Neutrophils Percent Auto 78.2 % (45-73); Platelet Count 226 X10*3/uL (160-400); Red Blood Count 3.81 X10*6/uL (4.60-5.80); Red Cell Distribution Width 14.8 % (11.0-16.0); White Blood Count 13.8 X10*3/uL (4.8-10.8)
[2024-08-05 17:49] LABS: INTERNATIONAL NORM RATIO 2.4 (0.9-1.1); Prothrombin Time 28.3 SEC (10.9-12.4)
[2024-08-05 18:01] LABS: Alanine Aminotransferase 182 U/L (0-40); Albumin Level 3.1 g/dL (3.5-5.0); Alkaline Phosphatase 645 U/L (39-117); Anion Gap 22 (12-20); Aspartate Amino Transferase 230 U/L (5-37); Bilirubin Total 1.6 mg/dL (0.0-1.0); Blood Urea Nitrogen 110 mg/dL (9-16); Calcium 8.5 mg/dL (8.4-10.2); Carbon Dioxide 16 mmol/L (22-29); Chloride 93 mmol/L (96-108); Creatinine Clr Calc Pharmacy 30.1; Estimated Glomerular Filt Rate 31; Glucose Random 372 mg/dL (60-115); Magnesium 2.8 mg/dL (1.6-2.6); Potassium 4.2 mmol/L (3.3-5.1); Sodium 127 mmol/L (135-145); Total Protein 6.3 g/dL (6.5-8.0)
[2024-08-05 18:03] LABS: Troponin-I High Sensitivity 19.7 ng/L (<3.5-35.0)
[2024-08-05 18:20] LABS: Influenza A PCR NEGATIVE (Negative); Influenza B PCR NEGATIVE (Negative); Resp Syncy Virus RNA Qual PCR NEGATIVE (Negative); SARS COV2 PCR INHOUSE NEGATIVE (Negative)
[2024-08-05 20:44] VITALS: BP 120/43; PULSE 60; RESP 16; TEMP 36.4
--- NOTE | 2024-08-05 21:01 | PC.NURSE ---
pt ambulated to and from bathroom with this RN and tech using his cane. urine sample collected and sent to lab.
[2024-08-05 21:05] LABS: Appearance Urine Clear; Color Urine Yellow; Glucose Urine UA >=1000 mg/dL (Negative); Leukocyte Esterase Urine Negative (Negative); Nitrite Urine Negative (Negative); Specific Gravity - Urine 1.025 (1.005-1.025); UMIC TRIGGER UACC YES; Urine Blood Negative (Negative); Urine Ketones Negative (Negative); Urine Protein Negative (Neg-Trace)
[2024-08-05] MEDS: 0.9 % Sodium Chloride 1,000 ML 999 ML IV (21:07)
[2024-08-05 21:10] LABS: Bacteria Urine None Seen (None Seen); RBC Urine 0-2 /HPF (0-2); Squamous Epithelial Cell Urine 0-2 /HPF (0-2); WBC Urine 0-5 /HPF (0-5)
[2024-08-05 21:13] LABS: Glucose, Whole Blood 331 mg/dL (60-115)
[2024-08-05] MEDS: Insulin Regular, Human 100 UNIT/ML 10 ML VIAL IVPUSH (21:41)
[2024-08-05 21:46] LABS: Venous Blood Gas Refer to POC result
[2024-08-05 21:47] LABS: VBG Base Excess -5.7 mmol/L; VBG HCO3 19 mmol/L (22-26); VBG pCO2 37 mmHg; VBG pH 7.32 (7.32-7.43); VBG pO2 39 mmHg
--- NOTE | 2024-08-05 21:55 | PC.NURSE ---
pt given sandwich and derrek joaquín. OK'd by SAVANNAH melgar.
[2024-08-05 22:21] VITALS: BP 121/45; PULSE 59; RESP 16; TEMP 36.8; O2SAT 97
--- NOTE | 2024-08-05 23:17 | PM.IMHP ---
History of Present Illness Date of Service: 08/05/24 Attending physician on admission: Lalo [facility] Chief Complaint: Generalized weakness Pt is a 79-year-old male with a PMH significant for?CAD s/p CABG and NSTEMI, SVT, paroxysmal AFib, insulin-dependent type 2 diabetes, HTN, and recent bilateral DVTs on Eliquis who presents to the ED from PCP office for evaluation of failure to thrive. Pt was previously seen in the ED 4 days ago where he was found to have bilateral LLE DVTs and discharged home on Eliquis. Pt presented today to his PCP for follow-up visit?who found the pt had been steadily declining since discharge: was unable to take his medications, safely perform ADLs, or prepare his own meals. PCP thus sent him to the ED evaluation of failure to thrive. Pt is mildly confused at time of interview and examination. ED provider spoke to pt about concerns for pancreatic and liver masses on CT scan, the pt did not remember this conversation. Pt was again told about concerns from CT imaging, though appeared to forget this information a few minutes later. Pt does not seem to remember going to his PCP earlier today and family report has been forgetful, confused, and likely not properly taking his medication at home for at least the past week. Family reports pt previously was able to take care of himself without incident. Pt himself complains about lower leg swelling and pain, especially with ambulation. Reports has been falling at home recently, as well as increased weakness, fatigue, and unintentional weight loss. However, pt is unable to provide much specifics about any of these complaints. Pt unsure whether he has been taking all of his home meds or not, as he states he does not even know which ones he is currently on. Denies nausea, vomiting, abdominal pain. No chest pain/pressure, palpitations. Denies shortness or breath or difficulty breathing. In the ED pt with slightly soft BP of 118/41, vitals otherwise stable and WNL. Labs were significant for leukocytosis of 13.8, normocytic anemia of 12.6/37.0, sodium 127, chloride 93, bicarb 16, anion gap 22, BUN 110 , creatinine 2.10 (baseline around 1 point 20), random glucose 372, T bili 1.6, AST 230, ALT 182, alk-phos 645, and albumin 3.1. CXR and CT of head negative for acute findings. CT?of abdomen and pelvis found to pancreatic masses compatible with neoplasm with likely extensive metastatic disease to the liver. Also found small amount of pelvic free fluid and 2 nodules in right lower lobe. EKG demonstrated sinus bradycardia of 52 with PACs and RBBB, QTc 483. Similar to prior. Pt was treated with regular insulin 5 units IV, and IVF. Pt will be admitted to the hospital for treatment and further evaluation of acute metabolic encephalopathy, SHAILA, and hyponatremia in the setting of failure to thrive and concern for metastatic pancreatic cancer. Review of Systems Review of Systems: Negative except for that which is stated in the [facility] Medical History Vitamin D deficiency Bilateral knee pain SVT (supraventricular tachycardia) Atherosclerotic cardiovascular disease Insomnia Obesity (BMI 30-39.9) Benign prostate hyperplasia Paroxysmal atrial fibrillation Coronary artery disease Pure hypercholesterolemia Benign essential hypertension Chronic bronchitis Lumbar disc disease CAD (coronary artery disease) Type 2 diabetes mellitus with diabetic polyneuropathy Essential hypertension Hyperlipidemia LDL goal <70 Family History Brother Diabetes Father No problems noted. Mother No problems noted. Surgical History History of eye surgery Hx of colonoscopy (~02/24/17) Hx of CABG Social History Household Members: None Housing: Homeless Do you presently have visiting nurse or other home services: No Alcohol intake: former Patient Tobacco Use Status: Former Tobacco user Smoked in Last 30 Days: No e-Cigarette/Vaping Use: Never Used Second Hand Smoke Exposure: No Use of substances other than those prescribed or required for medical reasons: No Advance Directives: No Advance Directives Information Provided: No Do you have a plan to hurt others: No Plan service: No Current occupational status: retired Cognitive needs: No Hearing needs: No Vision needs: Yes (Glasses) Meds Allergies Allergy/AdvReac Type Severity Reaction Status Date / Time No Known Allergies Allergy Verified 08/05/24 17:13 [No Known Allergies*] Home Medications ?Medication ?Instructions ?Recorded ?Confirmed ?Last Taken ?Type bimatoprost 0.01 % eye drops 1 drp ophthalmic-Left BEDTIME 02/05/24 08/05/24 02/04/24 History (Lumigan) meclizine 25 mg tablet 25 mg PO BID@0630,1200 PRN for 02/05/24 08/05/24 02/04/24 History dizziness Physical Exam Vital Signs and Narrative: Vital Signs: Last Vital Signs Temp 98.2 F 08/05/24 22:21 Pulse 59 08/05/24 22:21 Resp 16 08/05/24 22:21 BP 121/45 L 08/05/24 22:21 Pulse Ox 97 08/05/24 22:21 O2 Del Method Room Air 08/05/24 22:21 BMI result Body Mass Index 21.8 General: AOx3, but not to situation. In no acute distress Resp: CTA bilaterally CVS: S1, S2, RRR GI: +BS, NT, no distention Skin: Warm, dry Neuro: Cranial nerves II-XII grossly intact bilaterally. Motor grossly intact bilaterally Extremities: 3+ bilateral pitting edema of lower extremities. Right lower extremity evidence of petechiae and purpura. As pictured below. Psych: Mildly confused but cooperative Results Labs 08/05/24 17:34 08/05/24 17:34 Labs: Laboratory Results - last 24 hr 08/05/24 08/05/24 08/05/24 17:34 21:00 21:09 MCV 97.1 MCH 33.1 H MCHC 34.1 RDW 14.8 Plt Count 226 D MPV 9.6 Immature Gran % (Auto) 0.8 H Neut % (Auto) 78.2 H Lymph % (Auto) 11.2 L [place] % (Auto) 9.7 Eos % (Auto) 0.0 Baso % (Auto) 0.1 Lymph # (Auto) 1.5 [place] # (Auto) 1.3 H Eos # (Auto) 0.0 Baso # (Auto) 0.0 Abs Immat Gran (auto) 0.11 H Absolute Neuts (auto) 10.8 H Absolute Nucleated RBC 0.000 Nucleated RBC % (auto) 0.0 PT 28.3 H D INR 2.4 H VBG pH VBG pCO2 VBG pO2 VBG HCO3 VBG O2 Saturation VBG Base Excess Anion Gap 22 H Estim Creat Clear Calc 30.1 Estimated GFR 31 POC Glucose 331 H Random Glucose 372 H* Calcium 8.5 Magnesium 2.8 H Total Bilirubin 1.6 H AST 230 H ALT 182 H Alkaline Phosphatase 645 H Total Protein 6.3 L Albumin 3.1 L Urine Color Yellow Urine Appearance Clear Urine pH 5.0 Ur Specific [place] 1.025 Urine Protein Negative Urine Glucose (UA) >=1000 H Urine Ketones Negative Urine Blood Negative Urine Nitrite Negative Ur Leukocyte Esterase Negative Urine RBC 0-2 Urine WBC 0-5 Ur Squamous Epith Cells 0-2 Urine Bacteria None Seen Hyaline Casts 3-5 Influenza Type A (PCR) NEGATIVE Influenza Type B (PCR) NEGATIVE RSV RNA Qual (PCR) NEGATIVE SARS-CoV-2 RNA (RT-PCR) NEGATIVE 08/05/24 21:44 MCV MCH MCHC RDW Plt Count MPV Immature Gran % (Auto) Neut % (Auto) Lymph % (Auto) [place] % (Auto) Eos % (Auto) Baso % (Auto) Lymph # (Auto) [place] # (Auto) Eos # (Auto) Baso # (Auto) Abs Immat Gran (auto) Absolute Neuts (auto) Absolute Nucleated RBC Nucleated RBC % (auto) PT INR VBG pH 7.32 VBG pCO2 37 VBG pO2 39 VBG HCO3 19 L VBG O2 Saturation 54.0 VBG Base Excess -5.7 Anion Gap Estim Creat Clear Calc Estimated GFR POC Glucose Random Glucose Calcium Magnesium Total Bilirubin AST ALT Alkaline Phosphatase Total Protein Albumin Urine Color Urine Appearance Urine pH Ur Specific [place] Urine Protein Urine Glucose (UA) Urine Ketones Urine Blood Urine Nitrite Ur Leukocyte Esterase Urine RBC Urine WBC Ur Squamous Epith Cells Urine Bacteria Hyaline Casts Influenza Type A (PCR) Influenza Type B (PCR) RSV RNA Qual (PCR) SARS-CoV-2 RNA (RT-PCR) Assessment and Plan (1) Lesion of pancreas: Status: Acute (2) SHAILA (acute kidney injury): Status: Acute (3) Acute metabolic encephalopathy: Status: Acute (4) Failure to thrive in adult: Status: Acute Plan Pt is a 79-year-old male with a PMH significant for?CAD s/p CABG and NSTEMI, SVT, paroxysmal AFib, insulin-dependent type 2 diabetes, HTN, and recent bilateral DVTs on Eliquis who presents to the ED from PCP office for evaluation of failure to thrive. Pt will be admitted to the hospital for treatment and further evaluation of acute metabolic encephalopathy, SHAILA, and hyponatremia in the setting of failure to thrive and concern for metastatic pancreatic cancer. Acute metabolic encephalopathy and failure to thrive in the setting of concerns for metastatic pancreatic cancer Family notes that pt appears confused above baseline and unable to take care of himself at home for at least the past week CT of abdomen and pelvis found to pancreatic masses compatible with neoplasm, and extensive metastatic disease to liver, and 2 nodules of concern within right lower lobe CT of head negative for acute intracranial abnormality Oncology consult Monitor mentation SHAILA Creatinine 2.10, elevated from 1.18 on 08/01/2024 Likely secondary to reduced p.o. intake and continuing home diuretics Pt received IVF in the ED Will place on maintenance fluids Hold Lasix, losartan, metformin Follow kidney function Hyponatremia Patient's sodium 127 Likely secondary to reduced p.o. intake while continuing diuretic use Pt received IVF in the ED Will be placed on maintenance fluid Hold Lasix Trend sodium Recent DVTs Diagnosed with bilateral DVTs on 08/01/2024 Discharged Eliquis Unclear how compliant pt has been with medication Will treat with therapeutic Lovenox for now Leukocytosis WBCs 13.8 at time of presentation Likely secondary to metastatic disease, not sepsis No indication for antibiotic use at this time Transaminitis Likely secondary to pancreatic cancer metastasis to liver Insulin-dependent type 2 diabetes Pt initially hyperglycemic at 372 Likely secondary to medication noncompliance, concern for pancreatic cancer Will place on sliding scale insulin Continue Lantus, Jardiance Diabetic diet CAD Continue statin, aspirin Paroxysmal AFib Pt not previously anticoagulated Continue amiodarone, metoprolol Full Code Attending:?Dr. Marques DVT Prophylaxis: On therapeutic Lovenox Pt will require a hospitalization of at least two nights for treatment of?acute metabolic encephalopathy, SHAILA, and hyponatremia in the setting of failure to thrive and concerns for metastatic pancreatic cancer. Pt will require IVF, close monitoring of labs, and specialist consultation with Oncology. Quality Stroke Does the patient have a stroke diagnosis?: No VTE Prior VTE?: Yes Approximate Date of Prior VTE: 08/01/24 VTE Risk Level:: Medical - moderate - high VTE Device Contraindication: Treatment Not Indicated VTE Drug Contraindication: N/A - Med Ordered
[2024-08-06] VITALS (8 sets, daily range): BP systolic 123–145; BP diastolic 45–66; PULSE 65–87; RESP 12–18; TEMP 36.2–37; O2SAT 94–97; BMI 27.9
[2024-08-06] MEDS: Lactated Ringers 1,000 ML 100 ML IVCONT (00:03)
--- NOTE | 2024-08-06 00:15 | MHC.EDTECH ---
0000 rounding done ,vitals taken ,Patient belongings list done ,Patient was assisted to walk to bathroom ,void and was assisted back felisa bed ,Patient drank 120 ml fluids ,no apparent distress noted .
--- NOTE | 2024-08-06 02:17 | MHC.EDTECH ---
Patient awake was assisted to walk to bathroom ,void and was assisted back to bed .
[2024-08-06] MEDS: Enoxaparin Sodium 40 MG/0.4 ML SYRINGE 75 MG SUBCUT ×3 (04:14→23:01)
[2024-08-06] MEDS: Insulin Glargine,Hum.rec.anlog 100 UNIT/ML 10 ML VIAL 14 UNIT SUBCUT ×2 (04:14→20:33)
--- NOTE | 2024-08-06 04:34 | MHC.EDTECH ---
0400 rounding done ,vitals taken ,AM Labs drawn and sent to lab .
[2024-08-06 04:36] LABS: Hematocrit 39.5 % (42.0-52.0); Hemoglobin 13.4 g/dl (14.0-18.0); Mean Corpuscular HGB Conc 33.9 g/dl (31.0-36.0); Mean Corpuscular Hemoglobin 32.8 pg (27.0-33.0); Mean Corpuscular Volume 96.6 fL (80.0-98.0); Mean Platelet Volume 9.6 fL (9.4-12.4); Platelet Count 195 X10*3/uL (160-400); Red Blood Count 4.09 X10*6/uL (4.60-5.80); Red Cell Distribution Width 14.7 % (11.0-16.0); White Blood Count 14.1 X10*3/uL (4.8-10.8)
[2024-08-06 04:52] LABS: Anion Gap 22 (12-20); Blood Urea Nitrogen 94 mg/dL (9-16); Calcium 8.8 mg/dL (8.4-10.2); Carbon Dioxide 17 mmol/L (22-29); Chloride 98 mmol/L (96-108); Creatinine Clr Calc Pharmacy 32.8; Estimated Glomerular Filt Rate 34; Glucose Random 348 mg/dL (60-115); Potassium 4.1 mmol/L (3.3-5.1); Sodium 133 mmol/L (135-145)
[2024-08-06 07:18] LABS: Glucose, Whole Blood 281 mg/dL (60-115)
[2024-08-06] MEDS: Insulin Lispro 100 UNIT/ML 3 ML VIAL SUBCUT ×4 (07:23→20:39)
--- NOTE | 2024-08-06 08:07 | P.CNHO_ITS ---
Subjective - Subjective Chief complaint: Weakness Patient: new to practice Consult date: 08/06/24 Requesting Physician: Hospitalist team Primary Care Provider: Andi Duff MD [employer] Utilized?: No - Welsh Speaking HPI - Consult Narrative Reason for consult: Metastatic malignancy Narrative: Donald Matta is a 79 year old male with multiple medical problems including CAD status post CABG, NSTEMI, SVT, paroxysmal AFib, hypertension, diabetes, bilateral DVTs who was sent to the hospital because of failure to thrive and inability to perform ADLs. He was sent by his PCP. Patient was diagnosed recently with bilateral DVTs. At this time although he is oriented to self, he does not know any of his medical history. He was not aware that he was on blood thinner or was diagnosed with blood clots in his legs. Evaluation in the ED revealed leukocytosis of 13.8, normocytic anemia of 12.6/37.0, sodium 127, chloride 93, bicarb 16, anion gap 22, BUN 110 , creatinine 2.10 (baseline around 1 point 20), random glucose 372, T bili 1.6, AST 230, ALT 182, alk-phos 645, and albumin 3.1. CXR and CT of head negative for acute findings. CT?of abdomen and pelvis found to pancreatic masses compatible with neoplasm with likely extensive metastatic disease to the liver. Also found small amount of pelvic free fluid and 2 nodules in right lower lobe. Review of Systems - Constitutional Reports as per HPI Comments: Unable to obtain - Neurologic Denies headache(s), Reports weakness [facility] Medical History: Medical History (Last Reviewed 08/06/24 @ 00:10 by SAVANNAH Girard) Atherosclerotic cardiovascular disease Benign essential hypertension Benign prostate hyperplasia Bilateral knee pain CAD (coronary artery disease) Chronic bronchitis Coronary artery disease Essential hypertension Hyperlipidemia LDL goal <70 Insomnia Lumbar disc disease Obesity (BMI 30-39.9) Paroxysmal atrial fibrillation Pure hypercholesterolemia SVT (supraventricular tachycardia) Type 2 diabetes mellitus with diabetic polyneuropathy Vitamin D deficiency Family History: Family History (Last Reviewed 08/06/24 @ 00:10 by SAVANNAH Girard) Brother Diabetes Father No problems noted. Mother No problems noted. Surgical History: Surgical History (Last Reviewed 08/06/24 @ 00:10 by SAVANNAH Girard) History of eye surgery Hx of CABG Hx of colonoscopy Onset Date: ~02/24/17 Social History: Social History (Last Reviewed 08/06/24 @ 00:10 by SAVANNAH Girard) Living Situation History: Household Members: None Housing: Homeless Do you presently have visiting nurse or other home services: No Alcohol History Details: 1. How often do you have a drink containing alcohol?: a. Never AUDIT-C Alcohol total score: 0 Tobacco History: Patient Tobacco Use Status: Former Tobacco user Smoked in Last 30 Days: No e-Cigarette/Vaping Use: Never Used Second Hand Smoke Exposure: No Substance Use History: Use of substances other than those prescribed or required for medical reasons : No Advance Directives: Advance Directives: No Advance Directives Information Provided: No Homicidal Assessment: Do you have a plan to hurt others: No Plan Nutrition Assessment: Nutrition Risks: No Nutritional Risk Occupation Assessmet: service: No Current occupational status: retired Home Medications and Allergies Current Medications: Current Medications Acetaminophen (Acetaminophen 325 Mg Tablet) 650 mg PO Q6H PRN PRN Reason: Pain, Mild 1-3,fever,headache Calcium Carbonate (Calcium Carbonate 750 Mg Tab.Chew) 750 mg PO Q4H PRN PRN Reason: Heartburn Dextrose (Dextrose 50 % 25 Gm/50 Ml Syringe) 25 gm IVPUSH Q15M PRN; Protocol PRN Reason: per Hypoglycemia Standing Ord. Enoxaparin Sodium (Enoxaparin Sodium 40 Mg/0.4 Ml Syringe) 75 mg SUBCUT Q12H [facility] Last Admin: 08/06/24 04:14 Dose: 75 mg Glucose (Glucose Gel 15 Gm Gel..Gram.) 15 gm PO Q15M PRN; Protocol PRN Reason: per Hypoglycemia Standing Ord. Lactated Ringer's (Lr) 1,000 mls @ 100 mls/hr IVCONT .Q10H [facility] Stop: 08/06/24 09:44 Last Admin: 08/06/24 00:03 Dose: 100 mls/hr Insulin Glargine (Insulin Glargine,Hum.Rec.Anlog 100 Unit/Ml 10 Ml Vial) 14 unit SUBCUT BEDTIME [facility] Last Admin: 08/06/24 04:14 Dose: 14 unit Insulin Human Lispro (Insulin Lispro 100 Unit/Ml 3 Ml Vial) 0 unit SUBCUT QIDACHS [facility]; Protocol Last Admin: 08/06/24 07:23 Dose: 6 unit Magnesium Hydroxide (Milk Of Magnesia 30 Ml Oral.Susp) 30 ml PO DAILY PRN PRN Reason: Constipation Melatonin (Melatonin 3 Mg Tablet) 6 mg PO BEDTIME PRN PRN Reason: Insomnia Morphine Sulfate (Morphine Sulfate 4 Mg/Ml Cartridge) 2 mg IVPUSH Q4H PRN; Protocol PRN Reason: Pain, Severe (Pain Scale 7-10) Ondansetron HCl (Ondansetron Hcl 4 Mg/2 Ml Vial) 4 mg IVPUSH Q8H PRN PRN Reason: Nausea and Vomiting Sodium Chloride (0.9 % Sodium Chloride Flush 3 Ml Syringe) [address] [facility] Last Admin: 08/06/24 07:26 Dose: Not Given Home Medications ?Medication ?Instructions ?Recorded ?Confirmed ?Type bimatoprost 0.01 % eye drops 1 drp ophthalmic-Left BEDTIME 02/05/24 08/05/24 History (Christiano) meclizine 25 mg tablet 25 mg PO BID@0630,1200 PRN for 02/05/24 08/05/24 History dizziness Allergies Allergy/AdvReac Type Severity Reaction Status Date / Time No Known Allergies Allergy Verified 08/05/24 17:13 [No Known Allergies*] Physical Exam Vital signs: Vital Signs Temp 98.2 F 08/06/24 04:17 Pulse 65 08/06/24 04:17 Resp 16 08/06/24 04:17 BP 126/53 L 08/06/24 04:17 Pulse Ox 96 08/06/24 04:17 O2 Del Method Room Air 08/06/24 04:17 Intake & Output 08/05/24 08/06/24 08/06/24 18:59 06:59 18:59 Intake Total 1120 / 1120 Balance 1120 / 1120 Intake: Intake, Oral Amount 120 / 120 Intake, IV Amount 1000 / 1000 0.9 % Sodium Chloride 1,000 ml 1000 / 1000 @ 999 mls/hr IV .Q1H1M [facility] Rx#: [id number] Other: Number of Unmeasured Voids 7 Urine Urinal Urine Color Yellow Weight 74.843 kg Weight 74.843 kg - Constitutional Present: chronically ill appearing, disheveled - Routine HEENT Exam Eye: Present: EOMI, PERRL - Routine Neck Exam Present: supple. Absent: lymphadenopathy - Routine Respiratory Exam Absent: accessory muscle use, wheezes - Routine Cardiovascular Exam Cardiovascular: Present: S1, S2 - Routine Abdominal Exam Present: soft - Routine Skin Exam Present: intact, erythema, lesions, rash Comments: He has diffuse erythematous rash on his right leg Hem/Onc Consult Result - Labs CBC & Chem 7: 08/06/24 04:32 08/06/24 04:32 Labs: Short CBC 08/05/24 08/06/24 Range/Units 17:34 04:32 WBC 13.8 H 14.1 H (4.8-10.8) X10*3/uL Hgb 12.6 L 13.4 L (14.0-18.0) g/dl Hct 37.0 L 39.5 L (42.0-52.0) % Plt Count 226 D 195 (160-400) X10*3/uL BMP 08/05/24 08/06/24 17:34 04:32 Sodium 127 L 133 L Potassium 4.2 4.1 Chloride 93 L 98 Carbon Dioxide 16 L 17 L BUN 110 H 94 H Creatinine 2.10 H 1.93 H Calcium 8.5 8.8 Liver Function 08/05/24 Range/Units 17:34 Total Bilirubin 1.6 H (0.0-1.0) mg/dL AST 230 H (5-37) U/L ALT 182 H (0-40) U/L Alkaline Phosphatase 645 H (39-117) U/L Albumin 3.1 L (3.5-5.0) g/dL Urine 08/05/24 Range/Units 21:00 Urine Color Yellow Urine Appearance Clear Urine pH 5.0 (5.0-9.0) Ur Specific [place] 1.025 (1.005-1.025) Urine Protein Negative (Neg-Trace) mg/dL Urine Glucose (UA) >=1000 H (Negative) mg/dL Assessment and Plan Patient Active problem list reviewed?: Yes (1) Mass of multiple sites of liver Status: Acute Assessment and plan: This is a 79-year-old male with multiple medical problems including CAD status post CABG, AFib and bilateral pulmonary emboli admitted for metabolic encephalopathy and found to have liver metastasis and pancreatic lesions on imaging. CT abdomen/pelvis without contrast performed 08/05/2024 revealed 2 pancreatic masses measuring 6 x 4 cm in the mid pancreatic body extending into mesentery and a 3 cm mass in the distal pancreatic body. Liver is enlarged with innumerable low-density lesions measuring up to 3 cm. Small amount of pelvic free fluid. Blood work shows elevation in bilirubin as well as alkaline phosphatase and transaminases. He has acute kidney injury and hyponatremia probably related to dehydration. A venous Doppler performed 08/01/2024 shows extensive occlusive DVT in the right leg as well as left leg. All of this is consistent clinically with metastatic pancreatic cancer. CA 19 9 to be tested. Patient is unable to make medical decisions for himself at this time because of his encephalopathy. His next of kin will have to be contacted. Patient has metastatic disease, he is not a good candidate for palliative chemotherapy. Overall prognosis is poor. I thank you for this consultation. - Time Spent With Patient Time Spent with Patient (in minutes): 15 Additional Coding: - Additional E/M codes Complex E/M visit Add On: CPT G2211
[2024-08-06 10:34] LABS: Lactate Dehydrogenase 577 U/L (118-273)
--- NOTE | 2024-08-06 11:01 | PHA.MEDREC ---
Addendum entered by Kirt Santana 08/06/24 11:29: reviewed Original Note: Pharmacy Consult ? Medication Reconciliation Pharmacy has completed the medication reconciliation. Spoke with patient and he was only able to confirm that he is taking the Baby Aspirin once daily and Atorvastatin 80mg tab once daily before patient got confused and did not know what else he was taking. He said we could call his emergency contact Evelyn. I called Evelyn and she stated she did not know but her brother Thang should be able to help. I called Thang and he was able to confirm most of the patients medications; he did not know about the Atorvastatin 80mg tab, Clopidogrel 75mg tab Lumigan eye drops or the Trazodone 50mg tab, I utilized claims to confirm these in the patients med rec. The patients nephew confirmed he picked up the patients medications which were filed 08/02 and in there the patient had started a Eliquis 5mg starter dose and the nephew confirmed the patient is taking 2 tablet twice a day for 7 days and states the patient decreases to 1 tab twice a day after that, the patient started this dose on 08/02. The nephew confirmed the patients Lantus Solostar and Humalog but was not sure the units or the last time the patient had taken those due to the patient not being compliant with taking those and not taking care of himself recently. The nephew confirmed that the medications he was able to confirm were last taken yesterday morning by the patient.
[2024-08-06 12:04] LABS: Glucose, Whole Blood 309 mg/dL (60-115)
--- NOTE | 2024-08-06 16:26 | MHC.CM.PN ---
CM ATTEMPTED TO MEET WITH PT WHO WAS RECEIVING RN CARE CM TO REVISIT
--- NOTE | 2024-08-06 17:37 | P.PNIM_ITS ---
Subjective Subjective Date of Service: 08/06/24 Interval History: seen and evaluated feels tired and has no energy Cr improving not fully understanding his condition no other events Review of Systems Review of Systems: Yes Unobtainable due to mental status Physical Exam 2 Vital Signs: Vital Signs: Last Vital Signs Temp 97.6 F 08/06/24 16:31 Pulse 87 08/06/24 16:31 Resp 12 08/06/24 16:31 BP 124/45 L 08/06/24 16:31 Pulse Ox 94 08/06/24 16:31 O2 Del Method Room Air 08/06/24 16:31 BMI result Body Mass Index 21.8 Const: Other: Constitutional : interactive, not in distress Cardiovascular : no JVP, +2 bilateral lower extremity edema Respiratory : bilateral chest movement, not in resp distress Gastrointestinal: soft, lax, Non tender Skin : Warm, Dry, Right lower extremity evidence of petechiae and purpura. Neurological : Alert & disoriented to details, aware of self and place, No focal deficit Objective Data Active Medications Acetaminophen (Acetaminophen 325 Mg Tablet) 650 mg PO Q6H PRN PRN Reason: Pain, Mild 1-3,fever,headache Calcium Carbonate (Calcium Carbonate 750 Mg Tab.Chew) 750 mg PO Q4H PRN PRN Reason: Heartburn Dextrose (Dextrose 50 % 25 Gm/50 Ml Syringe) 25 gm IVPUSH Q15M PRN; Protocol PRN Reason: per Hypoglycemia Standing Ord. Enoxaparin Sodium (Enoxaparin Sodium 40 Mg/0.4 Ml Syringe) 75 mg SUBCUT Q12H [facility] Last Admin: 08/06/24 12:08 Dose: 75 mg Documented By: MICHELLE Glucose (Glucose Gel 15 Gm Gel..Gram.) 15 gm PO Q15M PRN; Protocol PRN Reason: per Hypoglycemia Standing Ord. Insulin Glargine (Insulin Glargine,Hum.Rec.Anlog 100 Unit/Ml 10 Ml Vial) 14 unit SUBCUT BEDTIME [facility] Last Admin: 08/06/24 04:14 Dose: 14 unit Documented By: MIGUEL Insulin Human Lispro (Insulin Lispro 100 Unit/Ml 3 Ml Vial) 0 unit SUBCUT QIDACHS [facility]; Protocol Last Admin: 08/06/24 12:09 Dose: 8 unit Documented By: MICHELLE Magnesium Hydroxide (Milk Of Magnesia 30 Ml Oral.Susp) 30 ml PO DAILY PRN PRN Reason: Constipation Melatonin (Melatonin 3 Mg Tablet) 6 mg PO BEDTIME PRN PRN Reason: Insomnia Morphine Sulfate (Morphine Sulfate 4 Mg/Ml Cartridge) 2 mg IVPUSH Q4H PRN; Protocol PRN Reason: Pain, Severe (Pain Scale 7-10) Ondansetron HCl (Ondansetron Hcl 4 Mg/2 Ml Vial) 4 mg IVPUSH Q8H PRN PRN Reason: Nausea and Vomiting Sodium Chloride (0.9 % Sodium Chloride Flush 3 Ml Syringe) 3 ml IVFLUSH QSHIFT [facility] Last Admin: 08/06/24 07:26 Dose: Not Given Documented By: MICHELLE Non-Admin Reason: IV Running Labs 08/06/24 04:32 08/06/24 04:32 Labs: Laboratory Results - last 24 hr 08/05/24 08/05/24 08/05/24 17:34 21:00 21:09 MCV 97.1 MCH 33.1 H MCHC 34.1 RDW 14.8 Plt Count 226 D MPV 9.6 Immature Gran % (Auto) 0.8 H Neut % (Auto) 78.2 H Lymph % (Auto) 11.2 L Marshall % (Auto) 9.7 Eos % (Auto) 0.0 Baso % (Auto) 0.1 Lymph # (Auto) 1.5 Marshall # (Auto) 1.3 H Eos # (Auto) 0.0 Baso # (Auto) 0.0 Abs Immat Gran (auto) 0.11 H Absolute Neuts (auto) 10.8 H Absolute Nucleated RBC 0.000 Nucleated RBC % (auto) 0.0 PT 28.3 H D INR 2.4 H VBG pH VBG pCO2 VBG pO2 VBG HCO3 VBG O2 Saturation VBG Base Excess Anion Gap 22 H Estim Creat Clear Calc 30.1 Estimated GFR 31 POC Glucose 331 H Random Glucose 372 H* Calcium 8.5 Magnesium 2.8 H Total Bilirubin 1.6 H AST 230 H ALT 182 H Alkaline Phosphatase 645 H Lactate Dehydrogenase Total Protein 6.3 L Albumin 3.1 L Urine Color Yellow Urine Appearance Clear Urine pH 5.0 Ur Specific [place] 1.025 Urine Protein Negative Urine Glucose (UA) >=1000 H Urine Ketones Negative Urine Blood Negative Urine Nitrite Negative Ur Leukocyte Esterase Negative Urine RBC 0-2 Urine WBC 0-5 Ur Squamous Epith Cells 0-2 Urine Bacteria None Seen Hyaline Casts 3-5 Influenza Type A (PCR) NEGATIVE Influenza Type B (PCR) NEGATIVE RSV RNA Qual (PCR) NEGATIVE SARS-CoV-2 RNA (RT-PCR) NEGATIVE 08/05/24 08/06/24 08/06/24 21:44 04:32 07:13 MCV 96.6 MCH 32.8 MCHC 33.9 RDW 14.7 Plt Count 195 MPV 9.6 Immature Gran % (Auto) Neut % (Auto) Lymph % (Auto) Marshall % (Auto) Eos % (Auto) Baso % (Auto) Lymph # (Auto) Marshall # (Auto) Eos # (Auto) Baso # (Auto) Abs Immat Gran (auto) Absolute Neuts (auto) Absolute Nucleated RBC 0.000 Nucleated RBC % (auto) 0.0 PT INR VBG pH 7.32 VBG pCO2 37 VBG pO2 39 VBG HCO3 19 L VBG O2 Saturation 54.0 VBG Base Excess -5.7 Anion Gap 22 H Estim Creat Clear Calc 32.8 Estimated GFR 34 POC Glucose 281 H Random Glucose 348 H Calcium 8.8 Magnesium Total Bilirubin AST ALT Alkaline Phosphatase Lactate Dehydrogenase Total Protein Albumin Urine Color Urine Appearance Urine pH Ur Specific [place] Urine Protein Urine Glucose (UA) Urine Ketones Urine Blood Urine Nitrite Ur Leukocyte Esterase Urine RBC Urine WBC Ur Squamous Epith Cells Urine Bacteria Hyaline Casts Influenza Type A (PCR) Influenza Type B (PCR) RSV RNA Qual (PCR) SARS-CoV-2 RNA (RT-PCR) 08/06/24 08/06/24 09:53 12:00 MCV MCH MCHC RDW Plt Count MPV Immature Gran % (Auto) Neut % (Auto) Lymph % (Auto) [place] % (Auto) Eos % (Auto) Baso % (Auto) Lymph # (Auto) Marshall # (Auto) Eos # (Auto) Baso # (Auto) Abs Immat Gran (auto) Absolute Neuts (auto) Absolute Nucleated RBC Nucleated RBC % (auto) PT INR VBG pH VBG pCO2 VBG pO2 VBG HCO3 VBG O2 Saturation VBG Base Excess Anion Gap Estim Creat Clear Calc Estimated GFR POC Glucose 309 H Random Glucose Calcium Magnesium Total Bilirubin AST ALT Alkaline Phosphatase Lactate Dehydrogenase 577 H Total Protein Albumin Urine Color Urine Appearance Urine pH Ur Specific [place] Urine Protein Urine Glucose (UA) Urine Ketones Urine Blood Urine Nitrite Ur Leukocyte Esterase Urine RBC Urine WBC Ur Squamous Epith Cells Urine Bacteria Hyaline Casts Influenza Type A (PCR) Influenza Type B (PCR) RSV RNA Qual (PCR) SARS-CoV-2 RNA (RT-PCR) Assessment and Plan (1) Lesion of pancreas: Status: Acute (2) Acute metabolic encephalopathy: Status: Acute (3) SHAILA (acute kidney injury): Status: Acute (4) DVT, bilateral lower limbs: Status: Acute (5) Failure to thrive in adult: Status: Acute Plan Pt is a 79-year-old male with a PMH significant for?CAD s/p CABG and NSTEMI, SVT, paroxysmal AFib, insulin-dependent type 2 diabetes, HTN, and recent bilateral DVTs on Eliquis who presents to the ED from PCP office for evaluation of failure to thrive. Pt will be admitted to the hospital for treatment and further evaluation of acute metabolic encephalopathy, SHAILA, and hyponatremia in the setting of failure to thrive and concern for metastatic pancreatic cancer. Acute metabolic encephalopathy and failure to thrive in the setting of concerns for metastatic pancreatic cancer Family notes that pt appears confused above baseline and unable to take care of himself at home for at least the past week CT of abdomen and pelvis found to pancreatic masses compatible with neoplasm, and extensive metastatic disease to liver, and 2 nodules of concern within right lower lobe CT of head negative for acute intracranial abnormality Oncology input appreciated, not a good candidate for palliative chemotherapy. Overall prognosis is poor. pending CA19-9 Monitor mentation to discuss with HCP SHAILA with metabolic acidosis Creatinine mildly improved to 1.9 maintenance fluids Hold Lasix, losartan, metformin Follow kidney function acute Hyponatremia improved to 133 Will be placed on maintenance fluid Hold Lasix Trend sodium Recent DVTs Diagnosed with bilateral DVTs on 08/01/2024 Discharged Eliquis Unclear how compliant pt has been with medication Will treat with therapeutic Lovenox for now Leukocytosis WBCs 13.8 at time of presentation Likely secondary to metastatic disease, not sepsis No indication for antibiotic use at this time Transaminitis 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 Pt will require IVF, close monitoring of labs, and specialist consultation with Oncology. Quality Stroke Does the patient have a stroke diagnosis?: No VTE Prior VTE?: Yes Approximate Date of Prior VTE: 08/01/24 VTE Risk Level:: Medical - moderate - high VTE Device Contraindication: Treatment Not Indicated VTE Drug Contraindication: N/A - Med Ordered
[2024-08-06 17:43] LABS: Glucose, Whole Blood 319 mg/dL (60-115)
[2024-08-06] MEDS: 0.9 % Sodium Chloride Flush 3 ML SYRINGE IVFLUSH ×2 (17:56→20:33)
[2024-08-06] MEDS: Famotidine 20 MG TABLET PO (20:33)
[2024-08-06] MEDS: Morphine Sulfate 4 MG/ML CARTRIDGE 2 MG IVPUSH (20:33)
[2024-08-06 20:44] LABS: Glucose, Whole Blood 277 mg/dL (60-115)
[2024-08-07 03:41] VITALS: BP 131/61; PULSE 74; RESP 16; TEMP 36.5; O2SAT 97
[2024-08-07 07:28] VITALS: BP 144/69; PULSE 75; RESP 16; TEMP 36.5; O2SAT 96
[2024-08-07 07:35] LABS: Glucose, Whole Blood 244 mg/dL (60-115)
[2024-08-07 07:42] LABS: Alanine Aminotransferase 192 U/L (0-40); Albumin Level 3.1 g/dL (3.5-5.0); Alkaline Phosphatase 652 U/L (39-117); Anion Gap 18 (12-20); Aspartate Amino Transferase 216 U/L (5-37); Blood Urea Nitrogen 60 mg/dL (9-16); Calcium 9.2 mg/dL (8.4-10.2); Carbon Dioxide 21 mmol/L (22-29); Chloride 104 mmol/L (96-108); Creatinine Clr Calc Pharmacy 54.1; Estimated Glomerular Filt Rate 56; Glucose Random 267 mg/dL (60-115); Sodium 139 mmol/L (135-145); Total Protein 6.3 g/dL (6.5-8.0)
[2024-08-07] MEDS: Insulin Lispro 100 UNIT/ML 3 ML VIAL SUBCUT ×4 (08:25→21:55)
[2024-08-07] MEDS: Aspirin Enteric Coated 81 MG TABLET.DR PO (08:25)
[2024-08-07] MEDS: Metoprolol Succinate ER 50 MG TAB.ER.24H PO (08:25)
[2024-08-07] MEDS: Amiodarone HCL 200 MG TABLET PO (08:25)
[2024-08-07] MEDS: Clopidogrel Bisulfate 75 MG TABLET PO (08:25)
[2024-08-07] MEDS: Famotidine 20 MG TABLET PO ×2 (08:25→21:55)
[2024-08-07] MEDS: 0.9 % Sodium Chloride Flush 3 ML SYRINGE IVFLUSH ×3 (08:27→22:01)
[2024-08-07 11:19] LABS: Glucose, Whole Blood 281 mg/dL (60-115)
[2024-08-07 11:55] VITALS: BMI 27.3
[2024-08-07] MEDS: Enoxaparin Sodium 100 MG/ML SYRINGE 95 MG SUBCUT (12:20)
--- NOTE | 2024-08-07 13:01 | HO.PM.IMPN ---
Subjective Subjective Date of Service: 08/07/24 Interval History: seen and evaluated feels weak but more alert Cr improving not fully understanding his condition no other events Review of Systems Review of Systems: Yes all other systems are reviewed and are negative Physical Exam Vital Signs: Vital Signs: Last Vital Signs Temp 97.7 F 08/07/24 07:28 Pulse 75 08/07/24 07:28 Resp 16 08/07/24 07:28 BP 144/69 H 08/07/24 07:28 Pulse Ox 96 08/07/24 07:28 O2 Del Method Room Air 08/07/24 07:28 BMI result Body Mass Index 27.3 Const: Other: Constitutional : interactive, not in distress Cardiovascular : no JVP, +2 bilateral lower extremity edema Respiratory : bilateral chest movement, not in resp distress Gastrointestinal: soft, lax, Non tender Skin : Warm, Dry, Right lower extremity evidence of petechiae and purpura. Neurological : Alert & disoriented to details, aware of self and place, No focal deficit Objective Data Active Medications Acetaminophen (Acetaminophen 325 Mg Tablet) 650 mg PO Q6H PRN PRN Reason: Pain, Mild 1-3,fever,headache Amiodarone HCl (Amiodarone Hcl 200 Mg Tablet) 200 mg PO DAILY [facility] Last Admin: 08/07/24 08:25 Dose: 200 mg Documented By: FREDERIC Aspirin (Aspirin Enteric Coated 81 Mg Tablet.Dr) 81 mg PO DAILY [facility] Last Admin: 08/07/24 08:25 Dose: 81 mg Documented By: FREDERIC Calcium Carbonate (Calcium Carbonate 750 Mg Tab.Chew) 750 mg PO Q4H PRN PRN Reason: Heartburn Clopidogrel Bisulfate (Clopidogrel Bisulfate 75 Mg Tablet) 75 mg PO DAILY [facility] Last Admin: 08/07/24 08:25 Dose: 75 mg Documented By: FREDERIC Dextrose (Dextrose 50 % 25 Gm/50 Ml Syringe) 25 gm IVPUSH Q15M PRN; Protocol PRN Reason: per Hypoglycemia Standing Ord. Enoxaparin Sodium (Enoxaparin Sodium 100 Mg/Ml Syringe) 95 mg SUBCUT Q12H [facility] Last Admin: 08/07/24 12:20 Dose: 95 mg Documented By: FREDERIC Famotidine (Famotidine 20 Mg Tablet) 20 mg PO BID [facility] Last Admin: 08/07/24 08:25 Dose: 20 mg Documented By: FREDERIC Glucose (Glucose Gel 15 Gm Gel..Gram.) 15 gm PO Q15M PRN; Protocol PRN Reason: per Hypoglycemia Standing Ord. Insulin Glargine (Insulin Glargine,Hum.Rec.Anlog 100 Unit/Ml 10 Ml Vial) 14 unit SUBCUT BEDTIME [facility] Last Admin: 08/06/24 20:33 Dose: 14 unit Documented By: JB Insulin Human Lispro (Insulin Lispro 100 Unit/Ml 3 Ml Vial) 0 unit SUBCUT QIDACHS [facility]; Protocol Last Admin: 08/07/24 11:30 Dose: 6 unit Documented By: FREDERIC Magnesium Hydroxide (Milk Of Magnesia 30 Ml Oral.Susp) 30 ml PO DAILY PRN PRN Reason: Constipation Meclizine HCl (Meclizine Hcl 25 Mg Tablet) 25 mg PO BID@0630,1200 PRN PRN Reason: for dizziness Melatonin (Melatonin 3 Mg Tablet) 6 mg PO BEDTIME PRN PRN Reason: Insomnia Metoprolol Succinate (Metoprolol Succinate Er 50 Mg Tab.Er.24h) 50 mg PO DAILY [facility]; Protocol Last Admin: 08/07/24 08:25 Dose: 50 mg Documented By: FREDERIC Morphine Sulfate (Morphine Sulfate 4 Mg/Ml Cartridge) 2 mg IVPUSH Q4H PRN; Protocol PRN Reason: Pain, Severe (Pain Scale 7-10) Last Admin: 08/06/24 20:33 Dose: 2 mg Documented By: JB Nystatin (Nystatin Powder 15 Gm Bottle) 1 appl TOPICAL BID [facility]; Protocol Last Admin: 08/07/24 08:32 Dose: Not Given Documented By: FREDERIC Non-Admin Reason: Med Not Available Ondansetron HCl (Ondansetron Hcl 4 Mg/2 Ml Vial) 4 mg IVPUSH Q8H PRN PRN Reason: Nausea and Vomiting Sodium Biphosphate/Sodium Phosphate (Sodium Phosphate,Gentry-Dibasic 133 Ml Enema) 133 ml NC ONCE PRN PRN Reason: Constipation Sodium Chloride (0.9 % Sodium Chloride Flush 3 Ml Syringe) 3 ml IVFLUSH QSHIFT [facility] Last Admin: 08/07/24 08:27 Dose: 3 ml Documented By: FREDERIC Trazodone HCl (Trazodone Hcl 50 Mg Tablet) 50 mg PO BEDTIME PRN PRN Reason: insomnia Labs 08/06/24 04:32 08/07/24 07:05 Labs: Laboratory Results - last 24 hr 08/06/24 08/06/24 08/07/24 17:35 20:31 07:05 Anion Gap 18 Estim Creat Clear Calc 54.1 Estimated GFR 56 POC Glucose 319 H 277 H Random Glucose 267 H Calcium 9.2 Total Bilirubin 2.0 H AST 216 H ALT 192 H Alkaline Phosphatase 652 H Total Protein 6.3 L Albumin 3.1 L 08/07/24 08/07/24 07:31 11:14 Anion Gap Estim Creat Clear Calc Estimated GFR POC Glucose 244 H 281 H Random Glucose Calcium Total Bilirubin AST ALT Alkaline Phosphatase Total Protein Albumin Assessment and Plan (1) Lesion of pancreas: Status: Acute (2) Acute metabolic encephalopathy: Status: Acute (3) SHAILA (acute kidney injury): Status: Acute (4) DVT, bilateral lower limbs: Status: Acute (5) Failure to thrive in adult: Status: Acute Plan Pt is a 79-year-old male with a PMH significant for?CAD s/p CABG and NSTEMI, SVT, paroxysmal AFib, insulin-dependent type 2 diabetes, HTN, and recent bilateral DVTs on Eliquis who presents to the ED from PCP office for evaluation of failure to thrive. Pt will be admitted to the hospital for treatment and further evaluation of acute metabolic encephalopathy, SHAILA, and hyponatremia in the setting of failure to thrive and concern for metastatic pancreatic cancer. Acute metabolic encephalopathy and failure to thrive in the setting of concerns for metastatic pancreatic cancer confused worse than baseline and unable to take care of himself at home recently CT of abdomen and pelvis found to pancreatic masses compatible with neoplasm, and extensive metastatic disease to liver, and 2 nodules of concern within right lower lobe CT of head negative for acute intracranial abnormality Oncology input appreciated, not a good candidate for palliative chemotherapy. Overall prognosis is poor. 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 Pt will require IVF, close monitoring of labs, and specialist consultation with Oncology. Quality Stroke Does the patient have a stroke diagnosis?: No VTE Prior VTE?: Yes Approximate Date of Prior VTE: 08/01/24 VTE Risk Level:: Medical - moderate - high VTE Device Contraindication: Treatment Not Indicated VTE Drug Contraindication: N/A - Med Ordered
[2024-08-07] MEDS: Nystatin Powder 15 GM BOTTLE 1 APPL TOPICAL ×2 (14:30→22:02)
[2024-08-07] MEDS: Sodium Phosphate,Mono-Dibasic 133 ML ENEMA PR (14:30)
--- NOTE | 2024-08-07 15:04 | HO.SKINPHOTO ---
Left Buttock open area of skin, triad applied. Left elbow red but blanchable foam applied. Discoloration noted to bilateral lower extremities, positive pedal pulses palpated in bilateral feet without doppler. Right lower extremity weeping clear fluid, legs elevated on pillows. MD Tamayo made aware. Airloss pump applied to bed, wound care nurse consulted. Waffel cushion applied to chair. Pt being turned and repositioned in bed every 2 hours and PRN.
[2024-08-07 15:20] VITALS: BP 137/63; PULSE 54; RESP 16; TEMP 36.4; O2SAT 96
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
--- NOTE | 2024-08-07 16:25 | MHC.CLN ---
NUTRITION PATIENT WITH STAGE II PRESSURE INJURY TO LEFT BUTTOCK. DX PANCREAS LESION, SHAILA, DM. MONITOR PO INTAKE AND DIET TOLERANCE. MAY BENEFIT FROM NUTRITIONAL SUPPLEMENT IF DECLINE IN PO. COMPLETE NUTRITIONAL ASSESSMENT TO FOLLOW.
[2024-08-07 16:27] LABS: Glucose, Whole Blood 333 mg/dL (60-115)
[2024-08-07] MEDS: Morphine Sulfate 4 MG/ML CARTRIDGE 2 MG IVPUSH ×2 (18:10→21:56)
[2024-08-07 19:23] VITALS: BP 136/63; PULSE 67; RESP 20; TEMP 36.4; O2SAT 94
[2024-08-07 20:31] LABS: Glucose, Whole Blood 303 mg/dL (60-115)
[2024-08-07] MEDS: Insulin Glargine,Hum.rec.anlog 100 UNIT/ML 10 ML VIAL 14 UNIT SUBCUT (21:56)
[2024-08-08] MEDS: Enoxaparin Sodium 100 MG/ML SYRINGE 95 MG SUBCUT ×2 (01:27→12:00)
[2024-08-08 03:17] VITALS: BP 125/66; PULSE 72; RESP 16; TEMP 36.4; O2SAT 97
[2024-08-08 06:37] LABS: Basophils Percent Auto 0.3 % (0-2); Eosinophils Percent Auto 0.1 % (0-4); Hematocrit 42.1 % (42.0-52.0); Hemoglobin 13.7 g/dl (14.0-18.0); Imm Gran Abs Auto 0.13 X10*3/uL (0.00-0.03); Imm Gran Pct Auto 0.9 % (0.0-0.4); Lymphocytes Absolute Auto 1.3 X10*3/uL (1.2-4.9); Lymphocytes Percent Auto 8.9 % (20-40); MANUAL DIFF FLAG SCAN; Mean Corpuscular HGB Conc 32.5 g/dl (31.0-36.0); Mean Corpuscular Hemoglobin 32.9 pg (27.0-33.0); Mean Corpuscular Volume 101.2 fL (80.0-98.0); Mean Platelet Volume 10.6 fL (9.4-12.4); Monocytes Absolute Auto 1.6 X10*3/uL (0.1-1.2); Monocytes Percent Auto 10.7 % (2-11); Neutrophils Absolute Auto 11.6 x10*3/uL (2.0-8.3); Neutrophils Percent Auto 79.1 % (45-73); Platelet Count 219 X10*3/uL (160-400); Red Blood Count 4.16 X10*6/uL (4.60-5.80); Red Cell Distribution Width 16.4 % (11.0-16.0); SCAN SMEAR FLAG 1; White Blood Count 14.7 X10*3/uL (4.8-10.8)
[2024-08-08 06:39] LABS: Alanine Aminotransferase 196 U/L (0-40); Alkaline Phosphatase 636 U/L (39-117); Anion Gap 21 (12-20); Aspartate Amino Transferase 208 U/L (5-37); Bilirubin Direct 1.3 mg/dL (0.0-0.5); Blood Urea Nitrogen 43 mg/dL (9-16); Calcium 9.2 mg/dL (8.4-10.2); Carbon Dioxide 20 mmol/L (22-29); Chloride 104 mmol/L (96-108); Estimated Glomerular Filt Rate > 60; Glucose Random 251 mg/dL (60-115); Potassium 4.5 mmol/L (3.3-5.1); Sodium 140 mmol/L (135-145); Total Protein 6.5 g/dL (6.5-8.0)
[2024-08-08 07:20] LABS: SLIDE REVIEW VERIFIED
[2024-08-08 07:36] VITALS: BP 145/67; PULSE 64; RESP 16; TEMP 36.5; O2SAT 97
[2024-08-08 07:43] LABS: Glucose, Whole Blood 242 mg/dL (60-115)
[2024-08-08] MEDS: Aspirin Enteric Coated 81 MG TABLET.DR PO (07:55)
[2024-08-08] MEDS: Insulin Lispro 100 UNIT/ML 3 ML VIAL SUBCUT ×4 (07:55→20:25)
[2024-08-08] MEDS: Morphine Sulfate 4 MG/ML CARTRIDGE 2 MG IVPUSH ×4 (07:55→22:44)
[2024-08-08] MEDS: Amiodarone HCL 200 MG TABLET PO (07:55)
[2024-08-08] MEDS: Clopidogrel Bisulfate 75 MG TABLET PO (07:55)
[2024-08-08] MEDS: Metoprolol Succinate ER 50 MG TAB.ER.24H PO (07:55)
[2024-08-08] MEDS: Famotidine 20 MG TABLET PO ×2 (07:56→20:32)
[2024-08-08] MEDS: 0.9 % Sodium Chloride Flush 3 ML SYRINGE IVFLUSH ×3 (07:56→20:32)
[2024-08-08] MEDS: Nystatin Powder 15 GM BOTTLE 1 APPL TOPICAL ×2 (09:34→20:32)
[2024-08-08 11:29] LABS: Glucose, Whole Blood 239 mg/dL (60-115)
--- NOTE | 2024-08-08 12:16 | P.PNIM_ITS ---
Subjective Subjective Date of Service: 08/08/24 Interval History: seen and evaluated feels weak but more alert Cr improving not fully understanding his condition no other events Physical Exam 2 Vital Signs: Vital Signs: Last Vital Signs Temp 97.7 F 08/08/24 07:36 Pulse 64 08/08/24 07:36 Resp 16 08/08/24 07:36 BP 145/67 H 08/08/24 07:36 Pulse Ox 97 08/08/24 07:36 O2 Del Method Room Air 08/08/24 07:36 BMI result Body Mass Index 27.3 Const: Other: Constitutional : interactive, not in distress Cardiovascular : no JVP, +2 bilateral lower extremity edema Respiratory : bilateral chest movement, not in resp distress Gastrointestinal: soft, lax, Non tender Skin : Warm, Dry, Right lower extremity evidence of petechiae and purpura. Neurological : Alert & disoriented to details, aware of self and place, No focal deficit Objective Data Active Medications Acetaminophen (Acetaminophen 325 Mg Tablet) 650 mg PO Q6H PRN PRN Reason: Pain, Mild 1-3,fever,headache Amiodarone HCl (Amiodarone Hcl 200 Mg Tablet) 200 mg PO DAILY [facility] Last Admin: 08/08/24 07:55 Dose: 200 mg Documented By: FREDERIC Aspirin (Aspirin Enteric Coated 81 Mg Tablet.) 81 mg PO DAILY [facility] Last Admin: 08/08/24 07:55 Dose: 81 mg Documented By: FREDERIC Calcium Carbonate (Calcium Carbonate 750 Mg Tab.Chew) 750 mg PO Q4H PRN PRN Reason: Heartburn Clopidogrel Bisulfate (Clopidogrel Bisulfate 75 Mg Tablet) 75 mg PO DAILY [facility] Last Admin: 08/08/24 07:55 Dose: 75 mg Documented By: FREDERIC Dextrose (Dextrose 50 % 25 Gm/50 Ml Syringe) 25 gm IVPUSH Q15M PRN; Protocol PRN Reason: per Hypoglycemia Standing Ord. Enoxaparin Sodium (Enoxaparin Sodium 100 Mg/Ml Syringe) 95 mg SUBCUT Q12H [facility] Last Admin: 08/08/24 12:00 Dose: 95 mg Documented By: FREDERIC Famotidine (Famotidine 20 Mg Tablet) 20 mg PO BID [facility] Last Admin: 08/08/24 07:56 Dose: 20 mg Documented By: FREDERIC Glucose (Glucose Gel 15 Gm Gel..Gram.) 15 gm PO Q15M PRN; Protocol PRN Reason: per Hypoglycemia Standing Ord. Insulin Glargine (Insulin Glargine,Hum.Rec.Anlog 100 Unit/Ml 10 Ml Vial) 14 unit SUBCUT BEDTIME [facility] Last Admin: 08/07/24 21:56 Dose: 14 unit Documented By: BJ Insulin Human Lispro (Insulin Lispro 100 Unit/Ml 3 Ml Vial) 0 unit SUBCUT QIDACHS [facility]; Protocol Last Admin: 08/08/24 12:00 Dose: 4 unit Documented By: FREDERIC Magnesium Hydroxide (Milk Of Magnesia 30 Ml Oral.Susp) 30 ml PO DAILY PRN PRN Reason: Constipation Meclizine HCl (Meclizine Hcl 25 Mg Tablet) 25 mg PO BID@0630,1200 PRN PRN Reason: for dizziness Melatonin (Melatonin 3 Mg Tablet) 6 mg PO BEDTIME PRN PRN Reason: Insomnia Metoprolol Succinate (Metoprolol Succinate Er 50 Mg Tab.Er.24h) 50 mg PO DAILY [facility]; Protocol Last Admin: 08/08/24 07:55 Dose: 50 mg Documented By: FREDERIC Morphine Sulfate (Morphine Sulfate 4 Mg/Ml Cartridge) 2 mg IVPUSH Q4H PRN; Protocol PRN Reason: Pain, Severe (Pain Scale 7-10) Last Admin: 08/08/24 07:55 Dose: 2 mg Documented By: FREDERIC Nystatin (Nystatin Powder 15 Gm Bottle) 1 appl TOPICAL BID [facility]; Protocol Last Admin: 08/08/24 09:34 Dose: 1 appl Documented By: FREDERIC Ondansetron HCl (Ondansetron Hcl 4 Mg/2 Ml Vial) 4 mg IVPUSH Q8H PRN PRN Reason: Nausea and Vomiting Sodium Biphosphate/Sodium Phosphate (Sodium Phosphate,[place]itt-Dibasic 133 Ml Enema) 133 ml [place] ONCE PRN PRN Reason: Constipation Last Admin: 08/07/24 14:30 Dose: 133 ml Documented By: FREDERIC Sodium Chloride (0.9 % Sodium Chloride Flush 3 Ml Syringe) [facility] Last Admin: 08/08/24 07:56 Dose: 3 ml Documented By: FREDERIC Trazodone HCl (Trazodone Hcl 50 Mg Tablet) 50 mg PO BEDTIME PRN PRN Reason: insomnia Labs 08/08/24 05:24 08/08/24 05:24 Labs: Laboratory Results - last 24 hr 08/07/24 08/07/24 08/08/24 16:18 19:26 05:24 MCV 101.2 H MCH 32.9 MCHC 32.5 RDW 16.4 H Plt Count 219 MPV 10.6 Immature Gran % (Auto) 0.9 H Neut % (Auto) 79.1 H Lymph % (Auto) 8.9 L Dewitt % (Auto) 10.7 Eos % (Auto) 0.1 Baso % (Auto) 0.3 Lymph # (Auto) 1.3 Dewitt # (Auto) 1.6 H Eos # (Auto) 0.0 Baso # (Auto) 0.0 Abs Immat Gran (auto) 0.13 H Absolute Neuts (auto) 11.6 H Absolute Nucleated RBC 0.000 Nucleated RBC % (auto) 0.0 Smear Tech's Comments VERIFIED Anion Gap 21 H Estim Creat Clear Calc 67.0 Estimated GFR > 60 POC Glucose 333 H 303 H Random Glucose 251 H Calcium 9.2 Total Bilirubin 2.0 H Direct Bilirubin 1.3 H AST 208 H ALT 196 H Alkaline Phosphatase 636 H Total Protein 6.5 Albumin 3.0 L 08/08/24 08/08/24 07:39 11:23 MCV MCH MCHC RDW Plt Count MPV Immature Gran % (Auto) Neut % (Auto) Lymph % (Auto) Dewitt % (Auto) Eos % (Auto) Baso % (Auto) Lymph # (Auto) Dewitt # (Auto) Eos # (Auto) Baso # (Auto) Abs Immat Gran (auto) Absolute Neuts (auto) Absolute Nucleated RBC Nucleated RBC % (auto) Smear Tech's Comments Anion Gap Estim Creat Clear Calc Estimated GFR POC Glucose 242 H 239 H Random Glucose Calcium Total Bilirubin Direct Bilirubin AST ALT Alkaline Phosphatase Total Protein Albumin Assessment and Plan (1) Lesion of pancreas: Status: Acute (2) Acute metabolic encephalopathy: Status: Acute (3) SHAILA (acute kidney injury): Status: Acute (4) DVT, bilateral lower limbs: Status: Acute Plan Pt is a 79-year-old male with a PMH significant for?CAD s/p CABG and NSTEMI, SVT, paroxysmal AFib, insulin-dependent type 2 diabetes, HTN, and recent bilateral DVTs on Eliquis who presents to the ED from PCP office for evaluation of failure to thrive. Pt will be admitted to the hospital for treatment and further evaluation of acute metabolic encephalopathy, SHAILA, and hyponatremia in the setting of failure to thrive and concern for metastatic pancreatic cancer. Acute metabolic encephalopathy and failure to thrive in the setting of concerns for metastatic pancreatic cancer confused worse than baseline and unable to take care of himself at home recently CT of abdomen and pelvis found to pancreatic masses compatible with neoplasm, and extensive metastatic disease to liver, and 2 nodules of concern within right lower lobe CT of head negative for acute intracranial abnormality Oncology input appreciated, not a good candidate for palliative chemotherapy. Overall prognosis is poor. pending CA19-9 Monitor mentation to discuss with HCP SHAILA with metabolic acidosis Creatinine improved to 1 dc maintenance fluids restart as tolerated Lasix, losartan, metformin Follow kidney function acute Hyponatremia improved Trend sodium Recent DVTs Diagnosed with bilateral DVTs on 08/01/2024 Discharged Eliqu Unclear how compliant pt has been with medication Will treat with therapeutic Lovenox for now Leukocytosis Likely secondary to metastatic disease, not sepsis No indication for antibiotic use at this time Transaminitis Likely secondary to pancreatic cancer metastasis to liver Insulin-dependent type 2 diabetes Pt initially hyperglycemic at 372 Likely secondary to medication noncompliance, concern for pancreatic cancer sliding scale insulin Continue Lantus, hold Jardiance Diabetic diet CAD Continue statin, aspirin Paroxysmal AFib Pt not previously anticoagulated Continue amiodarone, metoprolol Full Code DVT Prophylaxis: On therapeutic Lovenox Pt will require a hospitalization overnight for treatment of?acute metabolic encephalopathy, SHAILA, and hyponatremia in the setting of failure to thrive and concerns for metastatic pancreatic cancer. Pt will require IVF, close monitoring of labs, and specialist consultation with Oncology. Quality Stroke Does the patient have a stroke diagnosis?: No VTE Prior VTE?: Yes Approximate Date of Prior VTE: 08/01/24 VTE Risk Level:: Medical - moderate - high VTE Device Contraindication: Treatment Not Indicated VTE Drug Contraindication: N/A - Med Ordered
[2024-08-08 15:36] VITALS: BP 149/68; PULSE 55; RESP 14; TEMP 36.6; O2SAT 96
[2024-08-08 16:17] LABS: Glucose, Whole Blood 248 mg/dL (60-115)
[2024-08-08 19:16] VITALS: BP 148/65; PULSE 75; RESP 18; TEMP 36.1; O2SAT 92
[2024-08-08 20:14] LABS: Glucose, Whole Blood 238 mg/dL (60-115)
[2024-08-08] MEDS: Insulin Glargine,Hum.rec.anlog 100 UNIT/ML 10 ML VIAL 18 UNIT SUBCUT (20:26)
[2024-08-08 22:44] VITALS: RESP 20
[2024-08-09] MEDS: Enoxaparin Sodium 100 MG/ML SYRINGE 95 MG SUBCUT ×3 (00:06→23:58)
--- NOTE | 2024-08-09 02:47 | HO.SKINPHOTO ---
Location: BLE Category: Stage: Length: Width: Depth: cm Location: Category: Stage: Length: Width: Depth: cm Location: Category: Stage: Length: Width: Depth: cm Location: Category: Stage: Length: Width: Depth: cm Location: Category: Stage: Length: Width: Depth: cm Location: Category: Stage: Length: Width: Depth: cm
[2024-08-09 03:57] VITALS: BP 146/66; PULSE 71; RESP 16; TEMP 36.4; O2SAT 96
[2024-08-09 07:38] VITALS: BP 149/68; PULSE 69; RESP 16; TEMP 36; O2SAT 94
[2024-08-09 07:39] LABS: Glucose, Whole Blood 205 mg/dL (60-115)
[2024-08-09] MEDS: Insulin Lispro 100 UNIT/ML 3 ML VIAL SUBCUT ×4 (07:58→20:31)
[2024-08-09] MEDS: 0.9 % Sodium Chloride Flush 3 ML SYRINGE IVFLUSH ×3 (07:59→20:39)
[2024-08-09] MEDS: Metoprolol Succinate ER 50 MG TAB.ER.24H PO (08:00)
[2024-08-09] MEDS: Famotidine 20 MG TABLET PO ×2 (08:00→20:31)
[2024-08-09] MEDS: Aspirin Enteric Coated 81 MG TABLET.DR PO (08:00)
[2024-08-09] MEDS: Amiodarone HCL 200 MG TABLET PO (08:00)
[2024-08-09] MEDS: Clopidogrel Bisulfate 75 MG TABLET PO (08:00)
[2024-08-09] MEDS: oxyCODONE HCl Immed Release 5 MG TABLET PO ×3 (08:13→20:35)
--- NOTE | 2024-08-09 10:26 | HO.PM.IMPN ---
Subjective Subjective Date of Service: 08/09/24 Interval History: seen and evaluated feels weak but more alert Cr improved to normal level no other events Review of Systems Review of Systems: Yes all other systems are reviewed and are negative Physical Exam Vital Signs: Vital Signs: Last Vital Signs Temp 96.8 F 08/09/24 07:38 Pulse 69 08/09/24 07:38 Resp 16 08/09/24 07:38 BP 149/68 H 08/09/24 07:38 Pulse Ox 94 08/09/24 07:38 O2 Del Method Room Air 08/09/24 07:38 BMI result Body Mass Index 27.3 Const: Other: Constitutional : interactive, not in distress Cardiovascular : no JVP, +2 bilateral lower extremity edema Respiratory : bilateral chest movement, not in resp distress Gastrointestinal: soft, lax, Non tender Skin : Warm, Dry, Right lower extremity evidence of petechiae and purpura. Neurological : Alert & disoriented to details, aware of self and place, No focal deficit Objective Data Active Medications Acetaminophen (Acetaminophen 325 Mg Tablet) 650 mg PO Q6H PRN PRN Reason: Pain, Mild 1-3,fever,headache Amiodarone HCl (Amiodarone Hcl 200 Mg Tablet) 200 mg PO DAILY [facility] Last Admin: 08/09/24 08:00 Dose: 200 mg Documented By: SABA Aspirin (Aspirin Enteric Coated 81 Mg Tablet.Dr) 81 mg PO DAILY COUNT [facility] Last Admin: 08/09/24 08:00 Dose: 81 mg Documented By: SABA Calcium Carbonate (Calcium Carbonate 750 Mg Tab.Chew) 750 mg PO Q4H PRN PRN Reason: Heartburn Clopidogrel Bisulfate (Clopidogrel Bisulfate 75 Mg Tablet) 75 mg PO DAILY COUNT [facility] Last Admin: 08/09/24 08:00 Dose: 75 mg Documented By: SABA Dextrose (Dextrose 50 % 25 Gm/50 Ml Syringe) 25 gm IVPUSH Q15M PRN; Protocol PRN Reason: per Hypoglycemia Standing Ord. Enoxaparin Sodium (Enoxaparin Sodium 100 Mg/Ml Syringe) 95 mg SUBCUT Q12H COUNT [facility] Last Admin: 08/09/24 00:06 Dose: 95 mg Documented By: JIAN Famotidine (Famotidine 20 Mg Tablet) 20 mg PO BID COUNT [facility] Last Admin: 08/09/24 08:00 Dose: 20 mg Documented By: SABA Glucose (Glucose Gel 15 Gm Gel..Gram.) 15 gm PO Q15M PRN; Protocol PRN Reason: per Hypoglycemia Standing Ord. Insulin Glargine (Insulin Glargine,Hum.Rec.Anlog 100 Unit/Ml 10 Ml Vial) 18 unit SUBCUT BEDTIME COUNT [facility] Last Admin: 08/08/24 20:26 Dose: 18 unit Documented By: JIAN Insulin Human Lispro (Insulin Lispro 100 Unit/Ml 3 Ml Vial) 0 unit SUBCUT QIDACHS COUNT [facility]; Protocol Last Admin: 08/09/24 07:58 Dose: 4 unit Documented By: SABA Magnesium Hydroxide (Milk Of Magnesia 30 Ml Oral.Susp) 30 ml PO DAILY PRN PRN Reason: Constipation Meclizine HCl (Meclizine Hcl 25 Mg Tablet) 25 mg PO BID@0630,1200 PRN PRN Reason: for dizziness Melatonin (Melatonin 3 Mg Tablet) 6 mg PO BEDTIME PRN PRN Reason: Insomnia Metoprolol Succinate (Metoprolol Succinate Er 50 Mg Tab.Er.24h) 50 mg PO DAILY COUNT [facility]; Protocol Last Admin: 08/09/24 08:00 Dose: 50 mg Documented By: SABA Morphine Sulfate (Morphine Sulfate 4 Mg/Ml Cartridge) 2 mg IVPUSH Q4H PRN; Protocol PRN Reason: Pain, Severe (Pain Scale 7-10) Last Admin: 08/08/24 22:44 Dose: 2 mg Documented By: JIAN Nystatin (Nystatin Powder 15 Gm Bottle) 1 appl TOPICAL BID COUNT [facility]; Protocol Last Admin: 08/09/24 08:01 Dose: Not Given Documented By: SABA Non-Admin Reason: Patient Refused Ondansetron HCl (Ondansetron Hcl 4 Mg/2 Ml Vial) 4 mg IVPUSH Q8H PRN PRN Reason: Nausea and Vomiting Oxycodone HCl (Oxycodone Hcl Immed Release 5 Mg Tablet) 5 mg PO Q4H PRN PRN Reason: Pain, Moderate(Pain Scale 4-6) Last Admin: 08/09/24 08:13 Dose: 5 mg Documented By: SABA Sodium Biphosphate/Sodium Phosphate (Sodium Phosphate,[place]-Dibasic 133 Ml Enema) 133 ml [place] ONCE PRN PRN Reason: Constipation Last Admin: 08/07/24 14:30 Dose: 133 ml Documented By: FREDERIC Sodium Chloride (0.9 % Sodium Chloride Flush 3 Ml Syringe) 3 ml IVFLUSH QSHIFT COUNT [facility]CLUD[facility] Last Admin: 08/09/24 07:59 Dose: 3 ml Documented By: SABA Trazodone HCl (Trazodone Hcl 50 Mg Tablet) 50 mg PO BEDTIME PRN PRN Reason: insomnia Labs 08/08/24 05:24 08/08/24 05:24 Labs: Laboratory Results - last 24 hr 08/08/24 08/08/24 08/08/24 11:23 16:08 19:21 POC Glucose 239 H 248 H 238 H 08/09/24 07:22 POC Glucose 205 H Assessment and Plan (1) Lesion of pancreas: Status: Acute (2) Acute metabolic encephalopathy: Status: Acute (3) DVT, bilateral lower limbs: Status: Acute Plan Pt is a 79-year-old male with a PMH significant for?CAD s/p CABG and NSTEMI, SVT, paroxysmal AFib, insulin-dependent type 2 diabetes, HTN, and recent bilateral DVTs on Eliquis who presents to the ED from PCP office for evaluation of failure to thrive. Pt will be admitted to the hospital for treatment and further evaluation of acute metabolic encephalopathy, SHAILA, and hyponatremia in the setting of failure to thrive and concern for metastatic pancreatic cancer. Acute metabolic encephalopathy and failure to thrive in the setting of concerns for metastatic pancreatic cancer confused worse than baseline and unable to take care of himself at home recently CT of abdomen and pelvis found to pancreatic masses compatible with neoplasm, and extensive metastatic disease to liver, and 2 nodules of concern within right lower lobe CT of head negative for acute intracranial abnormality Oncology input appreciated, not a good candidate for palliative chemotherapy. Overall prognosis is poor. pending CA19-9 Monitor mentation discussed with HCP ; Evelyn wants to discuss with family about DNR and goals of care but leaning toward comfort measures SHAILA with metabolic acidosis Creatinine improved to 1 dc maintenance fluids restart as tolerated Lasix, losartan, metformin Follow kidney function acute Hyponatremia improved Trend sodium Recent DVTs Diagnosed with bilateral DVTs on 08/01/2024 restart Eliquis Unclear how compliant pt has been with medication dc therapeutic Lovenox for now Leukocytosis Likely secondary to metastatic disease, not sepsis No indication for antibiotic use at this time Transaminitis Likely secondary to pancreatic cancer metastasis to liver Insulin-dependent type 2 diabetes Pt initially hyperglycemic at 372 Likely secondary to medication noncompliance, concern for pancreatic cancer sliding scale insulin Continue Lantus, hold Jardiance Diabetic diet CAD Continue statin, aspirin Paroxysmal AFib Pt not previously anticoagulated Continue amiodarone, metoprolol Full Code DVT Prophylaxis: On therapeutic Lovenox Pt will require a hospitalization overnight for treatment of?acute metabolic encephalopathy in the setting of failure to thrive and concerns for metastatic pancreatic cancer. Quality Stroke Does the patient have a stroke diagnosis?: No VTE Prior VTE?: Yes Approximate Date of Prior VTE: 08/01/24 VTE Risk Level:: Medical - moderate - high VTE Device Contraindication: Treatment Not Indicated VTE Drug Contraindication: N/A - Med Ordered
[2024-08-09 11:47] VITALS: BMI 27.3
[2024-08-09 11:53] LABS: Glucose, Whole Blood 294 mg/dL (60-115)
--- NOTE | 2024-08-09 11:57 | MHC.CLN ---
F/U DIET=DIABETIC 2000 KCALS. ADDING ENSURE TID TO PROMOTE WOUND HEALING AND NUTRITIONAL INTAKE. SUPPLEMENT PROVIDES 1050 KCALS, 60 G PROTEIN. VARIABLE PO INTAKE 25-75%. SKIN WITH STAGE 2 PRESSURE INJURY TO LEFT BUTTOCK. QUALIFIES MODERATELY MALNOURISHED IN THE CONTEXT OF CHRONIC ILLNESS. FOLLOW FOR INTAKE, SKIN INTEGRITY AND PLAN OF CARE. SEE CLINICAL NUTRITION ASSESSMENT 08/09/24.
--- NOTE | 2024-08-09 14:12 | P.CDIM_ITS ---
PROVIDER RESPONSE TEXT: To clarify, the appropriate diagnosis supported by the clinical indicators: Acute QUERY TEXT: PHYSICIAN'S DOCUMENTATION REQUEST Date of Query: 08/09/2024 11:19 AM EST Patient Name: Donald Matta Admit Date: 08/06/2024 Dear Dieter Baker MD, A review of the medical record indicates additional documentation may be needed. Please review below and update the documentation accordingly. Clinical Indicators: Progress note 08/09 - SHAILA with metabolic acidosis Cr improved to 1 Follow kidney function. Clarify which of the following accurately represents the acuity of the Metabolic acidosis: Possible options might include: Acute Chronic Other (explain) Clinically unable to determine (explain) Thank you, Traci Quinones, CCS, CDIS Use of terms such as suspected, likely, concern for, or probable (associated with a specific diagnosi s that is being evaluated, monitored, or treated as if it exists) are acceptable and can be coded in the inpatient se tting, when documented at the time of discharge. Please use your independent medical judgment in providing your response. THIS QUERY IS PART OF THE PERMANENT MEDICAL RECORD
--- NOTE | 2024-08-09 14:12 | P.CDIM_ITS ---
PROVIDER RESPONSE TEXT: To clarify, the appropriate diagnosis supported by the clinical indicators: Pressure injury Stage II left buttock: suspected QUERY TEXT: PHYSICIAN'S DOCUMENTATION REQUEST Date of Query: 08/09/2024 11:22 AM EST Patient Name: Donald Matta Admit Date: 08/06/2024 Dear Dieter Baker MD, A review of the medical record indicates additional documentation may be needed. Please review below and update the documentation accordingly. Clinical Indicators: Wound care assessment notes dated 08/09/24 - Pressure injury Stage 2 left buttock. Triad Based on the above, could you please provide further information regarding the ulcer/wound/injury: Pressure injury Stage II left buttock possible, probable, suspected etc. Other specified Other (explain) Clinically unable to determine (explain) Thank you, Traci Quinones, CCS, CDIS Use of terms such as suspected, likely, concern for, or probable (associated with a specific diagnosi s that is being evaluated, monitored, or treated as if it exists) are acceptable and can be coded in the inpatient se tting, when documented at the time of discharge. Please use your independent medical judgment in providing your response. THIS QUERY IS PART OF THE PERMANENT MEDICAL RECORD
--- NOTE | 2024-08-09 14:46 | HO.WOUND ---
Wound Consult: Initial 79yr old?male admitted to [facility] [place] on 08/05/24- See progress notes and H&P for detailed history.? Wound consult placed for Right Leg and Left Buttock.? Patient agreeable to assessment and photo documentation.? Left Buttock Etiology: ??Stage 2 Pressure Injury Present on Admission Measurements: 1cm x 1cm x 0.2cm Wound Bed: red moist clean tissue Drainage / Odor: none noted Edges: ? well defined Gretel wound: ? MASD noted - No Induration, Fluctuance or Warmth noted Pain: tenderness reported Goals of Treatment: ? TRiad and off load pressure - waffle cushion in use along with SANTIAGO mattress right Leg Right Leg Etiology: ?Unknown etiology - suspect Venous related history of DVT Wound Bed:red swelling ntoed - scattered full thickness wound beds scattered yellow slough Drainage / Odor: Moderate amount of serous fluid noted - no odor noted Edges: ? irregular Gretel wound: ? redness swelling - No Induration, Fluctuance or Warmth noted Pain: pain reported Goals of Treatment: ? Elevate lower leg and heels off of bed recliner surface - moist wound healing with gauze dressing while weeping is noted if begin to dry may use xeroform to allow for moist wound healing to slough areas Recommendations: 1. Turn and Reposition every 2 hours and as needed for patient comfort.? Use pillows or wedges to support off loading positions. 2. Off Load all bony prominences with use of pillows and heel boots if needed.? Apply Preventative foams where needed. ? 3. Monitor for incontinence and moisture control, use barrier creams when needed for prevention and treatment. 4. Provide adequate and supplemental nutrition.? 5. Continue low air loss mattress. Waffle cushion when up to chair. 6. When applicable maintain blood glucose levels per Providers order. 7. Left Buttock - Off Load Pressure with Q2 hr turns and use of pillows - Cleanse with PH balance spray or wipes, pat dry. ?Apply thin layer of Triad to wound bed. Do not remove all of paste between applications as this may cause further skin damage.? Cover with foam dressing to aid in off loading and protection from friction. Change every 5 days and PRN. 8. Right Leg - Elevate lower legs off of surface of bed with use of pillows.? Cleanse with NS, Pat dry.? Apply vaseline to both legs, apply ABD pad, gauze wrap and tape.? Change Daily. If wounds begin to dry and adhere to dressing apply layer of Xeroform to open wound beds secure with ABD pad, gauze wrap and tape.? Change Daily. Re-consult wound care Nurse for wound deterioration or wound changes.
[2024-08-09 15:02] VITALS: BP 149/66; PULSE 68; RESP 18; TEMP 36.2; O2SAT 93
[2024-08-09 16:13] VITALS: BP 149/66; PULSE 68; O2SAT 93
[2024-08-09 16:19] LABS: Glucose, Whole Blood 272 mg/dL (60-115)
[2024-08-09 18:56] VITALS: BP 138/67; PULSE 68; RESP 14; TEMP 36.8; O2SAT 98
[2024-08-09 20:25] LABS: Glucose, Whole Blood 288 mg/dL (60-115)
[2024-08-09] MEDS: Insulin Glargine,Hum.rec.anlog 100 UNIT/ML 10 ML VIAL 18 UNIT SUBCUT (20:31)
[2024-08-09] MEDS: traZODone HCL 50 MG TABLET PO (20:35)
[2024-08-09] MEDS: Nystatin Powder 15 GM BOTTLE 1 APPL TOPICAL (20:37)
[2024-08-10 03:30] VITALS: BP 147/67; PULSE 78; RESP 18; TEMP 36.6; O2SAT 97
[2024-08-10] MEDS: oxyCODONE HCl Immed Release 5 MG TABLET PO ×2 (04:13→12:46)
[2024-08-10] MEDS: Morphine Sulfate 4 MG/ML CARTRIDGE 2 MG IVPUSH ×2 (04:40→22:20)
[2024-08-10 06:53] LABS: Alanine Aminotransferase 179 U/L (0-40); Alkaline Phosphatase 611 U/L (39-117); Anion Gap 18 (12-20); Aspartate Amino Transferase 177 U/L (5-37); Bilirubin Direct 1.9 mg/dL (0.0-0.5); Bilirubin Total 2.7 mg/dL (0.0-1.0); Blood Urea Nitrogen 29 mg/dL (9-16); Calcium 9.2 mg/dL (8.4-10.2); Carbon Dioxide 21 mmol/L (22-29); Chloride 102 mmol/L (96-108); Estimated Glomerular Filt Rate > 60; Glucose Random 258 mg/dL (60-115); Potassium 4.4 mmol/L (3.3-5.1); Sodium 137 mmol/L (135-145); Total Protein 6.5 g/dL (6.5-8.0)
[2024-08-10 07:25] VITALS: BP 141/65; PULSE 75; RESP 16; TEMP 36; O2SAT 95
[2024-08-10] MEDS: 0.9 % Sodium Chloride Flush 3 ML SYRINGE IVFLUSH ×2 (07:28→16:39)
[2024-08-10 07:44] LABS: Glucose, Whole Blood 257 mg/dL (60-115)
[2024-08-10] MEDS: Aspirin Enteric Coated 81 MG TABLET.DR PO (08:35)
[2024-08-10] MEDS: Clopidogrel Bisulfate 75 MG TABLET PO (08:35)
[2024-08-10] MEDS: Insulin Lispro 100 UNIT/ML 3 ML VIAL SUBCUT ×4 (08:36→22:21)
[2024-08-10] MEDS: Metoprolol Succinate ER 50 MG TAB.ER.24H PO (08:36)
[2024-08-10] MEDS: Famotidine 20 MG TABLET PO ×2 (08:36→19:33)
[2024-08-10] MEDS: Amiodarone HCL 200 MG TABLET PO (08:36)
[2024-08-10] MEDS: Nystatin Powder 15 GM BOTTLE 1 APPL TOPICAL (08:39)
--- NOTE | 2024-08-10 10:48 | P.PNIM_ITS ---
Subjective Subjective Date of Service: 08/10/24 Interval History: seen and evaluated weak but more alert Cr improved to normal level LFT improved but TSB elevated no other events Review of Systems Review of Systems: Yes all other systems are reviewed and are negative Physical Exam 2 Vital Signs: Vital Signs: Last Vital Signs Temp 96.8 F 08/10/24 07:25 Pulse 75 08/10/24 07:25 Resp 16 08/10/24 07:25 BP 141/65 H 08/10/24 07:25 Pulse Ox 95 08/10/24 07:25 O2 Del Method Room Air 08/10/24 07:25 BMI result Body Mass Index 27.3 Const: Other: Constitutional : interactive, not in distress Cardiovascular : no JVP, +2 bilateral lower extremity edema Respiratory : bilateral chest movement, not in resp distress Gastrointestinal: soft, lax, Non tender Skin : Warm, Dry, Right lower extremity evidence of petechiae and purpura. Neurological : Alert & disoriented to details, aware of self and place, No focal deficit Objective Data Active Medications Acetaminophen (Acetaminophen 325 Mg Tablet) 650 mg PO Q6H PRN PRN Reason: Pain, Mild 1-3,fever,headache Amiodarone HCl (Amiodarone Hcl 200 Mg Tablet) 200 mg PO DAILY [facility] Last Admin: 08/10/24 08:36 Dose: 200 mg Documented By: ABY Aspirin (Aspirin Enteric Coated 81 Mg Tablet.) 81 mg PO DAILY [facility] Last Admin: 08/10/24 08:35 Dose: 81 mg Documented By: ABY Calcium Carbonate (Calcium Carbonate 750 Mg Tab.Chew) 750 mg PO Q4H PRN PRN Reason: Heartburn Clopidogrel Bisulfate (Clopidogrel Bisulfate 75 Mg Tablet) 75 mg PO DAILY [facility] Last Admin: 08/10/24 08:35 Dose: 75 mg Documented By: ABY Dextrose (Dextrose 50 % 25 Gm/50 Ml Syringe) 25 gm IVPUSH Q15M PRN; Protocol PRN Reason: per Hypoglycemia Standing Ord. Enoxaparin Sodium (Enoxaparin Sodium 100 Mg/Ml Syringe) 95 mg SUBCUT Q12H [facility] Last Admin: 08/09/24 23:58 Dose: 95 mg Documented By: JIAN Famotidine (Famotidine 20 Mg Tablet) 20 mg PO BID [facility] Last Admin: 08/10/24 08:36 Dose: 20 mg Documented By: ABY Glucose (Glucose Gel 15 Gm Gel..Gram.) 15 gm PO Q15M PRN; Protocol PRN Reason: per Hypoglycemia Standing Ord. Insulin Glargine (Insulin Glargine,Hum.Rec.Anlog 100 Unit/Ml 10 Ml Vial) 18 unit SUBCUT BEDTIME [facility] Last Admin: 08/09/24 20:31 Dose: 18 unit Documented By: JIAN Comments: Insulin Human Lispro (Insulin Lispro 100 Unit/Ml 3 Ml Vial) 0 unit SUBCUT QIDACHS [facility]; Protocol Last Admin: 08/10/24 08:36 Dose: 6 unit Documented By: ABY Magnesium Hydroxide (Milk Of Magnesia 30 Ml Oral.Susp) 30 ml PO DAILY PRN PRN Reason: Constipation Meclizine HCl (Meclizine Hcl 25 Mg Tablet) 25 mg PO BID@0630,1200 PRN PRN Reason: for dizziness Melatonin (Melatonin 3 Mg Tablet) 6 mg PO BEDTIME PRN PRN Reason: Insomnia Metoprolol Succinate (Metoprolol Succinate Er 50 Mg Tab.Er.24h) 50 mg PO DAILY [facility]; Protocol Last Admin: 08/10/24 08:36 Dose: 50 mg Documented By: ABY Morphine Sulfate (Morphine Sulfate 4 Mg/Ml Cartridge) 2 mg IVPUSH Q4H PRN; Protocol PRN Reason: Pain, Severe (Pain Scale 7-10) Last Admin: 08/10/24 04:40 Dose: 2 mg Documented By: BRYCE Nystatin (Nystatin Powder 15 Gm Bottle) 1 appl TOPICAL BID [facility]; Protocol Last Admin: 08/10/24 08:39 Dose: 1 appl Documented By: ABY Ondansetron HCl (Ondansetron Hcl 4 Mg/2 Ml Vial) 4 mg IVPUSH Q8H PRN PRN Reason: Nausea and Vomiting Oxycodone HCl (Oxycodone Hcl Immed Release 5 Mg Tablet) 5 mg PO Q4H PRN PRN Reason: Pain, Moderate(Pain Scale 4-6) Last Admin: 08/10/24 04:13 Dose: 5 mg Documented By: BRYCE Sodium Biphosphate/Sodium Phosphate (Sodium Phosphate,Russell-Dibasic 133 Ml Enema) 133 ml UT ONCE PRN PRN Reason: Constipation Last Admin: 08/07/24 14:30 Dose: 133 ml Documented By: FREDERIC Sodium Chloride (0.9 % Sodium Chloride Flush 3 Ml Syringe) 3 ml IVFLUSH QSHIFT FINESSE Last Admin: 08/10/24 07:28 Dose: 3 ml Documented By: ABY Trazodone HCl (Trazodone Hcl 50 Mg Tablet) 50 mg PO BEDTIME PRN PRN Reason: insomnia Last Admin: 08/09/24 20:35 Dose: 50 mg Documented By: JIAN Labs 08/08/24 05:24 08/10/24 05:43 Labs: Laboratory Results - last 24 hr 08/09/24 08/09/24 08/09/24 11:49 16:15 20:18 Hold Purple Top Anion Gap Estim Creat Clear Calc Estimated GFR POC Glucose 294 H 272 H 288 H Random Glucose Calcium Total Bilirubin Direct Bilirubin AST ALT Alkaline Phosphatase Total Protein Albumin 08/10/24 08/10/24 05:43 07:24 Hold Purple Top SEE NOTE Anion Gap 18 Estim Creat Clear Calc 76.0 Estimated GFR > 60 POC Glucose 257 H Random Glucose 258 H Calcium 9.2 Total Bilirubin 2.7 H Direct Bilirubin 1.9 H AST 177 H ALT 179 H Alkaline Phosphatase 611 H Total Protein 6.5 Albumin 3.0 L Assessment and Plan (1) Lesion of pancreas: Status: Acute (2) SHAILA (acute kidney injury): Status: Acute (3) DVT, bilateral lower limbs: Status: Acute (4) Failure to thrive in adult: Status: Acute (5) Elevated LFTs: Status: Acute Plan Pt is a 79-year-old male with a PMH significant for?CAD s/p CABG and NSTEMI, SVT, paroxysmal AFib, insulin-dependent type 2 diabetes, HTN, and recent bilateral DVTs on Eliquis who presents to the ED from PCP office for evaluation of failure to thrive. Pt will be admitted to the hospital for treatment and further evaluation of acute metabolic encephalopathy, SHAILA, and hyponatremia in the setting of failure to thrive and concern for metastatic pancreatic cancer. Acute metabolic encephalopathy and failure to thrive in the setting of concerns for metastatic pancreatic cancer confused worse than baseline and unable to take care of himself at home recently CT of abdomen and pelvis found to pancreatic masses compatible with neoplasm, and extensive metastatic disease to liver, and 2 nodules of concern within right lower lobe CT of head negative for acute intracranial abnormality Oncology input appreciated, not a good candidate for palliative chemotherapy. Overall prognosis is poor. pending [id number] Monitor mentation discussed with HCP Evelyn we agreed to sign DNR\DNI with a plan to go for short term rehab for now [facility] and to hold on any biopsies at this point. SHAILA with metabolic acidosis Creatinine improved to 1 restart Lasix, metformin Hold on Losartan, start if BP tolerates Follow kidney function acute Hyponatremia improved Trend sodium Recent DVTs Diagnosed with bilateral DVTs on 08/01/2024 restart Eliquis and DC Lovenox as no plans for biopsies to switch to 5 mg bid in 2-3 days Leukocytosis Likely secondary to metastatic disease, not sepsis No indication for antibiotic use at this time Transaminitis Likely secondary to pancreatic cancer metastasis to liver Insulin-dependent type 2 diabetes Pt initially hyperglycemic at 372 Likely secondary to medication noncompliance, concern for pancreatic cancer sliding scale insulin Continue Lantus, hold Jardiance Diabetic diet CAD Continue statin, aspirin Paroxysmal AFib Pt not previously anticoagulated Continue amiodarone, metoprolol Full Code DVT Prophylaxis: On therapeutic Lovenox Pt will require a hospitalization overnight for treatment of?acute metabolic encephalopathy in the setting of failure to thrive and concerns for metastatic pancreatic cancer. Quality Stroke Does the patient have a stroke diagnosis?: No VTE Prior VTE?: Yes Approximate Date of Prior VTE: 08/01/24 VTE Risk Level:: Medical - moderate - high VTE Device Contraindication: Treatment Not Indicated VTE Drug Contraindication: N/A - Med Ordered
[2024-08-10 11:46] LABS: Glucose, Whole Blood 341 mg/dL (60-115)
[2024-08-10] MEDS: metFORMIN HCl 1,000 MG TABLET 1000 MG PO (12:02)
[2024-08-10] MEDS: Apixaban 5 MG TABLET 10 MG PO ×2 (12:02→19:33)
[2024-08-10 15:35] VITALS: BP 101/62; PULSE 70; RESP 16; TEMP 36.1; O2SAT 97
--- NOTE | 2024-08-10 15:36 | MHC.CM.PN ---
A bed offer has been received from [facility]. Requested STR to insurance authorization process be initiated. A VM was left for HCP. Notified HCP of bed offer and need for HCP document.
[2024-08-10 16:19] LABS: Glucose, Whole Blood 317 mg/dL (60-115)
[2024-08-10 19:27] VITALS: BP 156/66; PULSE 72; RESP 18; TEMP 36.7; O2SAT 97
[2024-08-10] MEDS: Insulin Glargine,Hum.rec.anlog 100 UNIT/ML 10 ML VIAL 18 UNIT SUBCUT (19:33)
[2024-08-10 20:23] LABS: Glucose, Whole Blood 252 mg/dL (60-115)
[2024-08-10] MEDS: traZODone HCL 50 MG TABLET PO (22:20)
[2024-08-11] MEDS: 0.9 % Sodium Chloride Flush 3 ML SYRINGE IVFLUSH ×2 (01:36→07:47)
[2024-08-11] MEDS: Nystatin Powder 15 GM BOTTLE 1 APPL TOPICAL ×2 (01:37→07:52)
[2024-08-11 04:00] VITALS: BP 150/70; PULSE 65; RESP 17; TEMP 37.1; O2SAT 96
[2024-08-11] MEDS: metFORMIN HCl 1,000 MG TABLET 1000 MG PO ×2 (05:44→11:45)
[2024-08-11 07:06] VITALS: BP 137/61; PULSE 66; RESP 16; TEMP 36.7; O2SAT 96
[2024-08-11 07:23] LABS: Glucose, Whole Blood 243 mg/dL (60-115)
[2024-08-11] MEDS: Insulin Lispro 100 UNIT/ML 3 ML VIAL SUBCUT ×2 (07:46→11:43)
[2024-08-11] MEDS: Aspirin Enteric Coated 81 MG TABLET.DR PO (07:47)
[2024-08-11] MEDS: Amiodarone HCL 200 MG TABLET PO (07:47)
[2024-08-11] MEDS: Apixaban 5 MG TABLET 10 MG PO (07:47)
[2024-08-11] MEDS: Furosemide 40 MG TABLET PO (07:47)
[2024-08-11] MEDS: Metoprolol Succinate ER 50 MG TAB.ER.24H PO (07:48)
[2024-08-11] MEDS: Clopidogrel Bisulfate 75 MG TABLET PO (07:48)
[2024-08-11] MEDS: Famotidine 20 MG TABLET PO (07:48)
[2024-08-11] MEDS: oxyCODONE HCl Immed Release 5 MG TABLET PO (08:49)
--- NOTE | 2024-08-11 09:44 | P.CDIM_ITS ---
PROVIDER RESPONSE TEXT: To clarify, the appropriate diagnosis supported by the clinical indicators: Moderate QUERY TEXT: PHYSICIAN'S DOCUMENTATION REQUEST Date of Query: 08/11/2024 08:33 AM EST Patient Name: Donald Matta Admit Date: 08/06/2024 Dear Dieter Baker MD, A review of the medical record indicates additional documentation may be needed. Please review below and update the documentation accordingly. Clinical indicators: Clinical nutrition consult note dated 08/09 - Qualifies as moderately malnourished in the context of c hronic illness. Adding Ensure TID to promote wound healing and nutritional intake. Significant wt loss x 6 months, metastatic disease. If possible, please provide additional specificity regarding the severity of the malnutrition using t he above information: Mild Moderate Severe Other (explain) Clinically unable to determine (explain) Thank you, Traci Quinones, CCS, CDIS Use of terms such as suspected, likely, concern for, or probable (associated with a specific diagnosi s that is being evaluated, monitored, or treated as if it exists) are acceptable and can be coded in the inpatient se tting, when documented at the time of discharge. Please use your independent medical judgment in providing your response. THIS QUERY IS PART OF THE PERMANENT MEDICAL RECORD
--- NOTE | 2024-08-11 10:52 | MHC.CM.PN ---
IMM 08/11/24 patient is discharged today to [facility]. A message was received from HCP after business hours 08/10/24. She will send the HCP today. S is scheduled for 1pm pickle cutter.
--- NOTE | 2024-08-11 11:13 | MHC.CLN ---
F/U DIET=DIABETIC 2000 KCALS. ENSURE TID TO PROMOTE WOUND HEALING AND NUTRITIONAL INTAKE. SUPPLEMENT PROVIDES 1050 KCALS, 60 G PROTEIN. VARIABLE PO INTAKE 25-100%. SKIN WITH STAGE 2 PRESSURE INJURY TO LEFT BUTTOCK. FOLLOW FOR INTAKE, SKIN INTEGRITY AND PLAN OF CARE.
[2024-08-11 11:31] LABS: Glucose, Whole Blood 260 mg/dL (60-115)
--- NOTE | 2024-08-11 11:34 | PM.DS ---
DS: Providers Provider Date of Service: 08/11/24 Date of admission: 08/05/24 23:48 Date of discharge: 08/11/24 Primary care physician: Andi Duff MD Consults: 08/06/24 00:17 Consult to Hematology / Oncology Routine Consulting [place] [facility] [place] Reason for consultation: CT suspicious for pancreatic cancer w/mets to liver 08/07/24 11:46 Consult to Wound Care Routine Reason for consultation: skin breakdown left buttock, weeping right LE DS: Diagnosis Discharge Diagnosis (1) Lesion of pancreas: Status: Acute (2) SHAILA (acute kidney injury): Status: Acute (3) DVT, bilateral lower limbs: Status: Acute (4) Failure to thrive in adult: Status: Acute (5) Elevated LFTs: Status: Acute (6) Acute metabolic encephalopathy: Status: Acute (7) Mass of multiple sites of liver: Status: Acute (8) Metastatic cancer: Status: Acute DS: Summary Hospital Course Hospital Course: Admission note HPI Pt is a 79-year-old male with a PMH significant for?CAD s/p CABG and NSTEMI, SVT, paroxysmal AFib, insulin-dependent type 2 diabetes, HTN, and recent bilateral DVTs on Eliquis who presents to the ED from PCP office for evaluation of failure to thrive. Pt was previously seen in the ED 4 days ago where he was found to have bilateral LLE DVTs and discharged home on Eliquis. Pt presented today to his PCP for follow-up visit?who found the pt had been steadily declining since discharge: was unable to take his medications, safely perform ADLs, or prepare his own meals. PCP thus sent him to the ED evaluation of failure to thrive. Pt is mildly confused at time of interview and examination. ED provider spoke to pt about concerns for pancreatic and liver masses on CT scan, the pt did not remember this conversation. Pt was again told about concerns from CT imaging, though appeared to forget this information a few minutes later. Pt does not seem to remember going to his PCP earlier today and family report has been forgetful, confused, and likely not properly taking his medication at home for at least the past week. Family reports pt previously was able to take care of himself without incident. Pt himself complains about lower leg swelling and pain, especially with ambulation. Reports has been falling at home recently, as well as increased weakness, fatigue, and unintentional weight loss. However, pt is unable to provide much specifics about any of these complaints. Pt unsure whether he has been taking all of his home meds or not, as he states he does not even know which ones he is currently on. Denies nausea, vomiting, abdominal pain. No chest pain/pressure, palpitations. Denies shortness or breath or difficulty breathing. In the ED pt with slightly soft BP of 118/41, vitals otherwise stable and WNL. Labs were significant for leukocytosis of 13.8, normocytic anemia of 12.6/37.0, sodium 127, chloride 93, bicarb 16, anion gap 22, BUN 110 , creatinine 2.10 (baseline around 1 point 20), random glucose 372, T bili 1.6, AST 230, ALT 182, alk-phos 645, and albumin 3.1. CXR and CT of head negative for acute findings. CT?of abdomen and pelvis found to pancreatic masses compatible with neoplasm with likely extensive metastatic disease to the liver. Also found small amount of pelvic free fluid and 2 nodules in right lower lobe. EKG demonstrated sinus bradycardia of 52 with PACs and RBBB, QTc 483. Similar to prior. Pt was treated with regular insulin 5 units IV, and IVF. Pt will be admitted to the hospital for treatment and further evaluation of acute metabolic encephalopathy, SHAILA, and hyponatremia in the setting of failure to thrive and concern for metastatic pancreatic cancer. Hospital course The patient was admitted for the following problem: # Acute metabolic encephalopathy and failure to thrive in the setting of concerns for metastatic pancreatic cancer as confused worse than baseline and unable to take care of himself at home recently. His CT of abdomen and pelvis found to pancreatic masses compatible with neoplasm, and extensive metastatic disease to liver, and 2 nodules of concern within right lower lobe and CT of head negative for acute intracranial abnormality. Evaluated by Oncology input appreciated, not a good candidate for palliative chemotherapy. Overall prognosis is poor. pending CA19-9 These findings were discussed with HCP Evelyn we agreed to sign DNR\DNI with a plan to go for short [facility] rehab for now [facility] and to hold on any biopsies at this point. MEntal status improved as it was likely related to acute kidney injury. # Acute kidney injury with metabolic acidosis . Creatinine improved to 1. restarted Lasix, Hold on Losartan on discharge and monitor if BP increases. Follow kidney function # acute Hyponatremia. improved with IV fluids. # Recent DVTs. Diagnosed with bilateral DVTs on 08/01/2024. restarted Eliquis 10 mg bid as he was on Lovenox during the hospital stay for any plans for biopsies. He can be switched to 5 mg bid in 2-3 days. # Leukocytosis. Likely secondary to metastatic disease, not sepsis. No indication for antibiotic use at this time # Transaminitis. Likely secondary to pancreatic cancer metastasis to liver # Insulin-dependent type 2 diabetes. Pt initially hyperglycemic at 372. Likely secondary to medication noncompliance, concern for pancreatic cancer. He was kept on sliding scale insulin. To Continue Lantus and Jardiance. Discontinue Metformin. # Right lower extremity evidence of petechiae and purpura. evaluated by wound nurse and placed on BEL wrap. Elevate lower leg and heels off of bed recliner surface - moist wound healing with gauze dressing while weeping is noted if begin to dry may use xeroform to allow for moist wound healing to slough areas Discharge plan Metastatic pancreatic cancer shown in CT scans. discussed with Oncology and Health care proxy with a plan for palliative care and no intention for further evaluation or biopsies. Oxycodone for pain Nystatin for rash Discontinue Losartan High protein intake Hospice care team evaluation while in facility Time Attestation Discharge Coordination Time (in mins): 48 Quality: Safe Use of Opioids Does Pt have an Active Cancer Diagnosis on the Problem List?: Yes Opioid Measure Date for [facility] Report: 07/12/24 Opioid Measure Time for [facility] Report: 11:50 Quality: Stroke Does the patient have a stroke diagnosis?: No Physical Exam Vital Signs: Vital Signs: Last Vital Signs Temp 98.0 F 08/11/24 07:06 Pulse 66 08/11/24 07:06 Resp 16 08/11/24 07:06 BP 137/61 08/11/24 07:06 Pulse Ox 96 08/11/24 07:06 O2 Del Method Room Air 08/11/24 07:06 BMI result Body Mass Index 27.3 Const: Other: Constitutional : interactive, not in distress Cardiovascular : no JVP, +1 right lower extremity edema Respiratory : bilateral chest movement, not in resp distress Gastrointestinal: soft, lax, Non tender Skin : Warm, Dry, Right lower extremity evidence of petechiae and purpura. Neurological : Alert & disoriented to details, aware of self and place, No focal deficit DS: Data Data Completed and Pending Labs on day of discharge: Laboratory Results - last 24 hr 08/10/24 08/10/24 08/10/24 11:42 16:09 20:15 POC Glucose 341 H 317 H 252 H 08/11/24 08/11/24 07:09 11:20 POC Glucose [address] scan - abdomen: Radiologist's impression: CT ABd IMPRESSION: 1. 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 2. 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 3. Small amount of pelvic free fluid. 4. There are 2 nodules within the visualized right lower lobe. Recommend dedicated chest CT for further evaluation when clinically appropriate. Discharge Plan Discharge Anticipated Discharge Date/Time: 08/11/24 11:28 Patient Disposition: er [facility] Discharge Diagnosis: Metastatic pancreatic cancer Acute kidney injury DVT Referrals: [facility] [Outside] - 1 Week Andi Duff MD [Primary Care Provider] - 1 Week Discharge Medications: New nystatin 100,000 unit/gram Powder 1 appl topical BID Qty: 30 0RF Protocol: Apply to: Apply to: apply to affedted areas oxycodone 5 mg Tablet 5 mg PO Q4H PRN (Reason: Pain, Moderate(Pain Scale 4-6)) Qty: 20 0RF Rx Instructions: Partial Fill upon patient request. Continued aspirin [Le Low Dose Aspirin] 81 mg tablet,delayed release (DR/EC) 81 mg PO DAILY Qty: 90 0RF (DME) Freestyle lancets See Rx Instructions .Route .MEDSUPPLY Qty: 100 0RF Rx Instructions: As directed atorvastatin 80 mg tablet 80 mg PO DAILY Qty: 90 0RF amiodarone 200 mg tablet 200 mg PO DAILY Qty: 90 3RF clopidogrel 75 mg tablet 75 mg PO DAILY 90 Days Qty: 90 1RF furosemide 40 mg tablet 40 mg PO DAILY 90 Days Qty: 90 0RF insulin lispro [Humalog KwikPen Insulin] 100 unit/mL insulin pen See Rx Instructions subcut TID Qty: 15 0RF Rx Instructions: 7 u breakfast, 10 u lunch and 14 units with dinner subcut 3 times a day; metformin 500 mg tablet 1,000 mg PO BID@0630,1200 Qty: 180 0RF clobetasol 0.05 % cream 1 appl topical BID 14 Days Qty: 60 0RF trazodone 50 mg tablet 50 mg PO BEDTIME PRN (Reason: insomnia) 30 Days Qty: 30 2RF potassium chloride 10 mEq capsule, extended release 20 meq PO DAILY 90 Days Qty: 180 0RF famotidine 20 mg tablet 20 mg PO BID Qty: 60 0RF meclizine 25 mg tablet 25 mg PO BID@0630,1200 PRN (Reason: for dizziness) Lumigan 0.01 % drops 1 drp ophthalmic-Left BEDTIME metoprolol succinate 50 mg Tablet Extended Release 24 Hr 50 mg PO DAILY 90 Days Qty: 90 0RF Protocol: Hold for SBP/HR < HOLD for SBP < : 90 HOLD for HR < : 60 Eliquis DVT-PE Treat 30D Start 5 mg (74 tabs) tablets,dose pack 10 mg PO BID insulin glargine [Lantus Solostar U-100 Insulin] 100 unit/mL (3 mL) insulin pen 14 unit subcut QPM cholecalciferol (vitamin D3) 50 mcg (2,000 unit) capsule 50 mcg PO DAILY 90 Days Qty: 90 3RF Jardiance 25 mg tablet 25 mg PO DAILY Qty: 90 2RF Discontinued losartan 50 mg tablet 50 mg PO DAILY Discharge Orders: Discharge Order (Routine); Ordered 08/11/24 Ordered By: Dieter Baker Diet: Advance to usual diet Activity on Discharge: As tolerated Stand Alone Forms: Patient Portal Discharge page Print Language: Spanish Care Plan Goals: Metastatic pancreatic cancer shown in CT scans. discussed with Oncology and Health care proxy with a plan for palliative care and no intention for further evaluation or biopsies. Oxycodone for pain Nystatin for rash Discontinue Losartan High protein intake Hospice care team evaluation while in facility Health Concerns: MEtastatic pancreatic cancer Kidney injury Elderly failure to thrive Plan of Treatment: Short term rehab Pain control with Oxycodone Hospice team evaluation Assessment: as above Patient Instructions: Pancreatic Cancer (DC)
[2024-08-20 02:48] LABS: Carbohydrate Antigen 19-9 >700000 U/mL (<34)
== END 2024-08-11 13:58 | disposition skilled nursing facility (03) | DRG 435 ==
LOC: HO.ED 21:05 → HO.EDOVER 23:53 → HO.S3 08-06 17:22
PROVIDERS: Internal Medicine; Physician Assistant; Registered Nurse Emergency; Student in an Organized Health Care Education/Training Program; Admitting Provider Internal Medicine; Emergency Provider Internal Medicine; PCP Internal Medicine; Visit Provider Student in an Organized Health Care Education/Training Program
DX: C25.1 Malignant neoplasm of body of pancreas (principal); G93.41 Metabolic encephalopathy; C78.7 Secondary malignant neoplasm of liver and intrahepatic bile duct; C78.01 Secondary malignant neoplasm of right lung; N17.9 Acute kidney failure, unspecified; E87.21 Acute metabolic acidosis; E44.0 Moderate protein-calorie malnutrition; E87.1 Hypo-osmolality and hyponatremia; I25.10 Atherosclerotic heart disease of native coronary artery without angina pectoris; Z95.1 Presence of aortocoronary bypass graft; L89.322 Pressure ulcer of left buttock, stage 2; E11.42 Type 2 diabetes mellitus with diabetic polyneuropathy; I48.0 Paroxysmal atrial fibrillation; D63.0 Anemia in neoplastic disease; R62.7 Adult failure to thrive; E11.65 Type 2 diabetes mellitus with hyperglycemia; Z66 Do not resuscitate; Z68.27 Body mass index [BMI] 27.0-27.9, adult; Z20.822 Contact with and (suspected) exposure to COVID-19; Z86.718 Personal history of other venous thrombosis and embolism; Z91.148 Patient's other noncompliance with medication regimen for other reason; Z87.891 Personal history of nicotine dependence; Z79.4 Long term (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 insulin; Z79.01 Long term (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 anticoagulants; Z79.02 Long term (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 antithrombotics/antiplatelets; Z79.82 Long term (current) use of aspirin; Z79.84 Long term (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 oral hypoglycemic drugs; Z79.899 Other long term (current) drug therapy
CPT/HCPCS: 0241U; 36415; 70450; 71046; 74176; 80048; 80053; 80076; 81001; 82248; 82803; 82947; 83615; 83735; 84484; 85025; 85027; 85610; 86301; 93005; 96127; 97161; 97530; 99212; 99285; J1650; J2270; J7120

== ENCOUNTER → 2024-08-05 17:13 | Outpatient (BNV) | payer MEDICARE, SELFPAY | PROVIDERS: Admitting Provider Internal Medicine; Emergency Provider Internal Medicine; PCP Internal Medicine; Visit Provider Internal Medicine | DX: I49.1 Atrial premature depolarization (principal); I45.10 Unspecified right bundle-branch block; R00.1 Bradycardia, unspecified | CPT/HCPCS: 93010 ==

== ENCOUNTER → 2024-08-05 17:13 | Outpatient (BNV) | payer MEDICARE, SELFPAY | PROVIDERS: PCP Internal Medicine; Visit Provider Radiology Diagnostic Radiology | DX: C78.7 Secondary malignant neoplasm of liver and intrahepatic bile duct (principal); K86.9 Disease of pancreas, unspecified; S09.90XA Unspecified injury of head, initial encounter; W19.XXXA Unspecified fall, initial encounter; R53.1 Weakness | CPT/HCPCS: 70450; 71046; 74176 ==

== ENCOUNTER → 2024-08-05 23:48 | Outpatient (BNV) | payer MEDICARE, SELFPAY | PROVIDERS: Admitting Provider Internal Medicine; Emergency Provider Internal Medicine; PCP Internal Medicine; Visit Provider Internal Medicine | DX: R16.0 Hepatomegaly, not elsewhere classified (principal) | CPT/HCPCS: 99222 ==

== ENCOUNTER → 2024-08-05 23:48 | Outpatient (BNV) | payer MEDICARE, SELFPAY | PROVIDERS: Admitting Provider Internal Medicine; Emergency Provider Internal Medicine; PCP Internal Medicine; Visit Provider Student in an Organized Health Care Education/Training Program | DX: K86.9 Disease of pancreas, unspecified (principal); N17.9 Acute kidney failure, unspecified; I82.493 Acute embolism and thrombosis of other specified deep vein of lower extremity, bilateral; R62.7 Adult failure to thrive; R79.89 Other specified abnormal findings of blood chemistry | CPT/HCPCS: 99232; 99233 ==